=== PATIENT | female | born 1945 | race Two or more races ===

== ENCOUNTER 2023-06-05 12:04 | Outpatient (OUT) | payer MEDICARE, SELFPAY ==
[2023-06-05 12:41] LABS: Estimated Average Glucose 137 mg/dL; Glycohemoglobin A1C 6.4 % (4.5-6.2)
== END 2023-06-05 12:05 | disposition home or self-care (01) ==
LOC: LAB 12:08
PROVIDERS: PCP Family Medicine; Visit Provider Family Medicine
DX: E11.65 Type 2 diabetes mellitus with hyperglycemia (principal)
CPT/HCPCS: 36415; 83036

== ENCOUNTER 2023-11-26 11:45 | Outpatient (OUT) | payer MEDICARE, MEDICAID, SELFPAY ==
[2023-11-26 12:18] LABS: Microalbumin Urine Random <1.3 mg/dL (<=30.0)
[2023-11-26 12:42] LABS: Estimated Average Glucose 194 mg/dL; Glycohemoglobin A1C 8.4 % (4.5-6.2)
[2023-11-26 13:01] LABS: Basophils Absolute Auto 0.1 10^3/uL (0.0-0.1); Basophils Percent Auto 0.5 % (0.2-2.0); Eosinophils Percent Auto 0.3 % (0.9-7.0); Hematocrit 36.3 % (36.0-48.0); Hemoglobin 11.3 g/dL (12.0-16.0); Immature Granulocytes Abs Auto 0.05 10^3/uL (0.00-0.03); Immature Granulocytes Pct Auto 0.4 % (0.0-0.5); Lymphocytes Absolute Auto 2.9 10^3/uL (1.2-3.8); Lymphocytes Percent Auto 20.7 % (20.5-60.0); Mean Corpuscular HGB Conc 31.1 g/dL (29.9-35.2); Mean Corpuscular Hemoglobin 24.2 pg (26.7-34.0); Mean Corpuscular Volume 77.9 fL (81.0-99.0); Monocytes Absolute Auto 0.9 10^3/uL (0.3-0.8); Monocytes Percent Auto 6.3 % (1.7-12.0); Neutrophils Percent Auto 71.8 % (43.0-75.0); Platelet Count 435 10^3/uL (150-450); Red Blood Count 4.66 10^6/uL (4.20-5.40); Red Cell Distribution Width 19.4 % (11.0-15.0); White Blood Count 13.9 10^3/uL (4.0-11.0)
[2023-11-26 14:45] LABS: Alanine Aminotransferase 20 U/L (14-59); Albumin Globulin Ratio 0.9; Albumin Level 3.6 g/dL (3.4-5.0); Alkaline Phosphatase 93 U/L (46-116); Anion Gap 11.1; Aspartate Amino Transferase 12 U/L (15-37); BUN Creatinine Ratio 12.3; Bilirubin Direct 0.1 mg/dL (0.0-0.2); Bilirubin Total 0.3 mg/dL (0.2-1.0); Calcium 9.5 mg/dL (8.5-10.1); Carbon Dioxide 30.1 mmol/L (21.0-32.0); Chloride 101 mmol/L (98-107); Chol HDL Ratio 1.9; Cholesterol 133 mg/dL (<=200); Estimated GFR (African America >60 (>=60); Estimated GFR (Non-African Ame >60 (>=60); Glucose 93 mg/dL (74-106); HDL Cholesterol 69 mg/dL (40-60); Potassium 4.2 mmol/L (3.5-5.1); Sodium 138 mmol/L (136-145); Total Protein 7.6 g/dL (6.4-8.2); Triglycerides 68 mg/dL (<=150); VLDL CHOLESTEROL 13.6 mg/dL
== END 2023-11-26 11:46 | disposition home or self-care (01) ==
PROVIDERS: PCP Family Medicine; Visit Provider Family Medicine
DX: E11.65 Type 2 diabetes mellitus with hyperglycemia (principal); M85.851 Other specified disorders of bone density and structure, right thigh; M85.852 Other specified disorders of bone density and structure, left thigh; I10 Essential (primary) hypertension; Z79.899 Other long term (current) drug therapy; E78.5 Hyperlipidemia, unspecified
CPT/HCPCS: 36415; 80048; 80061; 80076; 82043; 82306; 83036; 85025

== ENCOUNTER 2024-05-26 14:04 | Outpatient (OUT) | payer MEDICARE, MEDICAID, SELFPAY ==
--- NOTE | 2024-05-26 14:37 | XR_ITS ---
The [address] [address] Patient Name: MAC DENIS MRN: [id number] date: 1945 Sex: F Assigned Patient Location: LAB Current Patient Location: Accession/Order Number: [id number] Exam Date: 05/26/2024 14:40 Report Date: 05/27/2024 06:06 At the request of: MARIELOS MANNING Procedure: XR chest 2V EXAMINATION: XR chest 2V HISTORY: Shortness Of Breath , cough COMPARISON: No relevant comparison available. FINDINGS: LUNGS: Mild haziness and stranding within right lung base. VASCULATURE: No increased pulmonary vasculature. PLEURA: No pneumothorax, effusion, or pleural thickening. CARDIAC: No cardiomegaly or cardiac silhouette abnormality. MEDIASTINUM: No visible mass or adenopathy. BONES: No fracture or visible bone lesion. OTHER: Rim calcified breast implants projecting over lung bases. XR/XR chest 2V IMPRESSION: 1. Mild right basilar infiltrates. Electronically authenticated by: SHIRAZ MENA Date: 05/27/2024 06:06
[2024-05-26 14:38] LABS: Basophils Absolute Auto 0.1 10^3/uL (0.0-0.1); Basophils Percent Auto 0.5 % (0.2-2.0); Eosinophils Percent Auto 0.3 % (0.9-7.0); Hematocrit 24.2 % (36.0-48.0); Immature Granulocytes Abs Auto 0.03 10^3/uL (0.00-0.03); Immature Granulocytes Pct Auto 0.3 % (0.0-0.5); Lymphocytes Absolute Auto 2.1 10^3/uL (1.2-3.8); Lymphocytes Percent Auto 18.6 % (20.5-60.0); Mean Corpuscular HGB Conc 26.9 g/dL (29.9-35.2); Mean Corpuscular Hemoglobin 17.3 pg (26.7-34.0); Mean Corpuscular Volume 64.4 fL (81.0-99.0); Mean Platelet Volume 9.2 fL (9.5-13.5); Monocytes Absolute Auto 0.9 10^3/uL (0.3-0.8); Monocytes Percent Auto 7.8 % (1.7-12.0); Neutrophils Percent Auto 72.5 % (43.0-75.0); Platelet Count 337 10^3/uL (150-450); Red Cell Distribution Width 21.4 % (11.0-15.0)
[2024-05-26 15:06] LABS: Estimated Average Glucose 163 mg/dL; Glycohemoglobin A1C 7.3 % (4.5-6.2); Hemoglobin 6.5 g/dL (12.0-16.0)
[2024-05-26 15:08] LABS: Red Blood Count 3.76 10^6/uL (4.20-5.40)
[2024-05-26 15:19] LABS: Alanine Aminotransferase 21 U/L (14-59); Albumin Globulin Ratio 0.9; Albumin Level 3.4 g/dL (3.4-5.0); Alkaline Phosphatase 94 U/L (46-116); Anion Gap 15.2; Aspartate Amino Transferase 18 U/L (15-37); BUN Creatinine Ratio 15.6; Bilirubin Direct 0.1 mg/dL (0.0-0.2); Bilirubin Total 0.4 mg/dL (0.2-1.0); Calcium 8.9 mg/dL (8.5-10.1); Carbon Dioxide 23.7 mmol/L (21.0-32.0); Chloride 106 mmol/L (98-107); Estimated GFR (African America >60 (>=60 mL/min/1.73m^2); Estimated GFR (Non-African Ame >60 (>=60 mL/min/1.73m^2); Globulin 3.9 g/dL; Glucose 69 mg/dL (74-106); Potassium 3.9 mmol/L (3.5-5.1); Sodium 141 mmol/L (136-145); TSH W/ REFLEX FT4 2.535 uIU/mL (0.358-3.740); Total Protein 7.3 g/dL (6.4-8.2)
== END 2024-05-26 14:05 | disposition home or self-care (01) ==
LOC: LAB 14:06
PROVIDERS: PCP Family Medicine; Visit Provider Family Medicine
DX: E11.65 Type 2 diabetes mellitus with hyperglycemia (principal); I10 Essential (primary) hypertension; Z79.899 Other long term (current) drug therapy; R53.83 Other fatigue; R06.02 Shortness of breath; R60.0 Localized edema
CPT/HCPCS: 36415; 71046; 80048; 80076; 83036; 84443; 85025

== ENCOUNTER 2024-05-26 16:40 | Observation (INO) | payer MEDICARE, MEDICAID, SELFPAY ==
[2024-05-26] VITALS (32 sets, daily range): BP systolic 121–155; BP diastolic 57–86; PULSE 82–100; TEMP 36.4–36.8; O2SAT 72–100; BMI 25.4; BMI 26.4
--- NOTE | 2024-05-26 16:57 | ECG_ITS ---
The [facility] Test Date: 2024-05-26 Pat Name: MAC DENIS Department: Room: - Gender: Female [employer]: : 1945 Requested By: MARIELOS MANNING Order Number: [id number] Reading MD: LYLA WOLFE Measurements Intervals [place] Rate: 92 P: 66 [place]: 140 QRS: 65 QRSD: 74 T: 33 QT: 346 QTc: 396 Interpretive Statements 1100 Sinus rhythm 9110 normal ECG Compared to ECG 03/03/2019 12:33:31 No significant changes Electronically Signed On 05-28-2024 8:50:45 EST by LYLA WOLFE
--- OUTSIDE RECORDS SUMMARY | 2024-05-26 17:04 | XMS_ITS | CCD ---
Author Organization [facility] Care Team Providers Care Life Trainer Name Role Phone SELF, REFERRED Referring Unavailable CLAYTON MANNING Primary Care Unavailable RENNO, ANAS Attending Unavailable RENNO, ANAS Admitting Unavailable [place] Procedure Practitioner Unavailab IVANIA Brennan Surgeon Unavailable MD Clayton Manning Primary Care Provider [phone] MARILYN Solomon Attending Provider Willie Herrera Unavailable Hetal Tomlinson Unavailable MD Clayton Manning Primary Care Provider [phone] MARILYN Solomon Attending Provider KERRI, DR CLAYTON Castle Attending Unavailable NADERER, DR CLAYTON Castle Admitting Unavailable NADERER, DR CLAYTON Castle Primary Care Unavailable NADERER, DR CLAYTON Castle Consulting Unavailable NADERER, DR CLAYTON Castle Consulting Unavailable NADEREMarc, DR CLAYTON Castle Attending Unavailable MINNAEREMarc, DR CLAYTON Castle Admitting Unavailable NADERER, DR CLAYTON Castle Primary Care Unavailable NADERER, DR CLAYOTN Castle Attending Unavailable NADERER, DR CLAYTON Castle Admitting Unavailable [place], DR BALTAZAR Gross Consulting Unavailable NADERER, DR CLAYTON Castle Primary Care Unavailable MINNAEREMarc, DR CLAYTON Castle Consulting Unavailable MD Clayton Manning Primary Care Provider MD Willie Herrera Attending Provider [phone] MD Clayton Manning Primary Care Provider MD Willie Herrera Attending Provider ALISA RUFFIN Attending Unavailable CLAYTON MANNING Attending Unavailable ALISA RUFFIN Attending Unavailable ALISA RUFFIN Attending Unavailable CLAYTON MANNING Attending Unavailable Clayton Manning MD Primary Care Provider Willie Herrera Attending Unavailable Clayton Manning Primary Care Unavailable Willie Herrera Admitting Unavailable Willie Herrera Attending Unavailable Clayton Manning Primary Care Unavailable Willie Herrera Admitting Unavailable Medications Current Medications Medication Drug Class(es) Dates Sig (Normalized) Sig (Original) ascorbic acid 1000 mg oral tablet (9 sources) Vitamin C Start: 03-22-2019 take 1 tablet by mouth once daily Ascorbic Acid (Vitamin C) (Vitamin C) 1,000 mg Tablet Active 1 TAB PO Daily March 22, 2019 12:00am aspirin 81 mg chewable tablet (18 sources) Platelet Aggregation Inhibitor, Nonsteroidal Anti-inflammatory Drug Start: 03-24-2017 take 1 tablet by mouth once daily Aspirin (Jannette Chewable Aspirin) 81 mg Tablet,Chewable Active 81 MG PO Daily March 24, 2017 12:00am take 1 tablet by mouth in the mo rning aspirin 81 MG EC tablet Take 81 mg by mouth in the morning. Active atorvastatin 40 mg oral tablet (11 sources) HMG-CoA Reductase Inhibitor Start: 03-26-2023 take 1 tablet by mouth once daily at bedtime atorvastatin (Lipitor) 40 MG tablet Indications: Dyslipidemia (CMS/HCC) TAKE 1 TABLET BY MOUTH EVERYDAY AT BEDTIME 90 tablet 3 03/02/2024 Active calcium carbonate 1500 mg oral tablet (12 sources) Start: 03-24-2017 take 1 tablet by mouth once daily Calcium Carbonate (Calcium 600) 600 mg calcium (1,500 mg) Tablet Active 1 TAB PO Daily March 24, 2017 12:00am clopidogrel 75 mg oral tablet (18 sources) P2Y12 Platelet Inhibitor Start: 12-12-2020 take 1 tablet by mouth once daily clopidogrel (Plavix) 75 MG tablet Indications: Peripheral vascular disease, unspecified (CMS/HCC) TAKE 1 TABLET BY MOUTH EVERY DAY 90 tablet 3 04/07/2024 Active Fish Oils (4 sources) take 1 capsule by mouth once daily Fish Oil 1000 MG 1 capsule Orally Once a day Active furosemide 40 mg oral tablet (3 sources) Loop Diuretic Start: 05-26-2024 take 1 tablet by mouth once daily furosemide (Lasix) 40 MG tablet Indications: Bilateral edema of lower extremity Take 1 tablet (40 mg) by mouth Daily 30 tablet 3 05/26/2024 Active Start: 05-26-2024 take 1 tablet by victor hugo th once daily furosemide (Lasix) 40 MG tablet Indications: Bilateral edema of lower extremity Take 1 tablet (40 mg) by mouth Daily 30 tablet 3 05/26/2024 Active insulin isophane, human 70 unt/ml / insulin, regular, human 30 unt/ml injectable suspension (20 sources) Insulin Start: 03-24-2017 inject 25 [IU] by subcutaneous injection once daily Insulin Nph And Regular Human Active 25 UNITS SUBCUT Daily before supper March 24, 2017 12:00am Start: 03-24-2017 End: 03-26-2023 inject 22 [IU] by subcutaneous injection once daily before breakfast Insulin Nph And Regular Human Discontinued 22 UNITS SUBCUT Daily before breakfast March 24, 2017 12:00am March 26, 2023 9:15am Start: 03-24-2017 inject 16 [IU] by galindo bcutaneous injection once daily Insulin Nph And Regular Human Active 16 UNITS SUBCUT Daily before supper March 24, 2017 12:00am NovoLIN 70/30 (7 0-30) 100 UNIT/ML Subcutaneous 22 units AM, 16 in evening Active 3 ml insulin lispro 25 unt/ml / insulin lispro protamine, human 75 unt/ml pen injector (6 sources) Insulin Analog Start: 03-02-2024 insulin lispro protamine-insulin lispro (HumaLOG MIX 75/25 KWIKPEN) (75-25) 100 UNIT/ML injection Indications: Type 2 diabetes mellitus with hyperglycemia, without long-term current use of insulin (CMS/HCC) Inject 30 Units under the skin in the morning and 30 Units in the evening. Inject with meals. 15 each 5 03/02/2024 Active losartan potassium 25 mg oral tablet (14 sources) Angiotensin 2 Receptor Juan Start: 10-20-2019 take 1 tablet by mouth once daily losartan (Cozaar) 25 MG tablet Indications: Type 2 diabetes mellitus with hyperglycemia (CMS/HCC) TAKE 1 TABLET BY MOUTH EVERY DAY 90 tablet 3 03/02/2024 Active penicillin v potassium 250 mg oral tablet (1 source) take 1 tablet by mouth every twelve hours Penicillin V Potassium 250 MG 1 tablet Orally Twice a day Active Red Yeast Rice Extract (3 sources) Red Yeast Rice E xtract Active Vit D3-Folic Zqpk-J3-A1-B12 (8 sources) Start: 03-24-2017 take 1 tablet by mouth once daily Vit D3-Folic Ogwi-B6-F5-B12 Active 1 TAB PO Daily March 24, 2017 12:13pm Start: 03-24-2017 take 1 tablet by victor hugo th once daily Vit D3-Folic Arap-J0-B5-B12 Active 1 TAB PO Daily March 24, 2017 12:00am Vitamin C 1000 MG (3 sources) take 1 tablet by victor hugo th once daily Vitamin C 1000 MG 1 tablet Orally Once a day Active Vitamin D 2000 UNIT (4 sources) take 1 tablet by victor hugo th once daily Vitamin D 2000 UNIT 1 tablet Orally Once a day Active Completed/Discontinued Medications Medication Drug Class(es) Dates Sig (Normalized) Sig (Original) lisinopril 5 mg oral tablet (12 sources) Angiotensin Converting Enzyme Inhibitor Start: 03-24-2017 End: 10-20-2019 take 1 tablet by mouth once daily Lisinopril Discontinued 1 TAB PO Daily March 24, 2017 12:00am October 20, 2019 9:14am [place] 9-Fbg-Rpo-Fish Oil (Fish Oil) 1,000 mg (120 mg-180 mg) Capsule (8 sources) Start: 03-24-2017 End: 03-22-2019 take 1 tablet by mouth once daily [place] 1-Cqr-Pyu-Fish Oil (Fish Oil) 1,000 mg (120 mg-180 mg) Capsule Discontinued 1 TAB PO Daily March 24, 2017 12:13pm March 22, 2019 12:09pm Start: 03-24-2017 End: 03-22-2019 take 1 tablet by mouth once daily [place] 1-Haz-Fmg-Fish Oil (Fish Oil) 1,000 mg (120 mg-180 mg) Capsule Discontinued 1 TAB PO Daily March 24, 2017 12:00am March 22, 2019 12:09pm simvastatin 20 mg oral tablet (12 sources) HMG-CoA Reductase Inhibitor Start: 03-24-2017 End: 03-22-2019 take 20 mg by mouth once daily Simvastatin Discontinued 20 MG PO Daily March 24, 2017 12:00am March 22, 2019 12:08pm traMADol hydrochloride 50 mg oral tablet (8 sources) Opioid Agonist Start: 04-13-2019 End: 10-20-2019 Tramadol Discontinued 50 MG PO every 6 to 8 hours 20 7 April 13, 2019 12:00am October 20, 2019 9:14am triamcinolone acetonide 40 mg/ml injectable suspension (1 source) Corticosteroid Start: 12-04-2022 Kenalog-40 15 Nov, 2022 40 mg Problems Active Problems Problem Classification Problem Date Documented Da te Episodic/Chronic Anxiety disorders (6 sources) Generalized anxiety disorder; Translations: [Generalized anxiety disorder] Onset: 06-05-2023 06-05-2023 Chronic Diabetes mellitus with complications (12 sources) Type 2 diabetes mellitus with hyperglycemia; Translations: [Hyperglycemia due to type 2 diabetes mellitus] Onset: 05-05-2022 Chronic Disorders of lipid metabolism (6 sources) Dyslipidemia; Translations: [Hyperlipidemia, unspecified] Onset: 06-05-2023 06-05-2023 Chronic Essential hypertension (8 sources) Benign essential hypertension; Translations: [Essential (primary) hypertension] Onset: 06-05-2023 06-05-2023 Chronic Malaise and fatigue (7 sources) Fatigue; Translations: [Other fatigue] Onset: 05-26-2024 05-26-2024 Episodic Occlusion or stenosis of precerebral arteries (20 sources) Carotid artery stenosis; Translations: [Occlusion and stenosis of unspecified carotid artery] Onset: 09-09-2021 Resolved: 09-09-2021 12-28-2020 Chronic Osteoarthritis (8 sources) Chronic osteoarthritis; Translations: [Unspecified osteoarthritis, unspecified site] Onset: 06-05-2023 06-05-2023 Chronic Other circulatory disease (4 sources) Arterial, arteriole and capillary disease; Translations: [Disorder of arteries and arterioles, unspecified] Chronic Other ear and sense organ disorders (8 sources) Sensorineural hearing loss, bilateral; Translations: [Sensorineural hearing loss, bilateral] Onset: 05-26-2023 03-30-2024 Chronic Other lower respiratory disease (7 sources) Dyspnea; Translations: [Shortness of breath] Onset: 05-26-2024 05-26-2024 Episodic Peripheral and visceral atherosclerosis (8 sources) Peripheral vascular disease; Translations: [Peripheral vascular disease, unspecified] Onset: 05-26-2023 05-26-2023 Chronic Residual codes; unclassified (2 sources) Other specified postprocedural states; Translations: [Other postprocedural status] 10-05-2023 Episodic Residual codes; unclassified (7 sources) Bilateral lower limb edema; Translations: [Localized edema] Onset: 05-26-2024 05-26-2024 Episodic Screening and history of mental health and substance abuse codes (4 sources) Ex-smoker; Translations: [Personal history of nicotine dependence] Episodic Past or Other Problems Problem Classification Problem Date Documented Da te Episodic/Chronic Diseases of mouth; excluding dental (1 source) Recurrent oral aphthae Onset: 12-03-2021 Resolved: 12-03-2021 Episodic Other aftercare (1 source) 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; 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] Onset: 05-08-2022 Episodic Other aftercare (8 sources) Long-term current use of drug therapy; Translations: [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] Onset: 11-26-2023 11-26-2023 Episodic Other bone disease and musculoskeletal deformities (6 sources) Osteopenia; Translations: [Other specified disorders of bone density and structure, right thigh] Onset: 06-05-2023 06-05-2023 Episodic Other screening for suspected conditions (not mental disorders or infectious disease) (4 sources) Encounter for screening mammogram for malignant neoplasm of breast; Translations: [ENC SCR MAMMO MALIG NEOPLASM BREAST] Onset: 11-11-2021 Episodic Residual codes; unclassified (1 source) Family history of malignant neoplasm of breast; Translations: [FAMILY HX MALIG NEOPLASM OF BREAST] Onset: 11-14-2021 Episodic Residual codes; unclassified (1 source) Family history of malignant neoplasm of digestive organs; Translations: [FAM HX MALIG NEOPLASM DIGESTIV ORGN] Onset: 11-14-2021 Episodic Results Test Name Value Interpretation Reference Range Facility ALL CBC WITH AUTO DIFFon BASOPHILS ABSOLUTE AUTO 0.1 [facility] Basophils/100 WBC (Bld) 0.5 % 0.2 - 2.0 % [facility] Eosinophils/100 WBC (Bld) 0.3 % Low 0.9 - 7.0 % [facility] Erythrocyte distribution width (RBC) [Ratio] 21.4 % High 11.0 - 15.0 % [facility] Hematocrit (Bld) [Volume fraction] 24.2 % Low 36.0 - 48.0 % [facility] Hemoglobin (Bld) [Mass/Vol] 6.5 g/dL Critically low 12.0 - 16.0 g/dL [facility] Comment on above: RESULTS CALLED TO DR Anushka MANNING AT 1450 IMMATURE GRANULOCYTES ABS AUTO 0.03 [facility] Immature granulocytes/100 WBC (Bld) 0.3 % 0.0 - 0.5 % [facility] Interpretation and review of laboratory results Abnormal [facility] LYMPHOCYTES ABSOLUTE AUTO 2.1 [facility] Lymphocytes/100 WBC (Bld) 18.6 % Low 20.5 - 60.0 % [facility] MCH (RBC) [Entitic mass] 17.3 pg Low 26.7 - 34.0 pg [facility] MCHC (RBC) [Mass/Vol] 26.9 g/dL Low 29.9 - 35.2 g/dL [facility] MCV (RBC) [Entitic vol] 64.4 fL Low 81.0 - 99.0 fL [facility] MONOCYTES ABSOLUTE AUTO 0.9 High [facility] Monocytes/100 WBC (Bld) 7.8 % 1.7 - 12.0 % [facility] NEUTROPHILS ABSOLUTE AUTO 8 High [facility] Neutrophils/100 WBC (Bld) 72.5 % 43.0 - 75.0 % [facility] Platelet mean volume (Bld) [Entitic vol] 9.2 fL Low 9.5 - 13.5 fL [facility] TBH EO # 0 [facility]H PLT 337 [facility] TB RBC 3.76 Low [facility] Comment on above: 2+ ANISOCYTOSIS 2+ HYPCHROMIA 2+ MICROCYTOSIS 1+ OVALOCYTES TBH WBC 11 [facility] US carotid doppler BIon 10-2 US carotid doppler BI [facility] [address] [place] [address] Ultrasound Report Signed Patient: Neha Ashotn MR#: [id number] : 1945 Acct:[id number] Age/Sex: 78 / F ADM Date: 04/18/24 Loc: [facility] Room: Type: [facility] Attending Dr: Willie Herrera MD Ordering Provider: Willie Herrera MD Date of Service: 04/18/24 US/US carotid doppler BI: I65.23 - Occlusion and stenosis of bilateral carotid triny... Copies to: Willie Herrera MD Carotid duplex examination Indication for study: Follow-up known carotid occlusive disease PROCEDURE: Color-flow duplex scanning is used to interrogate the extracranial carotid arterial system bilaterally. The right internal carotid artery has moderate to severe plaque formation with a highest peak systolic velocity of 21 and 22 and an end-diastolic velocity of 36 cm/s. Velocities of the right common carotid artery are normal. The right vertebral artery is patent with antegrade flow. The peak systolic velocity ratios 1.3. There is a significant stenosis in the left common carotid artery where the velocity reaches 565 cm/s. The internal carotid artery shows no hemodynamically significant stenosis with a highest peak systolic velocity of 84 and an end-diastolic velocity of 28 cm/s. There is a left carotid subclavian bypass graft which is patent. The left vertebral artery is patent with antegrade flow. US/US carotid doppler BI IMPRESSION: 50-69% stenosis of the right extracranial internal carotid artery. No hemodynamically significant stenosis of the left extracranial internal carotid artery. Severe stenosis in the left common carotid artery. Patent left carotid to subclavian bypass graft. Both vertebral arteries are patent with antegrade flow. Impression dictated by: Willie Herrera M.D.04/18/2024 11:57 AM Dictation Location: [place] [address] Tech: Kary Fajardo Transcribed By: LOLI 04/18/24 1157 Dictated By: Willie Herrera MD 04/18/241153 Signed By: 04/18/24 1157 Normal [facility] US carotid doppler BIon 04- US carotid doppler BI [facility] [address] [place] [address] Ultrasound Report Signed Patient: Neha Ashton MR#: [id number] : 1945 Acct:[id number] Age/Sex: 78 / F ADM Date: 10/05/23 Loc: [facility] Room: Type: [facility] Attending Dr: Willie Herrera MD Ordering Provider: Willie Herrera MD Date of Service: 10/05/23 US/US carotid doppler BI: I65.23 Copies to: Willie Herrera MD Carotid duplex examination Indication for study: Known carotid occlusive disease PROCEDURE: Color-flow duplex scanning is used to interrogate the extracranial carotid arterial system as well as both vertebral arteries. The right internal carotid artery there is mild plaque formation. The highest peak systolic velocity in the internal carotid artery is 167 with an end- diastolic velocity of 23 cm/s. Velocities of the right common carotid artery are 160 peak systolic and 18 cm/s end-diastolic. The peak systolic velocity ratios 1.0. The right vertebral is patent with antegrade flow. There is a complex anatomy of the left carotid system. There is a background carotid to subclavian bypass as well as stent placement in the left common carotid artery. The bypass graft is noted to be patent. There is no hemodynamically significant stenosis of the internal carotid artery. The highest peak systolic velocity recorded in the internal carotid artery 62 with an end-diastolic velocity of 29 cm/s. There is recurrent stenosis in the common carotid artery at the region of a prior stent and this is stable from the previous examination. Peak systolic velocity there is 605 with an end-diastolic velocity of 66 cm/s. The left vertebral artery is patent with antegrade flow. US/US carotid doppler BI IMPRESSION: 50-69% stenosis of the right internal carotid artery. No hemodynamically significant stenosis of the left internal carotid artery. Patent left subclavian bypass. There is recurrent stenosis in the stented segment of the left common carotid artery which is unchanged from prior exam. Impression dictated by: Willie Herrera M.D.10/05/2023 11:17 AM Dictation Location: [place] [address] Tech: Kary Fajardo Transcribed By: LOLI 10/05/23 111 Dictated By: Willie Herrera MD 10/05/231113 Signed By: 10/05/23 111 Normal [facility] Creatinine [Mass/volume] in Serum or PlasmaOrdered By: Willie Herrera on 03-26-2023 Creatinine [Mass/Vol] 0.76 mg/dL 0.60-1.20 [facility] No Panel InformationOrdered By: Willie Herrera on 03-26-2023 Estimated GFR (CKD-EPI) > 60.0 mL/Min [facility] Creatinine Clearance (Chem 46.62 [facility] Urea nitrogen [Mass/volume] in Serum or PlasmaOrdered By: Willie Herrera on 03-26-2023 Urea nitrogen [Mass/Vol] 18 mg/dL 01-13 [facility] CBC AUTO DIFFon 11-04-2022 BASO # 0.1 103/ul Normal 0.0-0.1 [facility] Comment on above: Performed By: #### C BC #### [facility] [address] [place] [address] [address] Anette Shah Basophils/100 WBC (Bld) 0.4 % Normal 0.2-2.0 [facility] Comment on above: Performed By: #### C BC #### [facility] [address] [place] [address] [address] Anette Shah EO # 0.0 103/ul Normal 0.0-0.7 [facility] Comment on above: Performed By: #### C BC #### [facility] [address] [address] [address] Anette Shah Eosinophils/100 WBC (Bld) 0.1 % Critically low 0.9-7.0 [facility] Comment on above: Performed By: #### C BC #### [facility] [address] [place] [address] Dr. Anette Shah Erythrocyte distribution width (RBC) [Ratio] 18.3 % Critically high 11.0-15.0 [facility] Comment on above: Performed By: #### C BC #### [facility] [address] [place] [address] Dr. Anette Shah Hematocrit (Bld) [Volume fraction] 32.4 % Critically low 36.0-48.0 [facility] Comment on above: Performed By: #### C BC #### [facility] [address] [place] [address] Dr. Anette Shah Hemoglobin (Bld) [Mass/Vol] 10.0 g/dL Critically low 12.0-16.0 [facility] Comment on above: Performed By: #### C BC #### [facility] [address] [place] [address] Dr. Anette Shah IG # 0.05 10e3/ul Critically high 0.00-0.03 [facility] Comment on above: Performed By: #### C BC #### [facility] [address] [place] [address] Dr. Anette Shah IG % 0.4 % Normal 0.0-0.5 [facility] Comment on above: Performed By: #### C BC #### [facility] [address] [place] [address] Dr. Anette Shah LYMPH # 1.8 103/ul Normal 1.2-3.8 [facility] Comment on above: Performed By: #### C BC #### [facility] [address] [place] [address] Dr. Anette Shah Lymphocytes/100 WBC (Bld) 13.1 % Critically low 20.5-60.0 [facility] Comment on above: Performed By: #### C BC #### [facility] [address] [place] [address] Dr. Anette Shah MANUAL DIFF REQ NO Normal [facility] Comment on above: Performed By: #### C BC #### [facility] [address] [place] [address] Dr. Anette Shah MCH (RBC) [Entitic mass] 22.3 pg Critically low 26.7-34.0 [facility] Comment on above: Performed By: #### C BC #### [facility] [address] [place] [address] Dr. Anette Shah MCHC (RBC) [Mass/Vol] 30.9 g/dL Normal 29.9-35.2 [facility] Comment on above: Performed By: #### C BC #### [facility] [address] [place] [address] Dr. Anette Shah MCV (RBC) [Entitic vol] 72.2 fL Critically low 81.0-99.0 [facility] Comment on above: Performed By: #### C BC #### [facility] [address] [place] [address] Dr. Anette Shah MONO # 0.6 103/ul Normal 0.3-0.8 [facility] Comment on above: Performed By: #### C BC #### [facility] [address] [place] [address] Dr. Anette Shah Monocytes/100 WBC (Bld) 4.3 % Normal 1.7-12.0 [facility] Comment on above: Performed By: #### C BC #### [facility] [address] [place] [address] Dr. Anette Shah NEUT # 11.5 103/ul Critically high 1.4-6.5 [facility] Comment on above: Performed By: #### C BC #### [facility] [address] [place] [address] Dr. Anette Shah Neutrophils/100 WBC (Bld) 81.7 % Critically high 43.0-75.0 [facility] Comment on above: Performed By: #### C BC #### [facility] [address] [place] [address] Dr. Anette Shah Platelet mean volume (Bld) [Entitic vol] 8.8 fL Critically low 9.5-13.5 [facility] Comment on above: Performed By: #### C BC #### [facility] [address] [place] [address] Dr. Anette Shah PLT 479 103/ul Critically high 150-450 [facility] Comment on above: Performed By: #### C BC #### [facility] [address] [place] [address] Dr. Anette Shah RBC 4.49 106/ul Normal 4.20-5.40 [facility] Comment on above: Performed By: #### C BC #### [facility] [address] [place] [address] Dr. Anette Shah WBC 14.1 103/ul Critically high 4.0-11.0 [facility] Comment on above: Performed By: #### C BC #### [facility] [address] [place] [address] Dr. Anette Shah GLYCOHEMOGLOBIN A1Con 2022 ADA RECOMMENDATION SEE BELOW Normal [facility] Comment on above: Result Comment: ADA RECOMMENDED LIMIT 4.0 - 6.0 ADA THERAPEUTIC TARGET < 7.0 ACTION SUGGESTED > 7.0 Performed By: #### A 1C #### [facility] [address] [address] [address] Anette Shah Glucose [Mass/Vol] 200 mg/dL Normal [facility] Comment on above: Performed By: #### A 1C #### [facility] [address] [address] [address] Anette Shah HbA1c (Bld) [Mass fraction] 8.6 % Critically high 4.5-6.2 [facility] Comment on above: Performed By: #### A 1C #### [facility] [address] [place] [address] Dr. Anette Shah LIPID PROFILEon 11-04-2022 CHOL-HDL RATIO NORM SEE BELOW Normal [facility] Comment on above: Result Comment: 3.3 - 4.4 LOW RISK 4.4 - 7.1 AVERAGE RISK 7.1 - 11.0 MODERATE RISK >11.0 HIGH RISK Performed By: #### L IPID, BMP, LIVER #### [facility] [address] [address] [address] Anette Shah Cholesterol [Mass/Vol] 123 mg/dL Normal <=200 Th [facility] Comment on above: Performed By: #### L IPID, BMP, LIVER #### [facility] [address] [address] [address] Anette Shah Cholesterol in HDL [Mass/Vol] 61 mg/dL Critically high 40-60 [facility] Comment on above: Performed By: #### L IPID, BMP, LIVER #### [facility] [address] [address] [address] Anette Shah Cholesterol in LDL [Mass/Vol] 35.0 mg/dL Normal [facility] Comment on above: Performed By: #### L IPID, BMP, LIVER #### [facility] [address] [address] [address] Anette Shah Cholesterol.total/Chol esterol in HDL [Mass ratio] 2.0 {ratio} Normal [facility] Comment on above: Performed By: #### L IPID, BMP, LIVER #### [facility] [address] [address] [address] Anette Shah HDL NORMAL > or = 60 mg/dl - LO W CARDIOVASCULAR RISK <40 mg/dl - HIGH CARDIOVASCULAR RISK Normal [facility] Comment on above: Performed By: #### L IPID, BMP, LIVER #### [facility] [address] [address] [address] Anette Shah LDL CALC NORMAL SEE BELOW Normal [facility] Comment on above: Result Comment: <100 mg/dl OPTIMAL 100 - 129 mg/dl NEAR OR ABOVE OPTIMAL 130 - 159 mg/dl BORDERLINE HIGH 160 - 189 mg/dl HIGH >190 mg/dl VERY HIGH Performed By: #### L IPID, BMP, LIVER #### [facility] [address] [address] [address] Anette Shah Triglyceride [Mass/Vol] 135 mg/dL Normal <=150 [facility] Comment on above: Performed By: #### L IPID, BMP, LIVER #### [facility] [address] [address] [address] Anette Shah VLDL CALC 27.0 mg/dL Normal [facility] Comment on above: Performed By: #### L IPID, BMP, LIVER #### [facility] [address] [address] [address] Anette Shah LIVER PROFILEon 11-04-2022 Albumin [Mass/Vol] 3.4 g/dL Normal 3.4-5.0 [facility] Comment on above: Performed By: #### L IPID, BMP, LIVER #### [facility] [address] [address] [address] Anette Shah Albumin/Globulin [Mass ratio] 0.9 {ratio} Normal [facility] Comment on above: Performed By: #### L IPID, BMP, LIVER #### [facility] [address] [address] [address] Anette Shah ALP [Catalytic activity/Vol] 99 U/L Normal 46-116 [facility] Comment on above: Performed By: #### L IPID, BMP, LIVER #### [facility] [address] [address] [address] Anette Shah ALT [Catalytic activity/Vol] 20 U/L Normal 14-59 [facility] Comment on above: Performed By: #### L IPID, BMP, LIVER #### [facility] [address] [address] [address] Anette Shah AST [Catalytic activity/Vol] 16 U/L Normal 15-37 [facility] Comment on above: Performed By: #### L IPID, BMP, LIVER #### [facility] [address] [place] [address] Dr. Anette Shah BILI, CONJUGATED 0.1 mg/dL Normal 0.0-0.2 [facility] Comment on above: Performed By: #### L IPID, BMP, LIVER #### [facility] [address] [place] [address] Dr. Anette Shah Bilirubin [Mass/Vol] 0.3 mg/dL Normal 0.2-1.0 [facility] Comment on above: Performed By: #### L IPID, BMP, LIVER #### [facility] [address] [place] [address] Dr. Anette Shah Globulin (S) [Mass/Vol] 4.0 g/dL Normal [facility] Comment on above: Performed By: #### L IPID, BMP, LIVER #### [facility] [address] [place] [address] Dr. Anette Shah Protein [Mass/Vol] 7.4 g/dL Normal 6.4-8.2 [facility] Comment on above: Performed By: #### L IPID, BMP, LIVER #### [facility] [address] [place] [address] Dr. Anette Shah MICROALBUMIN, RAND URon 05- mALB 1.4 mg/dL Normal <=30.0 [facility] Comment on above: Performed By: #### M ALBR #### [facility] [address] [place] [address] Dr. Anette Shah PROF CHEM 8 (BAS METB)on Anion gap [Moles/Vol] 14.9 mmol/L Normal [facility] Comment on above: Performed By: #### L IPID, BMP, LIVER #### [facility] [address] [address] [address] Anette Shah Calcium [Mass/Vol] 9.2 mg/dL Normal 8.5-10.1 [facility] Comment on above: Performed By: #### L IPID, BMP, LIVER #### [facility] [address] [address] [address] Anette Shah Chloride [Moles/Vol] 101 mmol/L Normal 98-107 [facility] Comment on above: Performed By: #### L IPID, BMP, LIVER #### [facility] [address] [place] [address] Dr. Anette Shah CO2 [Moles/Vol] 26.6 mmol/L Normal 21.0-32.0 [facility] Comment on above: Performed By: #### L IPID, BMP, LIVER #### [facility] [address] [address] [address] Anette Shah Creatinine [Mass/Vol] 0.99 mg/dL Normal 0.55-1.02 [facility] Comment on above: Performed By: #### L IPID, BMP, LIVER #### [facility] [address] [address] [address] Anette Shah EGFR-AF ANDORRAN >60 Normal >=60 [facility] Comment on above: Performed By: #### L IPID, BMP, LIVER #### [facility] [address] [address] [address] Anette Shah EGFR-NON AF ANDORRAN 54 mL/min/1.73m2 Critically low >=60 [facility] Comment on above: Performed By: #### L IPID, BMP, LIVER #### [facility] [address] [address] [address] Anette Shah Glucose [Mass/Vol] 215 mg/dL Critically high 74-106 [facility] Comment on above: Performed By: #### L IPID, BMP, LIVER #### [facility] [address] [address] [address] Anette Shah Potassium [Moles/Vol] 4.5 mmol/L Normal 3.5-5.1 [facility] Comment on above: Performed By: #### L IPID, BMP, LIVER #### [facility] [address] [address] [address] Anette Shah Sodium [Moles/Vol] 138 mmol/L Normal 136-145 [facility] Comment on above: Performed By: #### L IPID, BMP, LIVER #### [facility] [address] [address] [address] Anette Shah Urea nitrogen [Mass/Vol] 13.0 mg/dL Normal 7.0-18.0 [facility] Comment on above: Performed By: #### L IPID, BMP, LIVER #### [facility] [address] [address] [address] Anette Shah Urea nitrogen/Creatinine [Mass ratio] 13.1 mg/mg Normal [facility] Comment on above: Performed By: #### L IPID, BMP, LIVER #### [facility] [address] [address] [address] Anette Shah Creatinine (Bld) [Mass/Vol]O rdered By: Rashida Solomon on 09-08-2022 Creatinine [Mass/Vol] 0.7 mg/dL 0.6-1.3 [facility] Comment on above: ER/ESD physician is notified/shown all ISTAT results.Critical values may be confirmed by laboratory testing ifdeemed necessary by ER attending doctor. GLYCOHEMOGLOBIN A1Con 2021 ADA RECOMMENDATION SEE BELOW Normal [facility] Comment on above: Result Comment: ADA RECOMMENDED LIMIT 4.0 - 6.0 ADA THERAPEUTIC TARGET < 7.0 ACTION SUGGESTED > 7.0 Performed By: #### A 1C #### [facility] [address] [address] [address] Anette Shah Glucose [Mass/Vol] 186 mg/dL Normal [facility] Comment on above: Performed By: #### A 1C #### [facility] [address] [place], [place] [address] Dr. Anette Shah HbA1c (Bld) [Mass fraction] 8.1 % Critically high 4.5-6.2 [facility] Comment on above: Performed By: #### A 1C #### [facility] [address] [place], [place] [address] Dr. Anette Shah MG MAMM SCREEN 3D SMITH CADon 11-11-2021 MG MAMM SCREEN 3D SMITH CAD Patient: NEHA ASHTON Exam Date: 11/11/2021 : 1945 Gender:F Ordering : DR CLAYTON MANNING . Admission #: [id number] Family : Order #: [id number] CLICK HERE TO VIEW EXAM RADIOLOGY REPORT PROCEDURE: MAMMOGRAM SCREENING 3D BILATERAL CAD COMPARISON: MG MAMM SCREEN 3D SMITH CAD, 11/09/2020. MG MAMM SMITH SCRN W CAD DIG, 06/19/2016. INDICATIONS: Screening mammography Calculator Name NCI Breast Cancer Risk Assessment Tool 5 Year Breast Cancer Risk 3.10% Lifetime Breast Cancer Risk 5.50% Personal Breast Cancer No Personal Ovarian Cancer No Treatments None Family Cancers Mother with breast cancer at age 70; Brother with throat cancer at age 52. LOCATION: [facility] BREAST COMPOSITION: Scattered areas fibroglandular density. FINDINGS: DIAGNOSTIC CATEGORY 2--BENIGN FINDING. NO CHANGE FROM COMPARISON. Scattered benign-appearing nodules are present. Scattered benign-appearing calcifications are present. Scattered benign-appearing lymph nodes are present. Additional mammographic views were obtained for breast implant evaluation and show benign capsular calcifications, bilateral irregular implant contour, stable, consistent with intracapsular rupture. RIGHT BREAST: No significant suspicious finding. LEFT BREAST: No significant suspicious finding. RECOMMENDATIONS: ROUTINE MAMMOGRAM AND CLINICAL EVALUATION IN 12 MONTHS. PLEASE NOTE: A NORMAL MAMMOGRAM DOES NOT EXCLUDE THE POSSIBILITY OF BREAST CANCER. A CLINICALLY SUSPICIOUS PALPABLE LUMP SHOULD BE BIOPSIED. Dictated by: Baltazar Iglesias MD on 11/11/2021 at 09:58 Approved by: Baltazar Iglesias MD on 11/11/2021 at 10:00 Normal [facility] HIP RIGHT 1 OR 2 VWS WITH PE LVISon 10-20-2018 HIP RIGHT 1 OR 2 VWS WITH PELVIS [facility] Department of Radiology [address] [place] [address] Patient Name: NEHA ASHTON : 1945 Sex: F Age: Race: White Pt. Location: Patient Status: Ordered Date: 10/20/2018 10:35:00 AM Completed Date: 10/20/2018 10:39 AM Requesting Provider: CHARLY LINDSEY Attending Provider: Report Copy To: Signs & Symptoms: S72.041D Disp fx of base of nk of r femr, 7thD I10 History: [place] Comments: , Views (X-RAY, HIP): Radiologic Protocol , Weight Bearing?: N , Views (X-RAY, HIP): Radiologic Protocol , Weight Bearing?: N , , , Ordering Provider - CHARLY LINDSEY PA-C , Exam: HIP RIGHT 1 OR 2 VWS WITH PELVIS HIP RIGHT 1 OR 2 VWS WITH PELVIS 10/20/2018 10:39 AM EDT SIGNS AND SYMPTOMS: S72.041D Disp fx of base of nk of r femr, 7thD I10 TECHNOLOGIST COMMENTS: ortho follow up rt hip replacement 04/30/18 QUESTION FOR THE RADIOLOGIST: , Views (X-RAY, HIP): Radiologic Protocol , Weight Bearing?: N , Views (X-RAY, HIP): Radiologic Protocol , Weight Bearing?: N , , , Ordering Provider - CHARLY LINDSEY PA-C , PROTOCOL: AP(PA) and Lateral views were obtained. 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 Transcribed by: [email or web address], User Resident: Electronically Signed by: EARNEST GO @ 10/20/2018 11:37 AM Normal [facility] Comment on above: Order Comment: , Vie ws (X-RAY, HIP): Radiologic Protocol , Weight Bearing?: N , Views (X-RAY, HIP): Radiologic Protocol , Weight Bearing?: N , , , Ordering Provider - CHARLY LINDSEY PA-C , C REACTIVE PROTEINon 019 CRP [Mass/Vol] 4.3 mg/L Normal 0.0-7.0 [facility] Comment on above: Performed By: #### 8 [id number] #### [facility] [address] [place] [address], [facility] CBC W/DIFFon 09-28-2018 ABS BASOPHILS 0.1 10*3/uL Normal 0.0-0.2 [facility] Comment on above: Performed By: #### 6 2586 #### [facility] [address] [place] [address], [facility] ABS NEUTROPHILS 8.2 10*3/uL High 1.6-7.6 [facility] Comment on above: Performed By: #### 6 2586 #### [facility] [address] [facility] [place] [address], [facility] Basophils/100 WBC (Bld) 0.9 % Normal 0.0-1.0 [facility] Comment on above: Performed By: #### 6 2586 #### [facility] [address] [place] [address], [facility] Eosinophils (Bld) [#/Vol] 0.1 10*3/uL Normal 0.0-0.5 [facility] Comment on above: Performed By: #### 6 2586 #### [facility] [address] [place] [address], [facility] Eosinophils/100 WBC (Bld) 0.9 % Normal 0.0-6.0 [facility] Comment on above: Performed By: #### 6 2586 #### [facility] [address] [place] [address], [facility] Erythrocyte distribution width (RBC) [Ratio] 15.9 % High 11.5-15.0 [facility] Comment on above: Performed By: #### 6 2586 #### [facility] [address] [place] [address], [facility] GIANT PLATELETS Present Normal [facility] Comment on above: Performed By: #### 6 2586 #### [facility] [address] [place] [address], [facility] Hematocrit (Bld) [Volume fraction] 39.3 % Normal 36.0-45.0 [facility] Comment on above: Performed By: #### 6 2586 #### [facility] [address] [place] [address], [facility] Hemoglobin (Bld) [Mass/Vol] 13.3 g/dL Normal 12.0-15.0 [facility] Comment on above: Performed By: #### 6 2586 #### [facility] [address] [place] [address], [place] Lymphocytes (Bld) [#/Vol] 3.3 10*3/uL Normal 1.2-4.0 [facility] Comment on above: Performed By: #### 6 2586 #### [facility] [address] [place] [address], [facility] Lymphocytes/100 WBC (Bld) 27.5 % Normal 20.0-45.0 [facility] Comment on above: Performed By: #### 6 2586 #### [facility] [address] [place] [address], [facility] MCH (RBC) [Entitic mass] 28.4 pg Normal 27.0-33.0 [facility] Comment on above: Performed By: #### 6 2586 #### [facility] [address] [facility] [place] [address], [facility] MCHC (RBC) [Mass/Vol] 33.8 g/dL Normal 32.0-35.0 [facility] Comment on above: Performed By: #### 6 2586 #### [facility] [address] [place] [address], [facility] MCV (RBC) [Entitic vol] 84.0 fL Normal 82.0-98.0 [facility] Comment on above: Performed By: #### 6 2586 #### [facility] [address] [place] [address], [facility] Monocytes (Bld) [#/Vol] 0.3 10*3/uL Normal 0.1-1.0 [facility] Comment on above: Performed By: #### 6 2586 #### [facility] [address] [place] [address], [facility] MONOS 2.8 % Low 5.0-12.0 [facility] Comment on above: Performed By: #### 6 2586 #### [facility] [address] [place] [address], [facility] Neutrophils/100 WBC (Bld) 67.9 % Normal 40.0-72.0 [facility] Comment on above: Performed By: #### 6 2586 #### [facility] [address] [place] [address], [facility] Nucleated RBC/100 WBC (Bld) [Ratio] 0 % Normal 0-0 [facility] Comment on above: Performed By: #### 6 2586 #### [facility] [address] [facility] [place] [address], [facility] PLAT CNT 392 10*3/uL Normal 150-400 [facility] Comment on above: Performed By: #### 6 2586 #### [facility] [address] [facility] [address], [facility] RBC (Bld) [#/Vol] 4.68 10*6/uL Normal 3.80-5.00 [facility] Comment on above: Performed By: #### 6 2586 #### [facility] [address] [facility] [address], [facility] WBC (Bld) [#/Vol] 12.03 10*3/uL High 4.00-10.60 [facility] Comment on above: Performed By: #### 6 2586 #### [facility] [address] HIP RIGHT 1 OR 2 VWS WITH PE LVISon 09-28-2018 HIP RIGHT 1 OR 2 VWS WITH PELVIS [facility] Department of Radiology [address] [place] [id number] Patient Name: NEHA ASHTON : 1945 Sex: F Age: Race: White Pt. Location: 84 Patient Status: O Ordered Date: 09/28/2018 1:10:00 PM Completed Date: 09/28/2018 01:09 PM Requesting Provider: FRANCESCA BUSH Attending Provider: FRANCESCA BUSH Report Copy To: CLAYTON MANNING Signs & Symptoms: S72.041D Disp fx of base of nk of r femr, 7thD I10 History: [place] Comments: , , , Ordering Provider - FRANCESCA BUSH PA-C , Exam: HIP RIGHT 1 OR 2 VWS WITH PELVIS HIP RIGHT 1 OR 2 VWS WITH PELVIS 09/28/2018 1:09 PM EDT SIGNS AND SYMPTOMS: S72.041D Disp fx of base of nk of r femr, 7thD I10 TECHNOLOGIST COMMENTS: right hip f/u QUESTION FOR THE RADIOLOGIST: , , , Ordering Provider - FRANCESCA RACHELLE PA-C , PROTOCOL: AP(PA) and Lateral views were obtained. COMPARISON: June 30, 2018 FINDINGS: Soft tissues: Unchanged Bones: Unchanged Joints: Unchanged IMPRESSION: Right hemiarthroplasty in satisfactory alignment Electronically signed by:Earnest Go. Transcribed by: [email or web address], User Resident: Electronically Signed by: EARNEST GO @ 09/28/2018 03:23 PM Normal [facility] Comment on above: Order Comment: , , = ========= , Ordering Provider - FRANCESCA RACHELLE PA-C , SEDIMENTATION RATEon 019 SED RATE 18 mm/hr Normal 0-20 [facility] Comment on above: Performed By: #### [address] #### [place] [address], [facility] HIP RIGHT 1 OR 2 VWS WITH PE LVISon 06-30-2018 HIP RIGHT 1 OR 2 VWS WITH PELVIS [facility] Department of Radiology [address] [place] [id number] Patient Name: NEHA ASHTON : 1945 Sex: F Age: Race: White Pt. Location: Patient Status: O Ordered Date: 06/30/2018 12:50:00 PM Completed Date: 06/30/2018 12:59 PM Requesting Provider: FRANCESCA BUSH Attending Provider: FRANCESCA BUSH Report Copy To: CLAYTON MANNING Signs & Symptoms: S72.041D Disp fx of base of nk of r femr, 7thD I10 History: [place] Comments: , Views (X-RAY, HIP): Radiologic Protocol , Views (X-RAY, HIP): Radiologic Protocol , , , Ordering Provider - FRANCESCA BUSH PA-C , Exam: HIP RIGHT 1 OR 2 VWS WITH PELVIS HIP RIGHT 1 OR 2 VWS WITH PELVIS 06/30/2018 12:59 PM EST SIGNS AND SYMPTOMS: S7.D Disp fx of base of nk of r femr, D I10 TECHNOLOGIST COMMENTS: right hip pain check hardware injury and surgery 2 months ago QUESTION FOR THE RADIOLOGIST: , Views (X-RAY, HIP): Radiologic Protocol , Views (X-RAY, HIP): Radiologic Protocol , , , Ordering Provider - FRANCESCA BUSH PA-C , PROTOCOL: AP(PA) and Lateral views were obtained. COMPARISON: May 19, 2018 FINDINGS: Right hip hemiarthroplasty. No periprosthetic fracture or loosening. Alignment unchanged. Mild degenerative changes in the left hip joint space with joint space narrowing. Degenerative changes lower lumbar spine and SI joints. IMPRESSION: 1. Right hip hemiarthroplasty. No periprosthetic fracture or loosening. Alignment unchanged Electronically signed by:Houston Interiano. Transcribed by: [email or web address], User Resident: Electronically Signed by: HOUSTON INTERIANO @ 06/30/2018 02:43 PM Normal [facility] Comment on above: Order Comment: , Vie ws (X-RAY, HIP): Radiologic Protocol , Views (X-RAY, HIP): Radiologic Protocol , , , Ordering Provider - FRANCESCA BUSH PA-C , HIP RIGHT 1 OR 2 VWS WITH PE LVISon 05-19-2018 HIP RIGHT 1 OR 2 VWS WITH PELVIS [facility] Department of Radiology [address] [place] [id number] Patient Name: NEHA ASHTON : 1945 Sex: F Age: Race: White Pt. Location: Patient Status: Ordered Date: 05/19/2018 9:30:00 AM Completed Date: 05/19/2018 09:35 AM Requesting Provider: CHARLY LINDSEY Attending Provider: Report Copy To: Signs & Symptoms: S72.001D Fx unsp part of nk of r femr, subs for clos fx w routn heal I10 History: [place] Comments: , Views (X-RAY, HIP): Radiologic Protocol , Weight Bearing?: N , With or Without Brace/Cast/Collar: With , Views (X-RAY, HIP): Radiologic Protocol , Weight Bearing?: N , With or Without Brace/Cast/Collar: With , , , Ordering Provider - CHARLY LINDSEY PA-C , Exam: HIP RIGHT 1 OR 2 VWS WITH PELVIS HIP RIGHT 1 OR 2 VWS WITH PELVIS 05/19/2018 9:35 AM EST SIGNS AND SYMPTOMS: S72.001D Fx unsp part of nk of r femr, subs for clos fx w routn heal I10 TECHNOLOGIST COMMENTS: right hip replacement 04/30/2018 QUESTION FOR THE RADIOLOGIST: , Views (X-RAY, HIP): Radiologic Protocol , Weight Bearing?: N , With or Without Brace/Cast/Collar: With , Views (X-RAY, HIP): Radiologic Protocol , Weight Bearing?: N , With ...More In Sending System PROTOCOL: AP(PA) and Lateral views were obtained. COMPARISON: April 30, 2018 FINDINGS: Soft tissues: Healing with some residual swelling Bones: Moderate osteoporosis Joints: Right hemiarthroplasty in good alignment Minor arthritis elsewhere IMPRESSION: Healing right hemiarthroplasty Electronically signed by:Earnest Go. Transcribed by: [email or web address], User Resident: Electronically Signed by: EARNEST GO @ 05/19/2018 01:47 PM Normal [facility] Comment on above: Order Comment: , Andrey ws (X-RAY, HIP): Radiologic Protocol , Weight Bearing?: N , With or Without Brace/Cast/Collar: With , Views (X-RAY, HIP): Radiologic Protocol , Weight Bearing?: N , With or Without Brace/Cast/Collar: With , , , Ordering Provider - CHARLY LINDSEY PA-C , Operative Reporton 8 Operative Report MR#: [id number] I [facility] Pt. Name: Neha Ashton Room #: [id number] Discharge 05/04/2018 Date: Birthdate: 1945 OPERATIVE REPORT DATE OF SURGERY: 04/30/2018 SURGEON: Ivania Baltazar M.D. ASSISTANTS: 1. Bj Be M.D. 2. Celso Baum M.D. 3. Willy Burk M.D. PREOPERATIVE DIAGNOSIS: Right displaced femoral neck fracture. POSTOPERATIVE DIAGNOSIS: Right displaced femoral neck fracture. PROCEDURE PERFORMED: Right hip bipolar hemiarthroplasty. ANESTHESIA: General. FLUIDS: Per anesthesia protocol. BLOOD LOSS: 150 mL. COMPLICATIONS: None. SPECIMENS: None. IMPLANTS: Biomet bipolar hip hemiarthroplasty. OPERATIVE INDICATIONS: This is a 72-year-old female who presented to us 1 day prior with the aforementioned injury. We discussed all surgical options with the patient and the family and they are amenable to proceeding. All risks, benefits, and alternatives were discussed. Informed consent was obtained. OPERATION IN DETAIL: The patient was greeted in the preoperative holding area. Informed consent was confirmed. The right lower extremity was marked by the operating surgeon. The patient was brought to the OR where general anesthesia was smoothly induced. Right lower extremity was prepped and draped in the usual sterile fashion. Time-out procedure was performed. The patient was placed in the left lateral decubitus position with the right hip facing upwards. The incision was then carried out extending from the greater trochanter in a curvilinear fashion posterior across the buttock. A knife was used to incise the skin through the subcutaneous tissues. We then used Bovie down to the level of the fascia johan. This was then incised using Metzenbaum scissors and was taken down to the bursa, which was removed utilizing a periosteal elevator as well as from the short external rotators and hip and they were placed on stretch. Bovie was then used to remove the short external rotators from the greater trochanter, which revealed the joint capsule. The joint capsule was then clearly incised creating a C-shape incision. Fracture hematoma was noted upon entering the joint capsule as well as the subcapital hip fracture. Corkscrew was then used to remove the fractured femoral head, which was sized on the back table. All bony remnants were removed from the acetabulum and the surrounding soft tissue with a rongeur. The acetabulum was then inspected and found to be clear. Attention was then turned to the proximal femur where we used an oscillating saw to recut the femoral neck. A box osteotome was then used to remove the bone from the proximal femur. A starting awl was then used to open the femoral canal paying close attention to keep the awl in the lateral position. Next, attention was turned to broaching, initially size 4 was used and we broached up to a size 9 making efforts to lateralize the broach then the femoral canal. We found that 9 was the most satisfactory size. We then trialed the bipolar acetabulum component which we found 44 to be the most appropriate. We then removed the broach and placed our final implant size 9 with a 44 bipolar head. This was reduced into the joint and was stable through range of motion. We then copiously irrigated with normal sterile saline and Betadine solution followed by normal sterile saline. The capsule was then closed using #1 Ethibond [id number] fashion as well as the short external rotators. Next, the fascia johan was repaired using [id number] #1 Vicryl. Subcutaneous tissue was then closed with 0 Vicryl followed by 2-0 Vicryl interrupted fashion followed by 3-0 Novafil. Dry sterile dressing was then placed. The patient was placed in a hip abduction pillow and was awoken from anesthesia without complications. Returned to the PACU in good condition. Dr. Baltazar was present for all critical portions of the procedure. He made all critical decisions regarding this patient. Electronically Signed by: Ivania Baltazar M.D. 05/14/2018 12:14 P Ivania Baltazar M.D. I was present for the rao and critical portions and I was otherwise immediately available to assist. Date Dict: 05/05/2018/08:47 P/Bj Be M.D. Date Trans: 05/06/2018 04:41 Tin/leesa [id number] cc: Clayton Manning M.D. [address] [place] [address] Normal [facility] CBC W/DIFFon 05-04-2018 ABS BASOPHILS 0.0 10*3/uL Normal 0.0-0.2 [facility] Comment on above: Order Comment: No: D o not add to previous draw Performed By: #### 6 2586 #### [facility] [address] [facility] [place] [address], [facility] ABS IMM GRANS 0.1 10*3/uL Normal 0.0-0.2 [facility] Comment on above: Order Comment: No: D o not add to previous draw Performed By: #### 6 2586 #### [facility] [address] [place] [address], [facility] ABS NEUTROPHILS 7.9 10*3/uL High 1.6-7.6 [facility] Comment on above: Order Comment: No: D o not add to previous draw Performed By: #### 6 2586 #### [facility] [address] [facility] [place] [address], [facility] Basophils/100 WBC (Bld) 0.2 % Normal 0.0-1.0 [facility] Comment on above: Order Comment: No: D o not add to previous draw Performed By: #### 6 2586 #### [facility] [address] [place] [address], [facility] Eosinophils (Bld) [#/Vol] 0.1 10*3/uL Normal 0.0-0.5 [facility] Comment on above: Order Comment: No: D o not add to previous draw Performed By: #### 6 2586 #### [facility] [address] [place] [address], [facility] Eosinophils/100 WBC (Bld) 0.8 % Normal 0.0-6.0 [facility] Comment on above: Order Comment: No: D o not add to previous draw Performed By: #### 6 2586 #### [facility] [address] [place] [address], [facility] Erythrocyte distribution width (RBC) [Ratio] 13.4 % Normal 11.5-15.0 [facility] Comment on above: Order Comment: No: D o not add to previous draw Performed By: #### 6 2586 #### [facility] [address] [place] [address], [facility] Hematocrit (Bld) [Volume fraction] 24.1 % Low 36.0-45.0 [facility] Comment on above: Order Comment: No: D o not add to previous draw Performed By: #### 6 2586 #### [facility] [address] [place] [address], [facility] Hemoglobin (Bld) [Mass/Vol] 8.4 g/dL Low 12.0-15.0 [facility] Comment on above: Order Comment: No: D o not add to previous draw Performed By: #### 6 2586 #### [facility] [address] [facility] [place] [address], [facility] IMMATURE GRANS 0.5 % Normal 0.0-1.0 [facility] Comment on above: Order Comment: No: D o not add to previous draw Performed By: #### 6 2586 #### [facility] [address] [place] [address], [facility] Lymphocytes (Bld) [#/Vol] 1.7 10*3/uL Normal 1.2-4.0 [facility] Comment on above: Order Comment: No: D o not add to previous draw Performed By: #### 6 2586 #### [facility] [address] [place] [address], [facility] Lymphocytes/100 WBC (Bld) 16.2 % Low 20.0-45.0 [facility] Comment on above: Order Comment: No: D o not add to previous draw Performed By: #### 6 2586 #### [facility] [address] [place] [id number], [facility] MCH (RBC) [Entitic mass] 29.8 pg Normal 27.0-33.0 [facility] Comment on above: Order Comment: No: D o not add to previous draw Performed By: #### 6 2586 #### [facility] [address] [place] [address], [facility] MCHC (RBC) [Mass/Vol] 34.9 g/dL Normal 32.0-35.0 [facility] Comment on above: Order Comment: No: D o not add to previous draw Performed By: #### 6 2586 #### [facility] [address] [place] [address], [facility] MCV (RBC) [Entitic vol] 85.5 fL Normal 82.0-98.0 [facility] Comment on above: Order Comment: No: D o not add to previous draw Performed By: #### 6 2586 #### [facility] [address] [place] [address], [facility] Monocytes (Bld) [#/Vol] 0.7 10*3/uL Normal 0.1-1.0 [facility] Comment on above: Order Comment: No: D o not add to previous draw Performed By: #### 6 2586 #### [facility] [address] [place] [id number], [facility] MONOS 6.4 % Normal 5.0-12.0 [facility] Comment on above: Order Comment: No: D o not add to previous draw Performed By: #### 6 2586 #### [facility] [address] [place] [address], [facility] Neutrophils/100 WBC (Bld) 75.9 % High 40.0-72.0 [facility] Comment on above: Order Comment: No: D o not add to previous draw Performed By: #### 6 2586 #### [facility] [address] [place] [address], [facility] Nucleated RBC/100 WBC (Bld) [Ratio] 0 % Normal 0-0 [facility] Comment on above: Order Comment: No: D o not add to previous draw Performed By: #### 6 2586 #### [facility] [address] [place] [address], [facility] PLAT CNT 335 10*3/uL Normal 150-400 [facility] Comment on above: Order Comment: No: D o not add to previous draw Performed By: #### 6 2586 #### [facility] [address] [place] [id number], [facility] RBC (Bld) [#/Vol] 2.82 10*6/uL Low 3.80-5.00 [facility] Comment on above: Order Comment: No: D o not add to previous draw Performed By: #### 6 2586 #### [facility] [address] [place] [address], [facility] WBC (Bld) [#/Vol] 10.40 10*3/uL Normal 4.00-10.60 [facility] Comment on above: Order Comment: No: D o not add to previous draw Performed By: #### 6 2586 #### [facility] [address] POC GLUCOSE LABon 05-04-2018 Glucose [Mass/Vol] 196 mg/dL High 70-100 [facility] Comment on above: Performed By: #### 6 2586 #### [facility] [address] [place] [address], [facility] Glucose [Mass/Vol] 128 mg/dL High 70-100 [facility] Comment on above: Performed By: #### 6 2586 #### [facility] [address] [place] [address], [facility] BASIC METABOLIC PANELon 04-22 Calcium [Mass/Vol] 8.2 mg/dL Low 8.6-10.3 [facility] Comment on above: Order Comment: No: D o not add to previous draw Performed By: #### 0 0071, [id number] #### [facility] [address] [place] [id number], [facility] Chloride [Moles/Vol] 101 mmol/L Normal 98-107 [facility] Comment on above: Order Comment: No: D o not add to previous draw Performed By: #### 0 70, [id number] #### [facility] [address] [place] [address], [place] CO2 [Moles/Vol] 25 mmol/L Normal 21-31 [facility] Comment on above: Order Comment: No: D o not add to previous draw Performed By: #### 0 70, [id number] #### [facility] [address] [place] [address], [place] Creatinine [Mass/Vol] 0.49 mg/dL Low 0.60-1.20 [facility] Comment on above: Order Comment: No: D o not add to previous draw Performed By: #### 0 007, 43685 #### [facility] [address] [place] [address], [place] GFR/1.73 sq M predicted among blacks MDRD (S/P/Bld) [Vol rate/Area] mL/min/{1.73_m2} Normal >60 [facility] Comment on above: Order Comment: No: D o not add to previous draw Result Comment: Calc ulation may not be valid for patients over 70 years Performed By: #### 0 007, [id number] #### [facility] [address] [place] [address], [place] GFR/1.73 sq M predicted among non-blacks MDRD (S/P/Bld) [Vol rate/Area] mL/min/{1.73_m2} Normal >60 [facility] Comment on above: Order Comment: No: D o not add to previous draw Result Comment: Calc ulation may not be valid for patients over 70 years Performed By: #### 0 007, 95219 #### [facility] [address] [place] [address], [place] Glucose [Mass/Vol] 114 mg/dL High 70-100 [facility] Comment on above: Order Comment: No: D o not add to previous draw Performed By: #### 0 70, #### [facility] [address] [place] [address], [facility] Potassium [Moles/Vol] 3.8 mmol/L Normal 3.5-5.1 [facility] Comment on above: Order Comment: No: D o not add to previous draw Performed By: #### 0 70, #### [facility] [address] [place] [address], [facility] Sodium [Moles/Vol] 133 mmol/L Low 136-145 [facility] Comment on above: Order Comment: No: D o not add to previous draw Performed By: #### 0 70, #### [facility] [address] [place] [address], [facility] Urea nitrogen [Mass/Vol] 10 mg/dL Normal 7-25 [facility] Comment on above: Order Comment: No: D o not add to previous draw Performed By: #### 0 70, #### [facility] [address] [place] [address], [facility] CBC COMPLETE BLOOD COUNTon 07-03-2017 Erythrocyte distribution width (RBC) [Ratio] 13.6 % Normal 11.5-15.0 [facility] Comment on above: Order Comment: No: D o not add to previous draw Performed By: #### 0 70, #### [facility] [address] [place] [address], [place] Hematocrit (Bld) [Volume fraction] 25.0 % Low 36.0-45.0 [facility] Comment on above: Order Comment: No: D o not add to previous draw Performed By: #### 0 70, [id number] #### [facility] [address] [place] [address], [place] Hemoglobin (Bld) [Mass/Vol] 8.5 g/dL Low 12.0-15.0 [facility] Comment on above: Order Comment: No: D o not add to previous draw Performed By: #### 0 70, #### [facility] [address] [place] [address], [facility] MCH (RBC) [Entitic mass] 29.1 pg Normal 27.0-33.0 [facility] Comment on above: Order Comment: No: D o not add to previous draw Performed By: #### 0 70, #### [facility] [address] [place] [address], [facility] MCHC (RBC) [Mass/Vol] 34.0 g/dL Normal 32.0-35.0 [facility] Comment on above: Order Comment: No: D o not add to previous draw Performed By: #### 0 70, #### [facility] [address] [place] [address], [facility] MCV (RBC) [Entitic vol] 85.6 fL Normal 82.0-98.0 [facility] Comment on above: Order Comment: No: D o not add to previous draw Performed By: #### 0 70, #### [facility] [address] [facility]. [address] Nucleated RBC/100 WBC (Bld) [Ratio] 0 % Normal 0-0 [facility] Comment on above: Order Comment: No: D o not add to previous draw Performed By: #### 0 70, #### [facility] [address] [place] [address], [facility] PLAT CNT 323 10*3/uL Normal 150-400 [facility] Comment on above: Order Comment: No: D o not add to previous draw Performed By: #### 0 70, #### [facility] [address] [place] [address], [facility] RBC (Bld) [#/Vol] 2.92 10*6/uL Low 3.80-5.00 [facility] Comment on above: Order Comment: No: D o not add to previous draw Performed By: #### 0 70, [id number] #### [facility] [address] [facility] [place] [address], [facility] WBC (Bld) [#/Vol] 13.97 10*3/uL High 4.00-10.60 [facility] Comment on above: Order Comment: No: D o not add to previous draw Performed By: #### 0 70, [id number] #### [facility] [address] [facility] [place] [address], [facility] CBC W/DIFFon 05-03-2018 ABS BASOPHILS 0.0 10*3/uL Normal 0.0-0.2 [facility] Comment on above: Order Comment: No: D o not add to previous draw Performed By: #### 0 70, [id number] #### [facility] [address] [facility] [place] [address], [facility] ABS IMM GRANS 0.1 10*3/uL Normal 0.0-0.2 [facility] Comment on above: Order Comment: No: D o not add to previous draw Performed By: #### 0 70, 68700 #### [facility] [address] [facility] [place] [address], [facility] ABS NEUTROPHILS 8.4 10*3/uL High 1.6-7.6 [facility] Comment on above: Order Comment: No: D o not add to previous draw Performed By: #### 0 70, 20486 #### [facility] [address] [facility]. [place] [id number], [facility] Basophils/100 WBC (Bld) 0.3 % Normal 0.0-1.0 [facility] Comment on above: Order Comment: No: D o not add to previous draw Performed By: #### 0 70, 15223 #### [facility] [address] [place] [id number], [facility] Eosinophils (Bld) [#/Vol] 0.1 10*3/uL Normal 0.0-0.5 [facility] Comment on above: Order Comment: No: D o not add to previous draw Performed By: #### 0 70, #### [facility] [address] [place] [address], [facility] Eosinophils/100 WBC (Bld) 0.4 % Normal 0.0-6.0 [facility] Comment on above: Order Comment: No: D o not add to previous draw Performed By: #### 0 70, #### [facility] [address] Erythrocyte distribution width (RBC) [Ratio] 13.4 % Normal 11.5-15.0 [facility] Comment on above: Order Comment: No: D o not add to previous draw Performed By: #### 0 70, #### [facility] [address] Hematocrit (Bld) [Volume fraction] 24.5 % Low 36.0-45.0 [facility] Comment on above: Order Comment: No: D o not add to previous draw Performed By: #### 0 70, #### [facility] [address] Hemoglobin (Bld) [Mass/Vol] 8.4 g/dL Low 12.0-15.0 [facility] Comment on above: Order Comment: No: D o not add to previous draw Performed By: #### 0 70, #### [facility] [address] [place] [address], [facility] IMMATURE GRANS 0.4 % Normal 0.0-1.0 [facility] Comment on above: Order Comment: No: D o not add to previous draw Performed By: #### 0 70, #### [facility] [address] [place] [address], [facility] Lymphocytes (Bld) [#/Vol] 2.2 10*3/uL Normal 1.2-4.0 [facility] Comment on above: Order Comment: No: D o not add to previous draw Performed By: #### 0 70, #### [facility] [address] [place] [address], [facility] Lymphocytes/100 WBC (Bld) 18.6 % Low 20.0-45.0 [facility] Comment on above: Order Comment: No: D o not add to previous draw Performed By: #### 0 70, #### [facility] [address] [place] [address], [facility] MCH (RBC) [Entitic mass] 29.3 pg Normal 27.0-33.0 [facility] Comment on above: Order Comment: No: D o not add to previous draw Performed By: #### 0 70, #### [facility] [address] [facility] [place] [address], [facility] MCHC (RBC) [Mass/Vol] 34.3 g/dL Normal 32.0-35.0 [facility] Comment on above: Order Comment: No: D o not add to previous draw Performed By: #### 0 70, #### [facility] [address] [place] [address], [facility] MCV (RBC) [Entitic vol] 85.4 fL Normal 82.0-98.0 [facility] Comment on above: Order Comment: No: D o not add to previous draw Performed By: #### 0 70, #### [facility] [address] [facility] [place] [address], [facility] Monocytes (Bld) [#/Vol] 0.9 10*3/uL Normal 0.1-1.0 [facility] Comment on above: Order Comment: No: D o not add to previous draw Performed By: #### 0 70, #### [facility] [address] [place] [address], [place] MONOS 7.7 % Normal 5.0-12.0 [facility] Comment on above: Order Comment: No: D o not add to previous draw Performed By: #### 0 70, #### [facility] [address] [place] [address], [place] Neutrophils/100 WBC (Bld) 72.6 % High 40.0-72.0 [facility] Comment on above: Order Comment: No: D o not add to previous draw Performed By: #### 0 70, #### [facility] [address] [place] [address], [place] Nucleated RBC/100 WBC (Bld) [Ratio] 0 % Normal 0-0 [facility] Comment on above: Order Comment: No: D o not add to previous draw Performed By: #### 0 70, #### [facility] [address] [place] [address], [place] PLAT CNT 293 10*3/uL Normal 150-400 [facility] Comment on above: Order Comment: No: D o not add to previous draw Performed By: #### 0 70, #### [facility] [address] [place] [address], [place] RBC (Bld) [#/Vol] 2.87 10*6/uL Low 3.80-5.00 [facility] Comment on above: Order Comment: No: D o not add to previous draw Performed By: #### 0 70, #### [facility] [address] [place] [address], [place] WBC (Bld) [#/Vol] 11.62 10*3/uL High 4.00-10.60 [facility] Comment on above: Order Comment: No: D o not add to previous draw Performed By: #### 0 70, #### [facility] [address] [place] [address], [place] MAGNESIUM BLOODon 05-03-2018 Magnesium [Mass/Vol] 2.0 mg/dL Normal 1.9-2.7 [facility] Comment on above: Performed By: #### 0 70, #### [facility] [address] [place] [address], [place] POC GLUCOSE LABon 05-03-2018 Glucose [Mass/Vol] 179 mg/dL High 70-100 [facility] Comment on above: Performed By: #### 0 70, #### [facility] [address] [place] [address], [place] Glucose [Mass/Vol] 143 mg/dL High 70-100 [facility] Comment on above: Performed By: #### 0 70, #### [facility] [address] [place] [address], [place] Glucose [Mass/Vol] 284 mg/dL High 70-100 [facility] Comment on above: Performed By: #### 0 70, #### [facility] [address] [place] [address], [place] Glucose [Mass/Vol] 117 mg/dL High 70-100 [facility] Comment on above: Performed By: #### 0 70, #### [facility] [address] [place] [address], [place] BASIC METABOLIC PANELon 04-22 Calcium [Mass/Vol] 8.5 mg/dL Low 8.6-10.3 [facility] Comment on above: Order Comment: No: D o not add to previous draw Performed By: #### 0 70, [id number] #### [facility] [address] [place] [address], [place] Chloride [Moles/Vol] 102 mmol/L Normal 98-107 [facility] Comment on above: Order Comment: No: D o not add to previous draw Performed By: #### 0 70, 99075 #### [facility] [address] [place] [address], [place] CO2 [Moles/Vol] 23 mmol/L Normal 21-31 [facility] Comment on above: Order Comment: No: D o not add to previous draw Performed By: #### 0 70, 66439 #### [facility] [address] [place] [address], [place] Creatinine [Mass/Vol] 0.49 mg/dL Low 0.60-1.20 [facility] Comment on above: Order Comment: No: D o not add to previous draw Performed By: #### 0 70, [id number] #### [facility] [address] [place] [address], [place] GFR/1.73 sq M predicted among blacks MDRD (S/P/Bld) [Vol rate/Area] mL/min/{1.73_m2} Normal >60 [facility] Comment on above: Order Comment: No: D o not add to previous draw Result Comment: Calc ulation may not be valid for patients over 70 years Performed By: #### 0 70, 60385 #### [facility] [address] [place] [address], [place] GFR/1.73 sq M predicted among non-blacks MDRD (S/P/Bld) [Vol rate/Area] mL/min/{1.73_m2} Normal >60 [facility] Comment on above: Order Comment: No: D o not add to previous draw Result Comment: Calc ulation may not be valid for patients over 70 years Performed By: #### 0 70, [id number] #### [facility] [address] [place] [address], [place] Glucose [Mass/Vol] 172 mg/dL High 70-100 [facility] Comment on above: Order Comment: No: D o not add to previous draw Performed By: #### 0 70, 88628 #### [facility] [address] [place] [address], [facility] Potassium [Moles/Vol] 4.0 mmol/L Normal 3.5-5.1 [facility] Comment on above: Order Comment: No: D o not add to previous draw Performed By: #### 0 70, 18407 #### [facility] [address] [place] [address], [place] Sodium [Moles/Vol] 133 mmol/L Low 136-145 [facility] Comment on above: Order Comment: No: D o not add to previous draw Performed By: #### 0 70, 26855 #### [facility] [address] [place] [address], [facility] Urea nitrogen [Mass/Vol] 9 mg/dL Normal 7-25 [facility] Comment on above: Order Comment: No: D o not add to previous draw Performed By: #### 0 70, #### [facility] [address] [place] [address], [facility] CBC COMPLETE BLOOD COUNTon 07-02-2017 Erythrocyte distribution width (RBC) [Ratio] 13.4 % Normal 11.5-15.0 [facility] Comment on above: Order Comment: No: D o not add to previous draw Performed By: #### 0 70, [id number] #### [facility] [address] [place] [address], [facility] Hematocrit (Bld) [Volume fraction] 25.7 % Low 36.0-45.0 [facility] Comment on above: Order Comment: No: D o not add to previous draw Performed By: #### 0 70, [id number] #### [facility] [address] [place] [address], [facility] Hemoglobin (Bld) [Mass/Vol] 9.0 g/dL Low 12.0-15.0 [facility] Comment on above: Order Comment: No: D o not add to previous draw Performed By: #### 0 70, #### [facility] [address] [facility] [address] MCH (RBC) [Entitic mass] 29.8 pg Normal 27.0-33.0 [facility] Comment on above: Order Comment: No: D o not add to previous draw Performed By: #### 0 70, #### [facility] [address] [facility]. [address] MCHC (RBC) [Mass/Vol] 35.0 g/dL Normal 32.0-35.0 [facility] Comment on above: Order Comment: No: D o not add to previous draw Performed By: #### 0 70, #### [facility] [address] [facility]. [address] MCV (RBC) [Entitic vol] 85.1 fL Normal 82.0-98.0 [facility] Comment on above: Order Comment: No: D o not add to previous draw Performed By: #### 0 70, #### [facility] [address] [facility]. [address] Nucleated RBC/100 WBC (Bld) [Ratio] 0 % Normal 0-0 [facility] Comment on above: Order Comment: No: D o not add to previous draw Performed By: #### 0 70, #### [facility] [address] [facility] [place] [address], [facility] PLAT CNT 267 10*3/uL Normal 150-400 [facility] Comment on above: Order Comment: No: D o not add to previous draw Performed By: #### 0 70, #### [facility] [address] [facility] [place] [address], [facility] RBC (Bld) [#/Vol] 3.02 10*6/uL Low 3.80-5.00 [facility] Comment on above: Order Comment: No: D o not add to previous draw Performed By: #### 0 0071, [id number] #### [address] WBC (Bld) [#/Vol] 13.23 10*3/uL High 4.00-10.60 [facility] Comment on above: Order Comment: No: D o not add to previous draw Performed By: #### 0 0071, [id number] #### [address] CHEST AND LATERALon 05-02-20 18 CHEST AND LATERAL [facility] Department of Radiology [address] [place] [id number] Patient Name: NEHA ASHTON : 1945 Sex: F Age: Race: White Pt. Location: [id number] Patient Status: I Ordered Date: 05/02/2018 9:40:00 AM Completed Date: 05/02/2018 11:03 AM Requesting Provider: PATITO BROOKS Attending Provider: LILA NORRIS Report Copy To: Signs & Symptoms: Elevated WBC History: Patient history not available Comments: R/O Infiltrates Exam: CHEST AND LATERAL CHEST AND LATERAL 05/02/2018 11:03 AM EST SIGNS AND SYMPTOMS: Elevated WBC TECHNOLOGIST COMMENTS: order states elevated wbc pt is short of breath QUESTION FOR THE RADIOLOGIST: R/O Infiltrates PROTOCOL: AP(PA) and Lateral views were obtained. COMPARISON: Chest x-ray April 29, 2018 FINDINGS: Upright AP and lateral chest radiograph. The cardiomediastinal silhouette is normal in size. The trachea is midline. No focal pulmonary consolidation, pleural effusion, or pneumothorax. IMPRESSION: No acute cardiopulmonary abnormality. Approved by:Pam Morel on 05/02/2018 11:26 AM EST. I, Ricardo Parry, have reviewed the images and report and concur with these findings. Electronically signed by:Ricardo Parry. Transcribed by: [email or web address], User Resident: PAM MOREL Electronically Signed by: RICARDO PARRY @ 05/02/2018 03:04 PM I personally read this/these film(s) with this resident Normal [facility] Comment on above: Order Comment: R/O I nfiltrates MAGNESIUM BLOODon 05-02-2018 Magnesium [Mass/Vol] 1.7 mg/dL Low 1.9-2.7 [facility] Comment on above: Order Comment: No: D o not add to previous draw Performed By: #### 0 007, [id number] #### [facility] [address] [place] [address], [place] POC GLUCOSE LABon 05-02-2018 Glucose [Mass/Vol] 192 mg/dL High 70-100 [facility] Comment on above: Performed By: #### 0 007, 54789 #### [facility] [address] [place] [address], [place] Glucose [Mass/Vol] 94 mg/dL Normal 70-100 [facility] Comment on above: Performed By: #### 0 0071, 09129 #### [facility] [address] [place] [address], [place] Glucose [Mass/Vol] 176 mg/dL High 70-100 [facility] Comment on above: Performed By: #### 0 0071, 63397 #### [facility] [address] [place] [address], [place] Glucose [Mass/Vol] 163 mg/dL High 70-100 [facility] Comment on above: Performed By: #### 0 0071, 24093 #### [facility] [address] [place] [address], [facility] BASIC METABOLIC PANELon 11- Calcium [Mass/Vol] 7.9 mg/dL Low 8.6-10.3 [facility] Comment on above: Order Comment: No: D o not add to previous draw Performed By: #### 5 6101 #### [facility] [address] [place] [address], [place] Chloride [Moles/Vol] 102 mmol/L Normal 98-107 [facility] Comment on above: Order Comment: No: D o not add to previous draw Performed By: #### 5 6101 #### [facility] [address] [place] [address], [place] CO2 [Moles/Vol] 23 mmol/L Normal 21-31 [facility] Comment on above: Order Comment: No: D o not add to previous draw Performed By: #### 5 6101 #### [facility] [address] [place] [address], [place] Creatinine [Mass/Vol] 0.64 mg/dL Normal 0.60-1.20 [facility] Comment on above: Order Comment: No: D o not add to previous draw Performed By: #### 5 6101 #### [facility] [address] [place] [address], [place] GFR/1.73 sq M predicted among blacks MDRD (S/P/Bld) [Vol rate/Area] mL/min/{1.73_m2} Normal >60 [facility] Comment on above: Order Comment: No: D o not add to previous draw Result Comment: Calc ulation may not be valid for patients over 70 years Performed By: #### 5 6101 #### [facility] [address] [place] [address], [place] GFR/1.73 sq M predicted among non-blacks MDRD (S/P/Bld) [Vol rate/Area] mL/min/{1.73_m2} Normal >60 [facility] Comment on above: Order Comment: No: D o not add to previous draw Result Comment: Calc ulation may not be valid for patients over 70 years Performed By: #### 5 6101 #### [facility] [address] [place] [address], [place] Glucose [Mass/Vol] 202 mg/dL High 70-100 [facility] Comment on above: Order Comment: No: D o not add to previous draw Performed By: #### 5 6101 #### [facility] [address] [place] [address], [place] Potassium [Moles/Vol] 4.1 mmol/L Normal 3.5-5.1 [facility] Comment on above: Order Comment: No: D o not add to previous draw Performed By: #### 5 6101 #### [facility] [address] [place] [address], [place] Sodium [Moles/Vol] 130 mmol/L Low 136-145 [facility] Comment on above: Order Comment: No: D o not add to previous draw Performed By: #### 5 6101 #### [facility] [address] [place] [address], [place] Urea nitrogen [Mass/Vol] 12 mg/dL Normal 7-25 [facility] Comment on above: Order Comment: No: D o not add to previous draw Performed By: #### 5 6101 #### [facility] [address] [place] [address], [place] CBC COMPLETE BLOOD COUNTon 07-01-2017 Erythrocyte distribution width (RBC) [Ratio] 13.7 % Normal 11.5-15.0 [facility] Comment on above: Order Comment: No: D o not add to previous draw Performed By: #### 5 6101 #### [facility] [address] [place] [address], [facility] Hematocrit (Bld) [Volume fraction] 28.4 % Low 36.0-45.0 [facility] Comment on above: Order Comment: No: D o not add to previous draw Performed By: #### 5 6101 #### [facility] [address] [place] [address], [facility] Hemoglobin (Bld) [Mass/Vol] 9.7 g/dL Low 12.0-15.0 [facility] Comment on above: Order Comment: No: D o not add to previous draw Performed By: #### 5 6101 #### [facility] [address] [place] [id number], [facility] MCH (RBC) [Entitic mass] 29.4 pg Normal 27.0-33.0 [facility] Comment on above: Order Comment: No: D o not add to previous draw Performed By: #### 5 6101 #### [facility] [address] [place] [id number], [facility] MCHC (RBC) [Mass/Vol] 34.2 g/dL Normal 32.0-35.0 [facility] Comment on above: Order Comment: No: D o not add to previous draw Performed By: #### 5 6101 #### [facility] [address] [facility] [place] [address], [facility] MCV (RBC) [Entitic vol] 86.1 fL Normal 82.0-98.0 [facility] Comment on above: Order Comment: No: D o not add to previous draw Performed By: #### 5 6101 #### [facility] [address] [facility] [place] [id number], [facility] Nucleated RBC/100 WBC (Bld) [Ratio] 0 % Normal 0-0 [facility] Comment on above: Order Comment: No: D o not add to previous draw Performed By: #### 5 6101 #### [facility] [address] [place] [address], [place] PLAT CNT 304 10*3/uL Normal 150-400 [facility] Comment on above: Order Comment: No: D o not add to previous draw Performed By: #### 5 6101 #### [facility] [address] [place] [address], [place] RBC (Bld) [#/Vol] 3.30 10*6/uL Low 3.80-5.00 [facility] Comment on above: Order Comment: No: D o not add to previous draw Performed By: #### 5 6101 #### [facility] [address] [place] [address], [place] WBC (Bld) [#/Vol] 12.22 10*3/uL High 4.00-10.60 [facility] Comment on above: Order Comment: No: D o not add to previous draw Performed By: #### 5 1 #### [facility] [address] [place] [address], [place] POC GLUCOSE LABon 05-01-2018 Glucose [Mass/Vol] 216 mg/dL High 70-100 [facility] Comment on above: Performed By: #### 0 70, [id number] #### [facility] [address] [place] [address], [place] Glucose [Mass/Vol] 255 mg/dL High 70-100 [facility] Comment on above: Performed By: #### 0 70, 06534 #### [facility] [address] [place] [address], [place] Glucose [Mass/Vol] 270 mg/dL High 70-100 [facility] Comment on above: Performed By: #### 0 007, 69041 #### [facility] [address] [place] [address], [place] Glucose [Mass/Vol] 168 mg/dL High 70-100 [facility] Comment on above: Performed By: #### 5 6101 #### [facility] [address] [place] [address], [place] Glucose [Mass/Vol] 292 mg/dL High 70-100 [facility] Comment on above: Performed By: #### 5 6101 #### [facility] [address] [place] [address], [place] BASIC METABOLIC PANELon 11-0 Calcium [Mass/Vol] 9.1 mg/dL Normal 8.6-10.3 [facility] Comment on above: Order Comment: No: D o not add to previous draw Performed By: #### 5 6101 #### [facility] [address] [place] [address], [place] Chloride [Moles/Vol] 104 mmol/L Normal 98-107 [facility] Comment on above: Order Comment: No: D o not add to previous draw Performed By: #### 5 6101 #### [facility] [address] [place] [address], [place] CO2 [Moles/Vol] 22 mmol/L Normal 21-31 [facility] Comment on above: Order Comment: No: D o not add to previous draw Performed By: #### 5 6101 #### [facility] [address] [place] [address], [place] Creatinine [Mass/Vol] 0.59 mg/dL Low 0.60-1.20 [facility] Comment on above: Order Comment: No: D o not add to previous draw Performed By: #### 5 6101 #### [facility] [address] [place] [address], [place] GFR/1.73 sq M predicted among blacks MDRD (S/P/Bld) [Vol rate/Area] mL/min/{1.73_m2} Normal >60 [facility] Comment on above: Order Comment: No: D o not add to previous draw Result Comment: Calc ulation may not be valid for patients over 70 years Performed By: #### 5 6101 #### [facility] [address] [place] [address], [facility] GFR/1.73 sq M predicted among non-blacks MDRD (S/P/Bld) [Vol rate/Area] mL/min/{1.73_m2} Normal >60 [facility] Comment on above: Order Comment: No: D o not add to previous draw Result Comment: Calc ulation may not be valid for patients over 70 years Performed By: #### 5 6101 #### [facility] [address] [place] [address], [facility] Glucose [Mass/Vol] 112 mg/dL High 70-100 [facility] Comment on above: Order Comment: No: D o not add to previous draw Performed By: #### 5 6101 #### [facility] [address] [place] [address], [facility] Potassium [Moles/Vol] 4.3 mmol/L Normal 3.5-5.1 [facility] Comment on above: Order Comment: No: D o not add to previous draw Performed By: #### 5 6101 #### [facility] [address] [place] [address], [facility] Sodium [Moles/Vol] 137 mmol/L Normal 136-145 [facility] Comment on above: Order Comment: No: D o not add to previous draw Performed By: #### 5 6101 #### [facility] [address] [facility] [place] [id number], [facility] Urea nitrogen [Mass/Vol] 8 mg/dL Normal 7-25 [facility] Comment on above: Order Comment: No: D o not add to previous draw Performed By: #### 5 6101 #### [facility] [address] [place] [id number], [facility] CBC W/DIFFon 04-30-2018 ABS BASOPHILS 0.0 10*3/uL Normal 0.0-0.2 [facility] Comment on above: Order Comment: No: D o not add to previous draw Performed By: #### 5 0103 #### [facility] [address] [place] [address], [facility] ABS IMM GRANS 0.1 10*3/uL Normal 0.0-0.2 [facility] Comment on above: Order Comment: No: D o not add to previous draw Performed By: #### 5 0103 #### [facility] [address] [place] [address], [facility] ABS NEUTROPHILS 8.7 10*3/uL High 1.6-7.6 [facility] Comment on above: Order Comment: No: D o not add to previous draw Performed By: #### 5 0103 #### [facility] [address] [place] [address], [facility] Basophils/100 WBC (Bld) 0.2 % Normal 0.0-1.0 [facility] Comment on above: Order Comment: No: D o not add to previous draw Performed By: #### 5 0103 #### [facility] [address] [place] [address], [facility] Eosinophils (Bld) [#/Vol] 0.0 10*3/uL Normal 0.0-0.5 [facility] Comment on above: Order Comment: No: D o not add to previous draw Performed By: #### 5 0103 #### [facility] [address] [place] [address], [facility] Eosinophils/100 WBC (Bld) 0.2 % Normal 0.0-6.0 [facility] Comment on above: Order Comment: No: D o not add to previous draw Performed By: #### 5 0103 #### [facility] [address] [place] [address], [facility] Erythrocyte distribution width (RBC) [Ratio] 13.6 % Normal 11.5-15.0 [facility] Comment on above: Order Comment: No: D o not add to previous draw Performed By: #### 5 0103 #### [facility] [address] [place] [address], [facility] Hematocrit (Bld) [Volume fraction] 37.7 % Normal 36.0-45.0 [facility] Comment on above: Order Comment: No: D o not add to previous draw Performed By: #### 5 3 #### [facility] [address] [place] [address], [facility] Hemoglobin (Bld) [Mass/Vol] 13.0 g/dL Normal 12.0-15.0 [facility] Comment on above: Order Comment: No: D o not add to previous draw Performed By: #### 5 3 #### [facility] [address] [place] [address], [facility] IMMATURE GRANS 0.4 % Normal 0.0-1.0 [facility] Comment on above: Order Comment: No: D o not add to previous draw Performed By: #### 5 3 #### [facility] [address] [place] [address], [facility] Lymphocytes (Bld) [#/Vol] 2.4 10*3/uL Normal 1.2-4.0 [facility] Comment on above: Order Comment: No: D o not add to previous draw Performed By: #### 5 3 #### [facility] [address] [facility] [place] [address], [facility] Lymphocytes/100 WBC (Bld) 19.6 % Low 20.0-45.0 [facility] Comment on above: Order Comment: No: D o not add to previous draw Performed By: #### 5 3 #### [facility] [address] [place] [address], [facility] MCH (RBC) [Entitic mass] 29.5 pg Normal 27.0-33.0 [facility] Comment on above: Order Comment: No: D o not add to previous draw Performed By: #### 5 3 #### [facility] [address] [place] [address], [facility] MCHC (RBC) [Mass/Vol] 34.5 g/dL Normal 32.0-35.0 [facility] Comment on above: Order Comment: No: D o not add to previous draw Performed By: #### 5 0103 #### [facility] [address] [place] [id number], [facility] MCV (RBC) [Entitic vol] 85.5 fL Normal 82.0-98.0 [facility] Comment on above: Order Comment: No: D o not add to previous draw Performed By: #### 5 0103 #### [facility] [address] [place] [address], [facility] Monocytes (Bld) [#/Vol] 0.8 10*3/uL Normal 0.1-1.0 [facility] Comment on above: Order Comment: No: D o not add to previous draw Performed By: #### 5 0103 #### [facility] [address] [place] [id number], [facility] MONOS 6.9 % Normal 5.0-12.0 [facility] Comment on above: Order Comment: No: D o not add to previous draw Performed By: #### 5 3 #### [facility] [address] [place] [address], [facility] Neutrophils/100 WBC (Bld) 72.7 % High 40.0-72.0 [facility] Comment on above: Order Comment: No: D o not add to previous draw Performed By: #### 5 0103 #### [facility] [address] [place] [address], [facility] Nucleated RBC/100 WBC (Bld) [Ratio] 0 % Normal 0-0 [facility] Comment on above: Order Comment: No: D o not add to previous draw Performed By: #### 5 0103 #### [facility] [address] [facility]. [address] PLAT CNT 317 10*3/uL Normal 150-400 [facility] Comment on above: Order Comment: No: D o not add to previous draw Performed By: #### 5 0103 #### [facility] [address] [place] [address], [facility] RBC (Bld) [#/Vol] 4.41 10*6/uL Normal 3.80-5.00 [facility] Comment on above: Order Comment: No: D o not add to previous draw Performed By: #### 5 0103 #### [facility] [address] [facility] [place] [address], [facility] WBC (Bld) [#/Vol] 12.02 10*3/uL High 4.00-10.60 [facility] Comment on above: Order Comment: No: D o not add to previous draw Performed By: #### 5 0103 #### [facility] [address] [facility]. [address] History and Physicalon 04-30 History and Physical MR#: [id number] [facility] Pt. Name: Neha Ashton Admitted: 04/29/2018 Date of : 1945 Attending Physician: Zaire Bojorquez MD Room #: [id number] Discharge Date: HISTORY AND PHYSICAL CHIEF COMPLAINT: Right femur fracture. HISTORY OF PRESENT ILLNESS: This patient is a 72-year-old female with past medical history of diabetes and hypertension, who was brought to the emergency room due to right femur fracture. The patient stated that she fell while she was pushing a shopping cart; the wheels of the cart locked out and she fell down with the shopping cart; she landed on her right femur. After that, she developed severe pain, however, she decided to go back home. At home she tripped and fell one more time due pain and landed on her left femur. She called 911 and they took her to [facility]. At the [facility], femur x-ray showed acute subcapital right femur neck fracture with mild displacement. They decided to send her to our facility for surgical intervention. The patient denies any history of fracture or osteoporosis. The patient denied head trauma or loss of consciousness. The patient was evaluated by the Ortho in the emergency, and decided for surgical intervention tomorrow. Labs showed leukocytosis of 17.9. EKG was unremarkable. Chest x-ray was unremarkable. REVIEW OF SYSTEMS: Fourteen review of system was reviewed and negative except as mentioned in HPI. PAST MEDICAL HISTORY: Hypertension and insulin-dependent diabetes. PAST SURGICAL HISTORY: Right rotator cuff injury. SOCIAL HISTORY: Active smoker, she smokes half a pack for a day for past 20 to 25 years. Denies heavy alcohol use. Denies illicit drug use. FAMILY HISTORY: Negative for osteoporosis. ALLERGIES: NKDA. PHYSICAL EXAM: VITAL SIGNS: Temperature 98, heart rate 88, blood pressure 93/55, and saturation 100% on room air. GENERAL: Alert and oriented, not in acute distress. HEENT: Atraumatic and normocephalic. EOMI. PERRLA. NECK: Supple and nontender. CARDIOVASCULAR: Normal rate, regular rhythm. No murmur. RESPIRATORY: Lungs are clear to auscultation bilaterally. GI: Soft, nondistended, and nontender. EXTREMITIES: No pitting edema. Tenderness on the right femur. No open wound is seen. MUSCULOSKELETAL: Normal strength. SKIN: Warm to touch. No rashes. ASSESSMENT: 1. Acute subcapital right neck femur fracture with mild displacement. 2. Leukocytosis, likely reactive. 3. Insulin-dependent diabetes. 4. Hypertension. PLAN: The patient is going for surgery tomorrow. Keep the patient n.p.o. after midnight. We will control her pain with [place]. We will put the patient on insulin sliding scale. We will hold her lisinopril on surgery day and restart next day after surgery. We will check vitamin D level. We will put the patient on calcium and vitamin D maintenance therapy. The patient was told to have a DEXA scan as an outpatient for osteoporosis screening. DVT prophylaxis. PT/OT. We will encourage incentive spirometery. We will consult manager social work for rehab placement. The patient is low risk for orthopedic surgery. Electronically Signed by: Zaire Bojorquez MD 04/30/2018 11:12 P Zaire Bojorquez MD Date Dict: 04/29/2018/10:06 P/Zaire Bojorquez MD Date Trans: 04/29/2018 11:11 P/mmo [id number] Normal [facility] MAGNESIUM BLOODon 04-30-2018 Magnesium [Mass/Vol] 1.8 mg/dL Low 1.9-2.7 [facility] Comment on above: Order Comment: No: D o not add to previous draw Performed By: #### 5 6101 #### [facility] [address] [place] [address], [facility] POC GLUCOSE LABon 04-30-2018 Glucose [Mass/Vol] 137 mg/dL High 70-100 [facility] Comment on above: Performed By: #### 5 6101 #### [facility] [address] [facility] [place] [address], [facility] Glucose [Mass/Vol] 132 mg/dL High 70-100 [facility] Comment on above: Performed By: #### 5 6101 #### [facility] [address] [place] [address], [facility] Glucose [Mass/Vol] 108 mg/dL High 70-100 [facility] Comment on above: Performed By: #### 8 5499 #### [facility] [address] [facility] [place] [address], [facility] Glucose [Mass/Vol] 94 mg/dL Normal 70-100 [facility] Comment on above: Performed By: #### 8 5499 #### [facility] [address] [place] [address], [facility] PORTABLE HIP RIGHT 1 OR 2 VW S WITH PELVISon 04-30-2018 PORTABLE HIP RIGHT 1 OR 2 VWS WITH PELVIS [facility] Department of Radiology [address] [place] [address] Patient Name: NEHA ASHTON : 1945 Sex: F Age: Race: White Pt. Location: [id number] Patient Status: I Ordered Date: 04/30/2018 3:35:00 PM Completed Date: 04/30/2018 04:04 PM Requesting Provider: WILLY BURK Attending Provider: JEREMÍAS BARTHOLOMEW Report Copy To: Signs & Symptoms: Post OP History: Patient history not available Comments: Hardware Evaluation, currently in PACU Exam: PORTABLE HIP RIGHT 1 OR 2 VWS WITH PELVIS PORTABLE HIP RIGHT 1 OR 2 VWS WITH PELVIS 04/30/2018 4:04 PM EST SIGNS AND SYMPTOMS: Post OP TECHNOLOGIST COMMENTS: post op hardware evaluation, right hip. QUESTION FOR THE RADIOLOGIST: Hardware Evaluation, currently in PACU PROTOCOL: AP(PA) and Lateral views were obtained. COMPARISON: None FINDINGS: Soft tissues: Expected postoperative soft tissue swelling and emphysema about the right hip. Surgical drain is in place. Bones: Postoperative changes of right hip hemiarthroplasty. Joints: Right hip hemiarthroplasty in satisfactory alignment. Degenerative spurring also noted about the left hip. IMPRESSION: * Status post right hip hemiarthroplasty with expected postoperative soft tissue changes. Approved by:Omari Nath on 04/30/2018 4:11 PM EST. I, Ricardo Parry, have reviewed the images and report and concur with these findings. Electronically signed by:Ricardo Parry. Transcribed by: [email or web address], User Resident: LYLA NATH Electronically Signed by: RICARDO PARRY @ 05/01/2018 01:15 PM I personally read this/these film(s) with this resident Normal [facility] Comment on above: Order Comment: Hardw are Evaluation, currently in PACU BASIC METABOLIC PANELon 11-0 Calcium [Mass/Vol] 9.2 mg/dL Normal 8.6-10.3 [facility] Comment on above: Performed By: #### 0 0071, [id number] #### [facility] [address] [place] [address], [place] Chloride [Moles/Vol] 102 mmol/L Normal 98-107 [facility] Comment on above: Performed By: #### 0 0071, 92935 #### [facility] [address] [place] [address], [place] CO2 [Moles/Vol] 27 mmol/L Normal 21-31 [facility] Comment on above: Performed By: #### 0 0071, 10659 #### [facility] [address] [place] [address], [place] Creatinine [Mass/Vol] 0.64 mg/dL Normal 0.60-1.20 [facility] Comment on above: Performed By: #### 0 0071, [id number] #### [facility] [address] [place] [address], [place] GFR/1.73 sq M predicted among blacks MDRD (S/P/Bld) [Vol rate/Area] mL/min/{1.73_m2} Normal >60 [facility] Comment on above: Result Comment: Calc ulation may not be valid for patients over 70 years Performed By: #### 0 0071, 35931 #### [facility] [address] [place] [address], [place] GFR/1.73 sq M predicted among non-blacks MDRD (S/P/Bld) [Vol rate/Area] mL/min/{1.73_m2} Normal >60 [facility] Comment on above: Result Comment: Calc ulation may not be valid for patients over 70 years Performed By: #### 0 0071, 78536 #### [facility] [address] [place] [address], [facility] Glucose [Mass/Vol] 60 mg/dL Low 70-100 [facility] Comment on above: Performed By: #### 0 007, 85466 #### [facility] [address] [place] [address], [place] Potassium [Moles/Vol] 3.8 mmol/L Normal 3.5-5.1 [facility] Comment on above: Performed By: #### 0 007, 33650 #### [facility] [address] [place] [address], [facility] Sodium [Moles/Vol] 137 mmol/L Normal 136-145 [facility] Comment on above: Performed By: #### 0 007, 28335 #### [facility] [address] [place] [address], [facility] Urea nitrogen [Mass/Vol] 10 mg/dL Normal 7-25 [facility] Comment on above: Performed By: #### 0 007, [id number] #### [facility] [address] [place] [id number], [facility] CBC COMPLETE BLOOD COUNTon 1 06-29-2017 Erythrocyte distribution width (RBC) [Ratio] 13.6 % Normal 11.5-15.0 [facility] Comment on above: Performed By: #### 5 0608 #### [facility] [address] [place] [address], [facility] Hematocrit (Bld) [Volume fraction] 37.3 % Normal 36.0-45.0 [facility] Comment on above: Performed By: #### 5 0608 #### [facility] [address] [place] [address], [facility] Hemoglobin (Bld) [Mass/Vol] 12.7 g/dL Normal 12.0-15.0 [facility] Comment on above: Performed By: #### 5 0608 #### [facility] [address] [facility] [place] [address], [facility] MCH (RBC) [Entitic mass] 29.1 pg Normal 27.0-33.0 [facility] Comment on above: Performed By: #### 5 0608 #### [facility] [address] [facility]. [address] MCHC (RBC) [Mass/Vol] 34.0 g/dL Normal 32.0-35.0 [facility] Comment on above: Performed By: #### 5 0608 #### [facility] [address] [place] [address], [facility] MCV (RBC) [Entitic vol] 85.6 fL Normal 82.0-98.0 [facility] Comment on above: Performed By: #### 5 0608 #### [facility] [address] Nucleated RBC/100 WBC (Bld) [Ratio] 0 % Normal 0-0 [facility] Comment on above: Performed By: #### 5 0608 #### [facility] [address] [place] [address], [facility] PLAT CNT 346 10*3/uL Normal 150-400 [facility] Comment on above: Performed By: #### 5 0608 #### [facility] [address] [place] [address], [facility] RBC (Bld) [#/Vol] 4.36 10*6/uL Normal 3.80-5.00 [facility] Comment on above: Performed By: #### 5 0608 #### [facility] [address] [place] [address], [facility] WBC (Bld) [#/Vol] 17.89 10*3/uL High 4.00-10.60 [facility] Comment on above: Performed By: #### 5 0608 #### [address] [place] [address], [facility] FEMUR RIGHT 2 VWSon 04-29-20 FEMUR RIGHT 2 S [facility] Department of Radiology [address] [place] [id number] Patient Name: NEHA ASHTON : 1945 Sex: F Age: Race: White Pt. Location: [facility] Patient Status: I Ordered Date: 04/29/2018 6:00:00 PM Completed Date: 04/29/2018 06:22 PM Requesting Provider: CRISTAL THOMPSON Attending Provider: CRISTAL THOMPSON Report Copy To: Signs & Symptoms: Pain ( specify Location) History: Patient history not available Comments: R/O FX Exam: FEMUR RIGHT 2 S FEMUR RIGHT 2 S 04/29/2018 6:22 PM EST SIGNS AND SYMPTOMS: Pain ( specify Location) TECHNOLOGIST COMMENTS: Right hip pain s/p fall. QUESTION FOR THE RADIOLOGIST: R/O FX PROTOCOL: AP(PA) and Lateral views were obtained. COMPARISON: None FINDINGS: Soft tissues: Soft tissue swelling around the right hip. Bones: Subcapital right femoral neck fracture with varus impaction. Joints: Degenerative changes right hip joint. IMPRESSION: Acute subcapital right femoral neck fracture with varus impaction. Approved by:Pam Morel on 04/29/2018 6:42 PM EST. Ricardo Hutson, have reviewed the images and report and concur with these findings. Electronically signed by:Ricardo Parry. Transcribed by: [email or web address], User Resident: PAM MOREL Electronically Signed by: RICARDO PARRY @ 04/30/2018 03:51 PM I personally read this/these film(s) with this resident Normal [facility] Comment on above: Order Comment: R/O F X PORTABLE CHEST 1 VIEWon PORTABLE CHEST 1 VIEW [facility] Department of Radiology [address] [place] [id number] Patient Name: NEHA ASHTON : 1945 Sex: F Age: Race: White Pt. Location: [facility] Patient Status: I Ordered Date: 04/29/2018 8:55:00 PM Completed Date: 04/29/2018 09:11 PM Requesting Provider: CRISTAL THOMPSON Attending Provider: CRISTAL THOMPSON Report Copy To: Signs & Symptoms: Elevated WBC History: Patient history not available Comments: R/O Infiltrates Exam: PORTABLE CHEST 1 VIEW PORTABLE CHEST 1 VIEW 04/29/2018 9:11 PM EST SIGNS AND SYMPTOMS: Elevated WBC TECHNOLOGIST COMMENTS: Pre op chest x-ray No current chest symptoms QUESTION FOR THE RADIOLOGIST: R/O Infiltrates PROTOCOL: AP(PA) view was obtained. COMPARISON: None FINDINGS: Apical lordotic. The heart is not enlarged. Differential lung density could be due to overlying breast soft tissues on the left. Left lower lobe consolidation however cannot be excluded. Right lung is clear. Patient's had right rotator cuff repair. IMPRESSION: Cannot exclude early infiltrate development, left lower lobe. This could in part be due to overlying soft tissue. Progress study is therefore recommended. Electronically signed by:Cisco Oh. Transcribed by: [email or web address], User Resident: Electronically Signed by: CISCO [place] @ 04/30/2018 07:22 AM Normal [facility] Comment on above: Order Comment: R/O I nfiltrates PROTHROMBIN TIMEon 8 INR Coag (PPP) [Relative time] 1.05 {INR} Normal 0.91-1.16 [facility] Comment on above: Result Comment: ACCC P RECOMMENDED INR FOR WARFARIN THERAPY --------- ------- CONDITION INR PROPHYLAXIS OF VENOUS THROMBOSIS 2-3 (HIGH-RISK SURGERY) TREATMENT OF VENOUS THROMBOSIS 2-3 TREATMENT OF PULMONARY EMBOLISM 2-3 PREVENTION OF SYSTEMIC EMBOLISM: 2-3 ACUTE MYOCARDIAL INFARCTION TISSUE HEART VALVES VALVULAR HEART DISEASE ATRIAL FIBRILLATION RECURRENT SYSTEMIC EMBOLISM MECHANICAL HEART VALVE 2.5-3.5 FROM: ORAL ANTICOAGULANTS. MECHANISM OF ACTION, CLINICAL EFFECTIVENESS, AND OPTIMAL THERAPEUTIC RANGE. CHEST 1995;108:231S-246S. Performed By: #### 5 6101 #### [facility] [address] [place] [address], [facility] PT Coag (PPP) [Time] 13.7 s Normal 12.3-14.8 [facility] Comment on above: Result Comment: ALL RESULTS MUST BE INTERPRETED WITH RESPECT TO BLOOD DRAWING ARTIFACT OR DILUTION ERROR OF ANTICOAGULANT AT THE TIME OF SAMPLING. Performed By: #### 5 5191 #### [facility] [address] [place] [address], [place] RBC'S 2 UNITSon 04-29-2018 CROSSMATCH INTERP 1 COMP Normal [facility] Comment on above: Performed By: #### 8 6002 #### [facility] [address] [place] [address], [place] CROSSMATCH INTERP 2 COMP Normal [facility] Comment on above: Performed By: #### 8 6002 #### [facility] [address] [place] [address], [place] PRODUCT CODE 1 [id number] Normal [facility] Comment on above: Performed By: #### 8 6002 #### [facility] [address] [place] [address], [place] PRODUCT CODE 2 [id number] Normal [facility] Comment on above: Performed By: #### 8 6002 #### [facility] [address] [place] [address], [place] PRODUCT STATUS 1 RE Normal [facility] Comment on above: Result Comment: Resu lt changed by IF on 05/03/2018 07:08. The previous value was XM. Performed By: #### 8 6002 #### [facility] [address] [place] [address], [place] PRODUCT STATUS 2 RE Normal [facility] Comment on above: Result Comment: Resu lt changed by IF on 05/03/2018 07:08. The previous value was XM. Performed By: #### 8 6002 #### [facility] [address] [place] [address], [place] UNIT ABO 1 A Normal [facility] Comment on above: Performed By: #### 8 6002 #### [facility] [address] [place] [address], [place] UNIT ABO 2 A Normal [facility] Comment on above: Performed By: #### 8 6002 #### [facility] [address] [place], [place] [id number] [place] [address] UNIT ID 1 [id number] Normal [facility] Comment on above: Performed By: #### 8 6002 #### [facility] [address] [place], [place] [id number] [place] [address] UNIT ID 2 [id number] Normal [facility] Comment on above: Performed By: #### 8 6002 #### [facility] [address] [place] [address], [facility] UNIT RH 1 Positive Normal [facility] Comment on above: Performed By: #### 8 6002 #### [facility] [address] [facility] [place] [address], [facility] UNIT RH 2 Positive Normal [facility] Comment on above: Performed By: #### 8 6002 #### [facility] [address] [facility]. [address] TYPE AND SCREENon 04-29-2018 ABO INTERPRETATION A Normal [facility] Comment on above: Performed By: #### 6 2586 #### [facility] [address] [facility] [address], [facility] RH INTERPRETATION Positive Normal [facility] Comment on above: Performed By: #### 6 2586 #### [facility] [address] [facility]. [address] VITAMIN D 25-HYDROXYon 04-29 VITAMIN D 25-OH 37.2 ng/mL Normal 30.0-80.0 [facility] Comment on above: Result Comment: >80. 0 Toxicity possible Performed By: #### 0 0071, 09961 #### [facility] [address] Vital Signs Date Time Vital Sign Value Performing Clinician Facility 05-26-2024 13:15-0500 Body height 152.4 cm Clayton Manning MD Work Phone: [facility] 05-26-2024 13:15-0500 Body mass index (BMI) [Ratio] 27.54 kg/m2 Clayton Manning MD Work Phone: [facility] 05-26-2024 13:15-0500 Body temperature 97.11 [degF] Clayton Manning MD Work Phone: [facility] 05-26-2024 13:15-0500 Body weight 63.96 kg Clayton Manning MD Work Phone: [facility] 05-26-2024 13:15-0500 Diastolic blood pressure 58 mm[Hg] Clayton Manning MD Work Phone: [facility] 05-26-2024 13:15-0500 Heart rate 101 /min Clayton Manning MD Work Phone: [facility] 05-26-2024 13:15-0500 Respiratory rate 20 /min Clayton Manning MD Work Phone: [facility] 05-26-2024 13:15-0500 SaO2% (BldA) [Mass fraction] 99 % Clayton Manning MD Work Phone: [facility] 05-26-2024 13:15-0500 Systolic blood pressure 116 mm[Hg] Clayton Manning MD Work Phone: [facility] 04-18-2024 11:23-0400 Body height 152.4 cm [facility] 04-18-2024 11:23-0400 Body mass index (BMI) [Ratio] 27.3 kg/m2 [facility] 04-18-2024 11:23-0400 Body temperature 98.2 [degF] [facility] 04-18-2024 11:23-0400 Body weight 63.5 kg [facility] 04-18-2024 11:23-0400 Diastolic blood pressure 78 mm[Hg] [facility] 04-18-2024 11:23-0400 Heart rate 89 /min [facility] 04-18-2024 11:23-0400 Respiratory rate 16 /min [facility] 04-18-2024 11:23-0400 SaO2% (BldA) [Mass fraction] 98 % [facility] 04-18-2024 11:23-0400 Systolic blood pressure 122 mm[Hg] [facility] 10-05-2023 11:00-0400 Body height 152.4 cm MD Clayton Manning Work Phone: [facility] 10-05-2023 11:00-0400 Body mass index (BMI) [Ratio] 24.4 kg/m2 MD Clayton Manning Work Phone: [facility] 10-05-2023 11:00-0400 Body temperature 97.8 [degF] MD Clayton Manning Work Phone: [facility] 10-05-2023 11:00-0400 Body weight 56.69 kg MD Clayton Manning Work Phone: [facility] 10-05-2023 11:00-0400 Diastolic blood pressure 64 mm[Hg] MD Clayton Manning Work Phone: [facility] 10-05-2023 11:00-0400 Heart rate 80 /min MD Clayton Manning Work Phone: [facility] 10-05-2023 11:00-0400 Respiratory rate 16 /min MD Clayton Manning Work Phone: [facility] 10-05-2023 11:00-0400 SaO2% (BldA) [Mass fraction] 98 % MD Clayton Manning Work Phone: [facility] 10-05-2023 11:00-0400 Systolic blood pressure 112 mm[Hg] MD Clayton Manning Work Phone: [facility] 03-26-2023 13:35-0400 Diastolic blood pressure 68 mm[Hg] MD Clayton Manning Work Phone: [facility] 03-26-2023 13:35-0400 Heart rate 85 /min MD Clayton Manning Work Phone: [facility] 03-26-2023 13:35-0400 Respiratory rate 16 /min MD Clayton Manning Work Phone: [facility] 03-26-2023 13:35-0400 SaO2% (BldA) [Mass fraction] 98 % MD Clayton Manning Work Phone: [facility] 03-26-2023 13:35-0400 Systolic blood pressure 128 mm[Hg] MD Clayton Manning Work Phone: [facility] 03-26-2023 09:10-0400 Body height 151.13 cm MD Clayton Manning Work Phone: [facility] 03-26-2023 09:10-0400 Body weight 61.23 kg MD Clayton Manning Work Phone: [facility] 03-23-2023 10:30-0400 Body height 152.4 cm Willie Herrera Other [facility] Other 03-23-2023 10:30-0400 Body mass index (BMI) [Ratio] 26.36 kg/m2 Willie Herrera Other [facility] Other 03-23-2023 10:30-0400 Body temperature 97.3 [degF] Willie Herrera Other [facility] Other 03-23-2023 10:30-0400 Body weight 61.24 kg Willie Herrera Other [facility] Other 03-23-2023 10:30-0400 Diastolic blood pressure 62 mm[Hg] Willie Herrera Other [facility] Other 03-23-2023 10:30-0400 SaO2% (BldA) [Mass fraction] 99 % Willie Buehrer Other [facility] Other 03-23-2023 10:30-0400 Systolic blood pressure 110 mm[Hg] Willie Buehrer Other [facility] Other 09-15-2022 12:45-0400 Body height 152.4 cm Willie Buehrer Other [facility] Other 09-15-2022 12:45-0400 Body mass index (BMI) [Ratio] 25.39 kg/m2 Willie Buehrer Other [facility] Other 09-15-2022 12:45-0400 Body temperature 97.3 [degF] Willie Buehrer Other [facility] Other 09-15-2022 12:45-0400 Body weight 58.97 kg Willie Buehrer Other [facility] Other 09-15-2022 12:45-0400 Diastolic blood pressure 78 mm[Hg] Willie Buehrer Other [facility] Other 09-15-2022 12:45-0400 SaO2% (BldA) [Mass fraction] 96 % Willie Buehrer Other [facility] Other 09-15-2022 12:45-0400 Systolic blood pressure 138 mm[Hg] Willie Buehrer Other [facility] Other 12-03-2021 11:10-0400 Body height 152.4 cm Hetal Tomlinson Other [facility] Other 12-03-2021 11:10-0400 Body mass index (BMI) [Ratio] 25.39 kg/m2 Hetal Tomlinson Other [facility] Other 12-03-2021 11:10-0400 Body temperature 96.6 [degF] Hetal Tomlinson Other [facility] Other 12-03-2021 11:10-0400 Body weight 58.97 kg Hetal Tomlinson Other [facility] Other 12-03-2021 11:10-0400 Diastolic blood pressure 83 mm[Hg] Hetal Tomlinson Other [facility] Other 12-03-2021 11:10-0400 Respiratory rate 16 /min Hetal Tomlinson Other [facility] Other 12-03-2021 11:10-0400 SaO2% (BldA) [Mass fraction] 95 % Hetal Tomlinson Other [facility] Other 12-03-2021 11:10-0400 Systolic blood pressure 146 mm[Hg] Hetal Tomlinson Other [facility] Other 09-09-2021 11:30-0400 Body height 152.4 cm Willie Herrera Other [facility] Other 09-09-2021 11:30-0400 Body mass index (BMI) [Ratio] 25.39 kg/m2 Willie Herrera Other [facility] Other 09-09-2021 11:30-0400 Body temperature 97.2 [degF] Willie Herrera Other [facility] Other 09-09-2021 11:30-0400 Body weight 58.97 kg Willie Herrera Other [facility] Other 09-09-2021 11:30-0400 Diastolic blood pressure 64 mm[Hg] Willie Herrera Other [facility] Other 09-09-2021 11:30-0400 SaO2% (BldA) [Mass fraction] 96 % Willie Herrera Other [facility] Other 09-09-2021 11:30-0400 Systolic blood pressure 120 mm[Hg] Willie Herrera Other [facility] Other Encounters Encounter Date Encounter Type Care Provider Facility Start: 05-26-2024 End: 05-26-2024 Bamboo flowsheet Clayton Manning MD Work Phone: [facility] Start: 05-26-2024 End: 05-26-2024 Bamboo flowsheet Clayton Manning MD Work Phone: [facility] Start: 05-26-2024 End: 05-26-2024 Clinisync Result Encounter Clayton Manning MD Work Phone: [facility] Department Unsolicited Start: 05-26-2024 End: 05-26-2024 Office outpatient visit 25 minutes Clayton Manning MD Work Phone: [facility] Comment on above: Type 2 diabetes justyna itus with hyperglycemia, without long-term current use of insulin (CMS/HCC) (Primary Dx); Benign essential hypertension (CMS/HCC); Chronic osteoarthritis; Peripheral vascular disease, unspecified (CMS/HCC); Fatigue, unspecified type; SOB (shortness of breath); Bilateral edema of lower extremity; Encounter for long-term (current) use of medications Start: 04-18-2024 End: 04-18-2024 Patient encounter procedure [facility] Physician [facility] Work Phone: Start: 04-18-2024 End: 04-18-2024 ambulatory Willie Mauromarc [facility] Work Phone: Start: 03-30-2024 End: 03-30-2024 Patient encounter procedure [facility] Michelle Moore [facility] Comment on above: Sensorineural hearin g loss (SNHL) of both ears (Primary Dx) Start: 03-30-2024 End: 03-30-2024 ambulatory ALISA CINDY Not Available Start: 02-24-2024 End: 02-24-2024 ambulatory ALISA CINDY Not Available Start: 02-03-2024 End: 02-03-2024 ambulatory ALISA A CINDY Not Available Start: 12-16-2023 End: 12-16-2023 ambulatory ALISA A CINDY Not Available Start: 11-26-2023 End: 11-26-2023 ambulatory CLAYTON NADNOMI Not Available Start: 10-07-2023 End: 10-07-2023 ambulatory ALISA A CINDY Not Available Start: 10-05-2023 End: 10-05-2023 ambulatory MD Clayton Manning Work Phone: [facility] Work Phone: Start: 10-05-2023 End: 10-05-2023 Patient encounter procedure MD Clayton Manning Work Phone: [facility] Physician [facility] Work Phone: Start: 06-05-2023 End: 06-05-2023 ambulatory CLAYTON MANNING Not Available Start: 03-26-2023 End: 03-26-2023 Admission to same day surgery center MD Clayton Manning Work Phone: [facility]-Interventional Radiology Work Phone: Start: 03-26-2023 End: 03-26-2023 ambulatory MD Clayton Manning Work Phone: [facility] Work Phone: Start: 03-23-2023 Office outpatient vi sit 25 minutes Willie Herrera [facility] Vascular Surgery Start: 03-23-2023 End: 03-23-2023 ambulatory MD Clayton Manning Work Phone: [employer] Other Start: 03-23-2023 End: 03-23-2023 Patient encounter procedure MD Clayton Manning Work Phone: [facility]-Ultrasound [facility] Vascular Start: 11-04-2022 End: 11-05-[address] CLAYTON MANNING Facility:[facility]1 Start: 09-15-2022 End: 09-15-2022 ambulatory Willie Herrera Other [place] [employer] Other Start: 09-15-2022 Office outpatient vi sit 25 minutes Willie Herrera [facility] Vascular Surgery Start: 09-08-2022 End: 09-08-2022 ambulatory MD Clayton Manning Work Phone: [facility] Work Phone: Start: 09-08-2022 End: 09-08-2022 Patient encounter procedure MD Clayton Manning Work Phone: [facility]-CT Scan [facility] [place] Work Phone: Start: 05-05-2022 End: 05-06-[address] CLAYTON MANNING Facility:[facility] Start: 12-03-2021 End: 12-03-2021 ambulatory Hetal Tomlinson Other [employer] Other Start: 12-03-2021 Office outpatient vi sit 15 minutes Hetal Tomlinson [facility] [place] Start: 11-11-2021 End: 11-12-[address] CLAYTON MANNING Facility:[facility] Start: 09-09-2021 End: 09-09-2021 ambulatory Willie Herrera Other [facility] [employer] Other Start: 09-09-2021 Office outpatient vi sit 25 minutes Willie Herrera [facility] Vascular Surgery Start: 09-09-2021 End: 09-09-2021 Patient encounter procedure MD Clayton Manning Work Phone: [facility]-Ultrasound [facility] Vascular Start: 04-29-2018 End: 05-04-2018 Evaluation and management of inpatient REFERRED SELF Facility:[facility] Procedures Date Procedure Procedure Detail Performing Clinician Start: 05-26-2024 ALL CBC WITH AUTO DIFF Clayton Manning MD Work Phone: Start: 11-26-2023 History of carotid endarterectomy S/P carotid endarterectomy Linda Moore Start: 10-05-2023 Doppler ultrasonogra phy of bilateral carotid arteries MD Clayton Manning Work Phone: Start: 03-26-2023 Radiographic imaging procedure MD Clayton Manning Work Phone: Start: 03-23-2023 Doppler ultrasonogra phy of bilateral carotid arteries MD Clayton Manning Work Phone: Start: 09-08-2022 CT angiography of head MD Clayton Manning Work Phone: Start: 09-08-2022 CT angiography of ne ck vessels MD Clayton Manning Work Phone: Start: 09-09-2021 Doppler ultrasonogra phy of bilateral carotid arteries MD Clayton Manning Work Phone: Start: 04-30-2018 REPLACE OF R HIP JT, FEMORAL WITH SYNTH SUB, OPEN APPROACH IVANIA EBRAHEIM Start: 04-29-2018 Antibody screen REFERRE D SELF Comment on above: Performed By: #### [id number] #### [facility] [address] [place] [address], [facility] History of carotid endarterectomy S/P carotid endarterectomy MD Clayton Manning Work Phone: Plan of Treatment Date Care Activity Detail Author Start: 08-12-2025 Glaucoma screening Diabetes: R etinopathy Screening [facility] Start: 11-25-2024 Urine screening for protein Diabetes: Urine Protein Screening [facility] Start: 09-28-2024 End: 09-28-2024 Patient encounter procedure 09/28/2024 1:30 PM EDT Office Visit [facility] [address] [phone] [facility] Start: 07-28-2024 End: 07-28-2024 Patient encounter procedure 07/28/2024 1:15 PM EST Office Visit [facility] [address] [place] [phone] Clayton Manning MD [address] [place] [phone] [facility] Start: 05-27-2024 Hemoglobin A1c measurement Diabetes: Hemoglobin A1C [facility] Start: 05-26-2024 End: 05-26-2025 Basic metabolic 1998 panel - Serum or Plasma Basic metabolic panel Lab Routine Benign essential hypertension (CMS/HCC) Expected: 05/26/2024 (Approximate), Expires: 05/26/2025 [facility] Comment on above: Expected: 05/26/2024 (Approximate), Expires: 05/26/2025 Start: 05-26-2024 End: 05-26-2025 CBC W Auto Differential panel - Blood CBC and differential Lab Routine Encounter for long-term (current) use of medications Expected: 05/26/2024 (Approximate), Expires: 05/26/2025 [facility] Comment on above: Expected: 05/26/2024 (Approximate), Expires: 05/26/2025 Start: 05-26-2024 End: 05-26-2026 Echocardiogram 2D complete Echocardiogram 2D complete Echocardiography Routine Fatigue, unspecified type SOB (shortness of breath) Bilateral edema of lower extremity Expected: 05/26/2024 (Approximate), Expires: 05/26/2026 [facility] Comment on above: Expected: 05/26/2024 (Approximate), Expires: 05/26/2026 Start: 05-26-2024 End: 05-26-2025 Hemoglobin A1c/Hemoglobin.total in Blood Hemoglobin A1c Lab Routine Type 2 diabetes mellitus with hyperglycemia, without long-term current use of insulin ([facility]) Expected: 05/26/2024 (Approximate), Expires: 05/26/2025 [facility] Work Phone: Comment on above: Expected: 05/26/2024 (Approximate), Expires: 05/26/2025 Start: 05-26-2024 End: 05-26-2025 Hepatic function 2000 panel - Serum or Plasma Hepatic function panel Lab Routine Encounter for long-term (current) use of medications Expected: 05/26/2024 (Approximate), Expires: 05/26/2025 [facility] Comment on above: Expected: 05/26/2024 (Approximate), Expires: 05/26/2025 Start: 05-26-2024 End: 05-26-2025 TSH W/REFLEX TO FT4 TSH W/REFLEX TO FT4 Lab Routine Fatigue, unspecified type Expected: 05/26/2024 (Approximate), Expires: 05/26/2025 [facility] Comment on above: Expected: 05/26/2024 (Approximate), Expires: 05/26/2025 Start: 05-26-2024 End: 05-26-2025 XR Chest 2 Views XR chest 2 views Imaging Routine SOB (shortness of breath) Bilateral edema of lower extremity Expected: 05/26/2024, Expires: 05/26/2025 [facility] Comment on above: Expected: 05/26/2024 , Expires: 05/26/2025 Start: 05-26-2024 End: 05-26-2024 Patient encounter procedure 05/26/2024 1:00 PM EST Office Visit [facility] [address] [place] [phone] Clayton Manning MD [address] [place] [phone] [facility] Start: 02-21-2024 Influenza vaccination Influenza Vacc ine (#1) [facility] Start: 03-26-2023 [facility] Start: 06-22-2015 Pneumococcal Vaccine : 65+ Years (2 of 2 - PCV) Pneumococcal Vaccine: 65+ Years (2 of 2 - PCV) [facility] Start: 08-31-1962 Urine screening for protein Diabetes: Urine Protein Screening [facility] Start: 1945 Hemoglobin A1c measurement Diabetes: Hemoglobin A1C [facility] Start: 1945 Medicare Annual Well ness (AWV) Medicare Annual Wellness (AWV) [facility] Patient Education Arteriogram (DC) [facility] Work Phone: Patient referral [facility] Work Phone: US.doppler Carotid arteries - bilateral [facility] Payers Date Payer Category Payer Self-pay [id number] 2019 Medicare [id number] 2019 Medicare (Managed Care) [employer]B [employer] [id number] 2019 Medicaid [id number] 2019 Medicaid [id number] 1959 Medicaid [id number] 1959 Unknown [id number] 1945 Unknown [id number] [id number]. 647 1943 Unknown [id number] 2.16.840.1.749014.3.579.2. 593 1943 Unknown [id number] 2.16.840.1.712044.3.579.2. 593 1943 Unknown [id number] 2.16.840.1.699781.3.579.2. 593 1943 Unknown [id number] 2.16.840.1.352011.3.579.2. 1259 1943 Unknown [id number] 2.16.840.1.378920.3.579.2. 1259 1943 Unknown [id number] 2.16.840.1.660896.3.579.2. 1259 1943 Unknown [id number] 2.16.840.1.418918.3.579.2. 1259 1943 Unknown [id number] 2.16.840.1.738201.3.579.2. 1259 1943 Unknown [id number] 2.16.840.1.540489.3.579.2. 1259 1943 Unknown [id number] 2.16.840.1.941875.3.579.2. 1259 Medicare [id number] Medicare Medicare [id number] Private Health Insurance [facility] [id number] Unknown [id number] Unknown [id number] [id number]. 531 Unknown [id number] [id number]. 531 Social History Date Type Detail Facility Start: 12-12-2020 End: 06-05-2023 Tobacco smoking status VTIS Ex-smoker (finding) [facility] Start: 1945 Sex Assigned At Female F [facility] Start: 11-26-2023 End: 05-26-2024 Sex Assigned At [facility] [employer] Other Start: 06-22-1963 End: 06-22-2003 History of tobacco use Current smoker [facility] Start: 06-22-1965 End: 06-22-2003 History of tobacco use Cigarette Smoker [facility] Start: 06-05-2023 Tobacco use and exposure Smokeless tobacco non-user [facility] Start: 11-26-2023 End: 05-26-2024 Alcoholic beverage intake Lifetime non-drinker (finding) [facility] Start: 11-26-2023 End: 05-26-2024 History of Social function [facility] Start: 1945 Sex assigned at Not on file N [facility] Medical Equipment Procedure Code Equipment Code Equipment Origin al Text Equipment Identifier Dates Endarterectomy, carotid Synthetic vascular graft [id number] FDA Start: 04-11-2019 Digital subtraction angiography of carotid and cerebral arteries Bare-metal carotid artery stent [id number] FDA Start: 10-20-2019 Angioplasty of carotid artery with insertion of stent IR STENT PRECISE [id number] FDA Start: 03-24-2017 Angioplasty of carotid artery with insertion of stent Bare-metal carotid artery stent [id number] FDA Start: 12-12-2020 Angioplasty of carotid artery with insertion of stent IR STENT PRECISE [id number] FDA Start: 03-24-2017 Angioplasty of carotid artery with insertion of stent IR STENT PRECISE [id number] FDA Start: 03-24-2017 Angioplasty of carotid artery with insertion of stent IR STENT PRECISE [id number] FDA Start: 03-24-2017 Angioplasty of carotid artery with insertion of stent IR STENT PRECISE [id number] FDA Start: 03-24-2017 Angioplasty of carotid artery with insertion of stent IR STENT PRECISE [id number] FDA Start: 03-24-2017 Angioplasty of carotid artery with insertion of stent IR STENT PRECISE [id number] Start: 03-24-2017 Angioplasty of carotid artery with insertion of stent IR STENT PRECISE [id number] FDA Start: 03-24-2017 Use as instructe d twice a day [id number] Start: 06-05-2023 End: 06-04-2024 Clinical Notes 02-18-2010 to 05-26-2024 Clayton Manning MD - 05/26/2024 1:37 PM Lorena Manning MD - 05/26/2024 1:37 PM Lorena Manning MD - 05/26/2024 1:36 PM Lorena Manning MD - 05/26/2024 1:36 PM EST Note Date & Type Note Facility 05-26-2024 History of Presen t illness Narrative Associated Problem(s): Type 2 diabetes mellitus with hyperglycemia, without long-term current use of insulin ([facility]) Reports BS controlled and due for A1C. Stick to ADA diet and limit carbs. Associated Problem(s): SOB (shortness of breath) Check labs, CXR, and echo. Associated Problem(s): Peripheral vascular disease, unspecified ([facility]/HCC) No symptoms and follow with vascular. Resume lipitor at 40 mg daily. Associated Problem(s): Fatigue Check labs Associated Problem(s): Chronic osteoarthritis Pain stable and use OTC PRN. Increase activity and walk regularly. Associated Problem(s): Bilateral edema of lower extremity Developed edema of unclear etiology. Check labs, CXR, and echo. Start lasix. Elevated legs PRN. Associated Problem(s): Benign essential hypertension (CMS/HCC) BP controlled and monitor PRN. Images from the original note were not included. Subjective Patient ID: Neha Ashton is a 78 y.o. female who presents for Follow-up (6m/). Follow up DM, HTN, OA, and PVD. Patient not feeling well today. C/o severe fatigue and no energy. Developed SOB with exertion. Mild cough but no sputum. Increased swelling in both feet and legs. Edema worse as day progresses and improved with elevation and in am. BS stable and around 120. Tries to eat well and stick to ADA diet but reports occasional splurges. Denies signs of elevated BS such as polyuria, polyphagia or polydipsia. Checking BP PRN and typically controlled. BP normal today. Taking medication daily and tolerating without side effects. OA doing well. Mild pain and stiffness in hands, back, and knees. Stiff and sore in am but improved once up and moving. Using OTC PRN and helps when needed. Able to stay active and complete ADLs. PVD stable. Following with vascular surgery and stable. Not lightheaded or dizzy when up and moving. Review of Systems Respiratory: Negative for cough, shortness of breath and wheezing. Cardiovascular: Negative for chest pain and palpitations. Gastrointestinal: Negative for abdominal pain, diarrhea, nausea and vomiting. Genitourinary: Negative for dysuria. Objective Physical Exam Constitutional: General: She is not in acute distress. Appearance: Normal appearance. HENT: Head: Normocephalic. Right Ear: Tympanic membrane normal. Left Ear: Tympanic membrane normal. Eyes: Extraocular Movements: Extraocular movements intact. Pupils: Pupils are equal, round, and reactive to light. Cardiovascular: Rate and Rhythm: Normal rate and regular rhythm. Heart sounds: No murmur heard. No friction rub. No gallop. Pulmonary: Effort: Pulmonary effort is normal. Breath sounds: Normal breath sounds. No wheezing, rhonchi or rales. Abdominal: General: Bowel sounds are normal. There is no distension. Palpations: Abdomen is soft. Tenderness: There is no abdominal tenderness. There is no guarding or rebound. Musculoskeletal: Cervical back: Neck supple. Right lower leg: No edema. Left lower leg: No edema. Neurological: Mental Status: She is alert. Assessment/Plan Problem List Items Addressed This Visit Peripheral vascular disease, unspecified (CMS/HCC) No symptoms and follow with vascular. Resume lipitor at 40 mg daily. Chronic osteoarthritis Pain stable and use OTC PRN. Increase activity and walk regularly. Type 2 diabetes mellitus with hyperglycemia, without long-term current use of insulin (CMS/HCC) - Primary Reports BS controlled and due for A1C. Stick to ADA diet and limit carbs. Relevant Orders Hemoglobin A1c Benign essential hypertension (CMS/HCC) BP controlled and monitor PRN. Relevant Orders Basic metabolic panel Encounter for long-term (current) use of medications Relevant Orders CBC and differential Hepatic function panel Fatigue Check labs Relevant Orders TSH W/REFLEX TO FT4 Echocardiogram 2D complete SOB (shortness of breath) Check labs, CXR, and echo. Relevant Orders Echocardiogram 2D complete XR chest 2 views Bilateral edema of lower extremity Developed edema of unclear etiology. Check labs, CXR, and echo. Start lasix. Elevated legs PRN. Relevant Medications furosemide (Lasix) 40 MG tablet Other Relevant Orders Echocardiogram 2D complete XR chest 2 views documented in this encounter [facility] 03-30-2024 History of Presen t illness Narrative Patient was in today stating that things are better now that she is using the XS vented dome. Patient does state that she heard a pop in the right ear and now is not hearing as well. Otoscopic exam showed that there was a tulip dome in the ear canal. Ramona Ruffin took patient and she was able to remove the dome from patient's ear canal. This was done under direct otoscopy without incident. Patient indicated immediately that she could hear much better. Patient was scheduled for a follow up in six months documented in this encounter [facility] 03-23-2023 Evaluation note Encounter Date Diagnosis Assessment Notes Mar, Left carotid artery stenosis (ICD-10 - I65.22) Mar, Other Left carotid occlusive disease Given the continued increase in her velocities and the velocity now of over 600 cm/s with an end-diastolic velocity of 71 cm/s I believe she should undergo diagnostic arteriogram. This will allow us to clearly determine the severity of her stenosis and if necessary she may require repeat treatment. She understands and is agreement with that plan. She is asymptomatic and 77 years old and on good medical therapy. We could follow her without intervention but the progressive changes on serial studies is worrisome. [employer] Other 03-27-2023 Evaluation note* Encounter Date Diagnosis Assessment Notes Treatment Notes Treatment Clinical Notes Aug, Carotid stenosis, bilateral (ICD-10 - I65.23) Aug, Other Carotid occlusi ve disease This patient is 77 years old with at least moderate recurrence after complicated reconstruction of her left carotid system. For now she is on adequate medical therapy and is asymptomatic. Given all of the above considerations she will continue without intervention at this time. In 6 months we will repeat her duplex examination and should she continue to show worsening of her velocities she will undergo diagnostic arteriogram. If her carotid duplex remained stable we will continue to follow her without intervention. She came with her sister today and both of them are aware that should she develop any of the hemispheric symptoms which we discussed in detail that she should return sooner [employer] Other 06-14-2022 Evaluation note* Encounter Date Diagnosis Assessment Notes Treatment Notes Treatment Clinical Notes Nov, Candung sornatalio (ICD-10 - K12.0) Discussed diagnosis with patient. Rx of magic mouthwash called into [facility]. Advised to use as directed. May use salt water gargles in addition for symptom relief, Tylenol/Motrin as needed. Patient to follow up with PCP if symptoms do not improve. Immediate evaluation in ER for warning signs/symptoms as discussed. Patient verbalizes understanding and is agreeable with treatment plan [facility] Other 03-21-2022 Evaluation note* Encounter Date Diagnosis Assessment Notes Treatment Notes Treatment Clinical Notes Aug, Asymptomatic bilateral carotid artery stenosis (ICD-10 - I65.23) Aug, Other Carotid occlusive disease She has similar findings today from her study in February. She is on good medical therapy with no symptoms. We will continue to follow her for the moderately severe residual stenosis in the left common carotid artery. Given her velocity changes I will continue to see her every 6 months [employer] Other 08-30-2010 History general Narrative - Reported* Type Description Date Medical History Carotid stenosis Medical History HTN Medical History No blood pressures in the right arm Surgical History left shoulder Surgical History carpal tunnel left wrist Surgical History carotid stent 02/18/10 Surgical History Bilat Carotid DSA's 03/24/2017 Surgical History Rt Hip fx Surgical History Left carotid stent 2009 Surgical History Angio, Bilat carotid & subclavi an DSA's 03-22-2019 Surgical History Lt carotid and subclavian dacry on bypass grafts 04-11-2019 Surgical History Left carotid angiopl asty & stent; Bilat carotid DSA's 10-20-2019 Hospitalization History see above [employer] Other Evaluation noteNo assessment information available [facility] Work Phone: Evaluation note* Diagnosis Onset Date Resolution Status S/P carotid endarterectomy a cute [facility] Work Phone: Evaluation note* Diagnosis Sensorineural hearing loss (SNHL) of both ears- Primary [facility] Diagnosis Type 2 diabetes mellitus with hyperglycemia, without long-term current use of insulin ([facility])- Primary Benign essential hypertension ([facility]/HCC) Essential hypertension, benign Chronic osteoarthritis Osteoarthrosis, unspecified whether generalized or localized, unspecified site SUNITA (generalized anxiety disorder) ([facility]/HCC) Generalized anxiety disorder Type 2 diabetes mellitus with hyperglycemia, without long-term current use of insulin ([facility]/HCC)- Primary Benign essential hypertension ([facility]/HCC) Essential hypertension, benign Chronic osteoarthritis Osteoarthrosis, unspecified whether generalized or localized, unspecified site Peripheral vascular disease, unspecified ([facility]/HCC) Peripheral vascular disease, unspecified Dyslipidemia ([facility]) Other and unspecified hyperlipidemia Encounter for long-term (current) use of medications Encounter for long-term (current) use of other medications Osteopenia of both hips Type 2 diabetes mellitus with diabetic peripheral angiopathy without gangrene, with long-term current use of insulin ([facility]) Type 2 diabetes mellitus with hyperglycemia, without long-term current use of insulin ([facility])- Primary Benign essential hypertension ([facility]) Essential hypertension, benign Chronic osteoarthritis Osteoarthrosis, unspecified whether generalized or localized, unspecified site Peripheral vascular disease, unspecified ([facility]) Peripheral vascular disease, unspecified Fatigue, unspecified type SOB (shortness of breath) Shortness of breath Bilateral edema of lower extremity Encounter for long-term (current) use of medications Encounter for long-term (current) use of other medications [facility] - Reported* Type Description Date Medical History Carotid stenosis Medical History HTN Medical History No blood pressures in the right arm Medical History [ ] Surgical History left shoulder Surgical History carpal tunnel left wrist Surgical History carotid stent 02/18/10 Surgical History Bilat Carotid DSA's 03/24/2017 Surgical History Rt Hip fx Surgical History Left carotid stent 2009 Surgical History Angio, Bilat carotid & subclavi an DSA's 03-22-2019 Surgical History Lt carotid and subclavian dacry on bypass grafts 04-11-2019 Surgical History Left carotid angiopl asty & stent; Bilat carotid DSA's 10-20-2019 Surgical History [ ] Hospitalization History see above [employer] Other Hospital Discharge instructions Additional Instructions Remove dressing in 24 hours. No heavy lifting for 2 days.[facility] Work Phone: Summary Purpose Family History Relationship Condition Age at Onset Recorded Date/T aramndo Not Specified No pertinent family history Unknown Relationship Condition Age at Onset Recorded Date/T armando Not Specified No pertinent family history Unknown brother Unknown Malignant neoplasm Unknown father Unknown Not Specified Unknown natural son Diabetes mellitus Unknown Relationship Condition Age at Onset Recorded Date/T armando Not Specified No pertinent family history Unknown brother Unknown Malignant neoplasm Unknown father Unknown mother Unknown son Diabetes mellitus Unknown Advance Directives Advance Directive Response Recorded Date/ Time Advance Directives No February 1:09pm Hospital Course Note MR#: [id number] I [facility] Pt. Name: Neha Ashton Admitted: 04/29/2018 Discharged: 05/04/2018 Date of : 1945 Physician: Jeremías Bartholomew M.D. DISCHARGE SUMMARY DISCHARGING PHYSICIAN: Dr. Bartholomew. PRIMARY CARE PHYSICIAN: Dr. Clayton Manning. PRIMARY DIAGNOSES: 1. Right femoral fracture secondary to mechanical fall status post ORIF. 2. Postoperative anemia, stable. SECONDARY DIAGNOSES: 1. Insulin-dependent diabetes mellitus type 2, well controlled. 2. Hypertension, well controlled. CONSULTS: 1. Orthopedics. 2. MICU. PROCEDURES/IMAGING: Right femur fracture status post ORIF. HOSPITAL COURSE: This is a 72-year-old female with past medical history of diabetes and hypertension, presented to [facility] secondary to mechanical fall and subsequent right femur fracture. The patient was pushing a shopping cart. The wheel of the car locked out and she fell down with shopping cart. She landed on her right femur, after that she developed severe pain; however, she decided t (more content not included)... Chief Complaint and Reason for Visit Chief Complaint i65.23 Chief Complaint I65.23 Chief Complaint I65.23 Carotid Stenosis Chief Complaint 6 MONTH F/U CAROTID DUPLEX 10:30A i65.23 Chief Complaint 6 MONTH F/U CAROTID DUPLEX 10:30A i65.23 Reason for Visit S/P carotid endarter ectomy Chief Complaint 6 MO CAR U/S 11AM Chief Complaint 6 MO CAR U/S 11AM Reason for Visit S/P carotid endarter ectomy Additional Source Comments INFORMATION SOURCE (unrecogn ized section and content) DATE CREATED AUTHOR 01/28/2019 [facility] DATE CREATED AUTHOR AUTHOR'S ORGANIZ ATION 11/05/2022 [facility] DATE CREATED AUTHOR AUTHOR'S ORGANIZ ATION 04/01/2024 [facility] DATE CREATED AUTHOR AUTHOR'S ORGANIZ ATION 04/19/2024 [facility] Care Teams (unrecognized sec tion and content) Team Status: Active Member Role Status Dates Clayton Manning MD Primary Care Provider Active Team Status: Inactive Member Role Status Dates Clayton Manning MD Primary Care Provider Active Rashida Solomon NP-C Attending Provider Active Team Status: Inactive Member Role Status Dates Clayton Manning MD Primary Care Provider Active Willie Herrera MD Attending Provider Active Team Status: Inactive Member Role Status Dates Clayton Manning MD Primary Care Provider Active S tart: October 05, 2023 End: October 05, 2023 Willie Herrera MD Attending Provider Active S tart: October 05, 2023 End: October 05, 2023 Team Status: Active Member Role Status Dates Clayton Manning MD Primary Care Provider Active S tart: October 05, 2023 Willie Herrera MD Attending Provider Active S tart: October 05, 2023 Life Trainer Relationship Specialty Start Date End Date Clayton Manning MD [address] [place] [phone] PCP - General Family Medicine 11/26/23 Team Status: Inactive Member Role Status Dates Clayton Manning MD Primary Care Provider Active S tart: April 18, 2024 End: April 18, 2024 Willie Herrera MD Attending Provider Active S tart: April 18, 2024 End: April 18, 2024 Life Trainer Relationship Specialty Start Date End Date Clayton Manning MD [address] [place] [phone] PCP - General Family Medicine 11/26/23 Life Trainer Relationship Specialty Start Date End Date Clayton Manning MD [address] [place] [phone] PCP - General Family Medicine 11/26/23 Life Trainer Relationship Specialty Start Date End Date Clayton Manning MD [address] [place] [phone] PCP - General Family Medicine 11/26/23 Goals (unrecognized section and content) Goals may be documented in a n alternate sectionNo InformationNo InformationGoals may be documented in an alternate sectionNo InformationNo InformationGoals may be documented in an alternate sectionGoals may be documented in an alternate sectionGoals may be documented in an alternate sectionGoals may be documented in an alternate sectionGoals may be documented in an alternate sectionGoals may be documented in an alternate section REASON FOR VISIT (unrecogniz ed section and content) Reason Comments Follow-up 6m FOR RECORDS PERTAINING TO PATIENTS WHO ARE OR HAVE BEEN ENROLLED IN A CHEMICAL DEPENDENCY/SUBSTANCEABUSE PROGRAM, SOME INFORMATION MAY BE OMITTED. This clinical summary was aggregated from multiple sources. Caution should be exercised in using it in the provision of clinical care. This summary normalizes information from multiple sources, and as a consequence, information in this document may materially change the coding, format and clinical context of patient data. In addition, data may be omitted in some cases. CLINICAL DECISIONS SHOULD BE BASED ON THE PRIMARY CLINICAL RECORDS. [employer] provides no warranty or guarantee of the accuracy or completeness of information in this document.
[2024-05-26 17:13] LABS: Basophils Absolute Auto 0.1 10^3/uL (0.0-0.1); Basophils Percent Auto 0.5 % (0.2-2.0); Eosinophils Absolute Auto 0.1 10^3/uL (0.0-0.7); Eosinophils Percent Auto 0.7 % (0.9-7.0); Immature Granulocytes Abs Auto 0.04 10^3/uL (0.00-0.03); Immature Granulocytes Pct Auto 0.3 % (0.0-0.5); Lymphocytes Percent Auto 16.2 % (20.5-60.0); Mean Corpuscular Hemoglobin 17.1 pg (26.7-34.0); Mean Platelet Volume 9.2 fL (9.5-13.5); Monocytes Absolute Auto 0.9 10^3/uL (0.3-0.8); Monocytes Percent Auto 7.4 % (1.7-12.0); Neutrophils Absolute Auto 9.2 10^3/uL (1.4-6.5); Neutrophils Percent Auto 74.9 % (43.0-75.0); Platelet Count 344 10^3/uL (150-450); Red Blood Count 3.57 10^6/uL (4.20-5.40); Red Cell Distribution Width 21.2 % (11.0-15.0); White Blood Count 12.3 10^3/uL (4.0-11.0)
[2024-05-26 17:21] LABS: Mean Corpuscular HGB Conc 27.4 g/dL (29.9-35.2); Mean Corpuscular Volume 62.5 fL (81.0-99.0)
[2024-05-26 17:23] LABS: Hematocrit 22.3 % (36.0-48.0); Hemoglobin 6.1 g/dL (12.0-16.0)
[2024-05-26 17:24] LABS: Anion Gap 10.8; Calcium 8.8 mg/dL (8.5-10.1); Carbon Dioxide 27.2 mmol/L (21.0-32.0); Chloride 105 mmol/L (98-107); Estimated GFR (African America >60 (>=60 mL/min/1.73m^2); Estimated GFR (Non-African Ame >60 (>=60 mL/min/1.73m^2); Glucose 83 mg/dL (74-106); Sodium 139 mmol/L (136-145)
[2024-05-26 17:40] LABS: Internal Control Within Normal Limits; Occult Blood Negative
--- NOTE | 2024-05-26 17:46 | CT_ITS ---
[address] [address] Patient Name: MAC DENIS MRN: [id number] date: 1945 Sex: F Assigned Patient Location: ED.MAIN Current Patient Location: ED.MAIN Accession/Order Number: [id number] Exam Date: 05/26/2024 18:14 Report Date: 05/26/2024 19:39 At the request of: JASPER NICHOLS Procedure: CT abdomen pelvis w con Indication: Anemia Comparison: None Procedure: Axial images were made from the diaphragms through the symphysis pubis. No oral contrast was given prior to scanning. 100 mL Omnipaque 300 Intravenous contrast was given. Dose reduction techniques were achieved by using automated exposure control and/or adjustment of mA and/or kV according to patient size and/or use of iterative reconstruction technique. Findings: Liver/Biliary System: Mild diffuse fatty infiltration of the liver. No liver masses. No intra or extrahepatic biliary dilatation. Gallstones with no evidence of acute cholecystitis. Pancreas/Spleen: No pancreatic masses. No evidence of acute pancreatitis. Pancreatic duct is not dilated. No splenomegaly or splenic lesions. Kidneys/Adrenals: Normal symmetrical nephrograms. No renal masses. A 6 mm right renal simple cyst. No renal or ureteral stones are seen. No hydronephrosis or hydroureter bilaterally. A 1.7 cm left adrenal nodule of indeterminate etiology, although probably adenoma. No right adrenal nodules. Aorta/Vessels: Atherosclerotic disease of the aorta. No evidence of aortic aneurysm. Patent IVC, renal veins, hepatic veins and portal venous system. Bowel/Fluid/Nodes: No bowel dilatation or bowel wall thickening. No evidence of bowel obstruction. Colonic diverticulosis with no evidence of diverticulitis. Normal appendix. No ascites or fluid collections. No adenopathy. Lung bases: Partially visualized Ill-defined nodules/nodular densities in right lower lobe of the lung, probably inflammatory or infectious. Please correlate clinically. Mild atelectasis at left lung base. A dedicated CT of the chest may be recommended for further assessment, if clinically warranted. 3 month follow-up is recommended to confirm resolution of findings in the chest. Other findings: No aggressive osseous lesions are seen. Pelvis: No pelvic masses or adenopathy. No free fluid seen in the pelvis. Bladder, uterus and adnexa are unremarkable. Other Findings: No aggressive osseous lesions are seen. Degenerative disc disease at L5-S1 level. CT/CT abdomen pelvis w con Impression: 1. No evidence of acute abdominal or pelvic process. 2. Partially visualized Ill-defined nodules/nodular densities in right lower lobe of the lung, probably inflammatory or infectious. Please correlate clinically. Mild atelectasis at left lung base. A dedicated CT of the chest may be recommended for further assessment, if clinically warranted. 3 month follow-up is recommended to confirm resolution of findings in the chest. 3. Mild diffuse fatty infiltration of the liver. Gallstones. A 6 mm right renal simple cyst. 4. A 1.7 cm left adrenal nodule of indeterminate etiology, although probably adenoma. This nodule may be followed up on the subsequent surveillance exam. 5. Degenerative disc disease at L5-S1 level. Electronically authenticated by: CUATE DALE Date: 05/26/2024 19:39
--- NOTE | 2024-05-26 17:49 | ED_ITS ---
HPI HPI - General Adult General Chief complaint: Recheck/Abnormal Lab/Rx Stated complaint: abnormal labs Time Seen by Provider: 05/26/24 16:42 Source: patient and family Mode of arrival: walk-in Limitations: no limitations History of Present Illness HPI narrative: 78-year-old female presented for anemia. She had outpatient blood work done and that hemoglobin came back 6.5 and she was sent here. She has been fatigued for the last week or so and sometimes she feels like her legs are going to give out. No black stools or blood in her stools. No fever or complaints of abdominal pain or syncope. She has never had GI bleed or anemia and had a colonoscopy about 7 or 8 years ago. Related Data Home Medications ?Medication ?Instructions ?Recorded ?Confirmed aspirin 81 mg capsule 81 mg PO DAILY 05/26/24 05/26/24 atorvastatin 40 mg tablet 40 mg PO .nightly 05/26/24 05/26/24 calcium phosphate,dibasic 77 1 tab PO DAILY 05/26/24 05/26/24 mg-vitamin D3 400 unit tablet clopidogrel 75 mg tablet 75 mg PO DAILY 05/26/24 05/26/24 insulin lispro protamine-lispro 30 unit subcut BID 05/26/24 05/26/24 100 unit/mL (75-25) subcutaneous pen losartan 25 mg tablet 25 mg PO DAILY 05/26/24 05/26/24 Allergies Allergy/AdvReac Type Severity Reaction Status Date / Time No Known Drug Allergies Allergy Verified 05/26/24 16:50 Opioid HPI Opioid Management Most Recent Opioid Data: No Data to Display Review of Systems ROS Narrative A ten point review of systems is negative except as noted above. PFSH PFSH Social History Little interest or pleasure in doing things: not at all Feeling down, depressed, or hopeless: not at all Exam Narrative Exam Narrative: Nurses note and vital signs reviewed and patient is not hypoxic. General: The patient appears well and in no apparent distress. Patient is resting comfortably on cart. Skin: Warm, dry, no pallor noted. There is no rash noted. Head: Normocephalic, atraumatic Eye: Normal conjunctiva, no drainage Ears, Nose, Mouth, and Throat: oral mucosa is moist. Nares patent. Cardiovascular: Regular Rate and Rhythm Respiratory: Patient is in no distress, no accessory muscle use, lungs are clear to auscultation, no wheezing, rales or rhonchi Back: non-tender GI: Soft and nontender. No masses. Rectal exam showed no masses Musculoskeletal: The patient has no evidence of calf tenderness, no pitting edema, symmetrical pulses noted bilaterally Neurological: A&O, normal speech Psychiatric: Cooperative Constitutional Vital Signs, click to edit/add: Last Vital Signs Temp 97.9 F 05/26/24 18:24 Pulse 94 H 05/26/24 18:24 Resp 18 05/26/24 18:24 BP 134/66 05/26/24 18:24 Pulse Ox 98 05/26/24 16:46 O2 Del Method Room Air 05/26/24 16:46 Course Vital Signs Vital signs: Vital Signs Temperature 97.5 F L 05/26/24 16:46 Pulse Rate 100 H 05/26/24 16:46 Respiratory Rate 20 05/26/24 16:46 Blood Pressure 134/57 05/26/24 16:46 Pulse Oximetry 98 05/26/24 16:46 Oxygen Delivery Method Room Air 05/26/24 16:46 Temperature 97.9 F 05/26/24 18:24 Pulse Rate 94 H 05/26/24 18:24 Respiratory Rate 18 05/26/24 18:24 Blood Pressure 134/66 05/26/24 18:24 Pulse Oximetry 98 05/26/24 16:46 Oxygen Delivery Method Room Air 05/26/24 16:46 Medical Decision Making MDM Narrative Medical decision making narrative: The patient is found to be anemic with a hemoglobin of 6.1 and heme-negative stool. CT scan of the abdomen is pending. She is not hypotensive or tachycardic. Blood transfusion is ordered and the patient will be admitted. Findings are discussed with the patient Differential Diagnosis Differential Diagnosis: Anemia, GI bleed Lab Data Lab results reviewed: Yes I reviewed the patient's lab results Labs: Lab Results 05/26/24 Range/Units 17:00 WBC 12.3 H (4.0-11.0) 10^3/uL RBC 3.57 L (4.20-5.40) 10^6/uL Hgb 6.1 L* (12.0-16.0) g/dL Hct 22.3 L* (36.0-48.0) % MCV 62.5 L (81.0-99.0) fL MCH 17.1 L (26.7-34.0) pg MCHC 27.4 L (29.9-35.2) g/dL RDW 21.2 H (11.0-15.0) % Plt Count 344 (150-450) 10^3/uL MPV 9.2 L (9.5-13.5) fL Neut % (Auto) 74.9 (43.0-75.0) % Lymph % (Auto) 16.2 L (20.5-60.0) % [place] % (Auto) 7.4 (1.7-12.0) % Eos % (Auto) 0.7 L (0.9-7.0) % Baso % (Auto) 0.5 (0.2-2.0) % Neut # (Auto) 9.2 H (1.4-6.5) 10^3/uL Lymph # (Auto) 2.0 (1.2-3.8) 10^3/uL [place] # (Auto) 0.9 H (0.3-0.8) 10^3/uL Eos # (Auto) 0.1 (0.0-0.7) 10^3/uL Baso # (Auto) 0.1 (0.0-0.1) 10^3/uL Abs Immat Gran (auto) 0.04 H (0.00-0.03) 10^3/uL Imm/Tot Granulo (auto) 0.3 (0.0-0.5) % Sodium 139 (136-145) mmol/L Potassium 4.0 (3.5-5.1) mmol/L Chloride 105 (98-107) mmol/L Carbon Dioxide 27.2 (21.0-32.0) mmol/L Anion Gap 10.8 BUN 12.0 (7.0-18.0) mg/dL Creatinine 0.75 (0.55-1.02) mg/dL Est GFR ( Amer) >60 (>=60 mL/min/1.73m^2) Est GFR (Non-Af Amer) >60 (>=60 mL/min/1.73m^2) BUN/Creatinine Ratio 16.0 Glucose 83 (74-106) mg/dL Calcium 8.8 (8.5-10.1) mg/dL Stool Occult Blood Negative Blood Type A Positive Antibody Screen Negative Crossmatch See Detail ECG Data Attestation: I personally reviewed and interpreted this ECG as follows: (EKG on my interpretation shows sinus rhythm with a rate of 92 and no acute change) Discharge Plan Discharge Chief Complaint: Recheck/Abnormal Lab/Rx Clinical Impression: Anemia Patient Disposition: Admitted As Inpatient Time of Disposition Decision: 18:27 Condition: Good
[2024-05-26] MEDS: 0.9 % SODIUM CHLORIDE 250 ML 10 ML IV (18:40)
--- OUTSIDE RECORDS SUMMARY | 2024-05-26 20:22 | XMS_ITS | CCD ---
Author Organization [facility] Care Team Providers Care Load Manager Name Role Phone SELF, REFERRED Referring Unavailable CLAYTON MANNING Primary Care Unavailable RENNO, ANAS Attending Unavailable RENNO, ANAS Admitting Unavailable NC Procedure Practitioner Unavailab IVANIA Brennan Surgeon Unavailable MD Clayton Manning Primary Care Provider [phone] MARILYN Solomon Attending Provider Willie Herrera Unavailable Hetal Tomlinson Unavailable MD Clayton Manning Primary Care Provider MARILYN Solomon Attending Provider KERRI, DR CLAYTON Castle Attending Unavailable NADERER, DR CLAYTON Castle Admitting Unavailable NADERER, DR CLAYTON Castle Primary Care Unavailable NADERER, DR CLAYTON Castle Consulting Unavailable NADERER, DR CLAYTON Castle Consulting Unavailable NADEREMarc, DR CLAYTON Castle Attending Unavailable MINNAEREMarc, DR CLAYTON Castle Admitting Unavailable NADERER, DR CLAYTON Castle Primary Care Unavailable NADERER, DR CLAYTON Castle Attending Unavailable NADERER, DR CLAYTON Castle Admitting Unavailable SOPCHOPPY, DR BALTAZAR Gross Consulting Unavailable NADERER, DR CLAYTON Castle Primary Care Unavailable MINNAEREMarc, DR CLAYTON Castle Consulting Unavailable MD Clayton Manning Primary Care Provider MD Willie Herrera Attending Provider MD Clayton Manning Primary Care Provider MD Willie Herrera Attending Provider [phone] ALISA RUFFIN Attending Unavailable CLAYTON MANNING Attending Unavailable ALISA RUFFIN Attending Unavailable ALISA RUFFIN Attending Unavailable CLAYTON MANNING Attending Unavailable Clayton Manning MD Primary Care Provider [phone] Willie Herrera Attending Unavailable Clayton Manning Primary [...] Yeast Rice E xtract Active Vit D3-Folic Xssz-J5-C5-B12 (8 sources) Start: 03-24-2017 take 1 tablet by mouth once daily Vit D3-Folic Hnmq-J8-M3-B12 Active 1 TAB PO Daily March 24, 2017 12:13pm Start: 03-24-2017 take 1 tablet by victor hugo th once daily Vit D3-Folic Nukx-P6-F2-B12 Active 1 TAB PO Daily March 24, [...] 24, 2017 12:00am October 20, 2019 9:14am [place] 5-Shr-Qzv-Fish Oil (Fish Oil) 1,000 mg (120 mg-180 mg) Capsule (8 sources) Start: 03-24-2017 End: 03-22-2019 take 1 tablet by mouth once daily [facility] 2-Ayv-Wue-Fish Oil (Fish Oil) 1,000 mg (120 mg-180 mg) Capsule Discontinued 1 TAB PO Daily March 24, 2017 12:13pm March 22, 2019 12:09pm Start: 03-24-2017 End: 03-22-2019 take 1 tablet by mouth once daily [facility] 3-Cfo-Nex-Fish Oil (Fish Oil) 1,000 mg (120 mg-180 [...] Resolved: 12-03-2021 Episodic Other aftercare (1 source) 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; 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] Onset: 05-08-2022 Episodic Other aftercare (8 sources) Long-term current use of drug therapy; Translations: [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] Onset: 11-26-2023 11-26-2023 Episodic [...] WITH AUTO DIFFon BASOPHILS ABSOLUTE AUTO 0.1 [facility] Basophils/100 WBC (Bld) 0.5 % 0.2 - 2.0 % [facility] Eosinophils/100 WBC (Bld) 0.3 % Low 0.9 - 7.0 % [facility] Erythrocyte distribution width (RBC) [Ratio] 21.4 % High 11.0 - 15.0 % [facility] Hematocrit (Bld) [Volume fraction] 24.2 % Low 36.0 - 48.0 % [facility] Hemoglobin (Bld) [Mass/Vol] 6.5 g/dL Critically low 12.0 - 16.0 g/dL [facility] Comment on above: RESULTS CALLED TO DR Anushka MANNING AT 1450 IMMATURE GRANULOCYTES ABS AUTO 0.03 [facility] Immature granulocytes/100 WBC (Bld) 0.3 % 0.0 - 0.5 % [facility] Interpretation and review of laboratory results Abnormal [facility] LYMPHOCYTES ABSOLUTE AUTO 2.1 [facility] Lymphocytes/100 WBC (Bld) 18.6 % Low 20.5 - 60.0 % [facility] MCH (RBC) [Entitic mass] 17.3 pg Low 26.7 - 34.0 pg [facility] MCHC (RBC) [Mass/Vol] 26.9 g/dL Low 29.9 - 35.2 g/dL [facility] MCV (RBC) [Entitic vol] 64.4 fL Low 81.0 - 99.0 fL [facility] MONOCYTES ABSOLUTE AUTO 0.9 High [facility] Monocytes/100 WBC (Bld) 7.8 % 1.7 - 12.0 % [facility] NEUTROPHILS ABSOLUTE AUTO 8 High [facility] Neutrophils/100 WBC (Bld) 72.5 % 43.0 - 75.0 % [facility] Platelet mean volume (Bld) [Entitic vol] 9.2 fL Low 9.5 - 13.5 fL [facility] TBH EO # 0 [facility] PLT 337 [facility] TB RBC 3.76 Low [facility] Comment on above: 2+ ANISOCYTOSIS 2+ HYPCHROMIA 2+ MICROCYTOSIS 1+ OVALOCYTES TBH WBC 11 [facility] US carotid doppler BIon 10-2 US carotid doppler BI [facility] [address] [place] [address] Ultrasound Report Signed Patient: Neha Ashton MR#: [id number] : 1945 Acct:[id number] Age/Sex: 78 / F ADM Date: 04/18/24 Loc: [facility] Room: Type: [facility] Attending Dr: Willie Herrera MD Ordering [...] Willie Herrera M.D.04/18/2024 11:57 AM Dictation Location: [place] [address] Tech: Kary Fajardo Transcribed By: LOLI 04/18/24 1157 Dictated By: Willie Herrera MD 04/18/241153 Signed By: 04/18/24 1157 Normal [facility] US carotid doppler BIon 04- US carotid doppler BI [facility] [address] [place] [address] Ultrasound Report Signed Patient: Neha Ashton MR#: [id number] : 1945 Acct:[id number] Age/Sex: 78 / F ADM Date: 10/05/23 Loc: [facility] Room: Type: [facility] Attending Dr: Willie Herrera MD Ordering [...] Willie Herrera M.D.10/05/2023 11:17 AM Dictation Location: [place] [address] Tech: Kary Fajardo Transcribed By: LOLI 10/05/23 111 Dictated By: Willie Herrera MD 10/05/231113 Signed By: 10/05/23 111 Normal [facility] Creatinine [Mass/volume] in Serum or PlasmaOrdered By: Willie Herrera on 03-26-2023 Creatinine [Mass/Vol] 0.76 mg/dL 0.60-1.20 [facility] No Panel InformationOrdered By: Willie Herrera on 03-26-2023 Estimated GFR (CKD-EPI) > 60.0 mL/Min [facility] Creatinine Clearance (Chem 46.62 [place] Urea nitrogen [Mass/volume] in Serum or PlasmaOrdered By: Willie Herrera on 03-26-2023 Urea nitrogen [Mass/Vol] 18 mg/dL 01-13 [place] CBC AUTO DIFFon 11-04-2022 BASO # 0.1 103/ul Normal 0.0-0.1 [facility] Comment on above: Performed By: #### C BC #### [facility] [address] [place] [address] [address] Anette Shah Basophils/100 WBC (Bld) 0.4 % Normal 0.2-2.0 [facility] Comment on above: Performed By: #### C BC #### [facility] [address] [place] [address] [address] Anette Shah EO # 0.0 103/ul Normal 0.0-0.7 [facility] Comment on above: Performed By: #### C BC #### [facility] [address] [place] [address] [address] Anette Shah Eosinophils/100 WBC (Bld) 0.1 % Critically low 0.9-7.0 [facility] Comment on above: Performed By: #### C BC #### [facility] [address] [place] [address] Dr. Anette Shah Erythrocyte distribution width (RBC) [Ratio] 18.3 % Critically high 11.0-15.0 [facility] Comment on above: Performed By: #### C BC #### [facility] [address] [place] [address] Dr. Anette Shah Hematocrit (Bld) [Volume fraction] 32.4 % Critically low 36.0-48.0 [facility] Comment on above: Performed By: #### C BC #### [facility] [address] [place] [address] Dr. Anette Shah Hemoglobin (Bld) [Mass/Vol] 10.0 g/dL Critically low 12.0-16.0 [facility] Comment on above: Performed By: #### C BC #### [facility] [address] [place] [address] Dr. Anette Shah IG # 0.05 10e3/ul Critically high 0.00-0.03 [facility] Comment on above: Performed By: #### C BC #### [facility] [address] [place] [address] Dr. Anette Shah IG % 0.4 % Normal 0.0-0.5 [facility] Comment on above: Performed By: #### C BC #### [facility] [address] [place] [address] Dr. Anette Shah LYMPH # 1.8 103/ul Normal 1.2-3.8 [facility] Comment on above: Performed By: #### C BC #### [facility] [address] [place] [address] Dr. Anette Shah Lymphocytes/100 WBC (Bld) 13.1 % Critically low 20.5-60.0 [facility] Comment on above: Performed By: #### C BC #### [facility] [address] [place] [address] Dr. Anette Shah MANUAL DIFF REQ NO Normal [facility] Comment on above: Performed By: #### C BC #### [facility] [address] [place] [address] Dr. Anette Shah MCH (RBC) [Entitic mass] 22.3 pg Critically low 26.7-34.0 [facility] Comment on above: Performed By: #### C BC #### [facility] [address] [place] [address] Dr. Anette Shah MCHC (RBC) [Mass/Vol] 30.9 g/dL Normal 29.9-35.2 [facility] Comment on above: Performed By: #### C BC #### [facility] [address] [place] [address] Dr. Anette Shah MCV (RBC) [Entitic vol] 72.2 fL Critically low 81.0-99.0 [facility] Comment on above: Performed By: #### C BC #### [facility] [address] [place] [address] Dr. Anette Shah MONO # 0.6 103/ul Normal 0.3-0.8 [facility] Comment on above: Performed By: #### C BC #### [facility] [address] [place] [address] Dr. Anette Shah Monocytes/100 WBC (Bld) 4.3 % Normal 1.7-12.0 [facility] Comment on above: Performed By: #### C BC #### [facility] [address] [place] [address] Dr. Anette Shah NEUT # 11.5 103/ul Critically high 1.4-6.5 [facility] Comment on above: Performed By: #### C BC #### [facility] [address] [place] [address] Dr. Anette Shah Neutrophils/100 WBC (Bld) 81.7 % Critically high 43.0-75.0 [facility] Comment on above: Performed By: #### C BC #### [facility] [address] [place] [address] Dr. Anette Shah Platelet mean volume (Bld) [Entitic vol] 8.8 fL Critically low 9.5-13.5 [facility] Comment on above: Performed By: #### C BC #### [facility] [address] [place] [address] Dr. Anette Shah PLT 479 103/ul Critically high 150-450 [facility] Comment on above: Performed By: #### C BC #### [facility] [address] [place] [address] Dr. Anette Shah RBC 4.49 106/ul Normal 4.20-5.40 [facility] Comment on above: Performed By: #### C BC #### [facility] [address] [place] [address] Dr. Anette Shah WBC 14.1 103/ul Critically high 4.0-11.0 [facility] Comment on above: Performed By: #### C BC #### [facility] [address] [place] [address] Dr. Anette Shah GLYCOHEMOGLOBIN A1Con 2022 ADA RECOMMENDATION SEE BELOW Normal [facility] Comment on above: Result Comment: ADA RECOMMENDED LIMIT 4.0 - 6.0 ADA THERAPEUTIC TARGET < 7.0 ACTION SUGGESTED > 7.0 Performed By: #### A 1C #### [facility] [address] [place] [address] [address] Anette Shah Glucose [Mass/Vol] 200 mg/dL Normal [facility] Comment on above: Performed By: #### A 1C #### [facility] [address] [place] [address] [address] Anetet Shah HbA1c (Bld) [Mass fraction] 8.6 % Critically high 4.5-6.2 [facility] Comment on above: Performed By: #### A 1C #### [facility] [address] [place] [address] Dr. Anette Shah LIPID PROFILEon 11-04-2022 CHOL-HDL RATIO NORM SEE BELOW Normal [facility] Comment on above: Result Comment: 3.3 - 4.4 LOW RISK 4.4 - 7.1 AVERAGE RISK 7.1 - 11.0 MODERATE RISK >11.0 HIGH RISK Performed By: #### L IPID, BMP, LIVER #### [facility] [address] [place] [address] [address] Anette Shah Cholesterol [Mass/Vol] 123 mg/dL Normal <=200 [facility] Comment on above: Performed By: #### L IPID, BMP, LIVER #### [facility] [address] [place] [address] [address] Anette Shah Cholesterol in HDL [Mass/Vol] 61 mg/dL Critically high 40-60 [facility] Comment on above: Performed By: #### L IPID, BMP, LIVER #### [facility] [address] [place] [address] [address] Anette Shah Cholesterol in LDL [Mass/Vol] 35.0 mg/dL Normal [facility] Comment on above: Performed By: #### L IPID, BMP, LIVER #### [facility] [address] [place] [address] [address] Anette Shah Cholesterol.total/Chol esterol in HDL [Mass ratio] 2.0 {ratio} Normal [facility] Comment on above: Performed By: #### L IPID, BMP, LIVER #### [facility] [address] [place] [address] [address] Anette Shah HDL NORMAL > or = 60 mg/dl - LO W CARDIOVASCULAR RISK <40 mg/dl - HIGH CARDIOVASCULAR RISK Normal [facility] Comment on above: Performed By: #### L IPID, BMP, LIVER #### [facility] [address] [place] [address] [address] Anette Shah LDL CALC NORMAL SEE BELOW Normal [facility] Comment on above: Result Comment: <100 mg/dl OPTIMAL 100 - 129 mg/dl NEAR OR ABOVE OPTIMAL 130 - 159 mg/dl BORDERLINE HIGH 160 - 189 mg/dl HIGH >190 mg/dl VERY HIGH Performed By: #### L IPID, BMP, LIVER #### [facility] [address] [place] [address] [address] Anette Shah Triglyceride [Mass/Vol] 135 mg/dL Normal <=150 [facility] Comment on above: Performed By: #### L IPID, BMP, LIVER #### [facility] [address] [place] [address] [address] Anette Shah VLDL CALC 27.0 mg/dL Normal [facility] Comment on above: Performed By: #### L IPID, BMP, LIVER #### [facility] [address] [place] [address] [address] Anette Shah LIVER PROFILEon 11-04-2022 Albumin [Mass/Vol] 3.4 g/dL Normal 3.4-5.0 [facility] Comment on above: Performed By: #### L IPID, BMP, LIVER #### [facility] [address] [place] [address] [address] Anette Shah Albumin/Globulin [Mass ratio] 0.9 {ratio} Normal [facility] Comment on above: Performed By: #### L IPID, BMP, LIVER #### [facility] [address] [place] [address] [address] Anette Shah ALP [Catalytic activity/Vol] 99 U/L Normal 46-116 [facility] Comment on above: Performed By: #### L IPID, BMP, LIVER #### [facility] [address] [place] [address] [address] Anette Shah ALT [Catalytic activity/Vol] 20 U/L Normal 14-59 [facility] Comment on above: Performed By: #### L IPID, BMP, LIVER #### [facility] [address] [place] [address] [address] Anette Shah AST [Catalytic activity/Vol] 16 U/L Normal 15-37 [facility] Comment on above: Performed By: #### L IPID, BMP, LIVER #### [facility] [address] [place] [address] Dr. Anette Shah BILI, CONJUGATED 0.1 mg/dL Normal 0.0-0.2 [facility] Comment on above: Performed By: #### L IPID, BMP, LIVER #### [facility] [address] [place] [address] Dr. Anette Shah Bilirubin [Mass/Vol] 0.3 mg/dL Normal 0.2-1.0 [facility] Comment on above: Performed By: #### L IPID, BMP, LIVER #### [facility] [address] [place] [address] Dr. Anette Shah Globulin (S) [Mass/Vol] 4.0 g/dL Normal [facility] Comment on above: Performed By: #### L IPID, BMP, LIVER #### [facility] [address] [place] [address] Dr. Anette Shah Protein [Mass/Vol] 7.4 g/dL Normal 6.4-8.2 [facility] Comment on above: Performed By: #### L IPID, BMP, LIVER #### [facility] [address] [place] [address] Dr. Anette Shah MICROALBUMIN, RAND URon 05- mALB 1.4 mg/dL Normal <=30.0 [facility] Comment on above: Performed By: #### M ALBR #### [facility] [address] [place] [address] Dr. Anette Shah PROF CHEM 8 (BAS METB)on Anion gap [Moles/Vol] 14.9 mmol/L Normal [facility] Comment on above: Performed By: #### L IPID, BMP, LIVER #### [facility] [address] [place] [address] [address] Anette Shah Calcium [Mass/Vol] 9.2 mg/dL Normal 8.5-10.1 [facility] Comment on above: Performed By: #### L IPID, BMP, LIVER #### [facility] [address] [place] [address] [address] Anette Shah Chloride [Moles/Vol] 101 mmol/L Normal 98-107 [facility] Comment on above: Performed By: #### L IPID, BMP, LIVER #### [facility] [address] [place] [address] Dr. Anette Shah CO2 [Moles/Vol] 26.6 mmol/L Normal 21.0-32.0 [facility] Comment on above: Performed By: #### L IPID, BMP, LIVER #### [facility] [address] [place] [address] [address] Anette Shah Creatinine [Mass/Vol] 0.99 mg/dL Normal 0.55-1.02 [facility] Comment on above: Performed By: #### L IPID, BMP, LIVER #### [facility] [address] [place] [address] [address] Anette Shah EGFR-AF SERBIAN >60 Normal >=60 [facility] Comment on above: Performed By: #### L IPID, BMP, LIVER #### [facility] [address] [place] [address] [address] Anette Shah EGFR-NON AF SERBIAN 54 mL/min/1.73m2 Critically low >=60 [facility] Comment on above: Performed By: #### L IPID, BMP, LIVER #### [facility] [address] [place] [address] [address] Anette Shah Glucose [Mass/Vol] 215 mg/dL Critically high 74-106 [facility] Comment on above: Performed By: #### L IPID, BMP, LIVER #### [facility] [address] [place] [address] [address] Anette Shah Potassium [Moles/Vol] 4.5 mmol/L Normal 3.5-5.1 [facility] Comment on above: Performed By: #### L IPID, BMP, LIVER #### [facility] [address] [address] [address] Anette Shah Sodium [Moles/Vol] 138 mmol/L Normal 136-145 [facility] Comment on above: Performed By: #### L IPID, BMP, LIVER #### [facility] [address] [place] [address] [address] Anette Shah Urea nitrogen [Mass/Vol] 13.0 mg/dL Normal 7.0-18.0 [facility] Comment on above: Performed By: #### L IPID, BMP, LIVER #### [facility] [address] [place] [address] [address] Anette Shah Urea nitrogen/Creatinine [Mass ratio] 13.1 mg/mg Normal [facility] Comment on above: Performed By: #### L IPID, BMP, LIVER #### [facility] [address] [place] [address] [address] Anette Shah Creatinine (Bld) [Mass/Vol]O rdered By: Rashida Solomon on 09-08-2022 Creatinine [Mass/Vol] 0.7 mg/dL 0.6-1.3 [facility] Comment on above: ER/ESD physician is notified/shown all ISTAT results.Critical values may be confirmed by laboratory testing ifdeemed necessary by ER attending doctor. GLYCOHEMOGLOBIN A1Con 2021 ADA RECOMMENDATION SEE BELOW Normal [facility] Comment on above: Result Comment: ADA RECOMMENDED LIMIT 4.0 - 6.0 ADA THERAPEUTIC TARGET < 7.0 ACTION SUGGESTED > 7.0 Performed By: #### A 1C #### [facility] [address] [place] [address] [address] Anette Shah Glucose [Mass/Vol] 186 mg/dL Normal [facility] Comment on above: Performed By: #### A 1C #### [facility] [address] [place], [place] [address] Dr. Anette Shah HbA1c (Bld) [Mass fraction] 8.1 % Critically high 4.5-6.2 [facility] Comment on above: Performed By: #### A 1C #### [facility] [address] [place], [place] [address] Dr. Anette Shah MG MAMM SCREEN 3D SMITH CADon 11-11-2021 MG MAMM SCREEN 3D SMITH CAD Patient: NEHA ASHTON Exam Date: 11/11/2021 : 1945 Gender:F Ordering : DR CLAYTON MANNING . Admission #: [id number] Family : Order #: [id number] CLICK HERE TO VIEW EXAM RADIOLOGY REPORT [...] throat cancer at age 50. LOCATION: [facility] BREAST COMPOSITION: Scattered areas fibroglandular density. FINDINGS: [...] MD on 11/11/2021 at 10:00 Normal [facility] HIP RIGHT 1 OR 2 VWS WITH PE LVISon 10-20-2018 HIP RIGHT 1 OR 2 VWS WITH PELVIS [facility] Department of Radiology [address] [place] [address] Patient Name: NEHA ASHTON : 1945 Sex: F Age: Race: White Pt. 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 Transcribed by: [email or web address], User Resident: Electronically Signed by: EARNEST GO @ 10/20/2018 11:37 AM Normal [facility] Comment on above: Order Comment: , Vie ws (X-RAY, HIP): Radiologic Protocol , Weight Bearing?: N , Views (X-RAY, HIP): Radiologic Protocol , Weight Bearing?: N , , , Ordering Provider - CHARLY LINDSEY PA-C , C REACTIVE PROTEINon 019 CRP [Mass/Vol] 4.3 mg/L Normal 0.0-7.0 [facility] Comment on above: Performed By: #### 8 [id number] #### [facility] [address] [place] [address], [facility] CBC W/DIFFon 09-28-2018 ABS BASOPHILS 0.1 10*3/uL Normal 0.0-0.2 [facility] Comment on above: Performed By: #### 6 2586 #### [facility] [address] [place] [address], [facility] ABS NEUTROPHILS 8.2 10*3/uL High 1.6-7.6 [facility] Comment on above: Performed By: #### 6 2586 #### [facility] [address] [facility] [place] [address], [facility] Basophils/100 WBC (Bld) 0.9 % Normal 0.0-1.0 [facility] Comment on above: Performed By: #### 6 2586 #### [facility] [address] [place] [address], [facility] Eosinophils (Bld) [#/Vol] 0.1 10*3/uL Normal 0.0-0.5 [facility] Comment on above: Performed By: #### 6 2586 #### [facility] [address] [place] [address], [facility] Eosinophils/100 WBC (Bld) 0.9 % Normal 0.0-6.0 [facility] Comment on above: Performed By: #### 6 2586 #### [facility] [address] [place] [address], [facility] Erythrocyte distribution width (RBC) [Ratio] 15.9 % High 11.5-15.0 [facility] Comment on above: Performed By: #### 6 2586 #### [facility] [address] [place] [address], [facility] GIANT PLATELETS Present Normal [facility] Comment on above: Performed By: #### 6 2586 #### [facility] [address] [place] [address], [facility] Hematocrit (Bld) [Volume fraction] 39.3 % Normal 36.0-45.0 [facility] Comment on above: Performed By: #### 6 2586 #### [facility] [address] [place] [address], [facility] Hemoglobin (Bld) [Mass/Vol] 13.3 g/dL Normal 12.0-15.0 [facility] Comment on above: Performed By: #### 6 2586 #### [facility] [address] [place] [address], [place] Lymphocytes (Bld) [#/Vol] 3.3 10*3/uL Normal 1.2-4.0 [facility] Comment on above: Performed By: #### 6 2586 #### [facility] [address] [place] [address], [facility] Lymphocytes/100 WBC (Bld) 27.5 % Normal 20.0-45.0 [facility] Comment on above: Performed By: #### 6 2586 #### [facility] [address] [place] [address], [facility] MCH (RBC) [Entitic mass] 28.4 pg Normal 27.0-33.0 [facility] Comment on above: Performed By: #### 6 2586 #### [facility] [address] [place] [address], [facility] MCHC (RBC) [Mass/Vol] 33.8 g/dL Normal 32.0-35.0 [facility] Comment on above: Performed By: #### 6 2586 #### [facility] [address] [facility] [place] [address], [facility] MCV (RBC) [Entitic vol] 84.0 fL Normal 82.0-98.0 [facility] Comment on above: Performed By: #### 6 2586 #### [facility] [address] [facility] [place] [address], [facility] Monocytes (Bld) [#/Vol] 0.3 10*3/uL Normal 0.1-1.0 [facility] Comment on above: Performed By: #### 6 2586 #### [facility] [address] [facility] [place] [address], [facility] MONOS 2.8 % Low 5.0-12.0 [facility] Comment on above: Performed By: #### 6 2586 #### [facility] [address] [facility] [place] [address], [facility] Neutrophils/100 WBC (Bld) 67.9 % Normal 40.0-72.0 [facility] Comment on above: Performed By: #### 6 2586 #### [facility] [address] [place] [address], [facility] Nucleated RBC/100 WBC (Bld) [Ratio] 0 % Normal 0-0 [facility] Comment on above: Performed By: #### 6 2586 #### [facility] [address] [facility] [address], [facility] PLAT CNT 392 10*3/uL Normal 150-400 [facility] Comment on above: Performed By: #### 6 2586 #### [facility] [address] [facility] [place] [address], [facility] RBC (Bld) [#/Vol] 4.68 10*6/uL Normal 3.80-5.00 [facility] Comment on above: Performed By: #### 6 2586 #### [facility] [address] [facility] [place] [place] [address], [facility] WBC (Bld) [#/Vol] 12.03 10*3/uL High 4.00-10.60 [facility] Comment on above: Performed By: #### 6 2586 #### [facility] [address] HIP RIGHT 1 OR 2 VWS WITH PE LVISon 09-28-2018 HIP RIGHT 1 OR 2 VWS WITH PELVIS [facility] Department of Radiology [address] [place] [id number] Patient Name: NEHA ASHTON : 1945 Sex: F Age: Race: White Pt. Location: 84 Patient Status: O Ordered Date: 09/28/2018 1:10:00 PM Completed Date: 09/28/2018 01:09 PM Requesting Provider: FRANCESCA BUSH Attending Provider: FRANCESCA BUSH Report Copy To: CLAYTON MANNING Signs & Symptoms: S72.041D Disp fx of base of nk of r femr, 7thD I10 History: [place] Comments: , , , Ordering Provider - [...] alignment Electronically signed by:Earnest Go. Transcribed by: [email or web address], User Resident: Electronically Signed by: EARNEST GO @ 09/28/2018 03:23 PM Normal [facility] Comment on above: Order Comment: , , = ========= , Ordering Provider - FRANCESCA RACHELLE PA-C , SEDIMENTATION RATEon 019 SED RATE 18 mm/hr Normal 0-20 [facility] Comment on above: Performed By: #### 6 2586 #### [place] [address], [facility] HIP RIGHT 1 OR 2 VWS WITH PE LVISon 06-30-2018 HIP RIGHT 1 OR 2 VWS WITH PELVIS [facility] Department of Radiology [address] [place] [id number] Patient Name: NEHA ASHTON : 1945 [...] unchanged Electronically signed by:Houston Interiano. Transcribed by: [email or web address], User Resident: Electronically Signed by: HOUSTON INTERIANO @ 06/30/2018 02:43 PM Normal [facility] Comment on above: Order Comment: , Vie ws (X-RAY, HIP): Radiologic Protocol , Views (X-RAY, HIP): Radiologic Protocol , , , Ordering Provider - FRANCESCA BUSH PA-C , HIP RIGHT 1 OR 2 VWS WITH PE LVISon 05-19-2018 HIP RIGHT 1 OR 2 VWS WITH PELVIS [facility] Department of Radiology [address] [place] [id number] Patient Name: NEHA ASHTON : 1945 Sex: F Age: Race: White Pt. Location: Patient Status: Ordered Date: 05/19/2018 9:30:00 AM Completed Date: 05/19/2018 09:35 AM Requesting Provider: CHARLY LINDSEY Attending Provider: Report Copy To: Signs & Symptoms: S72.001D Fx unsp part of nk of r femr, subs for clos fx w routn heal I10 History: [place] Comments: , Views (X-RAY, HIP): Radiologic Protocol [...] hemiarthroplasty Electronically signed by:Earnest Go. Transcribed by: [email or web address], User Resident: Electronically Signed by: EARNEST GO @ 05/19/2018 01:47 PM Normal [facility] Comment on above: Order Comment: , Andrey ws (X-RAY, HIP): Radiologic Protocol , Weight Bearing?: N , With or Without Brace/Cast/Collar: With , Views (X-RAY, HIP): Radiologic Protocol , Weight Bearing?: N , With or Without Brace/Cast/Collar: With , , , Ordering Provider - CHARLY LINDSEY PA-C , Operative Reporton 8 Operative Report MR#: [id number] I [facility] Pt. Name: Neha Ashton Room #: [id number] Discharge 05/04/2018 Date: Birthdate: 1945 OPERATIVE REPORT DATE OF SURGERY: 04/30/2018 SURGEON: Ivania Batlazar M.D. ASSISTANTS: 1. Bj Be M.D. 2. [...] capsule was then closed using #1 Ethibond uksgsi-yr-huzqs fashion as well as the short external rotators. Next, the fascia johan was repaired using abtmdu-yg-lhsqt #1 Vicryl. Subcutaneous tissue was then closed [...] Be M.D. Date Trans: 05/06/2018 04:41 Tin/leesa [id number] cc: Clayton Manning M.D. [address] [place] [address] Normal [facility] CBC W/DIFFon 05-04-2018 ABS BASOPHILS 0.0 10*3/uL Normal 0.0-0.2 [facility] Comment on above: Order Comment: No: D o not add to previous draw Performed By: #### 6 2586 #### [facility] [address] [facility] [place] [address], [facility] ABS IMM GRANS 0.1 10*3/uL Normal 0.0-0.2 [facility] Comment on above: Order Comment: No: D o not add to previous draw Performed By: #### 6 2586 #### [facility] [address] [facility] [place] [address], [facility] ABS NEUTROPHILS 7.9 10*3/uL High 1.6-7.6 [facility] Comment on above: Order Comment: No: D o not add to previous draw Performed By: #### 6 2586 #### [facility] [address] [facility] [address], [facility] Basophils/100 WBC (Bld) 0.2 % Normal 0.0-1.0 [facility] Comment on above: Order Comment: No: D o not add to previous draw Performed By: #### 6 2586 #### [facility] [address] [place] [address], [facility] Eosinophils (Bld) [#/Vol] 0.1 10*3/uL Normal 0.0-0.5 [facility] Comment on above: Order Comment: No: D o not add to previous draw Performed By: #### 6 2586 #### [facility] [address] [place] [address], [facility] Eosinophils/100 WBC (Bld) 0.8 % Normal 0.0-6.0 [facility] Comment on above: Order Comment: No: D o not add to previous draw Performed By: #### 6 2586 #### [facility] [address] [place] [address], [facility] Erythrocyte distribution width (RBC) [Ratio] 13.4 % Normal 11.5-15.0 [facility] Comment on above: Order Comment: No: D o not add to previous draw Performed By: #### 6 2586 #### [facility] [address] [place] [address], [facility] Hematocrit (Bld) [Volume fraction] 24.1 % Low 36.0-45.0 [facility] Comment on above: Order Comment: No: D o not add to previous draw Performed By: #### 6 2586 #### [facility] [address] [place] [address], [facility] Hemoglobin (Bld) [Mass/Vol] 8.4 g/dL Low 12.0-15.0 [facility] Comment on above: Order Comment: No: D o not add to previous draw Performed By: #### 6 2586 #### [facility] [address] [place] [address], [facility] IMMATURE GRANS 0.5 % Normal 0.0-1.0 [facility] Comment on above: Order Comment: No: D o not add to previous draw Performed By: #### 6 2586 #### [facility] [address] [facility] [place] [address], [facility] Lymphocytes (Bld) [#/Vol] 1.7 10*3/uL Normal 1.2-4.0 [facility] Comment on above: Order Comment: No: D o not add to previous draw Performed By: #### 6 2586 #### [facility] [address] [facility] [place] [address], [facility] Lymphocytes/100 WBC (Bld) 16.2 % Low 20.0-45.0 [facility] Comment on above: Order Comment: No: D o not add to previous draw Performed By: #### 6 2586 #### [facility] [address] [place] [id number], [facility] MCH (RBC) [Entitic mass] 29.8 pg Normal 27.0-33.0 [facility] Comment on above: Order Comment: No: D o not add to previous draw Performed By: #### 6 2586 #### [facility] [address] [place] [address], [facility] MCHC (RBC) [Mass/Vol] 34.9 g/dL Normal 32.0-35.0 [facility] Comment on above: Order Comment: No: D o not add to previous draw Performed By: #### 6 2586 #### [facility] [address] [place] [address], [facility] MCV (RBC) [Entitic vol] 85.5 fL Normal 82.0-98.0 [facility] Comment on above: Order Comment: No: D o not add to previous draw Performed By: #### 6 2586 #### [facility] [address] [place] [address], [facility] Monocytes (Bld) [#/Vol] 0.7 10*3/uL Normal 0.1-1.0 [facility] Comment on above: Order Comment: No: D o not add to previous draw Performed By: #### 6 2586 #### [facility] [address] [place] [id number], [facility] MONOS 6.4 % Normal 5.0-12.0 [facility] Comment on above: Order Comment: No: D o not add to previous draw Performed By: #### 6 2586 #### [facility] [address] [place] [address], [facility] Neutrophils/100 WBC (Bld) 75.9 % High 40.0-72.0 [facility] Comment on above: Order Comment: No: D o not add to previous draw Performed By: #### 6 2586 #### [facility] [address] [place] [address], [facility] Nucleated RBC/100 WBC (Bld) [Ratio] 0 % Normal 0-0 [facility] Comment on above: Order Comment: No: D o not add to previous draw Performed By: #### 6 2586 #### [facility] [address] [place] [address], [facility] PLAT CNT 335 10*3/uL Normal 150-400 [facility] Comment on above: Order Comment: No: D o not add to previous draw Performed By: #### 6 2586 #### [facility] [address] [place] [id number], [facility] RBC (Bld) [#/Vol] 2.82 10*6/uL Low 3.80-5.00 [facility] Comment on above: Order Comment: No: D o not add to previous draw Performed By: #### 6 2586 #### [facility] [address] [place] [address], [facility] WBC (Bld) [#/Vol] 10.40 10*3/uL Normal 4.00-10.60 [facility] Comment on above: Order Comment: No: D o not add to previous draw Performed By: #### 6 2586 #### [facility] [address] POC GLUCOSE LABon 05-04-2018 Glucose [Mass/Vol] 196 mg/dL High 70-100 [facility] Comment on above: Performed By: #### 6 2586 #### [facility] [address] [place] [address], [facility] Glucose [Mass/Vol] 128 mg/dL High 70-100 [facility] Comment on above: Performed By: #### 6 2586 #### [facility] [address] [place] [address], [facility] BASIC METABOLIC PANELon 04-22 Calcium [Mass/Vol] 8.2 mg/dL Low 8.6-10.3 [facility] Comment on above: Order Comment: No: D o not add to previous draw Performed By: #### 0 0071, [id number] #### [facility] [address] [place] [id number], [facility] Chloride [Moles/Vol] 101 mmol/L Normal 98-107 [facility] Comment on above: Order Comment: No: D o not add to previous draw Performed By: #### 0 70, [id number] #### [facility] [address] [place] [address], [place] CO2 [Moles/Vol] 25 mmol/L Normal 21-31 [facility] Comment on above: Order Comment: No: D o not add to previous draw Performed By: #### 0 70, [id number] #### [facility] [address] [place] [address], [place] Creatinine [Mass/Vol] 0.49 mg/dL Low 0.60-1.20 [facility] Comment on above: Order Comment: No: D o not add to previous draw Performed By: #### 0 007, [id number] #### [facility] [address] [place] [address], [place] GFR/1.73 sq M predicted among blacks MDRD (S/P/Bld) [Vol rate/Area] mL/min/{1.73_m2} Normal >60 [facility] Comment on above: Order Comment: No: D o not add to previous draw Result Comment: Calc ulation may not be valid for patients over 70 years Performed By: #### 0 007, [id number] #### [facility] [address] [place] [address], [place] GFR/1.73 sq M predicted among non-blacks MDRD (S/P/Bld) [Vol rate/Area] mL/min/{1.73_m2} Normal >60 [facility] Comment on above: Order Comment: No: D o not add to previous draw Result Comment: Calc ulation may not be valid for patients over 70 years Performed By: #### 0 007, 99784 #### [facility] [address] [place] [address], [place] Glucose [Mass/Vol] 114 mg/dL High 70-100 [facility] Comment on above: Order Comment: No: D o not add to previous draw Performed By: #### 0 70, #### [facility] [address] [place] [address], [facility] Potassium [Moles/Vol] 3.8 mmol/L Normal 3.5-5.1 [facility] Comment on above: Order Comment: No: D o not add to previous draw Performed By: #### 0 70, #### [facility] [address] [place] [address], [facility] Sodium [Moles/Vol] 133 mmol/L Low 136-145 [facility] Comment on above: Order Comment: No: D o not add to previous draw Performed By: #### 0 70, #### [facility] [address] [place] [address], [facility] Urea nitrogen [Mass/Vol] 10 mg/dL Normal 7-25 [facility] Comment on above: Order Comment: No: D o not add to previous draw Performed By: #### 0 70, #### [facility] [address] [place] [address], [facility] CBC COMPLETE BLOOD COUNTon 07-03-2017 Erythrocyte distribution width (RBC) [Ratio] 13.6 % Normal 11.5-15.0 [facility] Comment on above: Order Comment: No: D o not add to previous draw Performed By: #### 0 70, #### [facility] [address] [place] [address], [place] Hematocrit (Bld) [Volume fraction] 25.0 % Low 36.0-45.0 [facility] Comment on above: Order Comment: No: D o not add to previous draw Performed By: #### 0 70, 76029 #### [facility] [address] [place] [address], [place] Hemoglobin (Bld) [Mass/Vol] 8.5 g/dL Low 12.0-15.0 [facility] Comment on above: Order Comment: No: D o not add to previous draw Performed By: #### 0 70, #### [facility] [address] [place] [address], [facility] MCH (RBC) [Entitic mass] 29.1 pg Normal 27.0-33.0 [facility] Comment on above: Order Comment: No: D o not add to previous draw Performed By: #### 0 70, #### [facility] [address] [place] [address], [facility] MCHC (RBC) [Mass/Vol] 34.0 g/dL Normal 32.0-35.0 [facility] Comment on above: Order Comment: No: D o not add to previous draw Performed By: #### 0 70, #### [facility] [address] [facility] [place] [address], [facility] MCV (RBC) [Entitic vol] 85.6 fL Normal 82.0-98.0 [facility] Comment on above: Order Comment: No: D o not add to previous draw Performed By: #### 0 70, #### [facility] [address] [facility]. [address] Nucleated RBC/100 WBC (Bld) [Ratio] 0 % Normal 0-0 [facility] Comment on above: Order Comment: No: D o not add to previous draw Performed By: #### 0 70, #### [facility] [address] [facility] [place] [address], [facility] PLAT CNT 323 10*3/uL Normal 150-400 [facility] Comment on above: Order Comment: No: D o not add to previous draw Performed By: #### 0 70, #### [facility] [address] [place] [address], [facility] RBC (Bld) [#/Vol] 2.92 10*6/uL Low 3.80-5.00 [facility] Comment on above: Order Comment: No: D o not add to previous draw Performed By: #### 0 70, [id number] #### [facility] [address] [place] [address], [facility] WBC (Bld) [#/Vol] 13.97 10*3/uL High 4.00-10.60 [facility] Comment on above: Order Comment: No: D o not add to previous draw Performed By: #### 0 70, 56719 #### [facility] [address] [facility] [place] [address], [facility] CBC W/DIFFon 05-03-2018 ABS BASOPHILS 0.0 10*3/uL Normal 0.0-0.2 [facility] Comment on above: Order Comment: No: D o not add to previous draw Performed By: #### 0 70, 44157 #### [facility] [address] [facility] [place] [address], [facility] ABS IMM GRANS 0.1 10*3/uL Normal 0.0-0.2 [facility] Comment on above: Order Comment: No: D o not add to previous draw Performed By: #### 0 70, 75012 #### [facility] [address] [facility] [place] [place] [address], [facility] ABS NEUTROPHILS 8.4 10*3/uL High 1.6-7.6 [facility] Comment on above: Order Comment: No: D o not add to previous draw Performed By: #### 0 70, 11102 #### [facility] [address] [facility]. [place] [id number], [facility] Basophils/100 WBC (Bld) 0.3 % Normal 0.0-1.0 [facility] Comment on above: Order Comment: No: D o not add to previous draw Performed By: #### 0 70, 65703 #### [facility] [address] [place] [id number], [facility] Eosinophils (Bld) [#/Vol] 0.1 10*3/uL Normal 0.0-0.5 [facility] Comment on above: Order Comment: No: D o not add to previous draw Performed By: #### 0 70, #### [facility] [address] [place] [address], [facility] Eosinophils/100 WBC (Bld) 0.4 % Normal 0.0-6.0 [facility] Comment on above: Order Comment: No: D o not add to previous draw Performed By: #### 0 70, #### [facility] [address] Erythrocyte distribution width (RBC) [Ratio] 13.4 % Normal 11.5-15.0 [facility] Comment on above: Order Comment: No: D o not add to previous draw Performed By: #### 0 70, #### [facility] [address] Hematocrit (Bld) [Volume fraction] 24.5 % Low 36.0-45.0 [facility] Comment on above: Order Comment: No: D o not add to previous draw Performed By: #### 0 70, #### [facility] [address] Hemoglobin (Bld) [Mass/Vol] 8.4 g/dL Low 12.0-15.0 [facility] Comment on above: Order Comment: No: D o not add to previous draw Performed By: #### 0 70, #### [facility] [address] [place] [address], [facility] IMMATURE GRANS 0.4 % Normal 0.0-1.0 [facility] Comment on above: Order Comment: No: D o not add to previous draw Performed By: #### 0 70, #### [facility] [address] [place] [address], [facility] Lymphocytes (Bld) [#/Vol] 2.2 10*3/uL Normal 1.2-4.0 [facility] Comment on above: Order Comment: No: D o not add to previous draw Performed By: #### 0 70, #### [facility] [address] [place] [address], [facility] Lymphocytes/100 WBC (Bld) 18.6 % Low 20.0-45.0 [facility] Comment on above: Order Comment: No: D o not add to previous draw Performed By: #### 0 70, #### [facility] [address] [place] [address], [facility] MCH (RBC) [Entitic mass] 29.3 pg Normal 27.0-33.0 [facility] Comment on above: Order Comment: No: D o not add to previous draw Performed By: #### 0 70, #### [facility] [address] [place] [address], [facility] MCHC (RBC) [Mass/Vol] 34.3 g/dL Normal 32.0-35.0 [facility] Comment on above: Order Comment: No: D o not add to previous draw Performed By: #### 0 70, #### [facility] [address] [facility] [place] [address], [facility] MCV (RBC) [Entitic vol] 85.4 fL Normal 82.0-98.0 [facility] Comment on above: Order Comment: No: D o not add to previous draw Performed By: #### 0 70, #### [facility] [address] [place] [address], [facility] Monocytes (Bld) [#/Vol] 0.9 10*3/uL Normal 0.1-1.0 [facility] Comment on above: Order Comment: No: D o not add to previous draw Performed By: #### 0 70, #### [facility] [address] [place] [address], [place] MONOS 7.7 % Normal 5.0-12.0 [facility] Comment on above: Order Comment: No: D o not add to previous draw Performed By: #### 0 70, #### [facility] [address] [place] [address], [place] Neutrophils/100 WBC (Bld) 72.6 % High 40.0-72.0 [facility] Comment on above: Order Comment: No: D o not add to previous draw Performed By: #### 0 70, #### [facility] [address] [place] [address], [place] Nucleated RBC/100 WBC (Bld) [Ratio] 0 % Normal 0-0 [facility] Comment on above: Order Comment: No: D o not add to previous draw Performed By: #### 0 70, #### [facility] [address] [place] [address], [place] PLAT CNT 293 10*3/uL Normal 150-400 [facility] Comment on above: Order Comment: No: D o not add to previous draw Performed By: #### 0 70, #### [facility] [address] [place] [address], [place] RBC (Bld) [#/Vol] 2.87 10*6/uL Low 3.80-5.00 [facility] Comment on above: Order Comment: No: D o not add to previous draw Performed By: #### 0 70, #### [facility] [address] [place] [address], [place] WBC (Bld) [#/Vol] 11.62 10*3/uL High 4.00-10.60 [facility] Comment on above: Order Comment: No: D o not add to previous draw Performed By: #### 0 70, #### [facility] [address] [place] [address], [place] MAGNESIUM BLOODon 05-03-2018 Magnesium [Mass/Vol] 2.0 mg/dL Normal 1.9-2.7 [facility] Comment on above: Performed By: #### 0 70, #### [facility] [address] [place] [address], [place] POC GLUCOSE LABon 05-03-2018 Glucose [Mass/Vol] 179 mg/dL High 70-100 [facility] Comment on above: Performed By: #### 0 70, #### [facility] [address] [place] [address], [place] Glucose [Mass/Vol] 143 mg/dL High 70-100 [facility] Comment on above: Performed By: #### 0 70, #### [facility] [address] [place] [address], [place] Glucose [Mass/Vol] 284 mg/dL High 70-100 [facility] Comment on above: Performed By: #### 0 70, #### [facility] [address] [place] [address], [place] Glucose [Mass/Vol] 117 mg/dL High 70-100 [facility] Comment on above: Performed By: #### 0 70, #### [facility] [address] [place] [address], [place] BASIC METABOLIC PANELon 04-22 Calcium [Mass/Vol] 8.5 mg/dL Low 8.6-10.3 [facility] Comment on above: Order Comment: No: D o not add to previous draw Performed By: #### 0 70, 84625 #### [facility] [address] [place] [address], [place] Chloride [Moles/Vol] 102 mmol/L Normal 98-107 [facility] Comment on above: Order Comment: No: D o not add to previous draw Performed By: #### 0 70, [id number] #### [facility] [address] [place] [address], [place] CO2 [Moles/Vol] 23 mmol/L Normal 21-31 [facility] Comment on above: Order Comment: No: D o not add to previous draw Performed By: #### 0 70, 72011 #### [facility] [address] [place] [address], [place] Creatinine [Mass/Vol] 0.49 mg/dL Low 0.60-1.20 [facility] Comment on above: Order Comment: No: D o not add to previous draw Performed By: #### 0 70, 06246 #### [facility] [address] [place] [address], [place] GFR/1.73 sq M predicted among blacks MDRD (S/P/Bld) [Vol rate/Area] mL/min/{1.73_m2} Normal >60 [facility] Comment on above: Order Comment: No: D o not add to previous draw Result Comment: Calc ulation may not be valid for patients over 70 years Performed By: #### 0 70, 79504 #### [facility] [address] [place] [address], [place] GFR/1.73 sq M predicted among non-blacks MDRD (S/P/Bld) [Vol rate/Area] mL/min/{1.73_m2} Normal >60 [facility] Comment on above: Order Comment: No: D o not add to previous draw Result Comment: Calc ulation may not be valid for patients over 70 years Performed By: #### 0 70, 96755 #### [facility] [address] [place] [address], [place] Glucose [Mass/Vol] 172 mg/dL High 70-100 [facility] Comment on above: Order Comment: No: D o not add to previous draw Performed By: #### 0 70, 79749 #### [facility] [address] [place] [address], [facility] Potassium [Moles/Vol] 4.0 mmol/L Normal 3.5-5.1 [facility] Comment on above: Order Comment: No: D o not add to previous draw Performed By: #### 0 70, 65156 #### [facility] [address] [place] [address], [place] Sodium [Moles/Vol] 133 mmol/L Low 136-145 [facility] Comment on above: Order Comment: No: D o not add to previous draw Performed By: #### 0 70, 53031 #### [facility] [address] [place] [address], [facility] Urea nitrogen [Mass/Vol] 9 mg/dL Normal 7-25 [facility] Comment on above: Order Comment: No: D o not add to previous draw Performed By: #### 0 70, #### [facility] [address] [place] [address], [facility] CBC COMPLETE BLOOD COUNTon 07-02-2017 Erythrocyte distribution width (RBC) [Ratio] 13.4 % Normal 11.5-15.0 [facility] Comment on above: Order Comment: No: D o not add to previous draw Performed By: #### 0 70, 66166 #### [facility] [address] [place] [address], [facility] Hematocrit (Bld) [Volume fraction] 25.7 % Low 36.0-45.0 [facility] Comment on above: Order Comment: No: D o not add to previous draw Performed By: #### 0 70, 97904 #### [facility] [address] [place] [address], [facility] Hemoglobin (Bld) [Mass/Vol] 9.0 g/dL Low 12.0-15.0 [facility] Comment on above: Order Comment: No: D o not add to previous draw Performed By: #### 0 70, #### [facility] [address] MCH (RBC) [Entitic mass] 29.8 pg Normal 27.0-33.0 [facility] Comment on above: Order Comment: No: D o not add to previous draw Performed By: #### 0 70, #### [facility] [address] [facility]. [address] MCHC (RBC) [Mass/Vol] 35.0 g/dL Normal 32.0-35.0 [facility] Comment on above: Order Comment: No: D o not add to previous draw Performed By: #### 0 70, #### [facility] [address] [facility]. [address] MCV (RBC) [Entitic vol] 85.1 fL Normal 82.0-98.0 [facility] Comment on above: Order Comment: No: D o not add to previous draw Performed By: #### 0 70, #### [facility] [address] [facility]. [address] Nucleated RBC/100 WBC (Bld) [Ratio] 0 % Normal 0-0 [facility] Comment on above: Order Comment: No: D o not add to previous draw Performed By: #### 0 70, #### [facility] [address] [facility] [place] [place] [address], [facility] PLAT CNT 267 10*3/uL Normal 150-400 [facility] Comment on above: Order Comment: No: D o not add to previous draw Performed By: #### 0 70, #### [facility] [address] [facility] [place] [place] [address], [facility] RBC (Bld) [#/Vol] 3.02 10*6/uL Low 3.80-5.00 [facility] Comment on above: Order Comment: No: D o not add to previous draw Performed By: #### 0 0071, 46562 #### [address] WBC (Bld) [#/Vol] 13.23 10*3/uL High 4.00-10.60 [facility] Comment on above: Order Comment: No: D o not add to previous draw Performed By: #### 0 0071, 17353 #### [address] CHEST AND LATERALon 05-02-20 18 CHEST AND LATERAL [facility] Department of Radiology [address] [place] [id number] Patient Name: NEHA ASHTON : 1945 Sex: F Age: Race: White Pt. Location: [id number] Patient Status: I Ordered Date: 05/02/2018 9:40:00 [...] findings. Electronically signed by:Ricardo Parry. Transcribed by: [email or web address], User Resident: PAM MOREL Electronically Signed by: RICARDO PARRY @ 05/02/2018 03:04 PM I personally read this/these film(s) with this resident Normal [facility] Comment on above: Order Comment: R/O I nfiltrates MAGNESIUM BLOODon 05-02-2018 Magnesium [Mass/Vol] 1.7 mg/dL Low 1.9-2.7 [facility] Comment on above: Order Comment: No: D o not add to previous draw Performed By: #### 0 007, 59791 #### [facility] [address] [place] [address], [place] POC GLUCOSE LABon 05-02-2018 Glucose [Mass/Vol] 192 mg/dL High 70-100 [facility] Comment on above: Performed By: #### 0 007, 71152 #### [facility] [address] [place] [address], [place] Glucose [Mass/Vol] 94 mg/dL Normal 70-100 [facility] Comment on above: Performed By: #### 0 0071, 76198 #### [facility] [address] [place] [address], [place] Glucose [Mass/Vol] 176 mg/dL High 70-100 [facility] Comment on above: Performed By: #### 0 0071, 32426 #### [facility] [address] [place] [address], [place] Glucose [Mass/Vol] 163 mg/dL High 70-100 [facility] Comment on above: Performed By: #### 0 0071, 64539 #### [facility] [address] [place] [address], [facility] BASIC METABOLIC PANELon 11- Calcium [Mass/Vol] 7.9 mg/dL Low 8.6-10.3 [facility] Comment on above: Order Comment: No: D o not add to previous draw Performed By: #### 5 6101 #### [facility] [address] [place] [address], [place] Chloride [Moles/Vol] 102 mmol/L Normal 98-107 [facility] Comment on above: Order Comment: No: D o not add to previous draw Performed By: #### 5 6101 #### [facility] [address] [place] [address], [place] CO2 [Moles/Vol] 23 mmol/L Normal 21-31 [facility] Comment on above: Order Comment: No: D o not add to previous draw Performed By: #### 5 6101 #### [facility] [address] [place] [address], [place] Creatinine [Mass/Vol] 0.64 mg/dL Normal 0.60-1.20 [facility] Comment on above: Order Comment: No: D o not add to previous draw Performed By: #### 5 6101 #### [facility] [address] [place] [address], [place] GFR/1.73 sq M predicted among blacks MDRD (S/P/Bld) [Vol rate/Area] mL/min/{1.73_m2} Normal >60 [facility] Comment on above: Order Comment: No: D o not add to previous draw Result Comment: Calc ulation may not be valid for patients over 70 years Performed By: #### 5 6101 #### [facility] [address] [place] [address], [place] GFR/1.73 sq M predicted among non-blacks MDRD (S/P/Bld) [Vol rate/Area] mL/min/{1.73_m2} Normal >60 [facility] Comment on above: Order Comment: No: D o not add to previous draw Result Comment: Calc ulation may not be valid for patients over 70 years Performed By: #### 5 6101 #### [facility] [address] [place] [address], [place] Glucose [Mass/Vol] 202 mg/dL High 70-100 [facility] Comment on above: Order Comment: No: D o not add to previous draw Performed By: #### 5 6101 #### [facility] [address] [place] [address], [place] Potassium [Moles/Vol] 4.1 mmol/L Normal 3.5-5.1 [facility] Comment on above: Order Comment: No: D o not add to previous draw Performed By: #### 5 6101 #### [facility] [address] [place] [address], [place] Sodium [Moles/Vol] 130 mmol/L Low 136-145 [facility] Comment on above: Order Comment: No: D o not add to previous draw Performed By: #### 5 6101 #### [facility] [address] [place] [address], [place] Urea nitrogen [Mass/Vol] 12 mg/dL Normal 7-25 [facility] Comment on above: Order Comment: No: D o not add to previous draw Performed By: #### 5 6101 #### [facility] [address] [place] [address], [place] CBC COMPLETE BLOOD COUNTon 07-01-2017 Erythrocyte distribution width (RBC) [Ratio] 13.7 % Normal 11.5-15.0 [facility] Comment on above: Order Comment: No: D o not add to previous draw Performed By: #### 5 6101 #### [facility] [address] [place] [address], [facility] Hematocrit (Bld) [Volume fraction] 28.4 % Low 36.0-45.0 [facility] Comment on above: Order Comment: No: D o not add to previous draw Performed By: #### 5 6101 #### [facility] [address] [place] [address], [facility] Hemoglobin (Bld) [Mass/Vol] 9.7 g/dL Low 12.0-15.0 [facility] Comment on above: Order Comment: No: D o not add to previous draw Performed By: #### 5 6101 #### [facility] [address] [place] [id number], [facility] MCH (RBC) [Entitic mass] 29.4 pg Normal 27.0-33.0 [facility] Comment on above: Order Comment: No: D o not add to previous draw Performed By: #### 5 6101 #### [facility] [address] [place] [id number], [facility] MCHC (RBC) [Mass/Vol] 34.2 g/dL Normal 32.0-35.0 [facility] Comment on above: Order Comment: No: D o not add to previous draw Performed By: #### 5 6101 #### [facility] [address] [place] [address], [facility] MCV (RBC) [Entitic vol] 86.1 fL Normal 82.0-98.0 [facility] Comment on above: Order Comment: No: D o not add to previous draw Performed By: #### 5 6101 #### [facility] [address] [place] [id number], [facility] Nucleated RBC/100 WBC (Bld) [Ratio] 0 % Normal 0-0 [facility] Comment on above: Order Comment: No: D o not add to previous draw Performed By: #### 5 6101 #### [facility] [address] [place] [address], [place] PLAT CNT 304 10*3/uL Normal 150-400 [facility] Comment on above: Order Comment: No: D o not add to previous draw Performed By: #### 5 6101 #### [facility] [address] [place] [address], [place] RBC (Bld) [#/Vol] 3.30 10*6/uL Low 3.80-5.00 [facility] Comment on above: Order Comment: No: D o not add to previous draw Performed By: #### 5 6101 #### [facility] [address] [place] [address], [place] WBC (Bld) [#/Vol] 12.22 10*3/uL High 4.00-10.60 [facility] Comment on above: Order Comment: No: D o not add to previous draw Performed By: #### 5 1 #### [facility] [address] [place] [address], [place] POC GLUCOSE LABon 05-01-2018 Glucose [Mass/Vol] 216 mg/dL High 70-100 [facility] Comment on above: Performed By: #### 0 70, 24502 #### [facility] [address] [place] [address], [place] Glucose [Mass/Vol] 255 mg/dL High 70-100 [facility] Comment on above: Performed By: #### 0 70, 67177 #### [facility] [address] [place] [address], [place] Glucose [Mass/Vol] 270 mg/dL High 70-100 [facility] Comment on above: Performed By: #### 0 007, 38471 #### [facility] [address] [place] [address], [place] Glucose [Mass/Vol] 168 mg/dL High 70-100 [facility] Comment on above: Performed By: #### 5 6101 #### [facility] [address] [place] [address], [place] Glucose [Mass/Vol] 292 mg/dL High 70-100 [facility] Comment on above: Performed By: #### 5 6101 #### [facility] [address] [place] [address], [place] BASIC METABOLIC PANELon 11-0 Calcium [Mass/Vol] 9.1 mg/dL Normal 8.6-10.3 [facility] Comment on above: Order Comment: No: D o not add to previous draw Performed By: #### 5 6101 #### [facility] [address] [place] [address], [place] Chloride [Moles/Vol] 104 mmol/L Normal 98-107 [facility] Comment on above: Order Comment: No: D o not add to previous draw Performed By: #### 5 6101 #### [facility] [address] [place] [address], [place] CO2 [Moles/Vol] 22 mmol/L Normal 21-31 [facility] Comment on above: Order Comment: No: D o not add to previous draw Performed By: #### 5 6101 #### [facility] [address] [place] [address], [place] Creatinine [Mass/Vol] 0.59 mg/dL Low 0.60-1.20 [facility] Comment on above: Order Comment: No: D o not add to previous draw Performed By: #### 5 6101 #### [facility] [address] [place] [address], [place] GFR/1.73 sq M predicted among blacks MDRD (S/P/Bld) [Vol rate/Area] mL/min/{1.73_m2} Normal >60 [facility] Comment on above: Order Comment: No: D o not add to previous draw Result Comment: Calc ulation may not be valid for patients over 70 years Performed By: #### 5 6101 #### [facility] [address] [place] [address], [facility] GFR/1.73 sq M predicted among non-blacks MDRD (S/P/Bld) [Vol rate/Area] mL/min/{1.73_m2} Normal >60 [facility] Comment on above: Order Comment: No: D o not add to previous draw Result Comment: Calc ulation may not be valid for patients over 70 years Performed By: #### 5 6101 #### [facility] [address] [place] [address], [facility] Glucose [Mass/Vol] 112 mg/dL High 70-100 [facility] Comment on above: Order Comment: No: D o not add to previous draw Performed By: #### 5 6101 #### [facility] [address] [place] [address], [facility] Potassium [Moles/Vol] 4.3 mmol/L Normal 3.5-5.1 [facility] Comment on above: Order Comment: No: D o not add to previous draw Performed By: #### 5 6101 #### [facility] [address] [place] [address], [facility] Sodium [Moles/Vol] 137 mmol/L Normal 136-145 [facility] Comment on above: Order Comment: No: D o not add to previous draw Performed By: #### 5 6101 #### [facility] [address] [place] [id number], [facility] Urea nitrogen [Mass/Vol] 8 mg/dL Normal 7-25 [facility] Comment on above: Order Comment: No: D o not add to previous draw Performed By: #### 5 6101 #### [facility] [address] [place] [id number], [facility] CBC W/DIFFon 04-30-2018 ABS BASOPHILS 0.0 10*3/uL Normal 0.0-0.2 [facility] Comment on above: Order Comment: No: D o not add to previous draw Performed By: #### 5 0103 #### [facility] [address] [place] [address], [facility] ABS IMM GRANS 0.1 10*3/uL Normal 0.0-0.2 [facility] Comment on above: Order Comment: No: D o not add to previous draw Performed By: #### 5 0103 #### [facility] [address] [place] [address], [facility] ABS NEUTROPHILS 8.7 10*3/uL High 1.6-7.6 [facility] Comment on above: Order Comment: No: D o not add to previous draw Performed By: #### 5 0103 #### [facility] [address] [place] [address], [facility] Basophils/100 WBC (Bld) 0.2 % Normal 0.0-1.0 [facility] Comment on above: Order Comment: No: D o not add to previous draw Performed By: #### 5 0103 #### [facility] [address] [facility] [place] [address], [facility] Eosinophils (Bld) [#/Vol] 0.0 10*3/uL Normal 0.0-0.5 [facility] Comment on above: Order Comment: No: D o not add to previous draw Performed By: #### 5 0103 #### [facility] [address] [facility] [place] [address], [facility] Eosinophils/100 WBC (Bld) 0.2 % Normal 0.0-6.0 [facility] Comment on above: Order Comment: No: D o not add to previous draw Performed By: #### 5 0103 #### [facility] [address] [facility] [place] [address], [facility] Erythrocyte distribution width (RBC) [Ratio] 13.6 % Normal 11.5-15.0 [facility] Comment on above: Order Comment: No: D o not add to previous draw Performed By: #### 5 0103 #### [facility] [address] [place] [address], [facility] Hematocrit (Bld) [Volume fraction] 37.7 % Normal 36.0-45.0 [facility] Comment on above: Order Comment: No: D o not add to previous draw Performed By: #### 5 3 #### [facility] [address] [place] [address], [facility] Hemoglobin (Bld) [Mass/Vol] 13.0 g/dL Normal 12.0-15.0 [facility] Comment on above: Order Comment: No: D o not add to previous draw Performed By: #### 5 3 #### [facility] [address] [place] [address], [facility] IMMATURE GRANS 0.4 % Normal 0.0-1.0 [facility] Comment on above: Order Comment: No: D o not add to previous draw Performed By: #### 5 3 #### [facility] [address] [facility] [place] [address], [facility] Lymphocytes (Bld) [#/Vol] 2.4 10*3/uL Normal 1.2-4.0 [facility] Comment on above: Order Comment: No: D o not add to previous draw Performed By: #### 5 3 #### [facility] [address] [place] [address], [facility] Lymphocytes/100 WBC (Bld) 19.6 % Low 20.0-45.0 [facility] Comment on above: Order Comment: No: D o not add to previous draw Performed By: #### 5 3 #### [facility] [address] [facility] [place] [address], [facility] MCH (RBC) [Entitic mass] 29.5 pg Normal 27.0-33.0 [facility] Comment on above: Order Comment: No: D o not add to previous draw Performed By: #### 5 3 #### [facility] [address] [place] [address], [facility] MCHC (RBC) [Mass/Vol] 34.5 g/dL Normal 32.0-35.0 [facility] Comment on above: Order Comment: No: D o not add to previous draw Performed By: #### 5 0103 #### [facility] [address] [place] [id number], [facility] MCV (RBC) [Entitic vol] 85.5 fL Normal 82.0-98.0 [facility] Comment on above: Order Comment: No: D o not add to previous draw Performed By: #### 5 0103 #### [facility] [address] [place] [address], [facility] Monocytes (Bld) [#/Vol] 0.8 10*3/uL Normal 0.1-1.0 [facility] Comment on above: Order Comment: No: D o not add to previous draw Performed By: #### 5 0103 #### [facility] [address] [place] [id number], [facility] MONOS 6.9 % Normal 5.0-12.0 [facility] Comment on above: Order Comment: No: D o not add to previous draw Performed By: #### 5 3 #### [facility] [address] [facility] [place] [address], [facility] Neutrophils/100 WBC (Bld) 72.7 % High 40.0-72.0 [facility] Comment on above: Order Comment: No: D o not add to previous draw Performed By: #### 5 0103 #### [facility] [address] [place] [address], [facility] Nucleated RBC/100 WBC (Bld) [Ratio] 0 % Normal 0-0 [facility] Comment on above: Order Comment: No: D o not add to previous draw Performed By: #### 5 0103 #### [facility] [address] [facility]. [address] PLAT CNT 317 10*3/uL Normal 150-400 [facility] Comment on above: Order Comment: No: D o not add to previous draw Performed By: #### 5 0103 #### [facility] [address] [place] [address], [facility] RBC (Bld) [#/Vol] 4.41 10*6/uL Normal 3.80-5.00 [facility] Comment on above: Order Comment: No: D o not add to previous draw Performed By: #### 5 0103 #### [facility] [address] [facility] [place] [place] [address], [facility] WBC (Bld) [#/Vol] 12.02 10*3/uL High 4.00-10.60 [facility] Comment on above: Order Comment: No: D o not add to previous draw Performed By: #### 5 0103 #### [facility] [address] [facility]. [address] History and Physicalon 04-30 History and Physical MR#: [id number] [facility] Pt. Name: Neha Ashton Admitted: 04/29/2018 Date of : 1945 Attending Physician: Zaire Bojorquez MD Room #: [id number] Discharge Date: HISTORY AND PHYSICAL CHIEF COMPLAINT: [...] called 911 and they took her to [facility]. At the [facility], femur x-ray showed acute subcapital right femur [...] midnight. We will control her pain with [place]. We will put the patient on insulin [...] will encourage incentive spirometery. We will consult social media community manager for rehab placement. The patient is low risk for orthopedic surgery. Electronically Signed by: Zaire Bojorquez MD 04/30/2018 11:12 P Zaire Bojorquez MD Date Dict: 04/29/2018/10:06 P/Zaire Bojorquez MD Date Trans: 04/29/2018 11:11 P/mmo [id number] Normal [facility] MAGNESIUM BLOODon 04-30-2018 Magnesium [Mass/Vol] 1.8 mg/dL Low 1.9-2.7 [facility] Comment on above: Order Comment: No: D o not add to previous draw Performed By: #### 5 6101 #### [facility] [address] [place] [address], [facility] POC GLUCOSE LABon 04-30-2018 Glucose [Mass/Vol] 137 mg/dL High 70-100 [facility] Comment on above: Performed By: #### 5 6101 #### [facility] [address] [facility] [place] [address], [facility] Glucose [Mass/Vol] 132 mg/dL High 70-100 [facility] Comment on above: Performed By: #### 5 6101 #### [facility] [address] [place] [address], [facility] Glucose [Mass/Vol] 108 mg/dL High 70-100 [facility] Comment on above: Performed By: #### 8 5499 #### [facility] [address] [facility] [place] [address], [facility] Glucose [Mass/Vol] 94 mg/dL Normal 70-100 [facility] Comment on above: Performed By: #### 8 5499 #### [facility] [address] [place] [address], [facility] PORTABLE HIP RIGHT 1 OR 2 VW S WITH PELVISon 04-30-2018 PORTABLE HIP RIGHT 1 OR 2 VWS WITH PELVIS [facility] Department of Radiology [address] [place] [address] Patient Name: NEHA ASHTON : 1945 Sex: F Age: Race: White Pt. Location: [id number] Patient Status: I Ordered Date: 04/30/2018 3:35:00 [...] findings. Electronically signed by:Ricardo Parry. Transcribed by: [email or web address], User Resident: LYLA NATH Electronically Signed by: RICARDO PARRY @ 05/01/2018 01:15 PM I personally read this/these film(s) with this resident Normal [facility] Comment on above: Order Comment: Hardw are Evaluation, currently in PACU BASIC METABOLIC PANELon 11-0 Calcium [Mass/Vol] 9.2 mg/dL Normal 8.6-10.3 [facility] Comment on above: Performed By: #### 0 0071, [id number] #### [facility] [address] [place] [address], [place] Chloride [Moles/Vol] 102 mmol/L Normal 98-107 [facility] Comment on above: Performed By: #### 0 0071, [id number] #### [facility] [address] [place] [address], [place] CO2 [Moles/Vol] 27 mmol/L Normal 21-31 [facility] Comment on above: Performed By: #### 0 0071, 73552 #### [facility] [address] [place] [address], [place] Creatinine [Mass/Vol] 0.64 mg/dL Normal 0.60-1.20 [facility] Comment on above: Performed By: #### 0 0071, 20518 #### [facility] [address] [place] [address], [place] GFR/1.73 sq M predicted among blacks MDRD (S/P/Bld) [Vol rate/Area] mL/min/{1.73_m2} Normal >60 [facility] Comment on above: Result Comment: Calc ulation may not be valid for patients over 70 years Performed By: #### 0 0071, 53546 #### [facility] [address] [place] [address], [place] GFR/1.73 sq M predicted among non-blacks MDRD (S/P/Bld) [Vol rate/Area] mL/min/{1.73_m2} Normal >60 [facility] Comment on above: Result Comment: Calc ulation may not be valid for patients over 70 years Performed By: #### 0 0071, 04628 #### [facility] [address] [place] [address], [facility] Glucose [Mass/Vol] 60 mg/dL Low 70-100 [facility] Comment on above: Performed By: #### 0 007, 85797 #### [facility] [address] [place] [address], [place] Potassium [Moles/Vol] 3.8 mmol/L Normal 3.5-5.1 [facility] Comment on above: Performed By: #### 0 007, 71258 #### [facility] [address] [place] [address], [facility] Sodium [Moles/Vol] 137 mmol/L Normal 136-145 [facility] Comment on above: Performed By: #### 0 007, 29763 #### [facility] [address] [place] [address], [facility] Urea nitrogen [Mass/Vol] 10 mg/dL Normal 7-25 [facility] Comment on above: Performed By: #### 0 007, 96454 #### [facility] [address] [place] [id number], [facility] CBC COMPLETE BLOOD COUNTon 1 06-29-2017 Erythrocyte distribution width (RBC) [Ratio] 13.6 % Normal 11.5-15.0 [facility] Comment on above: Performed By: #### 5 0608 #### [facility] [address] [place] [address], [facility] Hematocrit (Bld) [Volume fraction] 37.3 % Normal 36.0-45.0 [facility] Comment on above: Performed By: #### 5 0608 #### [facility] [address] [place] [address], [facility] Hemoglobin (Bld) [Mass/Vol] 12.7 g/dL Normal 12.0-15.0 [facility] Comment on above: Performed By: #### 5 0608 #### [facility] [address] [facility] [place] [address], [facility] MCH (RBC) [Entitic mass] 29.1 pg Normal 27.0-33.0 [facility] Comment on above: Performed By: #### 5 0608 #### [facility] [address] [facility]. [address] MCHC (RBC) [Mass/Vol] 34.0 g/dL Normal 32.0-35.0 [facility] Comment on above: Performed By: #### 5 0608 #### [facility] [address] [place] [address], [facility] MCV (RBC) [Entitic vol] 85.6 fL Normal 82.0-98.0 [facility] Comment on above: Performed By: #### 5 0608 #### [facility] [address] Nucleated RBC/100 WBC (Bld) [Ratio] 0 % Normal 0-0 [facility] Comment on above: Performed By: #### 5 0608 #### [facility] [address] [place] [address], [facility] PLAT CNT 346 10*3/uL Normal 150-400 [facility] Comment on above: Performed By: #### 5 0608 #### [facility] [address] [place] [address], [facility] RBC (Bld) [#/Vol] 4.36 10*6/uL Normal 3.80-5.00 [facility] Comment on above: Performed By: #### 5 0608 #### [facility] [address] [place] [address], [facility] WBC (Bld) [#/Vol] 17.89 10*3/uL High 4.00-10.60 [facility] Comment on above: Performed By: #### 5 0608 #### [address] [place] [address], [facility] FEMUR RIGHT 2 VWSon 04-29-20 FEMUR RIGHT 2 S [facility] Department of Radiology [address] [place] [phone] Patient Name: NEHA ASHTON : 1945 Sex: F Age: Race: White Pt. Location: [facility] Patient Status: I Ordered Date: 04/29/2018 [...] findings. Electronically signed by:Ricardo Parry. Transcribed by: [email or web address], User Resident: PAM MOREL Electronically Signed by: RICARDO PARRY @ 04/30/2018 03:51 PM I personally read this/these film(s) with this resident Normal [facility] Comment on above: Order Comment: R/O F X PORTABLE CHEST 1 VIEWon PORTABLE CHEST 1 VIEW [facility] Department of Radiology [address] [place] [id number] Patient Name: NEHA ASHTON : 1945 Sex: F Age: Race: White Pt. Location: [facility] Patient Status: I Ordered Date: 04/29/2018 [...] recommended. Electronically signed by:Cisco Oh. Transcribed by: [email or web address], User Resident: Electronically Signed by: CISCO [place] @ 04/30/2018 07:22 AM Normal [facility] Comment on above: Order Comment: R/O I nfiltrates PROTHROMBIN TIMEon 8 INR Coag (PPP) [Relative time] 1.05 {INR} Normal 0.91-1.16 [facility] Comment on above: Result Comment: ACCC P [...] 1995;108:[id number]-246S. Performed By: #### 5 6101 #### [facility] [address] [place] [address], [facility] PT Coag (PPP) [Time] 13.7 s Normal 12.3-14.8 [facility] Comment on above: Result Comment: ALL RESULTS MUST BE INTERPRETED WITH RESPECT TO BLOOD DRAWING ARTIFACT OR DILUTION ERROR OF ANTICOAGULANT AT THE TIME OF SAMPLING. Performed By: #### 5 1961 #### [facility] [address] [place] [address], [place] RBC'S 2 UNITSon 04-29-2018 CROSSMATCH INTERP 1 COMP Normal [facility] Comment on above: Performed By: #### 8 6002 #### [facility] [address] [place] [address], [place] CROSSMATCH INTERP 2 COMP Normal [facility] Comment on above: Performed By: #### 8 6002 #### [facility] [address] [place] [address], [place] PRODUCT CODE 1 E0336 Normal [facility] Comment on above: Performed By: #### 8 6002 #### [facility] [address] [place] [address], [place] PRODUCT CODE 2 E0336 Normal [facility] Comment on above: Performed By: #### 8 6002 #### [facility] [address] [place] [address], [place] PRODUCT STATUS 1 RE Normal [facility] Comment on above: Result Comment: Resu lt changed by IF on 05/03/2018 07:08. The previous value was XM. Performed By: #### 8 6002 #### [facility] [address] [place] [address], [place] PRODUCT STATUS 2 RE Normal [facility] Comment on above: Result Comment: Resu lt changed by IF on 05/03/2018 07:08. The previous value was XM. Performed By: #### 8 6002 #### [facility] [address] [place] [address], [place] UNIT ABO 1 A Normal [facility] Comment on above: Performed By: #### 8 6002 #### [facility] [address] [place] [address], [place] UNIT ABO 2 A Normal [facility] Comment on above: Performed By: #### 8 6002 #### [facility] [address] [place], [place] [address] [place] [address] UNIT ID 1 [id number] Normal [facility] Comment on above: Performed By: #### 8 6002 #### [facility] [address] [place], [place] [id number] [place] [address] UNIT ID 2 [id number] Normal [facility] Comment on above: Performed By: #### 8 6002 #### [facility] [address] [place] [address], [facility] UNIT RH 1 Positive Normal [facility] Comment on above: Performed By: #### 8 6002 #### [facility] [address] [facility] [place] [address], [facility] UNIT RH 2 Positive Normal [facility] Comment on above: Performed By: #### 8 6002 #### [facility] [address] [facility]. [address] TYPE AND SCREENon 04-29-2018 ABO INTERPRETATION A Normal [facility] Comment on above: Performed By: #### 6 2586 #### [facility] [address] [facility] [place] [address], [facility] RH INTERPRETATION Positive Normal [facility] Comment on above: Performed By: #### 6 2586 #### [facility] [address] [facility]. [address] VITAMIN D 25-HYDROXYon 04-29 VITAMIN D 25-OH 37.2 ng/mL Normal 30.0-80.0 [facility] Comment on above: Result Comment: >80. 0 Toxicity possible Performed By: #### 0 0071, 13869 #### [facility] [address] Vital Signs Date Time Vital Sign Value Performing Clinician Facility 05-26-2024 13:15-0500 Body height 152.4 cm Clayton Manning MD Work Phone: [facility] 05-26-2024 13:15-0500 Body mass index (BMI) [Ratio] 27.54 kg/m2 Clayton Manning MD Work Phone: [facility] 05-26-2024 13:15-0500 Body temperature 97.11 [degF] Clayton Manning MD Work Phone: [facility] 05-26-2024 13:15-0500 Body weight 63.96 kg Clayton Manning MD Work Phone: [facility] 05-26-2024 13:15-0500 Diastolic blood pressure 58 mm[Hg] Clayton Manning MD Work Phone: [facility] 05-26-2024 13:15-0500 Heart rate 101 /min Clayton Manning MD Work Phone: [facility] 05-26-2024 13:15-0500 Respiratory rate 20 /min Clayton Manning MD Work Phone: [facility] 05-26-2024 13:15-0500 SaO2% (BldA) [Mass fraction] 99 % Clayton Manning MD Work Phone: [facility] 05-26-2024 13:15-0500 Systolic blood pressure 116 mm[Hg] Clayton Manning MD Work Phone: [facility] 04-18-2024 11:23-0400 Body height 152.4 cm [facility] 04-18-2024 11:23-0400 Body mass index (BMI) [Ratio] 27.3 kg/m2 [place] 04-18-2024 11:23-0400 Body temperature 98.2 [degF] [facility] 04-18-2024 11:23-0400 Body weight 63.5 kg [facility] 04-18-2024 11:23-0400 Diastolic blood pressure 78 mm[Hg] [facility] 04-18-2024 11:23-0400 Heart rate 89 /min [facility] 04-18-2024 11:23-0400 Respiratory rate 16 /min [facility] 04-18-2024 11:23-0400 SaO2% (BldA) [Mass fraction] 98 % [facility] 04-18-2024 11:23-0400 Systolic blood pressure 122 mm[Hg] [facility] 10-05-2023 11:00-0400 Body height 152.4 cm MD Clayton Manning Work Phone: [facility] 10-05-2023 11:00-0400 Body mass index (BMI) [Ratio] 24.4 kg/m2 MD Clayton Manning Work Phone: [facility] 10-05-2023 11:00-0400 Body temperature 97.8 [degF] MD Clayton Manning Work Phone: [facility] 10-05-2023 11:00-0400 Body weight 56.69 kg MD Clayton Manning Work Phone: [facility] 10-05-2023 11:00-0400 Diastolic blood pressure 64 mm[Hg] MD Clayton Manning Work Phone: [facility] 10-05-2023 11:00-0400 Heart rate 80 /min MD Clayton Manning Work Phone: [facility] 10-05-2023 11:00-0400 Respiratory rate 16 /min MD Clayton Manning Work Phone: [facility] 10-05-2023 11:00-0400 SaO2% (BldA) [Mass fraction] 98 % MD Clayton Manning Work Phone: [facility] 10-05-2023 11:00-0400 Systolic blood pressure 112 mm[Hg] MD Clayton Manning Work Phone: [facility] 03-26-2023 13:35-0400 Diastolic blood pressure 68 mm[Hg] MD Clayton Manning Work Phone: [facility] 03-26-2023 13:35-0400 Heart rate 85 /min MD Clayton Manning Work Phone: [facility] 03-26-2023 13:35-0400 Respiratory rate 16 /min MD Clayton Manning Work Phone: [facility] 03-26-2023 13:35-0400 SaO2% (BldA) [Mass fraction] 98 % MD Clayton Manning Work Phone: [facility] 03-26-2023 13:35-0400 Systolic blood pressure 128 mm[Hg] MD Clayton Manning Work Phone: [facility] 03-26-2023 09:10-0400 Body height 151.13 cm MD Clayton Manning Work Phone: [facility] 03-26-2023 09:10-0400 Body weight 61.23 kg MD Clayton Manning Work Phone: [facility] 03-23-2023 10:30-0400 Body height 152.4 cm Willie Herrera Other [facility] Other 03-23-2023 10:30-0400 Body mass index (BMI) [Ratio] 26.36 kg/m2 Willie Herrera Other [facility] Other 03-23-2023 10:30-0400 Body temperature 97.3 [degF] Willie Herrera Other [facility] Other 03-23-2023 10:30-0400 Body weight 61.24 kg Willie Herrera Other [facility] Other 03-23-2023 10:30-0400 Diastolic blood pressure 62 mm[Hg] Willie Herrera Other [facility] Other 03-23-2023 10:30-0400 SaO2% (BldA) [Mass fraction] 99 % Willie Buehrer Other [facility] Other 03-23-2023 10:30-0400 Systolic blood pressure 110 mm[Hg] Willie Buehrer Other [facility] Other 09-15-2022 12:45-0400 Body height 152.4 cm Willie Buehrer Other [facility] Other 09-15-2022 12:45-0400 Body mass index (BMI) [Ratio] 25.39 kg/m2 Willie Buehrer Other [facility] Other 09-15-2022 12:45-0400 Body temperature 97.3 [degF] Willie Buehrer Other [facility] Other 09-15-2022 12:45-0400 Body weight 58.97 kg Willie Buehrer Other [facility] Other 09-15-2022 12:45-0400 Diastolic blood pressure 78 mm[Hg] Willie Buehrer Other [facility] Other 09-15-2022 12:45-0400 SaO2% (BldA) [Mass fraction] 96 % Willie Buehrer Other [facility] Other 09-15-2022 12:45-0400 Systolic blood pressure 138 mm[Hg] Willie Buehrer Other [facility] Other 12-03-2021 11:10-0400 Body height 152.4 cm eHtal Tomlinson Other [facility] Other 12-03-2021 11:10-0400 Body mass index (BMI) [Ratio] 25.39 kg/m2 Hetal Tomlinson Other [facility] Other 12-03-2021 11:10-0400 Body temperature 96.6 [degF] Hetal Tomlinson Other [facility] Other 12-03-2021 11:10-0400 Body weight 58.97 kg Hetal Tomlinson Other [facility] Other 12-03-2021 11:10-0400 Diastolic blood pressure 83 mm[Hg] Hetal Tomlinson Other [facility] Other 12-03-2021 11:10-0400 Respiratory rate 16 /min Hetal Tomlinson Other [facility] Other 12-03-2021 11:10-0400 SaO2% (BldA) [Mass fraction] 95 % Hetal Tomlinson Other [facility] Other 12-03-2021 11:10-0400 Systolic blood pressure 146 mm[Hg] Hetal Tomlinson Other [facility] Other 09-09-2021 11:30-0400 Body height 152.4 cm Willie Herrera Other [facility] Other 09-09-2021 11:30-0400 Body mass index (BMI) [Ratio] 25.39 kg/m2 Willie Herrera Other [facility] Other 09-09-2021 11:30-0400 Body temperature 97.2 [degF] Willie Herrera Other [facility] Other 09-09-2021 11:30-0400 Body weight 58.97 kg Willie Herrera Other [facility] Other 09-09-2021 11:30-0400 Diastolic blood pressure 64 mm[Hg] Willie Herrera Other [facility] Other 09-09-2021 11:30-0400 SaO2% (BldA) [Mass fraction] 96 % Willie Herrera Other [facility] Other 09-09-2021 11:30-0400 Systolic blood pressure 120 mm[Hg] Willie Herrera Other [facility] Other Encounters Encounter Date Encounter Type Care [...] Start: 04-18-2024 End: 04-18-2024 Patient encounter procedure [facility] Work Phone: Start: 04-18-2024 End: 04-18-2024 ambulatory Willie Mauromarc [facility] Work Phone: Start: 03-30-2024 End: 03-30-2024 [...] 10-05-2023 ambulatory MD Clayton Manning Work Phone: [facility] Work Phone: Start: 10-05-2023 End: 10-05-2023 Patient encounter procedure MD Clayton Manning Work Phone: [facility] Work Phone: Start: 06-05-2023 End: 06-05-2023 ambulatory CLAYTON MANNING Not Available Start: 03-26-2023 End: 03-26-2023 Admission to same day surgery center MD Clayton Manning Work Phone: [facility]-Interventional Radiology Work Phone: Start: 03-26-2023 End: 03-26-2023 ambulatory MD Clayton Manning Work Phone: [facility] Work Phone: Start: 03-23-2023 Office outpatient vi sit 25 minutes Willie Herrera [facility] Start: 03-23-2023 End: 03-23-2023 ambulatory MD Clayton Manning Work Phone: [facility] Other Start: 03-23-2023 End: 03-23-2023 Patient encounter procedure MD Clayton Manning Work Phone: [facility]-Ultrasound [facility] Start: 11-04-2022 End: 11-05-[address] CLAYTON MANNING Facility:[facility] Start: 09-15-2022 End: 09-15-2022 ambulatory Willie Herrera Other [employer] Other Start: 09-15-2022 Office outpatient vi sit 25 minutes Willie Herrera [facility] V[facility] Surgery Start: 09-08-2022 End: 09-08-2022 ambulatory MD Clayton Manning Work Phone: [facility] Work Phone: Start: 09-08-2022 End: 09-08-2022 Patient encounter procedure MD Clayton Manning Work Phone: [facility]-CT [facility] Work Phone: Start: 05-05-2022 End: 05-06-[address] CLAYTON MANNING Facility:[facility] Start: 12-03-2021 End: 12-03-2021 ambulatory Hetal Tomlinson Other [facility] Other Start: 12-03-2021 Office outpatient vi sit 15 minutes Hetal Tomlinson [facility] Start: 11-11-2021 End: 11-12-[address] CLAYTON MANNING Facility:[facility] Start: 09-09-2021 End: 09-09-2021 ambulatory Willie Herrera Other [facility] [employer] Other Start: 09-09-2021 Office outpatient vi sit 25 minutes Willie Herrera [facility] V[facility] Surgery Start: 09-09-2021 End: 09-09-2021 Patient encounter procedure MD Clayton Manning Work Phone: [facility] Start: 04-29-2018 End: 05-04-2018 Evaluation and management of inpatient REFERRED SELF Facility:[facility] Procedures Date Procedure Procedure Detail Performing Clinician [...] above: Performed By: #### 6 [id number] #### [facility] [address] [place] [address], [facility] History of carotid endarterectomy S/P carotid endarterectomy MD Clayton Manning Work Phone: Plan of Treatment Date Care Activity Detail Author Start: 08-12-2025 Glaucoma screening Diabetes: R etinopathy Screening [facility] Start: 11-25-2024 Urine screening for protein Diabetes: Urine Protein Screening [facility] Start: 09-28-2024 End: 09-28-2024 Patient encounter procedure 09/28/2024 1:30 PM EDT Office Visit [facility] [address] [id number] [facility] Start: 07-28-2024 End: 07-28-2024 Patient encounter procedure 07/28/2024 1:15 PM EST Office Visit [facility] [address] [place] [phone] Clayton Manning MD [address] [place] [phone] [facility] Start: 05-27-2024 Hemoglobin A1c measurement Diabetes: Hemoglobin A1C [facility] Start: 05-26-2024 End: 05-26-2025 Basic metabolic 1998 panel - Serum or Plasma Basic metabolic panel Lab Routine Benign essential hypertension (CMS/HCC) Expected: 05/26/2024 (Approximate), Expires: 05/26/2025 [facility] Comment on above: Expected: 05/26/2024 (Approximate), Expires: 05/26/2025 Start: 05-26-2024 End: 05-26-2025 CBC W Auto Differential panel - Blood CBC and differential Lab Routine Encounter for long-term (current) use of medications Expected: 05/26/2024 (Approximate), Expires: 05/26/2025 [facility] Comment on above: Expected: 05/26/2024 (Approximate), Expires: 05/26/2025 Start: 05-26-2024 End: 05-26-2026 Echocardiogram 2D complete Echocardiogram 2D complete Echocardiography Routine Fatigue, unspecified type SOB (shortness of breath) Bilateral edema of lower extremity Expected: 05/26/2024 (Approximate), Expires: 05/26/2026 [facility] Comment on above: Expected: 05/26/2024 (Approximate), Expires: 05/26/2026 Start: 05-26-2024 End: 05-26-2025 Hemoglobin A1c/Hemoglobin.total in Blood Hemoglobin A1c Lab Routine Type 2 diabetes mellitus with hyperglycemia, without long-term current use of insulin ([facility]) Expected: 05/26/2024 (Approximate), Expires: 05/26/2025 [facility] Work Phone: Comment on above: Expected: 05/26/2024 (Approximate), Expires: 05/26/2025 Start: 05-26-2024 End: 05-26-2025 Hepatic function 2000 panel - Serum or Plasma Hepatic function panel Lab Routine Encounter for long-term (current) use of medications Expected: 05/26/2024 (Approximate), Expires: 05/26/2025 [facility] Comment on above: Expected: 05/26/2024 (Approximate), Expires: 05/26/2025 Start: 05-26-2024 End: 05-26-2025 TSH W/REFLEX TO FT4 TSH W/REFLEX TO FT4 Lab Routine Fatigue, unspecified type Expected: 05/26/2024 (Approximate), Expires: 05/26/2025 [facility] Comment on above: Expected: 05/26/2024 (Approximate), Expires: 05/26/2025 Start: 05-26-2024 End: 05-26-2025 XR Chest 2 Views XR chest 2 views Imaging Routine SOB (shortness of breath) Bilateral edema of lower extremity Expected: 05/26/2024, Expires: 05/26/2025 [facility] Comment on above: Expected: 05/26/2024 , Expires: 05/26/2025 Start: 05-26-2024 End: 05-26-2024 Patient encounter procedure 05/26/2024 1:00 PM EST Office Visit [facility] [address] [place] [phone] Clayton Manning MD [address] [place] [phone] [facility] Start: 02-21-2024 Influenza vaccination Influenza Vacc ine (#1) [facility] Start: 03-26-2023 [place] Start: 06-22-2015 Pneumococcal Vaccine : 65+ Years (2 of 2 - PCV) Pneumococcal Vaccine: 65+ Years (2 of 2 - PCV) [facility] Start: 08-31-1962 Urine screening for protein Diabetes: Urine Protein Screening [facility] Start: 1945 Hemoglobin A1c measurement Diabetes: Hemoglobin A1C [facility] Start: 1945 Medicare Annual Well ness (AWV) Medicare Annual Wellness (AWV) [facility] Patient Education Arteriogram (DC) [facility] Work Phone: Patient referral [facility] Work Phone: [email or web address] Carotid arteries - bilateral [facility] Payers Date Payer Category Payer Self-pay [id number] 2019 Medicare [id number] 2019 Medicare (Managed Care) [facility] [id number] 01-20-2019 Medicaid [id number]. [id number] 01-20-2019 Medicaid [id number] 06-22-1961 Medicaid [id number] 06-22-1961 Unknown [id number] 1945 Unknown [id number] 2.16.840.1.395755.3.579.2. 647 1943 Unknown [id number] 2.16.840.1.343338.3.579.2. 593 1943 Unknown [id number] 2.16.840.1.954036.3.579.2. 593 1943 Unknown [id number] 2.16.840.1.778665.3.579.2. 593 1943 Unknown [id number] 2.16.840.1.048743.3.579.2. 1259 1943 Unknown [id number] 2.16.840.1.322086.3.579.2. 1259 1943 Unknown [id number] 2.16.840.1.290671.3.579.2. 1259 1943 Unknown [id number] 2.16.840.1.122951.3.579.2. 1259 1943 Unknown [id number] 2.16.840.1.696413.3.579.2. 1259 1943 Unknown [id number] 2.16.840.1.368480.3.579.2. 1259 1943 Unknown [id number] 2.16.840.1.305880.3.579.2. 1259 Medicare [id number] Medicare Medicare [id number] Private Health Insurance [facility] [id number] Unknown [id number] Unknown [id number] 2.16.840.1.324935.3.579.2. 531 Unknown [id number] 2.16.840.1.568376.3.579.2. 531 Social History Date Type Detail Facility Start: 12-12-2020 End: 06-05-2023 Tobacco smoking status ARIS Ex-smoker (finding) [place] Start: 1945 Sex Assigned At Female F [facility] Start: 11-26-2023 End: 05-26-2024 Sex Assigned At [facility] Start: 06-22-1963 End: 06-22-2003 History of tobacco use Current smoker [facility] Start: 06-22-1963 End: 06-22-2003 History of tobacco use Cigarette Smoker [facility] Start: 06-05-2023 Tobacco use and exposure Smokeless tobacco non-user [facility] Start: 11-26-2023 End: 05-26-2024 Alcoholic beverage intake Lifetime non-drinker (finding) [facility] Start: 11-26-2023 End: 05-26-2024 History of Social function [facility] Start: 1945 Sex assigned at Not on file N [facility] Medical Equipment Procedure Code Equipment Code Equipment Origin al Text Equipment Identifier Dates Endarterectomy, carotid Synthetic vascular graft [id number] FDA Start: 04-11-2019 Digital subtraction angiography of carotid and cerebral arteries Bare-metal carotid artery stent ()[id number] FDA Start: 10-20-2019 Angioplasty of carotid artery with insertion of stent IR STENT PRECISE [id number] FDA Start: 03-24-2017 Angioplasty of carotid artery with insertion of stent Bare-metal carotid artery stent ()[id number] FDA Start: 12-12-2020 Angioplasty of carotid artery [...] insertion of stent IR STENT PRECISE [id number] [facility] Start: 03-24-2017 Angioplasty of carotid artery with insertion of stent IR STENT PRECISE [id number] FDA Start: 03-24-2017 Use as instructe d twice a day [id number] Start: 06-05-2023 End: 06-04-2024 Clinical Notes 02-18-2010 [...] hyperglycemia, without long-term current use of insulin ([facility]) Reports BS controlled and due for A1C. Stick to ADA diet and limit carbs. Associated Problem(s): SOB (shortness of breath) Check labs, CXR, and echo. Associated Problem(s): Peripheral vascular disease, unspecified ([facility]/HCC) No symptoms and follow with vascular. [...] chest 2 views documented in this encounter [facility] 03-30-2024 History of Presen t illness Narrative [...] in six months documented in this encounter [facility] 03-23-2023 Evaluation note Encounter Date Diagnosis Assessment [...] progressive changes on serial studies is worrisome. [facility] 03-27-2023 Evaluation note* Encounter Date Diagnosis [...] in detail that she should return sooner [facility] 06-14-2022 Evaluation note* Encounter Date Diagnosis Assessment Notes Treatment Notes Treatment Clinical Notes Nov, Candung sornatalio (ICD-10 - K12.0) Discussed diagnosis with patient. Rx of magic mouthwash called into [facility]. Advised to use as directed. May use salt water gargles in addition for symptom relief, Tylenol/Motrin as needed. Patient to follow up with PCP if symptoms do not improve. Immediate evaluation in ER for warning signs/symptoms as discussed. Patient verbalizes understanding and is agreeable with treatment plan [facility] 03-21-2022 Evaluation note* Encounter Date Diagnosis [...] continue to see her every 6 months [facility] 08-30-2010 History general Narrative - Reported* [...] carotid DSA's 10-20-2019 Hospitalization History see above [facility] Other Evaluation noteNo assessment information available [facility] Work Phone: Evaluation note* Diagnosis Onset Date Resolution Status S/P carotid endarterectomy a cute [facility] Work Phone: Evaluation note* Diagnosis Sensorineural hearing loss (SNHL) of both ears- Primary [facility] Diagnosis Type 2 diabetes mellitus with hyperglycemia, without long-term current use of insulin ([facility])- Primary Benign essential hypertension ([facility]/HCC) Essential hypertension, benign Chronic osteoarthritis Osteoarthrosis, unspecified whether generalized or localized, unspecified site SUNITA (generalized anxiety disorder) ([facility]) Generalized anxiety disorder Type 2 diabetes mellitus with hyperglycemia, without long-term current use of insulin ([facility])- Primary Benign essential hypertension ([facility]) Essential hypertension, benign Chronic osteoarthritis Osteoarthrosis, unspecified whether generalized or localized, unspecified site Peripheral vascular disease, unspecified ([facility]) Peripheral vascular disease, unspecified Dyslipidemia ([facility]) Other and unspecified hyperlipidemia Encounter for long-term (current) use of medications Encounter for long-term (current) use of other medications Osteopenia of both hips Type 2 diabetes mellitus with diabetic peripheral angiopathy without gangrene, with long-term current use of insulin ([facility]) Type 2 diabetes mellitus with hyperglycemia, without long-term current use of insulin ([facility])- Primary Benign essential hypertension ([facility]) Essential hypertension, benign Chronic osteoarthritis Osteoarthrosis, unspecified whether generalized or localized, unspecified site Peripheral vascular disease, unspecified ([facility]) Peripheral vascular disease, unspecified Fatigue, unspecified [...] History [ ] Hospitalization History see above [facility] Other Hospital Discharge instructions Additional Instructions Remove dressing in 24 hours. No heavy lifting for 2 days.[facility] Work Phone: Summary Purpose Family History Relationship [...] 1:09pm Hospital Course Note MR#: [id number] I [facility] Pt. Name: Neha Ashton Admitted: [...] history of diabetes and hypertension, presented to [facility] secondary to mechanical fall and subsequent right [...] and content) DATE CREATED AUTHOR 01/28/2019 [facility] DATE CREATED AUTHOR AUTHOR'S ORGANIZ ATION 11/05/2022 [facility] DATE CREATED AUTHOR AUTHOR'S ORGANIZ ATION 04/01/2024 [facility] DATE CREATED AUTHOR AUTHOR'S ORGANIZ ATION 04/19/2024 [facility] Care Teams (unrecognized sec tion [...] Provider Active S tart: October 05, 2023 Load Manager Relationship Specialty Start Date End Date Clayton Manning MD [address] [place] [phone] PCP - General Family Medicine 11/26/23 Team Status: Inactive Member Role Status Dates Clayton Manning MD Primary Care Provider Active S tart: April 18, 2024 End: April 18, 2024 Willie Herrera MD Attending Provider Active S tart: April 18, 2024 End: April 18, 2024 Load Manager Relationship Specialty Start Date End Date Clayton Manning MD [address] [place] [phone] PCP - General Family Medicine 11/26/23 Load Manager Relationship Specialty Start Date End Date Clayton Manning MD [address] [place] [phone] PCP - General Family Medicine 11/26/23 Load Manager Relationship Specialty Start Date End Date Clayton Manning MD [address] [place] [phone] PCP - General Family Medicine 11/26/23 Goals [...] BE BASED ON THE PRIMARY CLINICAL RECORDS. [employer] provides no warranty or guarantee of the accuracy or completeness of information in this document.
[2024-05-26 20:35] LABS: Glucometer 82 mg/dL (74-106)
[2024-05-26] MEDS: PANTOPRAZOLE SODIUM 40 MG VIAL IV (21:25)
--- NOTE | 2024-05-26 22:00 | PC.NURSE ---
Pt up to the bathroom and has stool mixed with urine in specimen collection hat. color is dark green black in color.
[2024-05-26] MEDS: ATORVASTATIN CALCIUM 40 MG TABLET PO (22:07)
[2024-05-26 22:23] LABS: Bilirubin Urine NEGATIVE (NEGATIVE); Blood Urine NEGATIVE (NEGATIVE); Clarity Urine CLEAR (CLEAR); Color Urine LT. YELLOW (YELLOW); Glucose Urine UA NEGATIVE (NEGATIVE); Ketones Urine NEGATIVE (NEGATIVE); Leukocyte Esterase Urine NEGATIVE (NEGATIVE); Nitrite Urine NEGATIVE (NEGATIVE); Protein Urine NEGATIVE (NEG/TRACE); Specific Gravity Urine <=1.005 (1.005-1.025); Urobilinogen Urine 0.2 EU/dL (0.2-1.0); pH Urine 5.5 (5.0-9.0)
[2024-05-26 22:35] LABS: Bacteria Urine NONE SEEN #/HPF (NONE SEEN); Mucus Urine NONE SEEN (NONE SEEN); RBC Urine 0-2 #/HPF (0-2); WBC Urine NONE SEEN #/HPF (NONE SEEN)
[2024-05-26 22:36] LABS: Cast Seen? NONE SEEN #/LPF (NONE SEEN); Crystals Seen? None Seen #/HPF (None Seen); Squamous Epithelial Cell Urine NONE SEEN #/LPF (NONE/RARE)
[2024-05-27] VITALS (20 sets, daily range): BP systolic 106–144; BP diastolic 66–76; PULSE 79–98; TEMP 37–37.4; O2SAT 89–96; BMI 26.4
[2024-05-27 01:42] LABS: Hematocrit 29.3 % (36.0-48.0); Hemoglobin 9.1 g/dL (12.0-16.0)
[2024-05-27 05:22] LABS: Basophils Absolute Auto 0.1 10^3/uL (0.0-0.1); Basophils Percent Auto 0.5 % (0.2-2.0); Eosinophils Absolute Auto 0.1 10^3/uL (0.0-0.7); Eosinophils Percent Auto 1.1 % (0.9-7.0); Hematocrit 29.7 % (36.0-48.0); Hemoglobin 9.2 g/dL (12.0-16.0); Immature Granulocytes Abs Auto 0.04 10^3/uL (0.00-0.03); Immature Granulocytes Pct Auto 0.4 % (0.0-0.5); Lymphocytes Absolute Auto 1.8 10^3/uL (1.2-3.8); Lymphocytes Percent Auto 17.5 % (20.5-60.0); Mean Corpuscular Hemoglobin 21.2 pg (26.7-34.0); Mean Corpuscular Volume 68.6 fL (81.0-99.0); Mean Platelet Volume 9.3 fL (9.5-13.5); Monocytes Absolute Auto 0.9 10^3/uL (0.3-0.8); Monocytes Percent Auto 9.2 % (1.7-12.0); Neutrophils Absolute Auto 7.2 10^3/uL (1.4-6.5); Neutrophils Percent Auto 71.3 % (43.0-75.0); Platelet Count 265 10^3/uL (150-450); Red Cell Distribution Width 25.4 % (11.0-15.0); White Blood Count 10.1 10^3/uL (4.0-11.0)
[2024-05-27 05:46] LABS: Alanine Aminotransferase 21 U/L (14-59); Albumin Globulin Ratio 0.9; Alkaline Phosphatase 90 U/L (46-116); Anion Gap 12.4; Aspartate Amino Transferase 18 U/L (15-37); BUN Creatinine Ratio 12.7; Bilirubin Total 2.8 mg/dL (0.2-1.0); Calcium 8.5 mg/dL (8.5-10.1); Carbon Dioxide 26.9 mmol/L (21.0-32.0); Chloride 103 mmol/L (98-107); Estimated GFR (African America >60 (>=60 mL/min/1.73m^2); Estimated GFR (Non-African Ame >60 (>=60 mL/min/1.73m^2); Globulin 3.5 g/dL; Glucose 127 mg/dL (74-106); Magnesium 1.9 mg/dL (1.8-2.4); Potassium 4.3 mmol/L (3.5-5.1); Sodium 138 mmol/L (136-145); Total Protein 6.5 g/dL (6.4-8.2)
[2024-05-27 05:50] LABS: Red Blood Count 4.33 10^6/uL (4.20-5.40)
[2024-05-27 08:09] LABS: Glucometer 179 mg/dL (74-106)
[2024-05-27] MEDS: PANTOPRAZOLE SODIUM 40 MG VIAL IV ×2 (09:06→21:30)
[2024-05-27] MEDS: LOSARTAN POTASSIUM 25 MG TABLET PO (09:06)
--- NOTE | 2024-05-27 10:26 | PM.HP ---
HPI H&P: HPI History of Present Illness Chief complaint: abnormal labs, anemia Narrative: 78-year-old female was sent by her PCP for abnormal labs to ER last evening. Patient reports that for past 1 month or so, she has been feeling weak, short of breath and lightheaded. She went to see her primary care physician who ordered routine labs for her. She was called by her PCPs office to come to ER because of low hemoglobin. She was found to have hemoglobin of 6.1 on arrival. She denied chest pain, shortness of breath at rest but reports shortness of breath on exertion and feeling tired and weak overall. She denies melanotic stools, bright red blood per rectum. She denies nausea, vomiting or abdominal pain. She has no prior history of GI bleed or receiving blood transfusion. She had a colonoscopy about 4 to 5 years ago that according to her did not reveal anything significant. She did not have upper GI endoscopy in the past. She is on aspirin and Plavix for carotid artery disease that required stenting and has been using both aspirin and Plavix for a few years now. She received 2 units of packed red blood cells overnight and was started on IV Protonix 40 twice daily. Her hemoglobin keegan appropriately after transfusion and was 9.1 this morning. Her aspirin and Plavix were withheld. General surgery consulted who recommended monitoring her hemoglobin and outpatient GI workup as long as her hemoglobin remains stable. Opioid HPI Opioid Management Most Recent Pain and Opioid Data: Last Pain Assessment 05/27/24 10:35 Last ORT Total Score 0 05/26/24 20:31 05/26/24 Last ORT Risk Category Low Risk 05/26/24 20:31 05/26/24 Review of Systems ROS Status of ROS 10 or more systems reviewed and unremarkable except as noted in history and below [facility] Medical History (Updated 05/27/24 @ 10:39 by Shaikh Andrew MD) HLD (hyperlipidemia) ?E78.5 - Hyperlipidemia, unspecified (ICD-10) HTN (hypertension) ?I10 - Essential (primary) hypertension (ICD-10) Carotid artery disease ?I77.9 - Disorder of arteries and arterioles, unspecified (ICD-10) History of left common carotid artery stent placement ?Z98.890 - Other specified postprocedural states (ICD-10) ?Z95.828 - Presence of other vascular implants and grafts (ICD-10) Diabetes ?E11.9 - Type 2 diabetes mellitus without complications (ICD-10) Surgical History (Updated 05/26/24 @ 21:05 by Suzie Shore RN) Status post double vessel coronary artery bypass ?Z95.1 - Presence of aortocoronary bypass graft (ICD-10) H/O shoulder surgery ?Z98.890 - Other specified postprocedural states (ICD-10) Family History (Updated 05/26/24 @ 21:02 by Suzie Shore RN) Brother Family history of cancer Father Family history of diabetes mellitus Family history of myocardial infarction Social History (Updated 05/27/24 @ 10:36 by Shaikh Andrew MD) Within the past year, how often did you have a drink containing alcohol: never Score interpretation: A score less than 3 is consistent with normal alcohol consumption. Smoking status: Never smoker Non-prescribed substance use: denies use Highest level of school completed/degree received: high school graduate Little interest or pleasure in doing things: not at all Feeling down, depressed, or hopeless: not at all Meds Home Medications and Allergies Home Medications ?Medication ?Instructions ?Recorded ?Confirmed ?Type aspirin 81 mg capsule 81 mg PO DAILY 05/26/24 05/26/24 History atorvastatin 40 mg tablet 40 mg PO .nightly 05/26/24 05/26/24 History calcium phosphate,dibasic 77 1 tab PO DAILY 05/26/24 05/26/24 History mg-vitamin D3 400 unit tablet clopidogrel 75 mg tablet 75 mg PO DAILY 05/26/24 05/26/24 History insulin lispro protamine-lispro 30 unit subcut BID 05/26/24 05/26/24 History 100 unit/mL (75-25) subcutaneous pen losartan 25 mg tablet 25 mg PO DAILY 05/26/24 05/26/24 History Allergies Allergy/AdvReac Type Severity Reaction Status Date / Time No Known Drug Allergies Allergy Verified 05/26/24 16:50 Exam Constitutional Vital Signs, click to edit/add: Last Vital Signs Temp 98.9 F 05/27/24 09:12 Pulse 94 H 05/27/24 09:54 Resp 18 05/27/24 09:12 BP 122/76 05/27/24 09:12 Pulse Ox 90 L 05/27/24 09:36 O2 Del Method Room Air 05/27/24 09:36 Documenting provider has reviewed patient's vital signs: yes Common normals: no apparent distress and oriented x3 General appearance: cooperative HENMT Common normals: normocephalic and head/scalp atraumatic Head and scalp: normocephalic and atraumatic Eye Common normals: conjunctivae normal and no scleral icterus Conjunctiva: conjunctiva(e) normal Respiratory Common normals: normal respiratory effort and clear to auscultation bilaterally Effort & inspection: able to speak in complete sentences Auscultation: clear to auscultation bilaterally Cardio Common normals: regular rate, S1 normal heart sound and S2 normal heart sound Rate: regular rate Heart sounds: S1 normal and S2 normal GI Common normals: Normal to inspection, nondistended, normoactive bowel sounds present, soft to palpation, non-tender and no hepatosplenomegaly Palpation: soft and no hepatosplenomegaly Extremity Common normals: no clubbing, cyanosis or edema Neuro Common normals: oriented x3, moves all extremities and no focal motor deficits Psych Common normals: mental status grossly normal, denies hallucinations, denies homicidal ideation and denies suicidal ideation Results Labs Labs: Short CBC 05/26/24 05/27/24 05/27/24 Range/Units 17:00 01:30 04:40 WBC 12.3 H 10.1 (4.0-11.0) 10^3/uL Hgb 6.1 L* 9.1 L 9.2 L (12.0-16.0) g/dL Hct 22.3 L* 29.3 L 29.7 L (36.0-48.0) % Plt Count 344 265 (150-450) 10^3/uL BMP 05/26/24 05/27/24 17:00 04:40 Sodium 139 138 Potassium 4.0 4.3 Chloride 105 103 Carbon Dioxide 27.2 26.9 BUN 12.0 9.0 Creatinine 0.75 0.71 Glucose 83 127 H Calcium 8.8 8.5 Liver Function 05/27/24 Range/Units 04:40 Total Bilirubin 2.8 H (0.2-1.0) mg/dL AST 18 (15-37) U/L ALT 21 (14-59) U/L Alkaline Phosphatase 90 (46-116) U/L Albumin 3.0 L (3.4-5.0) g/dL Urine 05/26/24 Range/Units 22:00 Urine Color Lt. yellow (YELLOW) Urine Clarity Clear (CLEAR) Urine pH 5.5 (5.0-9.0) Ur Specific [place] <=1.005 A (1.005-1.025) Urine Protein Negative (NEG/TRACE) mg/dL Urine Glucose (UA) Negative (NEGATIVE) mg/dL Assessment and Plan Assessment and Plan (1) Symptomatic anemia: (2) Anemia due to chronic blood loss: (3) GIB (gastrointestinal bleeding): Qualifiers: GI bleed type/associated pathology: unspecified gastrointestinal hemorrhage type Qualified Code(s): K92.2 - Gastrointestinal hemorrhage, unspecified (4) Diabetes: Qualifiers: Diabetes mellitus type: type 2 Diabetes mellitus group home insulin use: with group home use Diabetes mellitus complication status: without complication Qualified Code(s): E11.9 - Type 2 diabetes mellitus without complications; Z79.4 - emt intermediate (current) use of insulin (5) Carotid artery disease: Qualifiers: Carotid artery disease type: unspecified Laterality: left Qualified Code(s): I77.9 - Disorder of arteries and arterioles, unspecified (6) HTN (hypertension): Qualifiers: Hypertension type: primary hypertension Qualified Code(s): I10 - Essential (primary) hypertension (7) HLD (hyperlipidemia): Qualifiers: Hyperlipidemia type: unspecified Qualified Code(s): E78.5 - Hyperlipidemia, unspecified Plan Patient presented with symptomatic anemia likely secondary to chronic GI blood loss. She received 2 units of blood. Started on IV Protonix 40 twice daily. Monitor H&H every 8 hours. General surgery consulted who advised her diet and recommended outpatient GI workup if her hemoglobin remains stable. No evidence of overt or active GI bleed. Hold aspirin and Plavix. She is hemodynamically stable. Continue with losartan and Lipitor. Monitor overnight to ensure her hemoglobin remains stable. Anticipate discharging tomorrow as long as hemodynamically stable/no overt or active GI bleed and her hemoglobin remains stable
--- NOTE | 2024-05-27 10:31 | CM.NOTE ---
Rounds made with Dr. Morales, discussed with pt reason for admission and current labs. Dr. Morales will speak with Dr. Encarnacion to develop plan of care.
--- NOTE | 2024-05-27 11:17 | CM.NOTE ---
Medicare Outpatient Observation Notice discussed with pt, pt verbalizes understanding and signs paper. Original given to pt and copy placed on pt's chart.
[2024-05-27 11:37] LABS: Glucometer 298 mg/dL (74-106)
[2024-05-27] MEDS: INSULIN ASPART 300 UNIT/3 ML PEN SUBQ (11:43)
--- NOTE | 2024-05-27 12:07 | PM.GSCN ---
History of Present Illness Consult details Consult date: 05/27/24 Narrative: 78 yo F presented to ER after having out pt labs drawn and found to have significant anemia. Pt discusses with nursing and records reviewed. She has been having increased fatigue and weakness over the past month. She denies any changes in her bowel habits. Denies any blood per rectum. Denies any emesis, abdominal pain or other GI complaints. Denies any recent f/c. Denies history of GERD or reflux. She has been getting more tired with exertion. Last colonoscopy was around 5 years ago and no abnormalities per her knowledge. No prior abdominal surgeries. No current acute complaints at this time. On plavix and ASA for previous stenting. Those medications have been held [facility] Medical History (Updated 05/27/24 @ 10:39 by Shaikh Andrew MD) HLD (hyperlipidemia) ?E78.5 - Hyperlipidemia, unspecified (ICD-10) HTN (hypertension) ?I10 - Essential (primary) hypertension (ICD-10) Carotid artery disease ?I77.9 - Disorder of arteries and arterioles, unspecified (ICD-10) History of left common carotid artery stent placement ?Z98.890 - Other specified postprocedural states (ICD-10) ?Z95.828 - Presence of other vascular implants and grafts (ICD-10) Diabetes ?E11.9 - Type 2 diabetes mellitus without complications (ICD-10) Surgical History (Updated 05/26/24 @ 21:05 by Suzie Shore RN) Status post double vessel coronary artery bypass ?Z95.1 - Presence of aortocoronary bypass graft (ICD-10) H/O shoulder surgery ?Z98.890 - Other specified postprocedural states (ICD-10) Family History (Updated 05/26/24 @ 21:02 by Suzie Shore RN) Brother Family history of cancer Father Family history of diabetes mellitus Family history of myocardial infarction Social History (Updated 05/27/24 @ 10:36 by Shaikh Andrew MD) Within the past year, how often did you have a drink containing alcohol: never Score interpretation: A score less than 3 is consistent with normal alcohol consumption. Smoking status: Never smoker Non-prescribed substance use: denies use Highest level of school completed/degree received: high school graduate Little interest or pleasure in doing things: not at all Feeling down, depressed, or hopeless: not at all Meds Home Medications and Allergies Home Medications ?Medication ?Instructions ?Recorded ?Confirmed ?Type aspirin 81 mg capsule 81 mg PO DAILY 05/26/24 05/26/24 History atorvastatin 40 mg tablet 40 mg PO .nightly 05/26/24 05/26/24 History calcium phosphate,dibasic 77 1 tab PO DAILY 05/26/24 05/26/24 History mg-vitamin D3 400 unit tablet clopidogrel 75 mg tablet 75 mg PO DAILY 05/26/24 05/26/24 History insulin lispro protamine-lispro 30 unit subcut BID 05/26/24 05/26/24 History 100 unit/mL (75-25) subcutaneous pen losartan 25 mg tablet 25 mg PO DAILY 05/26/24 05/26/24 History Allergies Allergy/AdvReac Type Severity Reaction Status Date / Time No Known Drug Allergies Allergy Verified 05/26/24 16:50 Exam Constitutional Vital Signs, click to edit/add: Last Vital Signs Temp 98.9 F 05/27/24 09:12 Pulse 96 H 05/27/24 11:56 Resp 18 05/27/24 09:12 BP 122/76 05/27/24 09:12 Pulse Ox 90 L 05/27/24 09:36 O2 Del Method Room Air 05/27/24 09:36 Results Labs Labs: Abnormal lab results 05/26/24 05/26/24 05/27/24 Range/Units 17:00 22:00 01:30 WBC 12.3 H (4.0-11.0) 10^3/uL RBC 3.57 L (4.20-5.40) 10^6/uL Hgb 6.1 L* 9.1 L (12.0-16.0) g/dL Hct 22.3 L* 29.3 L (36.0-48.0) % MCV 62.5 L (81.0-99.0) fL MCH 17.1 L (26.7-34.0) pg MCHC 27.4 L (29.9-35.2) g/dL RDW 21.2 H (11.0-15.0) % MPV 9.2 L (9.5-13.5) fL Lymph % (Auto) 16.2 L (20.5-60.0) % Eos % (Auto) 0.7 L (0.9-7.0) % Neut # (Auto) 9.2 H (1.4-6.5) 10^3/uL [place] # (Auto) 0.9 H (0.3-0.8) 10^3/uL Abs Immat Gran (auto) 0.04 H (0.00-0.03) 10^3/uL Glucose (74-106) mg/dL Total Bilirubin (0.2-1.0) mg/dL Albumin (3.4-5.0) g/dL Ur Specific [place] <=1.005 A (1.005-1.025) POC Glucose (74-106) mg/dL Crossmatch See Detail 05/27/24 05/27/24 05/27/24 Range/Units 04:40 08:06 11:34 WBC (4.0-11.0) 10^3/uL RBC (4.20-5.40) 10^6/uL Hgb 9.2 L (12.0-16.0) g/dL Hct 29.7 L (36.0-48.0) % MCV 68.6 L (81.0-99.0) fL MCH 21.2 L (26.7-34.0) pg MCHC (29.9-35.2) g/dL RDW 25.4 H (11.0-15.0) % MPV 9.3 L (9.5-13.5) fL Lymph % (Auto) 17.5 L (20.5-60.0) % Eos % (Auto) (0.9-7.0) % Neut # (Auto) 7.2 H (1.4-6.5) 10^3/uL [place] # (Auto) 0.9 H (0.3-0.8) 10^3/uL Abs Immat Gran (auto) 0.04 H (0.00-0.03) 10^3/uL Glucose 127 H (74-106) mg/dL Total Bilirubin 2.8 H (0.2-1.0) mg/dL Albumin 3.0 L (3.4-5.0) g/dL Ur Specific [place] (1.005-1.025) POC Glucose 179 H 298 H (74-106) mg/dL Crossmatch Diabetes panel 05/26/24 05/27/24 Range/Units 17:00 04:40 Sodium 139 138 (136-145) mmol/L Potassium 4.0 4.3 (3.5-5.1) mmol/L Chloride 105 103 (98-107) mmol/L Carbon Dioxide 27.2 26.9 (21.0-32.0) mmol/L BUN 12.0 9.0 (7.0-18.0) mg/dL Creatinine 0.75 0.71 (0.55-1.02) mg/dL Glucose 83 127 H (74-106) mg/dL Calcium 8.8 8.5 (8.5-10.1) mg/dL AST 18 (15-37) U/L ALT 21 (14-59) U/L Alkaline Phosphatase 90 (46-116) U/L Total Protein 6.5 (6.4-8.2) g/dL Albumin 3.0 L (3.4-5.0) g/dL Calcium panel 05/26/24 05/27/24 Range/Units 17:00 04:40 Calcium 8.8 8.5 (8.5-10.1) mg/dL Albumin 3.0 L (3.4-5.0) g/dL Pituitary panel 05/26/24 05/27/24 Range/Units 17:00 04:40 Sodium 139 138 (136-145) mmol/L Potassium 4.0 4.3 (3.5-5.1) mmol/L Chloride 105 103 (98-107) mmol/L Carbon Dioxide 27.2 26.9 (21.0-32.0) mmol/L BUN 12.0 9.0 (7.0-18.0) mg/dL Creatinine 0.75 0.71 (0.55-1.02) mg/dL Glucose 83 127 H (74-106) mg/dL Calcium 8.8 8.5 (8.5-10.1) mg/dL Adrenal panel 05/26/24 05/27/24 Range/Units 17:00 04:40 Sodium 139 138 (136-145) mmol/L Potassium 4.0 4.3 (3.5-5.1) mmol/L Chloride 105 103 (98-107) mmol/L Carbon Dioxide 27.2 26.9 (21.0-32.0) mmol/L BUN 12.0 9.0 (7.0-18.0) mg/dL Creatinine 0.75 0.71 (0.55-1.02) mg/dL Glucose 83 127 H (74-106) mg/dL Calcium 8.8 8.5 (8.5-10.1) mg/dL Total Bilirubin 2.8 H (0.2-1.0) mg/dL AST 18 (15-37) U/L ALT 21 (14-59) U/L Alkaline Phosphatase 90 (46-116) U/L Total Protein 6.5 (6.4-8.2) g/dL Albumin 3.0 L (3.4-5.0) g/dL All other labs normal. Imaging Abdomen CT scan report/results: report reviewed Assessment and Plan Assessment and Plan (1) Symptomatic anemia: Assessment and Plan: 1. Ok for CLD and adv as tolerated if pt remains HD stable and no signs of overt GI bleeding 2. F/u am HGB, if stable and no signs of overt GI bleeding ok to f/u as out pt 3. Cont PPI on discharge, agree with holding asa and plavix for next couple of days if ok per her vascular team to avoid any recurrent events (2) Anemia due to chronic blood loss: (3) GIB (gastrointestinal bleeding): Qualifiers: GI bleed type/associated pathology: unspecified gastrointestinal hemorrhage type Qualified Code(s): K92.2 - Gastrointestinal hemorrhage, unspecified
[2024-05-27 12:56] LABS: Hematocrit 30.5 % (36.0-48.0); Hemoglobin 9.4 g/dL (12.0-16.0)
[2024-05-27 16:46] LABS: Glucometer 108 mg/dL (74-106)
[2024-05-27] MEDS: ATORVASTATIN CALCIUM 40 MG TABLET PO (21:50)
[2024-05-27 21:51] LABS: Glucometer 171 mg/dL (74-106)
[2024-05-28] VITALS (10 sets, daily range): BP systolic 93–119; BP diastolic 58–60; PULSE 77–98; TEMP 36.7–36.8; O2SAT 91–95
[2024-05-28 06:39] LABS: Basophils Absolute Auto 0.1 10^3/uL (0.0-0.1); Basophils Percent Auto 0.7 % (0.2-2.0); Eosinophils Absolute Auto 0.2 10^3/uL (0.0-0.7); Eosinophils Percent Auto 1.8 % (0.9-7.0); Hematocrit 33.3 % (36.0-48.0); Immature Granulocytes Abs Auto 0.03 10^3/uL (0.00-0.03); Immature Granulocytes Pct Auto 0.3 % (0.0-0.5); Lymphocytes Absolute Auto 1.6 10^3/uL (1.2-3.8); Lymphocytes Percent Auto 18.2 % (20.5-60.0); Mean Corpuscular Hemoglobin 20.9 pg (26.7-34.0); Mean Corpuscular Volume 69.5 fL (81.0-99.0); Monocytes Absolute Auto 0.8 10^3/uL (0.3-0.8); Neutrophils Absolute Auto 6.2 10^3/uL (1.4-6.5); Platelet Count 263 10^3/uL (150-450); Red Blood Count 4.79 10^6/uL (4.20-5.40); Red Cell Distribution Width 26.9 % (11.0-15.0); White Blood Count 8.8 10^3/uL (4.0-11.0)
[2024-05-28 07:03] LABS: Alanine Aminotransferase 17 U/L (14-59); Albumin Globulin Ratio 0.9; Alkaline Phosphatase 100 U/L (46-116); Anion Gap 12.1; Aspartate Amino Transferase 12 U/L (15-37); BUN Creatinine Ratio 11.8; Bilirubin Total 1.3 mg/dL (0.2-1.0); Calcium 8.7 mg/dL (8.5-10.1); Carbon Dioxide 27.2 mmol/L (21.0-32.0); Chloride 103 mmol/L (98-107); Estimated GFR (African America >60 (>=60 mL/min/1.73m^2); Estimated GFR (Non-African Ame >60 (>=60 mL/min/1.73m^2); Globulin 3.5 g/dL; Glucose 178 mg/dL (74-106); Potassium 4.3 mmol/L (3.5-5.1); Sodium 138 mmol/L (136-145); Total Protein 6.5 g/dL (6.4-8.2)
[2024-05-28 07:56] LABS: Glucometer 200 mg/dL (74-106)
[2024-05-28] MEDS: PANTOPRAZOLE SODIUM 40 MG VIAL IV (09:22)
--- NOTE | 2024-05-28 10:27 | P.DS_ITS ---
DS: Providers Provider Date of admission: 05/26/24 20:14 Primary care physician: Clayton Díaz MD Consults: 05/27/24 06:40 Consult to General Surgeon Routine Consulting Provider: Frank Encarnacion Reason for consultation: Suspected GIB DS: Diagnosis Discharge Diagnosis (1) Symptomatic anemia: (2) Anemia due to chronic blood loss: (3) GIB (gastrointestinal bleeding): Qualifiers: GI bleed type/associated pathology: unspecified gastrointestinal hemorrhage type Qualified Code(s): K92.2 - Gastrointestinal hemorrhage, unspecified Plan (1) Symptomatic anemia: (2) Anemia due to chronic blood loss: (3) GIB (gastrointestinal bleeding): Qualifiers: GI bleed type/associated pathology: unspecified gastrointestinal he morrhage type Qualified Code(s): K92.2 - Gastrointestinal hemorrhage, unspecified (4) Diabetes: Qualifiers: Diabetes mellitus type: type 2 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 Diabetes mellitus complication status: without complication Qualified Code(s): E11.9 - Type 2 diabetes mellitus without complications; Z79.4 - halfway (current) use of insulin (5) Carotid artery disease: Qualifiers: Carotid artery disease type: unspecified Laterality: left Qualified Code(s): I77.9 - Disorder of arteries and arterioles, unspecified (6) HTN (hypertension): Qualifiers: Hypertension type: primary hypertension Qualified Code(s): I10 - Essential (primary) hypertension (7) HLD (hyperlipidemia): Qualifiers: Hyperlipidemia type: unspecified Qualified Code(s): E78.5 - Hyperlipidemia, unspecified DS: Summary Hospital Course Hospital Course: Patient admitted with acute upper gastrointestinal blood loss anemia secondary to acute upper gastrointestinal bleeding. Hemoglobin low enough that she required 2 units of PRBCs. She tolerated the transfusion well. No further signs of bleeding. Her hemoglobin is improving. At this point she is medically stable for discharge to home, restart her Plavix and aspirin, see your PCP within the next week. Started Protonix. Medications see this. Status at Discharge Overall status at discharge: patient is not back to baseline Time Spent with Patient Time attestation: Total time spent providing and/or coordinating discharge services: Time spent: greater than 30 minutes Exam Constitutional Vital Signs, click to edit/add: Last Vital Signs Temp 98.2 F 05/28/24 09:05 Pulse 90 05/28/24 09:59 Resp 16 05/28/24 09:05 BP 93/58 05/28/24 09:05 Pulse Ox 93 L 05/28/24 09:05 O2 Del Method Room Air 05/28/24 09:05 Documenting provider has reviewed patient's vital signs: yes Common normals: no apparent distress and oriented x3 General appearance: cooperative HENMT Common normals: normocephalic and head/scalp atraumatic Head and scalp: normocephalic and atraumatic Eye Common normals: conjunctivae normal and no scleral icterus Conjunctiva: conjunctiva(e) normal Respiratory Common normals: normal respiratory effort and clear to auscultation bilaterally Effort & inspection: able to speak in complete sentences Auscultation: clear to auscultation bilaterally Cardio Common normals: regular rate, S1 normal heart sound and S2 normal heart sound Rate: regular rate Heart sounds: S1 normal and S2 normal GI Common normals: Normal to inspection, nondistended, normoactive bowel sounds present, soft to palpation, non-tender and no hepatosplenomegaly Palpation: soft and no hepatosplenomegaly Extremity Common normals: no clubbing, cyanosis or edema Neuro Common normals: oriented x3, moves all extremities and no focal motor deficits Psych Common normals: mental status grossly normal, denies hallucinations, denies homicidal ideation and denies suicidal ideation DS: Data Data Completed and Pending Labs on day of discharge: Labs from last 24 hours 05/28/24 05/28/24 05/27/24 07:55 05:59 21:50 WBC 8.8 RBC 4.79 Hgb 10.0 L Hct 33.3 L MCV 69.5 L MCH 20.9 L MCHC 30.0 RDW 26.9 H Plt Count 263 MPV 9.0 L Neut % (Auto) 70.0 Lymph % (Auto) 18.2 L [place] % (Auto) 9.0 Eos % (Auto) 1.8 Baso % (Auto) 0.7 Neut # (Auto) 6.2 Lymph # (Auto) 1.6 [place] # (Auto) 0.8 Eos # (Auto) 0.2 Baso # (Auto) 0.1 Abs Immat Gran (auto) 0.03 Imm/Tot Granulo (auto) 0.3 Sodium 138 Potassium 4.3 Chloride 103 Carbon Dioxide 27.2 Anion Gap 12.1 BUN 9.0 Creatinine 0.76 Est GFR ( Amer) >60 Est GFR (Non-Af Amer) >60 BUN/Creatinine Ratio 11.8 Glucose 178 H Calcium 8.7 Total Bilirubin 1.3 H AST 12 L ALT 17 Alkaline Phosphatase 100 Total Protein 6.5 Albumin 3.0 L Globulin 3.5 Albumin/Globulin Ratio 0.9 POC Glucose 200 H 171 H 05/27/24 05/27/24 05/27/24 16:43 12:51 11:34 WBC RBC Hgb 9.4 L Hct 30.5 L MCV MCH MCHC RDW Plt Count MPV Neut % (Auto) Lymph % (Auto) [place] % (Auto) Eos % (Auto) Baso % (Auto) Neut # (Auto) Lymph # (Auto) [place] # (Auto) Eos # (Auto) Baso # (Auto) Abs Immat Gran (auto) Imm/Tot Granulo (auto) Sodium Potassium Chloride Carbon Dioxide Anion Gap BUN Creatinine Est GFR ( Amer) Est GFR (Non-Af Amer) BUN/Creatinine Ratio Glucose Calcium Total Bilirubin AST ALT Alkaline Phosphatase Total Protein Albumin Globulin Albumin/Globulin Ratio POC Glucose 108 H 298 H Discharge Plan Discharge Disposition: Home, Self-Care Condition: Good Discharge Medications: New pantoprazole [Protonix] 40 mg tablet,delayed release (DR/EC) 40 mg PO DAILY Qty: 30 11RF Continued atorvastatin 40 mg tablet 40 mg PO .nightly aspirin 81 mg capsule 81 mg PO DAILY clopidogrel 75 mg tablet 75 mg PO DAILY insulin lispro protamin-lispro 100 unit/mL (75-25) insulin pen 30 unit SUBCUT BID losartan 25 mg tablet 25 mg PO DAILY calcium phos,dibas-vitamin D3 77-400 mg-unit tablet 1 tab PO DAILY Activity: resume usual activities as tolerated Diet: advance to your usual diet Print Language: Romanian Patient Instructions: Anemia (DC) Application Specialist/Consumer Marketing Manager Instructions: Discuss blood pressure medications at follow up due to low blood pressure readings during hospital stay Forms: Portal Instructions Follow Up Appointments: Call Dr. Díaz office and make a follow up for 7-10 days. [phone] @ 10am with Dr. Encarnacion [address] [place] [address], [facility] [phone] Discharge Date/Time: 05/28/24 11:03
--- NOTE | 2024-05-31 14:36 | CM.DCFOLLOWU ---
Person spoke with:patient How are you feeling?well How is your pain?none, feels great Did you understand your discharge instructions?yes Do you have any questions about your discharge instructions?no Were you given any prescriptions at discharge?yes Were you able to get your prescriptions filled?yes Do you understand how to take your medications as ordered?yes Do you have any questions about your follow up appointment and do you plan to keep your follow up appointment? no questions, follow ups reviewed Is there anything else that you would like to discuss?no Questions/Comments/Concerns/Other:none
== END 2024-05-28 11:03 | disposition home or self-care (01) ==
LOC: ER 19:08 → MS 05-27 07:38
PROVIDERS: Registered Nurse; Admitting Provider Family Medicine; Emergency Provider Emergency Medicine; PCP Family Medicine; Visit Provider Internal Medicine
DX: D50.0 Iron deficiency anemia secondary to blood loss (chronic) (principal); E11.65 Type 2 diabetes mellitus with hyperglycemia; I10 Essential (primary) hypertension; Z79.899 Other long term (current) drug therapy; R53.83 Other fatigue; R06.02 Shortness of breath; R60.0 Localized edema; K92.2 Gastrointestinal hemorrhage, unspecified; Z79.4 Long term (current) use of insulin; I77.9 Disorder of arteries and arterioles, unspecified; E78.5 Hyperlipidemia, unspecified; Z79.02 Long term (current) use of antithrombotics/antiplatelets; Z79.82 Long term (current) use of aspirin; Z95.828 Presence of other vascular implants and grafts; F17.210 Nicotine dependence, cigarettes, uncomplicated
CPT/HCPCS: 36415; 36430; 71046; 74177; 80048; 80053; 80076; 81001; 82948; 83036; 83735; 84443; 85014; 85018; 85025; 86850; 86900; 86901; 93005; 94761; 96374; 96376; 99285; 99406; G0328; G0378; P9016; Q9967

== ENCOUNTER 2024-06-16 13:35 | Outpatient (OUT) | payer MEDICARE, MEDICAID, SELFPAY ==
--- NOTE | 2024-06-16 14:00 | CA_ITS ---
Patient Name: MAC DENIS MR#: [id number] : 1945 Exam Date: 06/16/2024 Ordering Doctor: DR Clayton Díaz . ECHOCARDIOGRAM REPORT PROCEDURE: CA ECHO DOPPLER COMPLETE INDICATIONS: Edema, shortness of breath, fatigue, hypertension, diabetes COMPARISON: None. DESCRIPTION: COMPLETE ECHOCARDIOGRAM Real-time transthoracic echocardiography with 2D, M-mode, spectral and color flow Doppler performed. QUALITY: Technical quality was good. LEFT VENTRICLE: Normal chamber size. Normal left ventricular wall thickness. Normal systolic function. LV EF: Normal left ventricular ejection fraction, (>55%). DIASTOLIC: Normal diastolic function. ATRIAL SEPTUM: Visually appears intact. LEFT ATRIUM: Normal chamber size. RIGHT ATRIUM: Normal chamber size. RIGHT VENTRICLE: Normal chamber size. Normal right ventricular systolic function. TRICUSPID VALVE: Normal mobility and thickness. No stenosis with trivial regurgitation. No evidence of pulmonary hypertension. RVSP 31 mmHg MITRAL VALVE: Normal mobility and thickness. No evidence of mitral valve stenosis. Mild mitral annular calcification. No mitral regurgitation. AORTIC VALVE: Normal trileaflet appearance. Mildly calcified aortic valve. Normal leaflet mobility. No evidence of aortic valve stenosis. No aortic regurgitation. AORTIC ROOT: Normal diameter and appearance. Ascending aorta is normal in size. PULMONIC VALVE: Normal thickness and mobility. No stenosis. Trivial regurgitation. PERICARDIUM: No evidence of pericardial effusion. IVC: Collapses with inspirations. PLEURA: CONCLUSION: 1. Normal left ventricular size and systolic function. LVEF is estimated at 55 to 60%. 2. Normal right ventricular size and systolic function. 3. Normal diastolic function. 4. No significant valvular dysfunction. 5. Normal right-sided pressures. Adult Echocardiography Procedure Report Left Ventricle LVEDD (3.7 - 5.6 cm): 4.46 cm LVESD (2.2 - 4.0 cm): 3.16 cm LVIVS thickness (0.6 - 1.2 cm): 1.02 cm LVPW thickness (0.5 - 1.0 cm): 0.94 cm e': 0.09 m/s E - e': 6.09 LVOT Max Gradient: 2.04 mm[Hg] LVOT Area (cm2): 0.71 m/s Peak Velocity (LVOT): 0.71 m/s Mean Velocity (LVOT): 0.47 m/s LVOT Diameter 1.93 cm Left Atrium LA Volume Index (2D A2C): 27.29 ml/m2 Left Atrium Systolic Dimension: 2.84 cm Mitral Valve MV E to A Ratio: 0.64 Mitral Valve A-Wave Peak Velocity: 0.90 m/s Mitral Valve E-Wave Peak Velocity: 0.57 m/s Right Ventricle Aorta AO Root Diam: 2.78 cm Ascending Ao Diam: 2.14 cm Aortic Valve AoV Area (Peak Ibrahima): 1.71 cm2, 1.71 cm2 AoV Area (VTI): 1.72 cm2, 1.72 cm2 Peak Velocity(Antegrade Flow): 1.23 m/s Peak Gradient(Antegrade Flow): 6.02 mm[Hg] Mean Velocity(Antegrade Flow): 0.89 m/s Mean Gradient(Antegrade Flow): 3.55 mm[Hg] Velocity Time Integral: 28.39 cm Tricuspid Valve Peak Velocity (Regurgitant Flow): 2.67 m/s Pulmonic Valve Mean Gradient: 1.62 mm[Hg] Mean Velocity: 0.58 m/s Peak Velocity: 0.98 m/s, 0.91 m/s Peak Gradient: 3.32 mm[Hg], 3.81 mm[Hg] Right Atrium Right Atrium Systolic Pressure: 43.58 ml, 43.58 ml Dictated by: John Fraser M.D. on 06/17/2024 at 09:37 Approved by: John Fraser M.D. on 06/17/2024 at 09:40
== END 2024-06-16 13:36 | disposition home or self-care (01) ==
LOC: CARD 13:36
PROVIDERS: PCP Family Medicine; Visit Provider Family Medicine
DX: R53.83 Other fatigue (principal); R06.02 Shortness of breath; R60.0 Localized edema
CPT/HCPCS: 93306

== ENCOUNTER 2024-07-28 14:22 | Outpatient (OUT) | payer MEDICARE, MEDICAID, SELFPAY ==
[2024-07-28 14:36] LABS: Basophils Absolute Auto 0.1 10^3/uL (0.0-0.1); Basophils Percent Auto 0.6 % (0.2-2.0); Eosinophils Percent Auto 0.4 % (0.9-7.0); Hemoglobin 9.2 g/dL (12.0-16.0); Immature Granulocytes Abs Auto 0.03 10^3/uL (0.00-0.03); Immature Granulocytes Pct Auto 0.3 % (0.0-0.5); Lymphocytes Absolute Auto 2.3 10^3/uL (1.2-3.8); Lymphocytes Percent Auto 22.2 % (20.5-60.0); Mean Corpuscular HGB Conc 28.8 g/dL (29.9-35.2); Mean Corpuscular Hemoglobin 22.2 pg (26.7-34.0); Mean Corpuscular Volume 77.3 fL (81.0-99.0); Monocytes Absolute Auto 0.7 10^3/uL (0.3-0.8); Neutrophils Percent Auto 69.5 % (43.0-75.0); Platelet Count 422 10^3/uL (150-450); Red Blood Count 4.14 10^6/uL (4.20-5.40); Red Cell Distribution Width 21.1 % (11.0-15.0); White Blood Count 10.1 10^3/uL (4.0-11.0)
--- OUTSIDE RECORDS SUMMARY | 2024-07-28 14:45 | XMS_ITS | CCD ---
Author Organization [facility] Care Team Providers Care Director Telemetry Name Role Phone SELF, REFERRED Referring Unavailable CLAYTON MANNING Primary Care Unavailable RENNO, ANAS Attending Unavailable PUMA ANAS Admitting Unavailable IA Procedure Practitioner Unavailab IVANIA Brennan Surgeon Unavailable MD Clayton Manning Primary Care Provider MARILYN Solomon Attending Provider Willie Herrera Unavailable Hetal Tomlinson Unavailable MD Clayton Manning Primary Care Provider [phone] MARILYN Solomon Attending Provider KERRI, DR CLAYTON Castle Attending Unavailable NADERER, DR CLAYTON Castle Admitting Unavailable NADERER, DR CLAYTON Castle Primary Care Unavailable NADERER, DR CLAYTON Castle Consulting Unavailable NADERER, DR CLAYTON Castle Consulting Unavailable NADERER, DR CLAYTON Castle Attending Unavailable NADERER, DR CLAYTON Castle Admitting Unavailable MINNAEREMarc, DR CLAYTON Castle Primary Care Unavailable MINNAERER, DR CLAYTON Castle Attending Unavailable NADERER, DR CLAYTON Castle Admitting Unavailable STEWARD, DR BALTAZAR Gross Consulting Unavailable NADERER, DR CLAYTON Castle Primary Care Unavailable MINNAEREMarc, DR CLAYTON Castle Consulting Unavailable MD Clayton Manning Primary Care Provider [phone] MD Willie Herrera Attending Provider [phone] MD Clayton Manning Primary Care Provider [phone] MD Willie Herrera Attending Provider Clayton Manning MD Primary Care Provider [phone] Willie Herrera Attending Unavailable Kerri, Clayton Primary Care Unavailable Willie Herrera Admitting Unavailable Willie Herrera Attending Unavailable Clayton Manning Primary Care Unavailable Willie Herrera Admitting Unavailable CLAYTON MANNING Attending Unavailable CLAYTON MANNING Attending Unavailable LAMBERT ENCARNACION Attending Unavailable ALISA RUFFIN Attending Unavailable CLAYTON MANNING Attending Unavailable ALISA RUFFIN Attending Unavailable ALISA RUFFIN Attending Unavailable Medications Current Medications Medication Drug Class(es) Dates Sig (Normalized) Sig (Original) ascorbic acid 1000 mg oral tablet (10 sources) Vitamin C Start: 03-22-2019 take 1 tablet by mouth once daily Ascorbic Acid (Vitamin C) (Vitamin C) 1,000 mg Tablet Active 1 TAB PO Daily March 21, 2019 11:00pm atorvastatin 80 mg oral tablet (20 sources) HMG-CoA Reductase Inhibitor Start: 07-18-2024 Atorvastatin 80 mg tablet Active MG PO July 18, 2024 12:00am Start: 03-26-2023 take 1 tablet by victor hugo once daily Atorvastatin 40 mg tablet Active 40 MG PO Daily March 25, 2023 11:00pm bisacodyl 5 mg delayed release oral tablet (2 sources) Stimulant Laxative Start: 06-01-2024 End: 06-01-2024 take 1 tablet by mouth once bisacodyl (Dulcolax) 5 MG EC tablet Indications: Gastrointestinal hemorrhage, unspecified gastrointestinal hemorrhage type Take 1 tablet (5 mg) by mouth 1 time for 1 dose Do not crush, chew, or split. Take as detailed on clinic hand out for colonoscopy prep 4 tablet 06/01/2024 06/01/2024 Active calcium carbonate 1500 mg oral tablet (13 sources) Start: 03-24-2017 take 1 tablet by mouth once daily Calcium Carbonate (Calcium 600) 600 mg calcium (1,500 mg) Tablet Active 1 TAB PO Daily March 23, 2017 11:00pm clopidogrel 75 mg oral tablet (20 sources) P2Y12 Platelet Inhibitor Start: 12-12-2020 take 1 tablet by mouth once daily Clopidogrel 75 mg tablet Active 75 MG PO Daily December 11, 2020 11:00pm ferrous sulfate 325 mg delayed release oral tablet (3 sources) Start: 07-18-2024 Ferrous Sulfat e 325 mg (65 mg iron) tablet,delayed release (DR/EC) Active MG PO July 18, 2024 12:00am Start: 06-07-2024 take 1 tablet by victor hugo th at mealtime ferrous sulfate (Fe Tabs) 325 (65 Fe) MG EC tablet Indications: Anemia due to chronic blood loss Take 1 tablet (325 mg) by mouth in the morning. Take with meals. Do not crush, chew, or split.. 30 tablet 5 06/07/2024 Active Fish Oils (4 sources) take 1 capsule by mouth once daily Fish Oil 1000 MG 1 capsule Orally Once a day Active furosemide 40 mg oral tablet (9 sources) Loop Diuretic Start: 05-26-2024 take 1 tablet by mouth once daily furosemide (Lasix) 40 MG tablet Indications: Bilateral edema of lower extremity Take 1 tablet (40 mg) by mouth Daily 30 tablet 3 05/26/2024 Active insulin isophane, human 70 unt/ml / insulin, regular, human 30 unt/ml injectable suspension (20 sources) Insulin Start: 03-24-2017 Insulin Nph And Regular Human 100 unit/mL (70-30) suspension Active 25 UNITS SUBCUT Daily before supper March 23, 2017 11:00pm Start: 03-24-2017 End: 03-26-2023 Insulin Nph And Regular Iveth n 100 unit/mL (70-30) suspension Discontinued 22 UNITS SUBCUT Daily before breakfast March 23, 2017 11:00pm March 26, 2023 8:15am Start: 03-24-2017 inject 16 [IU] by galindo bcutaneous injection once daily Insulin Nph And Regular Human Active 16 UNITS SUBCUT Daily before supper March 24, 2017 12:00am NovoLIN 70/30 (7 0-30) 100 UNIT/ML Subcutaneous 22 units AM, 16 in evening Active 3 ml insulin lispro 25 unt/ml / insulin lispro protamine, human 75 unt/ml pen injector (12 sources) Insulin Analog Start: 03-02-2024 insulin lispro protamine-insulin lispro (HumaLOG MIX 75/25 KWIKPEN) (75-25) 100 UNIT/ML injection Indications: Type 2 diabetes mellitus with hyperglycemia, without long-term current use of insulin ([facility]) Inject 30 Units under the skin in the morning and 30 Units in the evening. Inject with meals. 15 each 5 03/02/2024 Active pantoprazole 40 mg delayed release oral tablet (8 sources) Proton Pump Inhibitor Start: 07-18-2024 Pantoprazole 40 mg tablet,delayed release (DR/EC) Active MG PO July 18, 2024 12:00am Start: 05-28-2024 End: 06-07-2024 take 1 tablet by mouth once daily pantoprazole (ProtoNix) 40 MG EC tablet Indications: Acute GI bleeding Take 1 tablet (40 mg) by mouth Daily 30 tablet 5 06/07/2024 Active penicillin v potassium 250 mg oral tablet (1 source) take 1 tablet by mouth every twelve hours Penicillin V Potassium 250 MG 1 tablet Orally Twice a day Active polyethylene glycol 3350 51372 mg powder for oral solution (2 sources) Osmotic Laxative Start: 06-01-2024 End: 06-01-2024 take 17 g by mouth once polyethylene glycol, PEG, 3350 (Glycolax) 17 GM/SCOOP powder Indications: Colonoscopy Take 238 g by mouth 1 (one) time for 1 dose Take as detailed from clinic hand out for colonoscopy prep 238 g 06/01/2024 06/01/2024 Active Red Yeast Rice Extract (3 sources) Red Yeast Rice Extract Active Vit D3-Folic Becm-D4-V4-B12 (8 sources) Start: 03-24-2017 take 1 tablet by mouth once daily Vit D3-Folic Aeel-K8-K3-B12 Active 1 TAB PO Daily March 24, 2017 12:13pm Start: 03-24-2017 take 1 tablet by victor hugo th once daily Vit D3-Folic Mrge-W6-P9-B12 Active 1 TAB PO Daily March 24, 2017 12:00am Vit D3-Folic Clbo-Y3-I8-B12 2,000-800-0.32 unit-mcg-mg Tablet (1 source) Start: 03-24-2017 take 1 tablet by mouth once daily Vit D3-Folic Pwhe-V7-A3-B12 2,000-800-0.32 unit-mcg-mg Tablet Active 1 TAB PO Daily March 23, 2017 11:00pm Vitamin C 1000 MG (3 sources) take 1 tablet by mouth once daily Vitamin C 1000 MG 1 tablet Orally Once a day Active Vitamin D 2000 UNIT (4 sources) take 1 tablet by mouth once daily Vitamin D 2000 UNIT 1 tablet Orally Once a day Active Completed/Discontinued Medications Medication Drug Class(es) Dates Sig (Normalized) Sig (Original) aspirin 81 mg chewable tablet (20 sources) Platelet Aggregation Inhibitor, Nonsteroidal Anti-inflammatory Drug Start: 03-24-2017 End: 07-18-2024 take 1 tablet by mouth once daily Aspirin (Jannette Chewable Aspirin) 81 mg Tablet,Chewable Discontinued 81 MG PO Daily March 23, 2017 11:00pm July 18, 2024 11:39am End: 06-07-2024 take 1 tablet by mouth in the morning aspirin 81 MG EC tablet Take 81 mg by mouth in the morning. 06/07/2024 Discontinued lisinopril 5 mg oral tablet (13 sources) Angiotensin Converting Enzyme Inhibitor Start: 03-24-2017 End: 10-20-2019 take 1 tablet by mouth once daily Lisinopril 5 mg Tablet Discontinued 1 TAB PO Daily March 23, 2017 11:00pm October 20, 2019 8:14am losartan potassium 25 mg oral tablet (20 sources) Angiotensin 2 Receptor Juan Start: 10-20-2019 End: 07-18-2024 take 1 tablet by mouth once daily Losartan 25 mg tablet Discontinued 25 MG PO Daily October 19, 2019 11:00pm July 18, 2024 11:45am [place] 7-Wbx-Voh-Fish Oil (Fish Oil) 1,000 mg (120 mg-180 mg) Capsule (9 sources) Start: 03-24-2017 End: 03-22-2019 take 1 tablet by mouth once daily [place] 9-Qjg-Hyb-Fish Oil (Fish Oil) 1,000 mg (120 mg-180 mg) Capsule Discontinued 1 TAB PO Daily March 24, 2017 12:13pm March 22, 2019 12:09pm Start: 03-24-2017 End: 03-22-2019 take 1 tablet by mouth once daily [place] 3-Pno-Vqt-Fish Oil (Fish Oil) 1,000 mg (120 mg-180 mg) Capsule Discontinued 1 TAB PO Daily March 23, 2017 11:00pm March 22, 2019 11:09am Start: 03-24-2017 End: 03-22-2019 take 1 tablet by mouth once daily [place] 6-Ajr-Ejy-Fish Oil (Fish Oil) 1,000 mg (120 mg-180 mg) Capsule Discontinued 1 TAB PO Daily March 24, 2017 12:00am March 22, 2019 12:09pm simvastatin 20 mg oral tablet (13 sources) HMG-CoA Reductase Inhibitor Start: 03-24-2017 End: 03-22-2019 take 1 tablet by mouth once daily Simvastatin 20 mg Tablet Discontinued 20 MG PO Daily March 23, 2017 11:00pm March 22, 2019 11:08am traMADol hydrochloride 50 mg oral tablet (9 sources) Opioid Agonist Start: 04-13-2019 End: 10-20-2019 Tramadol 50 mg tablet Discontinued 50 MG PO every 6 to 8 hours as needed for pain 08 01April 12, 2019 11:00pm October 20, 2019 8:14am triamcinolone acetonide 40 mg/ml injectable suspension (1 source) Corticosteroid Start: 12-04-2022 Kenalog-40 15 Nov, 2022 40 mg Problems Active Problems Problem Classification Problem Date Documented Da te Episodic/Chronic Anxiety disorders (14 sources) Generalized anxiety disorder; Translations: [Generalized anxiety disorder] Onset: 3 06-05-2023 Chronic Deficiency and other anemia (4 sources) Anemia due to chronic blood loss; Translations: [Iron deficiency anemia secondary to blood loss (chronic)] Onset: 4 06-07-2024 Chronic Deficiency and other anemia (2 sources) Anemia; Translations: [Anemia, unspecified] 06-01-2024 Episodic Diabetes mellitus with complications (20 sources) Type 2 diabetes mellitus with hyperglycemia; Translations: [Hyperglycemia due to type 2 diabetes mellitus] Onset: 2 Chronic Disorders of lipid metabolism (14 sources) Dyslipidemia; Translations: [Hyperlipidemia, unspecified] Onset: 3 06-05-2023 Chronic Essential hypertension (18 sources) Benign essential hypertension; Translations: [Essential (primary) hypertension] Onset: 3 06-05-2023 Chronic Gastrointestinal hemorrhage (6 sources) Gastrointestinal hemorrhage; Translations: [Gastrointestinal hemorrhage, unspecified] Onset: 4 06-01-2024 Episodic Malaise and fatigue (13 sources) Fatigue; Translations: [Other fatigue] Onset: 4 05-26-2024 Episodic Occlusion or stenosis of precerebral arteries (20 sources) Carotid artery stenosis; Translations: [Occlusion and stenosis of unspecified carotid artery] Onset: 2 Resolved: 2 12-28-2020 Chronic Comment on above: Problem List clean-u p per request of Phys. EHR Cmte Osteoarthritis (16 sources) Chronic osteoarthritis; Translations: [Unspecified osteoarthritis, unspecified site] Onset: 3 12-15-2023 Chronic Other circulatory disease (4 sources) Arterial, arteriole and capillary disease; Translations: [Disorder of arteries and arterioles, unspecified] Chronic Other ear and sense organ disorders (18 sources) Sensorineural hearing loss, bilateral; Translations: [Sensorineural hearing loss, bilateral] Onset: 3 03-30-2024 Chronic Other lower respiratory disease (13 sources) Dyspnea; Translations: [Shortness of breath] Onset: 4 05-26-2024 Episodic Peripheral and visceral atherosclerosis (18 sources) Peripheral vascular disease; Translations: [Peripheral vascular disease, unspecified] Onset: 3 05-26-2023 Chronic Residual codes; unclassified (2 sources) Other specified postprocedural states; Translations: [Other postprocedural status] 10-05-2023 Episodic Residual codes; unclassified (13 sources) Bilateral lower limb edema; Translations: [Localized edema] Onset: 4 05-26-2024 Episodic Screening and history of mental health and substance abuse codes (4 sources) Ex-smoker; Translations: [Personal history of nicotine dependence] Episodic Past or Other Problems Problem Classification Problem Date Documented Da te Episodic/Chronic Diseases of mouth; excluding dental (1 source) Recurrent oral aphthae Onset: 12-03-2021 Resolved: 12-03-2021 Episodic Other aftercare (1 source) [facility] (current) use of insulin; Translations: [HALF-WAY CURRENT USE OF INSULIN] Onset: 05-08-2022 Episodic Other aftercare (14 sources) Long-term current use of drug therapy; Translations: [Other skilled nursing (current) drug therapy] Onset: 11-26-2023 11-26-2023 Episodic Other aftercare (2 sources) Patient encounter status; Translations: [Other skilled nursing (current) drug therapy] Onset: 11-26-2023 11-26-2023 Episodic Other bone disease and musculoskeletal deformities (14 sources) Osteopenia; Translations: [Other specified disorders of [...] WITH AUTO DIFFon BASOPHILS ABSOLUTE AUTO 0.1 [facility] Basophils/100 WBC (Bld) 0.5 % 0.2 - 2.0 % [facility] Eosinophils/100 WBC (Bld) 0.3 % Low 0.9 - 7.0 % [facility] Erythrocyte distribution width (RBC) [Ratio] 21.4 % High 11.0 - 15.0 % [facility] Hematocrit (Bld) [Volume fraction] 24.2 % Low 36.0 - 48.0 % [facility] Hemoglobin (Bld) [Mass/Vol] 6.5 g/dL Critically low 12.0 - 16.0 g/dL [facility] Comment on above: RESULTS CALLED TO DR Anushka MANNING AT 1450 IMMATURE GRANULOCYTES ABS AUTO 0.03 [facility] Immature granulocytes/100 WBC (Bld) 0.3 % 0.0 - 0.5 % [facility] Interpretation and review of laboratory results Abnormal [facility] LYMPHOCYTES ABSOLUTE AUTO 2.1 [facility] Lymphocytes/100 WBC (Bld) 18.6 % Low 20.5 - 60.0 % [facility] MCH (RBC) [Entitic mass] 17.3 pg Low 26.7 - 34.0 pg [facility] MCHC (RBC) [Mass/Vol] 26.9 g/dL Low 29.9 - 35.2 g/dL [facility] MCV (RBC) [Entitic vol] 64.4 fL Low 81.0 - 99.0 fL [facility] MONOCYTES ABSOLUTE AUTO 0.9 High [facility] Monocytes/100 WBC (Bld) 7.8 % 1.7 - 12.0 % [facility] NEUTROPHILS ABSOLUTE AUTO 8 High [facility] Neutrophils/100 WBC (Bld) 72.5 % 43.0 - 75.0 % [facility] Platelet mean volume (Bld) [Entitic vol] 9.2 fL Low 9.5 - 13.5 fL [facility] TBH EO # 0 [facility] PLT 337 [facility] RBC 3.76 Low [facility] Comment on above: 2+ ANISOCYTOSIS 2+ HYPCHROMIA 2+ MICROCYTOSIS 1+ OVALOCYTES TB WBC 11 [facility] US carotid doppler BIon 10- [place] [address] Ultrasound Report Signed Patient: Neha Ashton MR#: [id number] : 1945 Acct:[id number] Age/Sex: 78 / F ADM Date: 04/18/24 Loc: [facility] Room: Type: [facility] Attending Dr: Willie Herrera MD Ordering Provider: [...] Willie Herrera M.D.04/18/2024 11:57 AM Dictation Location: [place] [address] Tech: Kary Fajardo Transcribed By: LOLI 04/18/24 115 Dictated By: Willie Herrera MD 04/18/241153 Signed By: 04/18/24 115 Kelly [facility] US carotid doppler BIon 04- US carotid doppler BI [facility] [address] [place] [address] Ultrasound Report Signed Patient: Neha Ashton MR#: [id number] : 1945 Acct:[id number] Age/Sex: 78 / F ADM Date: 10/05/23 Loc: [facility] Room: Type: [facility] Attending Dr: Willie Herrera MD Ordering Provider: [...] Willie Herrera M.D.10/05/2023 11:17 AM Dictation Location: [place] [address] Tech: Kary Fajardo Transcribed By: LOLI 10/05/231116 Dictated By: Willie Herrera MD 10/05/231113 Signed By: 10/05/23 111 Normal [facility] Creatinine [Mass/volume] in Serum or PlasmaOrdered By: Willie Herrera on 03-26-2023 Creatinine [Mass/Vol] 0.76 mg/dL 0.60-1.20 [facility] No Panel InformationOrdered By: Willie Herrera on 03-26-2023 Estimated GFR (CKD-EPI) > 60.0 mL/Min [facility] Creatinine Clearance (Chem 46.62 [facility] Urea nitrogen [Mass/volume] in Serum or PlasmaOrdered By: Willie Herrera on 03-26-2023 Urea nitrogen [Mass/Vol] 18 mg/dL 7-25 [facility] CBC AUTO DIFFon 11-04-2022 BASO # 0.1 103/ul Normal 0.0-0.1 [facility] Comment on above: Performed By: #### C BC #### [facility] [address] [place] [address] [address] Anette Shah Basophils/100 WBC (Bld) 0.4 % Normal 0.2-2.0 [facility] Comment on above: Performed By: #### C BC #### [facility] [address] [address] [address] Anette Shah EO # 0.0 103/ul Normal 0.0-0.7 [facility] Comment on above: Performed By: #### C BC #### [facility] [address] [address] [address] Anette Shah Eosinophils/100 WBC (Bld) 0.1 % Critically low 0.9-7.0 [facility] Comment on above: Performed By: #### C BC #### [facility] [address] [place] [address] Dr. Anette Shah Erythrocyte distribution width (RBC) [Ratio] 18.3 % Critically high 11.0-15.0 [facility] Comment on above: Performed By: #### C BC #### [facility] [address] [place] [address] Dr. Anette Shah Hematocrit (Bld) [Volume fraction] 32.4 % Critically low 36.0-48.0 [facility] Comment on above: Performed By: #### C BC #### [facility] [address] [place] [address] Dr. Anette Shah Hemoglobin (Bld) [Mass/Vol] 10.0 g/dL Critically low 12.0-16.0 [facility] Comment on above: Performed By: #### C BC #### [facility] [address] [place] [address] Dr. Anette Shah IG # 0.05 10e3/ul Critically high 0.00-0.03 [facility] Comment on above: Performed By: #### C BC #### [facility] [address] [place] [address] Dr. Anette Shah IG % 0.4 % Normal 0.0-0.5 [facility] Comment on above: Performed By: #### C BC #### [facility] [address] [place] [address] Dr. Anette Shah LYMPH # 1.8 103/ul Normal 1.2-3.8 [facility] Comment on above: Performed By: #### C BC #### [facility] [address] [place] [address] Dr. Anette Shah Lymphocytes/100 WBC (Bld) 13.1 % Critically low 20.5-60.0 [facility] Comment on above: Performed By: #### C BC #### [facility] [address] [place] [address] Dr. Anette Shah MANUAL DIFF REQ NO Normal [facility] Comment on above: Performed By: #### C BC #### [facility] [address] [address] [address] Anette Shah MCH (RBC) [Entitic mass] 22.3 pg Critically low 26.7-34.0 [facility] Comment on above: Performed By: #### C BC #### [facility] [address] [address] [address] Anette Shah MCHC (RBC) [Mass/Vol] 30.9 g/dL Normal 29.9-35.2 [facility] Comment on above: Performed By: #### C BC #### [facility] [address] [address] [address] Anette Shah MCV (RBC) [Entitic vol] 72.2 fL Critically low 81.0-99.0 [facility] Comment on above: Performed By: #### C BC #### [facility] [address] [place] [address] Dr. Anette Shah MONO # 0.6 103/ul Normal 0.3-0.8 [facility] Comment on above: Performed By: #### C BC #### [facility] [address] [place] [address] Dr. Anette Shah Monocytes/100 WBC (Bld) 4.3 % Normal 1.7-12.0 [facility] Comment on above: Performed By: #### C BC #### [facility] [address] [place] [address] Dr. Anette Shah NEUT # 11.5 103/ul Critically high 1.4-6.5 [facility] Comment on above: Performed By: #### C BC #### [facility] [address] [place] [address] Dr. Anette Shah Neutrophils/100 WBC (Bld) 81.7 % Critically high 43.0-75.0 [facility] Comment on above: Performed By: #### C BC #### [facility] [address] [place] [address] Dr. Anette Shah Platelet mean volume (Bld) [Entitic vol] 8.8 fL Critically low 9.5-13.5 [facility] Comment on above: Performed By: #### C BC #### [facility] [address] [address] [address] Anette Shah PLT 479 103/ul Critically high 150-450 [facility] Comment on above: Performed By: #### C BC #### [facility] [address] [address] [address] Anette Shah RBC 4.49 106/ul Normal 4.20-5.40 [facility] Comment on above: Performed By: #### C BC #### [facility] [address] [place] [address] Dr. Anette Shah WBC 14.1 103/ul Critically high 4.0-11.0 [facility] Comment on above: Performed By: #### C BC #### [facility] [address] [place] [address] Dr. Anette Shah GLYCOHEMOGLOBIN A1Con 2022 ADA RECOMMENDATION SEE BELOW Normal [facility] Comment on above: Result Comment: ADA RECOMMENDED LIMIT 4.0 - 6.0 ADA THERAPEUTIC TARGET < 7.0 ACTION SUGGESTED > 7.0 Performed By: #### A 1C #### [facility] [address] [place] [address] Dr. Anette Shah Glucose [Mass/Vol] 200 mg/dL Normal [facility] Comment on above: Performed By: #### A 1C #### [facility] [address] [place] [address] Dr. Anette Shah HbA1c (Bld) [Mass fraction] 8.6 % Critically high 4.5-6.2 [facility] Comment on above: Performed By: #### A 1C #### [facility] [address] [place] [address] Dr. Anette Shha LIPID PROFILEon 11-04-2022 CHOL-HDL RATIO NORM SEE BELOW Normal [facility] Comment on above: Result Comment: 3.3 - 4.4 LOW RISK 4.4 - 7.1 AVERAGE RISK 7.1 - 11.0 MODERATE RISK >11.0 HIGH RISK Performed By: #### L IPID, BMP, LIVER #### [facility] [address] [address] [address] Anette Shah Cholesterol [Mass/Vol] 123 mg/dL Normal <=200 Th [facility] Comment on above: Performed By: #### L IPID, BMP, LIVER #### [facility] [address] [address] [address] Anette Shah Cholesterol in HDL [Mass/Vol] 61 mg/dL Critically high 40-60 [facility] Comment on above: Performed By: #### L IPID, BMP, LIVER #### [facility] [address] [address] [address] Anette Shah Cholesterol in LDL [Mass/Vol] 35.0 mg/dL Normal [facility] Comment on above: Performed By: #### L IPID, BMP, LIVER #### [facility] [address] [address] [address] Anette Shah Cholesterol.total/Chol esterol in HDL [Mass ratio] 2.0 {ratio} Normal [facility] Comment on above: Performed By: #### L IPID, BMP, LIVER #### [facility] [address] [address] [address] Anette Shah HDL NORMAL > or = 60 mg/dl - LO W CARDIOVASCULAR RISK <40 mg/dl - HIGH CARDIOVASCULAR RISK Normal [facility] Comment on above: Performed By: #### L IPID, BMP, LIVER #### [facility] [address] [address] [address] Anette Shah LDL CALC NORMAL SEE BELOW Normal [facility] Comment on above: Result Comment: <100 mg/dl OPTIMAL 100 - 129 mg/dl NEAR OR ABOVE OPTIMAL 130 - 159 mg/dl BORDERLINE HIGH 160 - 189 mg/dl HIGH >190 mg/dl VERY HIGH Performed By: #### L IPID, BMP, LIVER #### [facility] [address] [address] [address] Anette Shah Triglyceride [Mass/Vol] 135 mg/dL Normal <=150 [facility] Comment on above: Performed By: #### L IPID, BMP, LIVER #### [facility] [address] [address] [address] Anette Shah VLDL CALC 27.0 mg/dL Normal [facility] Comment on above: Performed By: #### L IPID, BMP, LIVER #### [facility] [address] [address] [address] Anette Shah LIVER PROFILEon 11-04-2022 Albumin [Mass/Vol] 3.4 g/dL Normal 3.4-5.0 [facility] Comment on above: Performed By: #### L IPID, BMP, LIVER #### [facility] [address] [place] [address] Dr. Anette Shah Albumin/Globulin [Mass ratio] 0.9 {ratio} Normal [facility] Comment on above: Performed By: #### L IPID, BMP, LIVER #### [facility] [address] [place] [address] Dr. Anette Shah ALP [Catalytic activity/Vol] 99 U/L Normal 46-116 [facility] Comment on above: Performed By: #### L IPID, BMP, LIVER #### [facility] [address] [place] [address] Dr. Anette Shah ALT [Catalytic activity/Vol] 20 U/L Normal 14-59 [facility] Comment on above: Performed By: #### L IPID, BMP, LIVER #### [facility] [address] [place] [address] Dr. Anette Shah AST [Catalytic activity/Vol] 16 U/L Normal 15-37 [facility] Comment on above: Performed By: #### L IPID, BMP, LIVER #### [facility] [address] [place] [address] Dr. Anette Shah BILI, CONJUGATED 0.1 mg/dL Normal 0.0-0.2 [facility] Comment on above: Performed By: #### L IPID, BMP, LIVER #### [facility] [address] [place] [address] Dr. Anette Shah Bilirubin [Mass/Vol] 0.3 mg/dL Normal 0.2-1.0 [facility] Comment on above: Performed By: #### L IPID, BMP, LIVER #### [facility] [address] [address] [address] Anette Shah Globulin (S) [Mass/Vol] 4.0 g/dL Normal [facility] Comment on above: Performed By: #### L IPID, BMP, LIVER #### [facility] [address] [address] [address] Anette Shah Protein [Mass/Vol] 7.4 g/dL Normal 6.4-8.2 [facility] Comment on above: Performed By: #### L IPID, BMP, LIVER #### [facility] [address] [place] [address] Dr. Anette Shah MICROALBUMIN, RAND URon 10-20 mALB 1.4 mg/dL Normal <=30.0 [facility] Comment on above: Performed By: #### M ALBR #### [facility] [address] [place] [address] Dr. Anette Shah PROF CHEM 8 (BAS METB)on Anion gap [Moles/Vol] 14.9 mmol/L Normal [facility] Comment on above: Performed By: #### L IPID, BMP, LIVER #### [facility] [address] [place] [address] Dr. Anette Shah Calcium [Mass/Vol] 9.2 mg/dL Normal 8.5-10.1 [facility] Comment on above: Performed By: #### L IPID, BMP, LIVER #### [facility] [address] [place] [address] Dr. Anette Shah Chloride [Moles/Vol] 101 mmol/L Normal 98-107 [facility] Comment on above: Performed By: #### L IPID, BMP, LIVER #### [facility] [address] [place] [address] Dr. Anette Shah CO2 [Moles/Vol] 26.6 mmol/L Normal 21.0-32.0 [facility] Comment on above: Performed By: #### L IPID, BMP, LIVER #### [facility] [address] [address] [address] Anette Shah Creatinine [Mass/Vol] 0.99 mg/dL Normal 0.55-1.02 [facility] Comment on above: Performed By: #### L IPID, BMP, LIVER #### [facility] [address] [address] [address] Anette Shah EGFR-AF BELGIAN >60 Normal >=60 [facility] Comment on above: Performed By: #### L IPID, BMP, LIVER #### [facility] [address] [address] [address] Anette Shah EGFR-NON AF BELGIAN 54 mL/min/1.73m2 Critically low >=60 [facility] Comment on above: Performed By: #### L IPID, BMP, LIVER #### [facility] [address] [address] [address] Anette Shah Glucose [Mass/Vol] 215 mg/dL Critically high 74-106 [facility] Comment on above: Performed By: #### L IPID, BMP, LIVER #### [facility] [address] [address] [address] Anette Shah Potassium [Moles/Vol] 4.5 mmol/L Normal 3.5-5.1 [facility] Comment on above: Performed By: #### L IPID, BMP, LIVER #### [facility] [address] [address] [address] Anette Shah Sodium [Moles/Vol] 138 mmol/L Normal 136-145 [facility] Comment on above: Performed By: #### L IPID, BMP, LIVER #### [facility] [address] [address] [address] Anette Shah Urea nitrogen [Mass/Vol] 13.0 mg/dL Normal 7.0-18.0 [facility] Comment on above: Performed By: #### L IPID, BMP, LIVER #### [facility] [address] [address] [address] Anette Shah Urea nitrogen/Creatinine [Mass ratio] 13.1 mg/mg Normal [facility] Comment on above: Performed By: #### L IPID, BMP, LIVER #### [facility] [address] [address] [address] Anette Shah Creatinine (Bld) [Mass/Vol]O rdered By: Rashida Solomon on 09-08-2022 Creatinine [Mass/Vol] 0.7 mg/dL 0.6-1.3 [facility] Comment on above: ER/ESD physician is notified/shown all ISTAT results.Critical values may be confirmed by laboratory testing ifdeemed necessary by ER attending doctor. GLYCOHEMOGLOBIN A1Con 2021 ADA RECOMMENDATION SEE BELOW Normal [facility] Comment on above: Result Comment: ADA RECOMMENDED LIMIT 4.0 - 6.0 ADA THERAPEUTIC TARGET < 7.0 ACTION SUGGESTED > 7.0 Performed By: #### A 1C #### [facility] [address] [address] [address] Anette Shah Glucose [Mass/Vol] 186 mg/dL Normal [facility] Comment on above: Performed By: #### A 1C #### [facility] [address] [address] [address] Anette Shah HbA1c (Bld) [Mass fraction] 8.1 % Critically high 4.5-6.2 [facility] Comment on above: Performed By: #### A 1C #### [facility] [address] [address] [address] Anette Shah MG MAMM SCREEN 3D SMITH CADon 11-11-2021 MG MAMM SCREEN 3D SMITH CAD Patient: NEHA ASHTON Exam Date: 11/11/2021 : 1945 Gender:F Ordering : DR CLAYTON MANNING . Admission #: [id number] Family : Order #: [id number] CLICK HERE TO VIEW EXAM RADIOLOGY REPORT [...] throat cancer at age 50. LOCATION: [facility] BREAST COMPOSITION: Scattered areas fibroglandular density. [...] MD on 11/11/2021 at 10:00 Normal [facility] HIP RIGHT 1 OR 2 VWS WITH PE LVISon 10-20-2018 HIP RIGHT 1 OR 2 VWS WITH PELVIS [facility] Department of Radiology [address] [place] [id number] Patient Name: NEHA ASHTON : 1945 Sex: F Age: Race: White Pt. 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 Transcribed by: [email or web address], User Resident: Electronically Signed by: EARNEST GO @ 10/20/2018 11:37 AM Normal [facility] Comment on above: Order Comment: , Andrey ws (X-RAY, HIP): Radiologic Protocol , Weight Bearing?: N , Views (X-RAY, HIP): Radiologic Protocol , Weight Bearing?: N , , , Ordering Provider - CHARLY LINDSEY PA-C , C REACTIVE PROTEINon 019 CRP [Mass/Vol] 4.3 mg/L Normal 0.0-7.0 [facility] Comment on above: Performed By: #### 8 [id number] #### [facility] [address] [facility]. [address] CBC W/DIFFon 09-28-2018 ABS BASOPHILS 0.1 10*3/uL Normal 0.0-0.2 [facility] Comment on above: Performed By: #### 6 2586 #### [facility] [address] ABS NEUTROPHILS 8.2 10*3/uL High 1.6-7.6 [facility] Comment on above: Performed By: #### 6 2586 #### [facility] [address] Basophils/100 WBC (Bld) 0.9 % Normal 0.0-1.0 [facility] Comment on above: Performed By: #### 6 2586 #### [facility] [address] Eosinophils (Bld) [#/Vol] 0.1 10*3/uL Normal 0.0-0.5 [facility] Comment on above: Performed By: #### 6 2586 #### [facility] [address] Eosinophils/100 WBC (Bld) 0.9 % Normal 0.0-6.0 [facility] Comment on above: Performed By: #### 6 2586 #### [facility] [address] Erythrocyte distribution width (RBC) [Ratio] 15.9 % High 11.5-15.0 [facility] Comment on above: Performed By: #### 6 2586 #### [facility] [address] GIANT PLATELETS Present Normal [facility] Comment on above: Performed By: #### 6 2586 #### [facility] [address] [facility]. [address] Hematocrit (Bld) [Volume fraction] 39.3 % Normal 36.0-45.0 [facility] Comment on above: Performed By: #### 6 2586 #### [facility] [address] [place] [address], [facility] Hemoglobin (Bld) [Mass/Vol] 13.3 g/dL Normal 12.0-15.0 [facility] Comment on above: Performed By: #### 6 2586 #### [facility] [address] [place] [place] [address], [facility] Lymphocytes (Bld) [#/Vol] 3.3 10*3/uL Normal 1.2-4.0 [facility] Comment on above: Performed By: #### 6 2586 #### [facility] [address] [place] [place] [address], [facility] Lymphocytes/100 WBC (Bld) 27.5 % Normal 20.0-45.0 [facility] Comment on above: Performed By: #### 6 2586 #### [facility] [address] [place] [place] [address], [facility] MCH (RBC) [Entitic mass] 28.4 pg Normal 27.0-33.0 [facility] Comment on above: Performed By: #### 6 2586 #### [facility] [address] [place] [address], [facility] MCHC (RBC) [Mass/Vol] 33.8 g/dL Normal 32.0-35.0 [facility] Comment on above: Performed By: #### 6 2586 #### [facility] [address] [place] [place] [address], [facility] MCV (RBC) [Entitic vol] 84.0 fL Normal 82.0-98.0 [facility] Comment on above: Performed By: #### 6 2586 #### [facility] [address] [place] [address], [facility] Monocytes (Bld) [#/Vol] 0.3 10*3/uL Normal 0.1-1.0 [facility] Comment on above: Performed By: #### 6 2586 #### [facility] [address] [place] [id number], [facility] MONOS 2.8 % Low 5.0-12.0 [facility] Comment on above: Performed By: #### 6 2586 #### [facility] [address] [place] [address], [facility] Neutrophils/100 WBC (Bld) 67.9 % Normal 40.0-72.0 [facility] Comment on above: Performed By: #### 6 2586 #### [facility] [address] [place] [id number], [facility] Nucleated RBC/100 WBC (Bld) [Ratio] 0 % Normal 0-0 [facility] Comment on above: Performed By: #### 6 2586 #### [facility] [address] [place] [address], [facility] PLAT CNT 392 10*3/uL Normal 150-400 [facility] Comment on above: Performed By: #### 6 2586 #### [facility] [address] [place] [address], [facility] RBC (Bld) [#/Vol] 4.68 10*6/uL Normal 3.80-5.00 [facility] Comment on above: Performed By: #### 6 2586 #### [facility] [address] [facility] [place] [address], [place] WBC (Bld) [#/Vol] 12.03 10*3/uL High 4.00-10.60 [facility] Comment on above: Performed By: #### 6 2586 #### [facility] [address] [place] [address], [facility] HIP RIGHT 1 OR 2 VWS WITH PE LVISon 09-28-2018 HIP RIGHT 1 OR 2 VWS WITH PELVIS [facility] Department of Radiology [address] [place] [address] Patient Name: NEHA ASHTON : 1945 Sex: F Age: Race: White Pt. Location: 84 Patient Status: O Ordered Date: 09/28/2018 1:10:00 PM Completed Date: 09/28/2018 01:09 PM Requesting Provider: FRANCESCA BUSH Attending Provider: FRANCESCA BUSH Report Copy To: CLAYTON MANNING Signs & Symptoms: S72.041D Disp fx of base of nk of r femr, 7thD I10 History: Boyd Comments: , , , Ordering Provider - [...] alignment Electronically signed by:Earnest Go. Transcribed by: [email or web address], User Resident: Electronically Signed by: EARNEST GO @ 09/28/2018 03:23 PM Normal [facility] Comment on above: Order Comment: , , = ========= , Ordering Provider - FRANCESCA BUSH PA-C , SEDIMENTATION RATEon 019 SED RATE 18 mm/hr Normal 0-20 [facility] Comment on above: Performed By: #### 6 2586 #### [address] HIP RIGHT 1 OR 2 VWS WITH PE LVISon 06-30-2018 HIP RIGHT 1 OR 2 VWS WITH PELVIS [facility] Department of Radiology [address] [place] [id number] Patient Name: NEHA ASHTON : 1945 Sex: F Age: Race: White Pt. Location: Patient Status: O Ordered Date: 06/30/2018 12:50:00 PM Completed Date: 06/30/2018 12:59 PM Requesting Provider: FRANCESCA BUSH Attending Provider: FRANCESCA BUSH Report Copy To: CLAYTON MANNING Signs & Symptoms: S72.041D Disp fx of base of nk of r femr, 7thD I10 History: Boyd Comments: , Views (X-RAY, HIP): Radiologic Protocol , Views (X-RAY, HIP): Radiologic Protocol , , , Ordering Provider - FRANCESCA BUSH PA-C , Exam: HIP RIGHT 1 OR 2 VWS WITH PELVIS HIP RIGHT 1 OR 2 VWS WITH PELVIS 06/30/2018 12:59 PM EST SIGNS AND SYMPTOMS: S72.041D Disp fx of base of nk of r femr, 7thD I10 TECHNOLOGIST 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 Transcribed by: [email or web address], User Resident: Electronically Signed by: HOUSTON INTERIANO @ 06/30/2018 02:43 PM Normal [facility] Comment on above: Order Comment: , Andrey ws (X-RAY, HIP): Radiologic Protocol , Views (X-RAY, HIP): Radiologic Protocol , , , Ordering Provider Elizabeth BUSH PA-C , HIP RIGHT 1 OR 2 VWS WITH PE LVISon 05-19-2018 HIP RIGHT 1 OR 2 VWS WITH PELVIS [facility] Department of Radiology [address] [place] [id number] Patient Name: NEHA ASHTON : 1945 Sex: F Age: Race: White Pt. Location: 84 Patient Status: Ordered Date: 05/19/2018 9:30:00 AM Completed Date: 05/19/2018 09:35 AM Requesting Provider: CHARLY LINDSEY Attending Provider: Report Copy To: Signs & Symptoms: S72.001D Fx unsp part of nk of r femr, subs for clos fx w linda fisher I10 History: Rosario Comments: , Views (X-RAY, [...] hemiarthroplasty Electronically signed by:Earnest Go. Transcribed by: [email or web address], User Resident: Electronically Signed by: EARNEST GO @ 05/19/2018 01:47 PM Normal [facility] Comment on above: Order Comment: , Andrey ws (X-RAY, HIP): Radiologic Protocol , Weight Bearing?: N , With or Without Brace/Cast/Collar: With , Views (X-RAY, HIP): Radiologic Protocol , Weight Bearing?: N , With or Without Brace/Cast/Collar: With , , , Ordering Provider - CHARLY LINDSEY PA-C , Operative Reporton 8 Operative Report MR#: [id number] I [facility] Pt. Name: Neha Ashton Room #: [id number] Discharge 05/04/2018 Date: Birthdate: 1945 OPERATIVE REPORT [...] capsule was then closed using #1 Ethibond [id number]-iv-[id number] fashion as well as the short external rotators. Next, the fascia johan was repaired using lmflpj-md-hetyy #1 Vicryl. Subcutaneous tissue was then closed [...] P/Bj Be M.D. Date Trans: 05/06/2018 04:41 A/leesa [id number] cc: Clayton Manning M.D. [address] [facility] [id number] Normal [facility] CBC W/DIFFon 05-04-2018 ABS BASOPHILS 0.0 10*3/uL Normal 0.0-0.2 [facility] Comment on above: Order Comment: No: D o not add to previous draw Performed By: #### 6 2586 #### [facility] [address] ABS IMM GRANS 0.1 10*3/uL Normal 0.0-0.2 [facility] Comment on above: Order Comment: No: D o not add to previous draw Performed By: #### 6 2586 #### [facility] [address] ABS NEUTROPHILS 7.9 10*3/uL High 1.6-7.6 [facility] Comment on above: Order Comment: No: D o not add to previous draw Performed By: #### 6 2586 #### [facility] [address] [place] [address], [facility] Basophils/100 WBC (Bld) 0.2 % Normal 0.0-1.0 [facility] Comment on above: Order Comment: No: D o not add to previous draw Performed By: #### 6 2586 #### [facility] [address] [facility] [place] [address], [place] Eosinophils (Bld) [#/Vol] 0.1 10*3/uL Normal 0.0-0.5 [facility] Comment on above: Order Comment: No: D o not add to previous draw Performed By: #### 6 2586 #### [facility] [address] [place] [address], [facility] Eosinophils/100 WBC (Bld) 0.8 % Normal 0.0-6.0 [facility] Comment on above: Order Comment: No: D o not add to previous draw Performed By: #### 6 2586 #### [facility] [address] [facility] [address] Erythrocyte distribution width (RBC) [Ratio] 13.4 % Normal 11.5-15.0 [facility] Comment on above: Order Comment: No: D o not add to previous draw Performed By: #### 6 2586 #### [facility] [address] [facility] Hematocrit (Bld) [Volume fraction] 24.1 % Low 36.0-45.0 [facility] Comment on above: Order Comment: No: D o not add to previous draw Performed By: #### 6 2586 #### [facility] [address] [facility] [place] [address], [facility] Hemoglobin (Bld) [Mass/Vol] 8.4 g/dL Low 12.0-15.0 [facility] Comment on above: Order Comment: No: D o not add to previous draw Performed By: #### 6 2586 #### [facility] [address] [place] [place] [address], [facility] IMMATURE GRANS 0.5 % Normal 0.0-1.0 [facility] Comment on above: Order Comment: No: D o not add to previous draw Performed By: #### 6 2586 #### [facility] [address] Lymphocytes (Bld) [#/Vol] 1.7 10*3/uL Normal 1.2-4.0 [facility] Comment on above: Order Comment: No: D o not add to previous draw Performed By: #### 6 2586 #### [facility] [address] [place] [address], [facility] Lymphocytes/100 WBC (Bld) 16.2 % Low 20.0-45.0 [facility] Comment on above: Order Comment: No: D o not add to previous draw Performed By: #### 6 2586 #### [facility] [address] [place] [address], [facility] MCH (RBC) [Entitic mass] 29.8 pg Normal 27.0-33.0 [facility] Comment on above: Order Comment: No: D o not add to previous draw Performed By: #### 6 2586 #### [facility] [address] [facility] [place] [address], [facility] MCHC (RBC) [Mass/Vol] 34.9 g/dL Normal 32.0-35.0 [facility] Comment on above: Order Comment: No: D o not add to previous draw Performed By: #### 6 2586 #### [facility] [address] [facility] [place] [address], [facility] MCV (RBC) [Entitic vol] 85.5 fL Normal 82.0-98.0 [facility] Comment on above: Order Comment: No: D o not add to previous draw Performed By: #### 6 2586 #### [facility] [address] [facility] [place] [address], [facility] Monocytes (Bld) [#/Vol] 0.7 10*3/uL Normal 0.1-1.0 [facility] Comment on above: Order Comment: No: D o not add to previous draw Performed By: #### 6 2586 #### [facility] [address] [place] [id number], [facility] MONOS 6.4 % Normal 5.0-12.0 [facility] Comment on above: Order Comment: No: D o not add to previous draw Performed By: #### 6 2586 #### [facility] [address] [place] [address], [place] Neutrophils/100 WBC (Bld) 75.9 % High 40.0-72.0 [facility] Comment on above: Order Comment: No: D o not add to previous draw Performed By: #### 6 2586 #### [facility] [address] [place] [address], [facility] Nucleated RBC/100 WBC (Bld) [Ratio] 0 % Normal 0-0 [facility] Comment on above: Order Comment: No: D o not add to previous draw Performed By: #### 6 2586 #### [facility] [address] [place] [address], [place] PLAT CNT 335 10*3/uL Normal 150-400 [facility] Comment on above: Order Comment: No: D o not add to previous draw Performed By: #### 6 2586 #### [facility] [address] [place] [id number], [facility] RBC (Bld) [#/Vol] 2.82 10*6/uL Low 3.80-5.00 [facility] Comment on above: Order Comment: No: D o not add to previous draw Performed By: #### 6 2586 #### [facility] [address] [place] [address], [place] WBC (Bld) [#/Vol] 10.40 10*3/uL Normal 4.00-10.60 [facility] Comment on above: Order Comment: No: D o not add to previous draw Performed By: #### 6 2586 #### [facility] [address] [place] [address], [facility] POC GLUCOSE LABon 05-04-2018 Glucose [Mass/Vol] 196 mg/dL High 70-100 [facility] Comment on above: Performed By: #### 6 2586 #### [facility] [address] [place] [address], [facility] Glucose [Mass/Vol] 128 mg/dL High 70-100 [facility] Comment on above: Performed By: #### 6 2586 #### [facility] [address] [place] [address], [facility] BASIC METABOLIC PANELon 04-22 Calcium [Mass/Vol] 8.2 mg/dL Low 8.6-10.3 [facility] Comment on above: Order Comment: No: D o not add to previous draw Performed By: #### 0 007, [id number] #### [facility] [address] [place] [address], [facility] Chloride [Moles/Vol] 101 mmol/L Normal 98-107 [facility] Comment on above: Order Comment: No: D o not add to previous draw Performed By: #### 0 70, 40177 #### [facility] [address] [place] [address], [facility] CO2 [Moles/Vol] 25 mmol/L Normal 21-31 [facility] Comment on above: Order Comment: No: D o not add to previous draw Performed By: #### 0 0071, [id number] #### [facility] [address] [place] [address], [facility] Creatinine [Mass/Vol] 0.49 mg/dL Low 0.60-1.20 [facility] Comment on above: Order Comment: No: D o not add to previous draw Performed By: #### 0 0071, 98680 #### [facility] [address] [place] [id number], [facility] GFR/1.73 sq M predicted among blacks MDRD (S/P/Bld) [Vol rate/Area] mL/min/{1.73_m2} Normal >60 [facility] Comment on above: Order Comment: No: D o not add to previous draw Result Comment: Calc ulation may not be valid for patients over 70 years Performed By: #### 0 0071, 88143 #### [facility] [address] [place] [address], [place] GFR/1.73 sq M predicted among non-blacks MDRD (S/P/Bld) [Vol rate/Area] mL/min/{1.73_m2} Normal >60 [facility] Comment on above: Order Comment: No: D o not add to previous draw Result Comment: Calc ulation may not be valid for patients over 70 years Performed By: #### 0 007, 44250 #### [facility] [address] [place] [address], [place] Glucose [Mass/Vol] 114 mg/dL High 70-100 [facility] Comment on above: Order Comment: No: D o not add to previous draw Performed By: #### 0 70, 41443 #### [facility] [address] [place] [address], [place] Potassium [Moles/Vol] 3.8 mmol/L Normal 3.5-5.1 [facility] Comment on above: Order Comment: No: D o not add to previous draw Performed By: #### 0 70, 43324 #### [facility] [address] [place] [address], [place] Sodium [Moles/Vol] 133 mmol/L Low 136-145 [facility] Comment on above: Order Comment: No: D o not add to previous draw Performed By: #### 0 70, 50507 #### [facility] [address] [place] [address], [place] Urea nitrogen [Mass/Vol] 10 mg/dL Normal 7-25 [facility] Comment on above: Order Comment: No: D o not add to previous draw Performed By: #### 0 70, 61840 #### [facility] [address] CBC COMPLETE BLOOD COUNTon 07-03-2017 Erythrocyte distribution width (RBC) [Ratio] 13.6 % Normal 11.5-15.0 [facility] Comment on above: Order Comment: No: D o not add to previous draw Performed By: #### 0 70, 69244 #### [facility] [address] [place] [address], [facility] Hematocrit (Bld) [Volume fraction] 25.0 % Low 36.0-45.0 [facility] Comment on above: Order Comment: No: D o not add to previous draw Performed By: #### 0 70, #### [facility] [address] [place] [id number], [facility] Hemoglobin (Bld) [Mass/Vol] 8.5 g/dL Low 12.0-15.0 [facility] Comment on above: Order Comment: No: D o not add to previous draw Performed By: #### 0 70, #### [facility] [address] [place] [id number], [facility] MCH (RBC) [Entitic mass] 29.1 pg Normal 27.0-33.0 [facility] Comment on above: Order Comment: No: D o not add to previous draw Performed By: #### 0 70, 27799 #### [facility] [address] [place] [address], [facility] MCHC (RBC) [Mass/Vol] 34.0 g/dL Normal 32.0-35.0 [facility] Comment on above: Order Comment: No: D o not add to previous draw Performed By: #### 0 70, 21204 #### [facility] [address] [place] [address], [facility] MCV (RBC) [Entitic vol] 85.6 fL Normal 82.0-98.0 [facility] Comment on above: Order Comment: No: D o not add to previous draw Performed By: #### 0 70, 15264 #### [facility] [address] Nucleated RBC/100 WBC (Bld) [Ratio] 0 % Normal 0-0 [facility] Comment on above: Order Comment: No: D o not add to previous draw Performed By: #### 0 70, 95436 #### [facility] [address] [place] [address], [facility] PLAT CNT 323 10*3/uL Normal 150-400 [facility] Comment on above: Order Comment: No: D o not add to previous draw Performed By: #### 0 70, 52259 #### [facility] [address] RBC (Bld) [#/Vol] 2.92 10*6/uL Low 3.80-5.00 [facility] Comment on above: Order Comment: No: D o not add to previous draw Performed By: #### 0 70, #### [facility] [address] WBC (Bld) [#/Vol] 13.97 10*3/uL High 4.00-10.60 [facility] Comment on above: Order Comment: No: D o not add to previous draw Performed By: #### 0 70, 53510 #### [facility] [address] [place] [address], [facility] CBC W/DIFFon 05-03-2018 ABS BASOPHILS 0.0 10*3/uL Normal 0.0-0.2 [facility] Comment on above: Order Comment: No: D o not add to previous draw Performed By: #### 0 70, 71429 #### [facility] [address] [place] [address], [facility] ABS IMM GRANS 0.1 10*3/uL Normal 0.0-0.2 [facility] Comment on above: Order Comment: No: D o not add to previous draw Performed By: #### 0 70, #### [facility] [address] [place] [address], [facility] ABS NEUTROPHILS 8.4 10*3/uL High 1.6-7.6 [facility] Comment on above: Order Comment: No: D o not add to previous draw Performed By: #### 0 70, #### [facility] [address] [place] [address], [facility] Basophils/100 WBC (Bld) 0.3 % Normal 0.0-1.0 [facility] Comment on above: Order Comment: No: D o not add to previous draw Performed By: #### 0 70, #### [facility] [address] [place] [address], [facility] Eosinophils (Bld) [#/Vol] 0.1 10*3/uL Normal 0.0-0.5 [facility] Comment on above: Order Comment: No: D o not add to previous draw Performed By: #### 0 70, #### [facility] [address] [place] [address], [place] Eosinophils/100 WBC (Bld) 0.4 % Normal 0.0-6.0 [facility] Comment on above: Order Comment: No: D o not add to previous draw Performed By: #### 0 70, #### [facility] [address] [place] [address], [place] Erythrocyte distribution width (RBC) [Ratio] 13.4 % Normal 11.5-15.0 [facility] Comment on above: Order Comment: No: D o not add to previous draw Performed By: #### 0 70, #### [facility] [address] [place] [address], [place] Hematocrit (Bld) [Volume fraction] 24.5 % Low 36.0-45.0 [facility] Comment on above: Order Comment: No: D o not add to previous draw Performed By: #### 0 70, #### [facility] [address] [facility] [place] [address], [facility] Hemoglobin (Bld) [Mass/Vol] 8.4 g/dL Low 12.0-15.0 [facility] Comment on above: Order Comment: No: D o not add to previous draw Performed By: #### 0 70, #### [facility] [address] [facility] [place] [address], [facility] IMMATURE GRANS 0.4 % Normal 0.0-1.0 [facility] Comment on above: Order Comment: No: D o not add to previous draw Performed By: #### 0 70, #### [facility] [address] [facility] [place] [address], [facility] Lymphocytes (Bld) [#/Vol] 2.2 10*3/uL Normal 1.2-4.0 [facility] Comment on above: Order Comment: No: D o not add to previous draw Performed By: #### 0 70, #### [facility] [address] [facility] [place] [address], [facility] Lymphocytes/100 WBC (Bld) 18.6 % Low 20.0-45.0 [facility] Comment on above: Order Comment: No: D o not add to previous draw Performed By: #### 0 70, #### [facility] [address] [facility]. [place] [id number], [facility] MCH (RBC) [Entitic mass] 29.3 pg Normal 27.0-33.0 [facility] Comment on above: Order Comment: No: D o not add to previous draw Performed By: #### 0 70, #### [facility] [address] [facility] [place] [address], [facility] MCHC (RBC) [Mass/Vol] 34.3 g/dL Normal 32.0-35.0 [facility] Comment on above: Order Comment: No: D o not add to previous draw Performed By: #### 0 70, #### [facility] [address] [place] [address], [facility] MCV (RBC) [Entitic vol] 85.4 fL Normal 82.0-98.0 [facility] Comment on above: Order Comment: No: D o not add to previous draw Performed By: #### 0 70, #### [facility] [address] [place] [address], [facility] Monocytes (Bld) [#/Vol] 0.9 10*3/uL Normal 0.1-1.0 [facility] Comment on above: Order Comment: No: D o not add to previous draw Performed By: #### 0 70, #### [facility] [address] [place] [address], [facility] MONOS 7.7 % Normal 5.0-12.0 [facility] Comment on above: Order Comment: No: D o not add to previous draw Performed By: #### 0 70, #### [facility] [address] [place] [address], [facility] Neutrophils/100 WBC (Bld) 72.6 % High 40.0-72.0 [facility] Comment on above: Order Comment: No: D o not add to previous draw Performed By: #### 0 70, #### [facility] [address] [place] [id number], [facility] Nucleated RBC/100 WBC (Bld) [Ratio] 0 % Normal 0-0 [facility] Comment on above: Order Comment: No: D o not add to previous draw Performed By: #### 0 70, #### [facility] [address] [place] [place] [address], [place] PLAT CNT 293 10*3/uL Normal 150-400 [facility] Comment on above: Order Comment: No: D o not add to previous draw Performed By: #### 0 70, 18775 #### [facility] [address] [place] [address], [place] RBC (Bld) [#/Vol] 2.87 10*6/uL Low 3.80-5.00 [facility] Comment on above: Order Comment: No: D o not add to previous draw Performed By: #### 0 70, 27455 #### [facility] [address] [place] [address], [place] WBC (Bld) [#/Vol] 11.62 10*3/uL High 4.00-10.60 [facility] Comment on above: Order Comment: No: D o not add to previous draw Performed By: #### 0 70, #### [facility] [address] [place] [address], [place] MAGNESIUM BLOODon 05-03-2018 Magnesium [Mass/Vol] 2.0 mg/dL Normal 1.9-2.7 [facility] Comment on above: Performed By: #### 0 70, 50693 #### [facility] [address] [place] [address], [place] POC GLUCOSE LABon 05-03-2018 Glucose [Mass/Vol] 179 mg/dL High 70-100 [facility] Comment on above: Performed By: #### 0 70, 66925 #### [facility] [address] [place] [address], [place] Glucose [Mass/Vol] 143 mg/dL High 70-100 [facility] Comment on above: Performed By: #### 0 70, 96835 #### [facility] [address] [place] [address], [place] Glucose [Mass/Vol] 284 mg/dL High 70-100 [facility] Comment on above: Performed By: #### 0 70, 58497 #### [facility] [address] [place] [address], [place] Glucose [Mass/Vol] 117 mg/dL High 70-100 [facility] Comment on above: Performed By: #### 0 70, 45412 #### [facility] [address] [place] [address], [place] BASIC METABOLIC PANELon 11- Calcium [Mass/Vol] 8.5 mg/dL Low 8.6-10.3 [facility] Comment on above: Order Comment: No: D o not add to previous draw Performed By: #### 0 007, 58270 #### [facility] [address] [place] [address], [place] Chloride [Moles/Vol] 102 mmol/L Normal 98-107 [facility] Comment on above: Order Comment: No: D o not add to previous draw Performed By: #### 0 70, 50289 #### [facility] [address] [place] [address], [place] CO2 [Moles/Vol] 23 mmol/L Normal 21-31 [facility] Comment on above: Order Comment: No: D o not add to previous draw Performed By: #### 0 70, 01615 #### [facility] [address] [place] [address], [place] Creatinine [Mass/Vol] 0.49 mg/dL Low 0.60-1.20 [facility] Comment on above: Order Comment: No: D o not add to previous draw Performed By: #### 0 70, 89406 #### [facility] [address] [place] [address], [place] GFR/1.73 sq M predicted among blacks MDRD (S/P/Bld) [Vol rate/Area] mL/min/{1.73_m2} Normal >60 [facility] Comment on above: Order Comment: No: D o not add to previous draw Result Comment: Calc ulation may not be valid for patients over 70 years Performed By: #### 0 70, 66735 #### [facility] [address] [place] [address], [place] GFR/1.73 sq M predicted among non-blacks MDRD (S/P/Bld) [Vol rate/Area] mL/min/{1.73_m2} Normal >60 [facility] Comment on above: Order Comment: No: D o not add to previous draw Result Comment: Calc ulation may not be valid for patients over 70 years Performed By: #### 0 70, 48172 #### [facility] [address] [place] [address], [place] Glucose [Mass/Vol] 172 mg/dL High 70-100 [facility] Comment on above: Order Comment: No: D o not add to previous draw Performed By: #### 0 70, 98737 #### [facility] [address] [place] [address], [place] Potassium [Moles/Vol] 4.0 mmol/L Normal 3.5-5.1 [facility] Comment on above: Order Comment: No: D o not add to previous draw Performed By: #### 0 70, 02390 #### [facility] [address] [place] [address], [place] Sodium [Moles/Vol] 133 mmol/L Low 136-145 [facility] Comment on above: Order Comment: No: D o not add to previous draw Performed By: #### 0 70, 06022 #### [facility] [address] [place] [address], [place] Urea nitrogen [Mass/Vol] 9 mg/dL Normal 7-25 [facility] Comment on above: Order Comment: No: D o not add to previous draw Performed By: #### 0 70, 26225 #### [facility] [address] CBC COMPLETE BLOOD COUNTon 07-02-2017 Erythrocyte distribution width (RBC) [Ratio] 13.4 % Normal 11.5-15.0 [facility] Comment on above: Order Comment: No: D o not add to previous draw Performed By: #### 0 70, #### [facility] [address] [place] [place] [address], [facility] Hematocrit (Bld) [Volume fraction] 25.7 % Low 36.0-45.0 [facility] Comment on above: Order Comment: No: D o not add to previous draw Performed By: #### 0 70, #### [facility] [address] Hemoglobin (Bld) [Mass/Vol] 9.0 g/dL Low 12.0-15.0 [facility] Comment on above: Order Comment: No: D o not add to previous draw Performed By: #### 0 70, #### [facility] [address] [place] [address], [facility] MCH (RBC) [Entitic mass] 29.8 pg Normal 27.0-33.0 [facility] Comment on above: Order Comment: No: D o not add to previous draw Performed By: #### 0 70, #### [facility] [address] [facility] [place] [address], [facility] MCHC (RBC) [Mass/Vol] 35.0 g/dL Normal 32.0-35.0 [facility] Comment on above: Order Comment: No: D o not add to previous draw Performed By: #### 0 70, 37149 #### [facility] [address] [place] [id number], [facility] MCV (RBC) [Entitic vol] 85.1 fL Normal 82.0-98.0 [facility] Comment on above: Order Comment: No: D o not add to previous draw Performed By: #### 0 70, 04819 #### [facility] [address] [facility] [place] [address], [facility] Nucleated RBC/100 WBC (Bld) [Ratio] 0 % Normal 0-0 [facility] Comment on above: Order Comment: No: D o not add to previous draw Performed By: #### 0 70, 93855 #### [facility] [address] [facility] [place] [address], [facility] PLAT CNT 267 10*3/uL Normal 150-400 [facility] Comment on above: Order Comment: No: D o not add to previous draw Performed By: #### 0 70, 41039 #### [facility] [address] [facility] [place] [address], [facility] RBC (Bld) [#/Vol] 3.02 10*6/uL Low 3.80-5.00 [facility] Comment on above: Order Comment: No: D o not add to previous draw Performed By: #### 0 70, 25457 #### [facility] [address] [facility] [place] [address], [facility] WBC (Bld) [#/Vol] 13.23 10*3/uL High 4.00-10.60 [facility] Comment on above: Order Comment: No: D o not add to previous draw Performed By: #### 0 70, 56665 #### [address] CHEST AND LATERALon 05-02-20 18 CHEST AND LATERAL [facility] Department of Radiology [address] [place] [address] [phone] Patient Name: NEHA ASHTON: 1945 Sex: F Age: Race: White Pt. Location: [id number] Patient Status: I Ordered Date: 05/02/2018 9:40:00 [...] findings. Electronically signed by:Ricardo Parry. Transcribed by: [email or web address], User Resident: PAM MOREL Electronically Signed by: RICARDO PARRY @ 05/02/2018 03:04 PM I personally read this/these film(s) with this resident Normal [facility] Comment on above: Order Comment: R/O I nfiltrates MAGNESIUM BLOODon 05-02-2018 Magnesium [Mass/Vol] 1.7 mg/dL Low 1.9-2.7 [facility] Comment on above: Order Comment: No: D o not add to previous draw Performed By: #### 0 0071, 70361 #### [facility] [address] [place] [address], [place] POC GLUCOSE LABon 05-02-2018 Glucose [Mass/Vol] 192 mg/dL High 70-100 [facility] Comment on above: Performed By: #### 0 007, 81668 #### [facility] [address] [place] [address] [place] [address], [place] Glucose [Mass/Vol] 94 mg/dL Normal 70-100 [facility] Comment on above: Performed By: #### 0 70, 02671 #### [facility] [address] [place] [address] [place] [address], [place] Glucose [Mass/Vol] 176 mg/dL High 70-100 [facility] Comment on above: Performed By: #### 0 70, 66644 #### [facility] [address] [place] [address], [place] Glucose [Mass/Vol] 163 mg/dL High 70-100 [facility] Comment on above: Performed By: #### 0 70, 24108 #### [facility] [address] [place] [address], [place] BASIC METABOLIC PANELon 04-22 Calcium [Mass/Vol] 7.9 mg/dL Low 8.6-10.3 [facility] Comment on above: Order Comment: No: D o not add to previous draw Performed By: #### 5 6101 #### [facility] [address] [place] [address], [place] Chloride [Moles/Vol] 102 mmol/L Normal 98-107 [facility] Comment on above: Order Comment: No: D o not add to previous draw Performed By: #### 5 6101 #### [facility] [address] [place] [address], [place] CO2 [Moles/Vol] 23 mmol/L Normal 21-31 [facility] Comment on above: Order Comment: No: D o not add to previous draw Performed By: #### 5 6101 #### [facility] [address] [place] [address], [place] Creatinine [Mass/Vol] 0.64 mg/dL Normal 0.60-1.20 [facility] Comment on above: Order Comment: No: D o not add to previous draw Performed By: #### 5 6101 #### [facility] [address] [place] [address], [place] GFR/1.73 sq M predicted among blacks MDRD (S/P/Bld) [Vol rate/Area] mL/min/{1.73_m2} Normal >60 [facility] Comment on above: Order Comment: No: D o not add to previous draw Result Comment: Calc ulation may not be valid for patients over 70 years Performed By: #### 5 6101 #### [facility] [address] [place] [address], [place] GFR/1.73 sq M predicted among non-blacks MDRD (S/P/Bld) [Vol rate/Area] mL/min/{1.73_m2} Normal >60 [facility] Comment on above: Order Comment: No: D o not add to previous draw Result Comment: Calc ulation may not be valid for patients over 70 years Performed By: #### 5 6101 #### [facility] [address] [place] [address], [place] Glucose [Mass/Vol] 202 mg/dL High 70-100 [facility] Comment on above: Order Comment: No: D o not add to previous draw Performed By: #### 5 6101 #### [facility] [address] [place] [address], [place] Potassium [Moles/Vol] 4.1 mmol/L Normal 3.5-5.1 [facility] Comment on above: Order Comment: No: D o not add to previous draw Performed By: #### 5 6101 #### [facility] [address] [place] [address], [place] Sodium [Moles/Vol] 130 mmol/L Low 136-145 [facility] Comment on above: Order Comment: No: D o not add to previous draw Performed By: #### 5 6101 #### [facility] [address] [place] [address], [place] Urea nitrogen [Mass/Vol] 12 mg/dL Normal 7-25 [facility] Comment on above: Order Comment: No: D o not add to previous draw Performed By: #### 5 6101 #### [facility] [address] [place] [address], [facility] CBC COMPLETE BLOOD COUNTon 07-01-2017 Erythrocyte distribution width (RBC) [Ratio] 13.7 % Normal 11.5-15.0 [facility] Comment on above: Order Comment: No: D o not add to previous draw Performed By: #### 5 6101 #### [facility] [address] [place] [address], [facility] Hematocrit (Bld) [Volume fraction] 28.4 % Low 36.0-45.0 [facility] Comment on above: Order Comment: No: D o not add to previous draw Performed By: #### 5 6101 #### [facility] [address] [place] [address], [place] Hemoglobin (Bld) [Mass/Vol] 9.7 g/dL Low 12.0-15.0 [facility] Comment on above: Order Comment: No: D o not add to previous draw Performed By: #### 5 6101 #### [facility] [address] [place] [address], [place] MCH (RBC) [Entitic mass] 29.4 pg Normal 27.0-33.0 [facility] Comment on above: Order Comment: No: D o not add to previous draw Performed By: #### 5 6101 #### [facility] [address] [place] [address], [place] MCHC (RBC) [Mass/Vol] 34.2 g/dL Normal 32.0-35.0 [facility] Comment on above: Order Comment: No: D o not add to previous draw Performed By: #### 5 6101 #### [facility] [address] [place] [address], [facility] MCV (RBC) [Entitic vol] 86.1 fL Normal 82.0-98.0 [facility] Comment on above: Order Comment: No: D o not add to previous draw Performed By: #### 5 6101 #### [facility] [address] [place] [address], [facility] Nucleated RBC/100 WBC (Bld) [Ratio] 0 % Normal 0-0 [facility] Comment on above: Order Comment: No: D o not add to previous draw Performed By: #### 5 6101 #### [facility] [address] [place] [address], [facility] PLAT CNT 304 10*3/uL Normal 150-400 [facility] Comment on above: Order Comment: No: D o not add to previous draw Performed By: #### 5 6101 #### [facility] [address] [place] [place] [address], [facility] RBC (Bld) [#/Vol] 3.30 10*6/uL Low 3.80-5.00 [facility] Comment on above: Order Comment: No: D o not add to previous draw Performed By: #### 5 6101 #### [facility] [address] [place] [id number], [facility] WBC (Bld) [#/Vol] 12.22 10*3/uL High 4.00-10.60 [facility] Comment on above: Order Comment: No: D o not add to previous draw Performed By: #### 5 6101 #### [facility] [address] [place] [address], [facility] POC GLUCOSE LABon 05-01-2018 Glucose [Mass/Vol] 216 mg/dL High 70-100 [facility] Comment on above: Performed By: #### 0 0071, [id number] #### [facility] [address] [place] [address] [place] [address], [place] Glucose [Mass/Vol] 255 mg/dL High 70-100 [facility] Comment on above: Performed By: #### 0 007, [id number] #### [facility] [address] [place] [address] [place] [address], [place] Glucose [Mass/Vol] 270 mg/dL High 70-100 [facility] Comment on above: Performed By: #### 0 70, 48192 #### [facility] [address] [place] [address], [place] Glucose [Mass/Vol] 168 mg/dL High 70-100 [facility] Comment on above: Performed By: #### 5 1 #### [facility] [address] [place] [address], [place] Glucose [Mass/Vol] 292 mg/dL High 70-100 [facility] Comment on above: Performed By: #### 5 6101 #### [facility] [address] [place] [address], [place] BASIC METABOLIC PANELon 11-0 Calcium [Mass/Vol] 9.1 mg/dL Normal 8.6-10.3 [facility] Comment on above: Order Comment: No: D o not add to previous draw Performed By: #### 5 6101 #### [facility] [address] [place] [address], [place] Chloride [Moles/Vol] 104 mmol/L Normal 98-107 [facility] Comment on above: Order Comment: No: D o not add to previous draw Performed By: #### 5 6101 #### [facility] [address] [place] [address], [place] CO2 [Moles/Vol] 22 mmol/L Normal 21-31 [facility] Comment on above: Order Comment: No: D o not add to previous draw Performed By: #### 5 6101 #### [facility] [address] [place] [address], [facility] Creatinine [Mass/Vol] 0.59 mg/dL Low 0.60-1.20 [facility] Comment on above: Order Comment: No: D o not add to previous draw Performed By: #### 5 6101 #### [facility] [address] [place] [address], [facility] GFR/1.73 sq M predicted among blacks MDRD (S/P/Bld) [Vol rate/Area] mL/min/{1.73_m2} Normal >60 [facility] Comment on above: Order Comment: No: D o not add to previous draw Result Comment: Calc ulation may not be valid for patients over 70 years Performed By: #### 5 6101 #### [facility] [address] [place] [address], [facility] GFR/1.73 sq M predicted among non-blacks MDRD (S/P/Bld) [Vol rate/Area] mL/min/{1.73_m2} Normal >60 [facility] Comment on above: Order Comment: No: D o not add to previous draw Result Comment: Calc ulation may not be valid for patients over 70 years Performed By: #### 5 6101 #### [facility] [address] [place] [address], [place] Glucose [Mass/Vol] 112 mg/dL High 70-100 [facility] Comment on above: Order Comment: No: D o not add to previous draw Performed By: #### 5 6101 #### [facility] [address] [place] [address], [place] Potassium [Moles/Vol] 4.3 mmol/L Normal 3.5-5.1 [facility] Comment on above: Order Comment: No: D o not add to previous draw Performed By: #### 5 6101 #### [facility] [address] Sodium [Moles/Vol] 137 mmol/L Normal 136-145 [facility] Comment on above: Order Comment: No: D o not add to previous draw Performed By: #### 5 6101 #### [facility] [address] Urea nitrogen [Mass/Vol] 8 mg/dL Normal 7-25 [facility] Comment on above: Order Comment: No: D o not add to previous draw Performed By: #### 5 6101 #### [facility] [address] CBC W/DIFFon 04-30-2018 ABS BASOPHILS 0.0 10*3/uL Normal 0.0-0.2 [facility] Comment on above: Order Comment: No: D o not add to previous draw Performed By: #### 5 0103 #### [facility] [address] ABS IMM GRANS 0.1 10*3/uL Normal 0.0-0.2 [facility] Comment on above: Order Comment: No: D o not add to previous draw Performed By: #### 5 0103 #### [facility] [address] ABS NEUTROPHILS 8.7 10*3/uL High 1.6-7.6 [facility] Comment on above: Order Comment: No: D o not add to previous draw Performed By: #### 5 0103 #### [facility] [address] Basophils/100 WBC (Bld) 0.2 % Normal 0.0-1.0 [facility] Comment on above: Order Comment: No: D o not add to previous draw Performed By: #### 5 0103 #### [facility] [address] [place] [address], [facility] Eosinophils (Bld) [#/Vol] 0.0 10*3/uL Normal 0.0-0.5 [facility] Comment on above: Order Comment: No: D o not add to previous draw Performed By: #### 5 0103 #### [facility] [address] [place] [address], [facility] Eosinophils/100 WBC (Bld) 0.2 % Normal 0.0-6.0 [facility] Comment on above: Order Comment: No: D o not add to previous draw Performed By: #### 5 0103 #### [facility] [address] [facility] [address] Erythrocyte distribution width (RBC) [Ratio] 13.6 % Normal 11.5-15.0 [facility] Comment on above: Order Comment: No: D o not add to previous draw Performed By: #### 5 0103 #### [facility] [address] Hematocrit (Bld) [Volume fraction] 37.7 % Normal 36.0-45.0 [facility] Comment on above: Order Comment: No: D o not add to previous draw Performed By: #### 5 0103 #### [facility] [address] [facility] Hemoglobin (Bld) [Mass/Vol] 13.0 g/dL Normal 12.0-15.0 [facility] Comment on above: Order Comment: No: D o not add to previous draw Performed By: #### 5 0103 #### [facility] [address] [place] [address], [facility] IMMATURE GRANS 0.4 % Normal 0.0-1.0 [facility] Comment on above: Order Comment: No: D o not add to previous draw Performed By: #### 5 0103 #### [facility] [address] [place] [place] [address], [facility] Lymphocytes (Bld) [#/Vol] 2.4 10*3/uL Normal 1.2-4.0 [facility] Comment on above: Order Comment: No: D o not add to previous draw Performed By: #### 5 0103 #### [facility] [address] [place] [address], [facility] Lymphocytes/100 WBC (Bld) 19.6 % Low 20.0-45.0 [facility] Comment on above: Order Comment: No: D o not add to previous draw Performed By: #### 5 0103 #### [facility] [address] [facility] [place] [address], [facility] MCH (RBC) [Entitic mass] 29.5 pg Normal 27.0-33.0 [facility] Comment on above: Order Comment: No: D o not add to previous draw Performed By: #### 5 0103 #### [facility] [address] [facility] [place] [address], [facility] MCHC (RBC) [Mass/Vol] 34.5 g/dL Normal 32.0-35.0 [facility] Comment on above: Order Comment: No: D o not add to previous draw Performed By: #### 5 0103 #### [facility] [address] [facility] [place] [address], [facility] MCV (RBC) [Entitic vol] 85.5 fL Normal 82.0-98.0 [facility] Comment on above: Order Comment: No: D o not add to previous draw Performed By: #### 5 0103 #### [facility] [address] [facility] [place] [address], [facility] Monocytes (Bld) [#/Vol] 0.8 10*3/uL Normal 0.1-1.0 [facility] Comment on above: Order Comment: No: D o not add to previous draw Performed By: #### 5 0103 #### [facility] [address] [place] [address], [facility] MONOS 6.9 % Normal 5.0-12.0 [facility] Comment on above: Order Comment: No: D o not add to previous draw Performed By: #### 5 0103 #### [facility] [address] [place] [address], [facility] Neutrophils/100 WBC (Bld) 72.7 % High 40.0-72.0 [facility] Comment on above: Order Comment: No: D o not add to previous draw Performed By: #### 5 0103 #### [facility] [address] [place] [address], [facility] Nucleated RBC/100 WBC (Bld) [Ratio] 0 % Normal 0-0 [facility] Comment on above: Order Comment: No: D o not add to previous draw Performed By: #### 5 0103 #### [facility] [address] [place] [address], [place] PLAT CNT 317 10*3/uL Normal 150-400 [facility] Comment on above: Order Comment: No: D o not add to previous draw Performed By: #### 5 0103 #### [facility] [address] [place] [address], [facility] RBC (Bld) [#/Vol] 4.41 10*6/uL Normal 3.80-5.00 [facility] Comment on above: Order Comment: No: D o not add to previous draw Performed By: #### 5 0103 #### [facility] [address] [place] [address], [place] WBC (Bld) [#/Vol] 12.02 10*3/uL High 4.00-10.60 [facility] Comment on above: Order Comment: No: D o not add to previous draw Performed By: #### 5 0103 #### [facility] [address] [place] [address], [facility] History and Physicalon 11-09 -2018 History and Physical MR#: [id number] [facility] Pt. Name: Neha Ashton Admitted: 04/29/2018 Date of : 1945 Attending Physician: Zaire Bojorquez MD Room #: [id number] Discharge Date: HISTORY AND PHYSICAL CHIEF COMPLAINT: [...] called 911 and they took her to [facility]. At the [facility], femur x-ray showed acute subcapital right [...] midnight. We will control her pain with [place]. We will put the patient on insulin [...] will encourage incentive spirometery. We will consult director of social work for rehab placement. The patient is low risk for orthopedic surgery. Electronically Signed by: Zaire Bojorquez MD 04/30/2018 11:12 P Zaire Bojorquez MD Date Dict: 04/29/2018/10:06 P/Zaire Bojorquez MD Date Trans: 04/29/2018 11:11 P/leesa [id number] Normal [facility] MAGNESIUM BLOODon 04-30-2018 Magnesium [Mass/Vol] 1.8 mg/dL Low 1.9-2.7 [facility] Comment on above: Order Comment: No: D o not add to previous draw Performed By: #### 5 6101 #### [facility] [address] [place] [address], [facility] POC GLUCOSE LABon 04-30-2018 Glucose [Mass/Vol] 137 mg/dL High 70-100 [facility] Comment on above: Performed By: #### 5 6101 #### [facility] [address] [place] [address], [place] Glucose [Mass/Vol] 132 mg/dL High 70-100 [facility] Comment on above: Performed By: #### 5 6101 #### [facility] [address] [facility] [place] [address], [facility] Glucose [Mass/Vol] 108 mg/dL High 70-100 [facility] Comment on above: Performed By: #### 8 5499 #### [facility] [address] [facility] [place] [address], [facility] Glucose [Mass/Vol] 94 mg/dL Normal 70-100 [facility] Comment on above: Performed By: #### 8 5499 #### [facility] [address] [facility] [place] [address], [facility] PORTABLE HIP RIGHT 1 OR 2 VW S WITH PELVISon 04-30-2018 PORTABLE HIP RIGHT 1 OR 2 VWS WITH PELVIS [facility] Department of Radiology [address] [place] [id number] Patient Name: NEHA ASHTON : 1945 Sex: F Age: Race: White Pt. Location: [id number] Patient Status: I Ordered Date: 04/30/2018 3:35:00 [...] findings. Electronically signed by:Ricardo Parry. Transcribed by: [email or web address], User Resident: ARTEMIO NATH Electronically Signed by: RICARDO PARRY @ 05/01/2018 01:15 PM I personally read this/these film(s) with this resident Normal [facility] Comment on above: Order Comment: Hardw are Evaluation, currently in PACU BASIC METABOLIC PANELon 11-0 Calcium [Mass/Vol] 9.2 mg/dL Normal 8.6-10.3 [facility] Comment on above: Performed By: #### 0 0071, [id number] #### [facility] [address] [place] [address], [place] Chloride [Moles/Vol] 102 mmol/L Normal 98-107 [facility] Comment on above: Performed By: #### 0 0071, 78147 #### [facility] [address] [place] [address], [place] CO2 [Moles/Vol] 27 mmol/L Normal 21-31 [facility] Comment on above: Performed By: #### 0 0071, 75556 #### [facility] [address] [place] [address], [place] Creatinine [Mass/Vol] 0.64 mg/dL Normal 0.60-1.20 [facility] Comment on above: Performed By: #### 0 70, 39500 #### [facility] [address] [place] [address], [place] GFR/1.73 sq M predicted among blacks MDRD (S/P/Bld) [Vol rate/Area] mL/min/{1.73_m2} Normal >60 [facility] Comment on above: Result Comment: Calc ulation may not be valid for patients over 70 years Performed By: #### 0 007, #### [facility] [address] [place] [address], [place] GFR/1.73 sq M predicted among non-blacks MDRD (S/P/Bld) [Vol rate/Area] mL/min/{1.73_m2} Normal >60 [facility] Comment on above: Result Comment: Calc ulation may not be valid for patients over 70 years Performed By: #### 0 007, #### [facility] [address] [place] [address], [place] Glucose [Mass/Vol] 60 mg/dL Low 70-100 [facility] Comment on above: Performed By: #### 0 007, 60336 #### [facility] [address] [place] [address], [place] Potassium [Moles/Vol] 3.8 mmol/L Normal 3.5-5.1 [facility] Comment on above: Performed By: #### 0 007, 42019 #### [facility] [address] [place] [address], [place] Sodium [Moles/Vol] 137 mmol/L Normal 136-145 [facility] Comment on above: Performed By: #### 0 70, 94884 #### [facility] [address] [place] [address], [place] Urea nitrogen [Mass/Vol] 10 mg/dL Normal 7-25 [facility] Comment on above: Performed By: #### 0 0071, 34859 #### [facility] [address] [place] [address], [facility] CBC COMPLETE BLOOD COUNTon 06-29-2017 Erythrocyte distribution width (RBC) [Ratio] 13.6 % Normal 11.5-15.0 [facility] Comment on above: Performed By: #### 5 0608 #### [facility] [address] [place] [address], [facility] Hematocrit (Bld) [Volume fraction] 37.3 % Normal 36.0-45.0 [facility] Comment on above: Performed By: #### 5 0608 #### [facility] [address] [place] [address], [facility] Hemoglobin (Bld) [Mass/Vol] 12.7 g/dL Normal 12.0-15.0 [facility] Comment on above: Performed By: #### 5 0608 #### [facility] [address] [place] [address], [facility] MCH (RBC) [Entitic mass] 29.1 pg Normal 27.0-33.0 [facility] Comment on above: Performed By: #### 5 0608 #### [facility] [address] [place] [address], [facility] MCHC (RBC) [Mass/Vol] 34.0 g/dL Normal 32.0-35.0 [facility] Comment on above: Performed By: #### 5 0608 #### [facility] [address] [place] [address], [facility] MCV (RBC) [Entitic vol] 85.6 fL Normal 82.0-98.0 [facility] Comment on above: Performed By: #### 5 0608 #### [facility] [address] [place] [address], [facility] Nucleated RBC/100 WBC (Bld) [Ratio] 0 % Normal 0-0 [facility] Comment on above: Performed By: #### 5 0608 #### [place] [address], [facility] PLAT CNT 346 10*3/uL Normal 150-400 [facility] Comment on above: Performed By: #### 5 0608 #### [place] [address], [facility] RBC (Bld) [#/Vol] 4.36 10*6/uL Normal 3.80-5.00 [facility] Comment on above: Performed By: #### 5 0608 #### [address] WBC (Bld) [#/Vol] 17.89 10*3/uL High 4.00-10.60 [facility] Comment on above: Performed By: #### 5 0608 #### [address] FEMUR RIGHT 2 VWSon 04-29-20 18 FEMUR RIGHT 2 VWS [facility] Department of Radiology [address] [place], [place] [id number] Patient Name: NEHA ASHTON : 1945 Sex: F Age: Race: White Pt. Location: [facility] Patient Status: I Ordered Date: 04/29/2018 6:00:00 PM Completed Date: 04/29/2018 06:22 PM Requesting Provider: CRISTAL THOMPSON Attending Provider: CRISTAL THOMPSON Report Copy To: Signs & Symptoms: Pain ( specify Location) History: Patient history not available Comments: R/O FX Exam: FEMUR RIGHT 2 VWS FEMUR RIGHT 2 VWS 04/29/2018 6:22 PM EST SIGNS AND SYMPTOMS: [...] by:Pam Morel on 04/29/2018 6:42 PM EST. I, Ricardo Paryr, have reviewed the images and report and concur with these findings. Electronically signed by:Ricardo Parry. Transcribed by: [email or web address], User Resident: PAM MOREL Electronically Signed by: RICARDO PARRY @ 04/30/2018 03:51 PM I personally read this/these film(s) with this resident Normal [facility] Comment on above: Order Comment: R/O F X PORTABLE CHEST 1 VIEWon PORTABLE CHEST 1 VIEW [facility] Department of Radiology [address] [place] [id number] Patient Name: NEHA ASHTON : 1945 Sex: F Age: Race: White Pt. Location: [facility] Patient Status: I Ordered Date: 04/29/2018 8:55:00 [...] recommended. Electronically signed by:Cisco Oh. Transcribed by: [email or web address], User Resident: Electronically Signed by: CISCO [place] @ 04/30/2018 07:22 AM Normal [facility] Comment on above: Order Comment: R/O I nfiltrates PROTHROMBIN TIMEon 8 INR Coag (PPP) [Relative time] 1.05 {INR} Normal 0.91-1.16 [facility] Comment on above: Result Comment: ACCC P [...] 1995;[id number]. Performed By: #### 5 6101 #### [facility] [address] PT Coag (PPP) [Time] 13.7 s Normal 12.3-14.8 [facility] Comment on above: Result Comment: ALL RESULTS MUST BE INTERPRETED WITH RESPECT TO BLOOD DRAWING ARTIFACT OR DILUTION ERROR OF ANTICOAGULANT AT THE TIME OF SAMPLING. Performed By: #### 5 6101 #### [facility] [facility]. [address] RBC'S 2 UNITSon 04-29-2018 CROSSMATCH INTERP 1 COMP Normal [facility] Comment on above: Performed By: #### [id number] #### [facility] Offerti [address] CROSSMATCH INTERP 2 COMP Normal [facility] Comment on above: Performed By: #### [id number] #### [facility]. [address] PRODUCT CODE 1 E0336 Normal [facility] Comment on above: Performed By: #### [id number] #### [facility] [address] [place] [address], [facility] PRODUCT CODE 2 E0336 Normal [facility] Comment on above: Performed By: #### [id number] #### [facility]i [address] PRODUCT STATUS 1 RE Normal [facility] Comment on above: Result Comment: Resu lt changed by IF on 05/03/2018 07:08. The previous value was XM. Performed By: #### [id number] #### [facility] [address] [place] [address], [facility] PRODUCT STATUS 2 RE Normal [facility] Comment on above: Result Comment: Resu lt changed by IF on 05/03/2018 07:08. The previous value was XM. Performed By: #### [id number] #### [facility] [address] [place] [address], [facility] UNIT ABO 1 A Normal [facility] Comment on above: Performed By: #### 8 [id number] #### [facility] [address] [place] [address], [facility] UNIT ABO 2 A Normal [facility] Comment on above: Performed By: #### 8 [id number] #### [facility] [address] [place] [address], [facility] UNIT ID 1 [id number] Normal [facility] Comment on above: Performed By: #### 8 [id number] #### [facility] [address] [place] [address], [facility] UNIT ID 2 [id number] Normal [facility] Comment on above: Performed By: #### 8 [id number] #### [facility] [address] [place] [address], [facility] UNIT RH 1 Positive Normal [facility] Comment on above: Performed By: #### 8 [id number] #### [facility] [address] [place] [address], [place] UNIT RH 2 Positive Normal [facility] Comment on above: Performed By: #### [id number] #### [facility] [address] [place] [address], [place] TYPE AND SCREENon 04-29-2018 ABO INTERPRETATION A Normal [facility] Comment on above: Performed By: #### 6 [id number] #### [facility] [address] [place] [address], [facility] RH INTERPRETATION Positive Normal [facility] Comment on above: Performed By: #### 6 [id number] #### [facility] [address] [place] [address], [facility] VITAMIN D 25-HYDROXYon 04-29 VITAMIN D 25-OH 37.2 ng/mL Normal 30.0-80.0 [facility] Comment on above: Result Comment: >80. 0 Toxicity possible Performed By: #### 0 [id number], [id number] #### [facility] [address] [place] [address], [facility] Vital Signs Date Time Vital Sign Value Performing Clinician Facility 07-18-2024 11:44-0500 Diastolic blood pressure 80 mm[Hg] [facility] 07-18-2024 11:44-0500 Systolic blood pressure 170 mm[Hg] [facility] 07-18-2024 11:44-0500 Body height 152.4 cm [facility] 07-18-2024 11:44-0500 Body mass index (BMI) [Ratio] 25.4 kg/m2 [facility] 07-18-2024 11:44-0500 Body temperature 97.3 [degF] [facility] 07-18-2024 11:44-0500 Body weight 58.96 kg [facility] 07-18-2024 11:44-0500 Heart rate 100 /min [facility] 07-18-2024 11:44-0500 SaO2% (BldA) [Mass fraction] 98 % [facility] 06-07-2024 13:53-0500 Body height 152.4 cm Clayton Manning MD Work Phone: [facility] 06-07-2024 13:53-0500 Body mass index (BMI) [Ratio] 26.76 kg/m2 Clayton Manning MD Work Phone: [facility] 06-07-2024 13:53-0500 Body temperature 97.5 [degF] Clayton Manning MD Work Phone: [facility] 06-07-2024 13:53-0500 Body weight 62.14 kg Clayton Manning MD Work Phone: [facility] 06-07-2024 13:53-0500 Diastolic blood pressure 68 mm[Hg] Clayton Manning MD Work Phone: [facility] 06-07-2024 13:53-0500 Heart rate 99 /min Clayton Manning MD Work Phone: [facility] 06-07-2024 13:53-0500 Respiratory rate 20 /min Clayton Manning MD Work Phone: [facility] 06-07-2024 13:53-0500 SaO2% (BldA) [Mass fraction] 97 % Clayton Manning MD Work Phone: [facility] 06-07-2024 13:53-0500 Systolic blood pressure 114 mm[Hg] Clayton Manning MD Work Phone: [facility] 06-01-2024 09:43-0500 Body height 152.4 cm Lambert Alysha [employer] Work Phone: [facility] 06-01-2024 09:43-0500 Body mass index (BMI) [Ratio] 26.56 kg/m2 Lambertaaliyah Encarnacion [employer] Work Phone: [facility] 06-01-2024 09:43-0500 Body weight 61.69 kg Lambert Encarnacion [employer] Work Phone: [facility] 06-01-2024 09:43-0500 Diastolic blood pressure 58 mm[Hg] Lambertaaliyah Encarnacion [employer] Work Phone: [facility] 06-01-2024 09:43-0500 Heart rate 88 /min Lambert [employer] Work Phone: [facility] 06-01-2024 09:43-0500 Respiratory rate 12 /min Lambert [employer] Work Phone: [facility] 06-01-2024 09:43-0500 SaO2% (BldA) [Mass fraction] 98 % Lambert Encarnacion DO Work Phone: [facility] 06-01-2024 09:43-0500 Systolic blood pressure 110 mm[Hg] Lambert Encarnacion DO Work Phone: [facility] 05-26-2024 13:15-0500 Body height 152.4 cm Clayton Manning MD Work Phone: [facility] 05-26-2024 13:15-0500 Body mass index (BMI) [Ratio] 27.54 kg/m2 Clayton Manning MD Work Phone: [facility] 05-26-2024 13:15-0500 Body temperature 97.11 [degF] Clayton Manning MD Work Phone: [facility] 05-26-2024 13:15-0500 Body weight 63.96 kg Clayton Manning MD Work Phone: [facility] 05-26-2024 13:15-0500 Diastolic blood pressure 58 mm[Hg] Clayton Manning MD Work Phone: [facility] 05-26-2024 13:15-0500 Heart rate 101 /min Clayton Manning MD Work Phone: [facility] 05-26-2024 13:15-0500 Respiratory rate 20 /min Clayton Manning MD Work Phone: [facility] 05-26-2024 13:15-0500 SaO2% (BldA) [Mass fraction] 99 % Clayton Manning MD Work Phone: [facility] 05-26-2024 13:15-0500 Systolic blood pressure 116 mm[Hg] Clayton Manning MD Work Phone: [facility] 04-18-2024 11:23-0400 Body height 152.4 cm [facility] 04-18-2024 11:23-0400 Body mass index (BMI) [Ratio] 27.3 kg/m2 [facility] 04-18-2024 11:23-0400 Body temperature 98.2 [degF] [facility] 04-18-2024 11:23-0400 Body weight 63.5 kg [facility] 04-18-2024 11:23-0400 Diastolic blood pressure 78 mm[Hg] [facility] 04-18-2024 11:23-0400 Heart rate 89 /min [facility] 04-18-2024 11:23-0400 Respiratory rate 16 /min [facility] 04-18-2024 11:23-0400 SaO2% (BldA) [Mass fraction] 98 % [facility] 04-18-2024 11:23-0400 Systolic blood pressure 122 mm[Hg] [facility] 10-05-2023 11:00-0400 Body height 152.4 cm MD Clayton Manning Work Phone: [facility] 10-05-2023 11:00-0400 Body mass index (BMI) [Ratio] 24.4 kg/m2 MD Clayton Manning Work Phone: [facility] 10-05-2023 11:00-0400 Body temperature 97.8 [degF] MD Clayton Manning Work Phone: [facility] 10-05-2023 11:00-0400 Body weight 56.69 kg MD Clayton Manning Work Phone: [facility] 10-05-2023 11:00-0400 Diastolic blood pressure 64 mm[Hg] MD Clayton Manning Work Phone: [facility] 10-05-2023 11:00-0400 Heart rate 80 /min MD Clayton Manning Work Phone: [facility] 10-05-2023 11:00-0400 Respiratory rate 16 /min MD Clayton Manning Work Phone: [facility] 10-05-2023 11:00-0400 SaO2% (BldA) [Mass fraction] 98 % MD Clayton Manning Work Phone: [facility] 10-05-2023 11:00-0400 Systolic blood pressure 112 mm[Hg] MD Clayton Manning Work Phone: [facility] 03-26-2023 13:35-0400 Diastolic blood pressure 68 mm[Hg] MD Clayton Manning Work Phone: [facility] 03-26-2023 13:35-0400 Heart rate 85 /min MD Clayton Manning Work Phone: [facility] 03-26-2023 13:35-0400 Respiratory rate 16 /min MD Clayton Manning Work Phone: [facility] 03-26-2023 13:35-0400 SaO2% (BldA) [Mass fraction] 98 % MD Clayton Manning Work Phone: [facility] 03-26-2023 13:35-0400 Systolic blood pressure 128 mm[Hg] MD Clayton Manning Work Phone: [facility] 03-26-2023 09:10-0400 Body height 151.13 cm MD Clayton Manning Work Phone: [facility] 03-26-2023 09:10-0400 Body weight 61.23 kg MD Clayton Manning Work Phone: [facility] 03-23-2023 10:30-0400 Body height 152.4 cm Willie Herrera Other [employer] Other 03-23-2023 10:30-0400 Body mass index (BMI) [Ratio] 26.36 kg/m2 Willie Herrera Other [employer] Other 03-23-2023 10:30-0400 Body temperature 97.3 [degF] Willie Buehrer Other [employer] Other 03-23-2023 10:30-0400 Body weight 61.24 kg Willie Orellanaehrer Other [employer] Other 03-23-2023 10:30-0400 Diastolic blood pressure 62 mm[Hg] Willie Buehrer Other [employer] Other 03-23-2023 10:30-0400 SaO2% (BldA) [Mass fraction] 99 % Willie Buehrer Other [employer] Other 03-23-2023 10:30-0400 Systolic blood pressure 110 mm[Hg] Willie Buehrer Other [employer] Other 09-15-2022 12:45-0400 Body height 152.4 cm Willie Orellanaehrer Other [employer] Other 09-15-2022 12:45-0400 Body mass index (BMI) [Ratio] 25.39 kg/m2 Willie Orellanaehrer Other [employer] Other 09-15-2022 12:45-0400 Body temperature 97.3 [degF] Willie Orellanaehrer Other [employer] Other 09-15-2022 12:45-0400 Body weight 58.97 kg Willie Buehrer Other [employer] Other 09-15-2022 12:45-0400 Diastolic blood pressure 78 mm[Hg] Willie Buehrer Other [employer] Other 09-15-2022 12:45-0400 SaO2% (BldA) [Mass fraction] 96 % Willie Herrera Other [employer] Other 09-15-2022 12:45-0400 Systolic blood pressure 138 mm[Hg] Willie Herrera Other [employer] Other 12-03-2021 11:10-0400 Body height 152.4 cm Hetal Tomlinson Other [employer] Other 12-03-2021 11:10-0400 Body mass index (BMI) [Ratio] 25.39 kg/m2 Hetal Tomlinson Other [employer] Other 12-03-2021 11:10-0400 Body temperature 96.6 [degF] Hetal Tomlinson Other [employer] Other 12-03-2021 11:10-0400 Body weight 58.97 kg Hetal Tomlinson Other [employer] Other 12-03-2021 11:10-0400 Diastolic blood pressure 83 mm[Hg] Hetal Griffinler Other [employer] Other 12-03-2021 11:10-0400 Respiratory rate 16 /min Hetal Tomlinson Other [employer] Other 12-03-2021 11:10-0400 SaO2% (BldA) [Mass fraction] 95 % Hetal Tomlinson Other [employer] Other 12-03-2021 11:10-0400 Systolic blood pressure 146 mm[Hg] Hetal Tomlinson Other [employer] Other 09-09-2021 11:30-0400 Body height 152.4 cm Willie Herrera Other [employer] Other 09-09-2021 11:30-0400 Body mass index (BMI) [Ratio] 25.39 kg/m2 Willie Burnsremarc Other [employer] Other 09-09-2021 11:30-0400 Body temperature 97.2 [degF] Willie Herrera Other [employer] Other 09-09-2021 11:30-0400 Body weight 58.97 kg Willie Herrera Other [employer] Other 09-09-2021 11:30-0400 Diastolic blood pressure 64 mm[Hg] Willie Orellanaeliecer Other [employer] Other 09-09-2021 11:30-0400 SaO2% (BldA) [Mass fraction] 96 % Willie Mauromarc Other [employer] Other 09-09-2021 11:30-0400 Systolic blood pressure 120 mm[Hg] Willie Burnsarminda Other [employer] Other Encounters Encounter Date Encounter Type Care Provider Facility Start: 07-18-2024 End: 07-18-2024 ambulatory [facility] Work Phone: Start: 07-18-2024 End: 07-18-2024 Patient encounter procedure [facility] Work Phone: Start: 06-07-2024 End: 06-07-2024 García Manning MD Work Phone: [facility] Start: 06-07-2024 End: 06-07-2024 Bamboo flowsheet Clayton Manning MD Work Phone: [facility] Start: 06-07-2024 End: 06-07-2024 Office outpatient visit 25 minutes Clayton Manning MD Work Phone: [facility] Comment on above: Acute GI bleeding (P rimary Dx); Anemia due to chronic blood loss; Benign essential hypertension (CMS/HCC); Peripheral vascular disease, unspecified (CMS/HCC) Start: 06-07-2024 End: 06-07-2024 ambulatory CLAYTON MANNING Not Available Start: 06-01-2024 End: 06-01-2024 Bamboo flowsheet Lambert Encarnacion DO Work Phone: [facility] Start: 06-01-2024 End: 06-01-2024 Bamboo flowsheet Lambert Encarnacion DO Work Phone: [facility] Start: 06-01-2024 End: 06-01-2024 Office outpatient new 30 minutes Lambert Encarnacion DO Work Phone: [facility] Comment on above: Gastrointestinal hem orrhage, unspecified gastrointestinal hemorrhage type (Primary Dx); Anemia, unspecified type Start: 06-01-2024 End: 06-01-2024 ambulatory LAMBERT ENCARNACION Not Available Start: 05-28-2024 Non-patient / Non-visit [facility] Work Phone: Start: 05-26-2024 End: 05-26-2024 Bamboo flowsheet Clayton Manning MD Work Phone: [facility] Start: 05-26-2024 End: 05-26-2024 Bamboo flowsheet Clayton Manning MD Work Phone: [facility] Start: 05-26-2024 End: 05-26-2024 Clinisync Result Encounter Clayton Manning MD Work Phone: [facility] Unsolicited Start: 05-26-2024 End: 05-26-2024 ambulatory CLAYTON NADERER Not Available Start: 05-26-2024 End: 05-26-2024 Office outpatient visit [...] Start: 04-18-2024 End: 04-18-2024 Patient encounter procedure [facility] Vascular Surgery Work Phone: Start: 04-18-2024 End: 04-18-2024 ambulatory Willie Herrera [facility] Work Phone: Start: 03-30-2024 End: 03-30-2024 Patient encounter procedure [facility] Comment on above: Sensorineural hearin g loss (SNHL) of both ears (Primary Dx) Start: 03-30-2024 End: 03-30-2024 ambulatory CLAYTON NADERER Not Available Start: 02-24-2024 End: 02-24-2024 Patient encounter procedure [facility] Moore [facility] Comment on above: Sensorineural hearin g loss (SNHL) of both ears (Primary Dx) Start: 02-24-2024 End: 02-24-2024 ambulatory CLAYTON NADERER Not Available Start: 02-03-2024 End: 02-03-2024 ambulatory ALISA A CINDY Not Available Start: 12-16-2023 End: 12-16-2023 ambulatory ALISA A CINDY Not Available Start: 11-26-2023 End: 11-26-2023 ambulatory CLAYTON NADERER Not Available Start: 10-07-2023 End: 10-07-2023 ambulatory ALISA A CINDY Not Available Start: 10-05-2023 End: 10-05-2023 ambulatory MD Clayton Manning Work Phone: [facility] Work Phone: Start: 10-05-2023 End: 10-05-2023 Patient encounter procedure MD Clayton Manning Work Phone: [facility] Vascular Surgery Work Phone: Start: 03-26-2023 End: 03-26-2023 Admission to same day surgery center MD Clayton Manning Work Phone: [facility]-Interventional Radiology Work Phone: Start: 03-26-2023 End: 03-26-2023 ambulatory MD Clayton Manning Work Phone: [facility] Work Phone: Start: 03-23-2023 Office outpatient vi sit 25 minutes Willie Herrera [facility] Vascular Surgery Start: 03-23-2023 End: 03-23-2023 ambulatory MD Clayton Manning Work Phone: [employer] Other Start: 03-23-2023 End: 03-23-2023 Patient encounter procedure MD Clayton Manning Work Phone: [facility]-Ultrasound [facility] Start: 11-04-2022 End: 11-05-[address] CLAYTON MANNING Facility: Start: 09-15-2022 End: 09-15-2022 ambulatory Willie Herrera Other [place] [place] Other Start: 09-15-2022 Office outpatient vi sit 25 minutes Willie Herrera [facility] Vascular Surgery Start: 09-08-2022 End: 09-08-2022 ambulatory MD Clayton Manning Work Phone: [facility] Work Phone: Start: 09-08-2022 End: 09-08-2022 Patient encounter procedure MD Clayton Manning Work Phone: [facility]CT Scan [facility] [place] Work Phone: Start: 05-05-2022 End: 05-06-[address] CLAYTON MANNING Facility:[facility] Start: 12-03-2021 End: 12-03-2021 ambulatory Hetal Davi Other [employer] Other Start: 12-03-2021 Office outpatient vi sit 15 minutes Hetal Davi [facility] Start: 11-11-2021 End: 11-12-[address] CLAYTON MANNING Facility:[facility] Start: 09-09-2021 End: 09-09-2021 ambulatory Willie Herrera Other [employer] Other Start: 09-09-2021 Office outpatient vi sit 25 minutes Willie Herrera [facility] Start: 09-09-2021 End: 09-09-2021 Patient encounter procedure MD Clayton Manning Work Phone: [facility]Ultrasound [facility] Start: 04-29-2018 End: 05-04-2018 Evaluation and management of inpatient REFERRED SELF Facility:[facility] Procedures Date Procedure Procedure Detail Performing [...] above: Performed By: #### 6 [id number] #### [address] History of carotid endarterectomy S/P carotid endarterectomy MD Clayton Manning Work Phone: Plan of Treatment Date Care Activity Detail Author Start: 08-12-2025 Glaucoma screening Diabetes: R etinopathy Screening [facility] Start: 11-25-2024 Urine screening for protein Diabetes: Urine Protein Screening [facility] Start: 11-24-2024 Hemoglobin A1c measurement Diabetes: Hemoglobin A1C [facility] Start: 09-28-2024 End: 09-28-2024 Patient encounter procedure 09/28/2024 1:30 PM EDT Office Visit [facility] [address] [place] [address] [facility] Start: 07-28-2024 End: 07-28-2024 Patient encounter procedure 07/28/2024 1:15 PM EST Office Visit [facility] [address] [place] [address] Clayton Manning MD [address] [place] [id number] [facility] Start: 06-07-2024 End: 06-07-2024 Patient encounter procedure [facility] Comment on above: Arrived Start: 06-01-2024 End: 06-01-2024 Patient encounter procedure 06/01/2024 10:00 AM EST Office Visit [facility] [address] [place] [phone] Lambert Encarnacion DO [address] [place] [phone] [facility] Comment on above: Arrived Start: 05-27-2024 Hemoglobin A1c measurement Diabetes: Hemoglobin A1C [facility] Start: 05-26-2024 End: 05-26-2025 Basic metabolic 1998 panel - Serum or Plasma Basic metabolic panel Lab Routine Benign essential hypertension (CMS/HCC) Expected: 05/26/2024 (Approximate), Expires: 05/26/2025 [facility] Comment on above: Expected: 05/26/2024 (Approximate), Expires: 05/26/2025 Start: 05-26-2024 End: 05-26-2025 CBC W Auto Differential panel - Blood CBC and differential Lab Routine Encounter for long-term (current) use of medications Expected: 05/26/2024 (Approximate), Expires: 05/26/2025 [facility] Comment on above: Expected: 05/26/2024 (Approximate), Expires: 05/26/2025 Start: 05-26-2024 End: 05-26-2026 Echocardiogram 2D complete Echocardiogram 2D complete Echocardiography Routine Fatigue, unspecified type SOB (shortness of breath) Bilateral edema of lower extremity Expected: 05/26/2024 (Approximate), Expires: 05/26/2026 [facility] Comment on above: Expected: 05/26/2024 (Approximate), Expires: 05/26/2026 Start: 05-26-2024 End: 05-26-2025 Hemoglobin A1c/Hemoglobin.total in Blood Hemoglobin A1c Lab Routine Type 2 diabetes mellitus with hyperglycemia, without long-term current use of insulin (CMS/HCC) Expected: 05/26/2024 (Approximate), Expires: 05/26/2025 [facility] Work Phone: Comment on above: Expected: 05/26/2024 (Approximate), Expires: 05/26/2025 Start: 05-26-2024 End: 05-26-2025 Hepatic function 2000 panel - Serum or Plasma Hepatic function panel Lab Routine Encounter for long-term (current) use of medications Expected: 05/26/2024 (Approximate), Expires: 05/26/2025 [facility] Comment on above: Expected: 05/26/2024 (Approximate), Expires: 05/26/2025 Start: 05-26-2024 End: 05-26-2025 TSH W/REFLEX TO FT4 TSH W/REFLEX TO FT4 Lab Routine Fatigue, unspecified type Expected: 05/26/2024 (Approximate), Expires: 05/26/2025 [facility] Comment on above: Expected: 05/26/2024 (Approximate), Expires: 05/26/2025 Start: 05-26-2024 End: 05-26-2025 XR Chest 2 Views XR chest 2 views Imaging Routine SOB (shortness of breath) Bilateral edema of lower extremity Expected: 05/26/2024, Expires: 05/26/2025 [facility] Comment on above: Expected: 05/26/2024 , Expires: 05/26/2025 Start: 05-26-2024 End: 05-26-2024 Patient encounter procedure 05/26/2024 1:00 PM EST Office Visit [facility] [address] [place] [address] Clayton Manning MD [address] [place] [address] [facility] Start: 03-30-2024 End: 03-30-2024 Patient encounter procedure 03/30/2024 1:30 PM EDT Office Visit [facility] [address] [place] [address] [facility] Start: 02-21-2024 Influenza vaccination Influenza Vacc ine (#1) [facility] Start: 03-26-2023 [facility] Start: 06-22-2015 Pneumococcal Vaccine : 65+ Years (2 of 2 - PCV) Pneumococcal Vaccine: 65+ Years (2 of 2 - PCV) [facility] Start: 08-31-1962 Urine screening for protein Diabetes: Urine Protein Screening [facility] Start: 1943 Hemoglobin A1c measurement Diabetes: Hemoglobin A1C [facility] Start: 1943 Medicare Annual Well ness (AWV) Medicare Annual Wellness (AWV) [facility] Patient Education Arteriogram (DC) [facility] Work Phone: Patient referral [facility] Work Phone: US.doppler Carotid arteries - bilateral [facility] Payers Date Payer Category Payer Self-pay [id number] 2019 Medicare [id number] 2019 Medicare (Managed Care) [employer] [id number] 2019 Medicaid [id number] 2019 Medicaid [id number] 1959 Medicaid [id number] 1959 Unknown [id number] 1943 Unknown [id number] [id number]. 647 1943 Unknown [id number] [id number]. 593 1943 Unknown [id number] [id number]. 593 1943 Unknown [id number] [id number]. 593 1943 Unknown [id number] 2.16.840.1.752018.3.579.2. 1259 1943 Unknown [id number] 2.16.840.1.499471.3.579.2. 1259 1943 Unknown [id number] 2.16.840.1.938527.3.579.2. 1259 1943 Unknown [id number] 2.16.840.1.510073.3.579.2. 1259 1943 Unknown [id number] 2.16.840.1.754162.3.579.2. 1259 1943 Unknown [id number] 1945 Unknown [id number] 1945 Unknown [id number] 1945 Unknown [id number] Medicare [id number] Medicare Medicare [id number] Private Health Insurance [facility] [id number] Unknown [id number] Unknown [id number] Unknown [id number] Social History Date Type Detail Facility Start: 12-12-2020 End: 03-26-2023 Tobacco smoking status NHIS Ex-smoker (finding) [facility] Start: 03-12-1946 Sex Assigned At Female F [facility] Start: 11-26-2023 End: 06-07-2024 Sex Assigned At [facility] [employer] Other Start: 06-22-1965 End: 06-22-2003 History of tobacco use Current smoker [facility] Start: [birth year]-22-1965 End: 06-22-2003 History of tobacco use Cigarette Smoker [facility] Start: 06-05-2023 Tobacco use and exposure Smokeless tobacco non-user [facility] Start: 11-26-2023 End: 06-07-2024 Alcoholic beverage intake Lifetime non-drinker (finding) [facility] Start: 11-26-2023 End: 06-07-2024 History of Social function [facility] Start: 1945 Sex assigned at Not on file [facility] Start: 07-18-2024 Sex Female (finding) [facility] Medical Equipment Procedure Code Equipment Code Equipment Origin al Text Equipment Identifier Dates Endarterectomy, carotid Synthetic vascular graft ()[id number] FDA Start: 04-11-2019 Digital subtraction angiography of carotid and cerebral arteries Bare-metal carotid artery stent ()[id number] FDA Start: 10-20-2019 Angioplasty of carotid artery with insertion of stent IR STENT PRECISE [id number] FDA Start: 03-24-2017 Angioplasty of carotid artery with insertion of stent Bare-metal carotid artery stent ()[id number] FDA Start: 12-12-2020 Angioplasty of carotid artery [...] Use as instructe d twice a day [id number] Start: 06-05-2023 End: 06-04-2024 Clinical Notes 02-18-2010 to 06-07-2024 Clayton Manning MD - 06/07/2024 2:23 PM Lorena Manning MD - 06/07/2024 2:23 PM Lorena Manning MD - 06/07/2024 2:23 PM Lorena Manning MD - 06/07/2024 2:22 PM EST Note Date & Type Note Facility 06-07-2024 History of Presen t illness Narrative Associated Problem(s): Peripheral vascular disease, unspecified (CMS/HCC) Stop aspirin and continue plavix. Associated Problem(s): Benign essential hypertension (CMS/HCC) BP normal without medication and monitor. Associated Problem(s): Anemia due to chronic blood loss Recent anemia and start iron supplement. Associated Problem(s): Acute GI bleeding Recent bleed likely related to aspirin and plavix. Continue protonix. Resume plavix but stop aspirin. Images from the original note were not included. Subjective Patient ID: Neha Ashton is a 78 y.o. female who presents for Follow-up (Hospital f/u). Hospital follow up from 05/26-05/28 for GI bleed. Seen in office and c/o lightheaded and fatigue x 1 week. Labs ordered and showed hgb 6.5. Directed to ER and repeat hgb 6.1. Admitted and given 2 units PRBC. Started protonix and held aspirin and plavix. Seen by surgeon who recommended outpatient endoscopy. Feels much better after blood. Taking protonix and resumed aspirin and plavix. BP low in hospital and holding losartan. BP remains low today and occasionally lightheaded when up and moving. Review of Systems [...] This Visit Peripheral vascular disease, unspecified (CMS/HCC) Stop aspirin and continue plavix. Benign essential hypertension (CMS/HCC) BP normal without medication and monitor. Acute GI bleeding - Primary Recent bleed likely related to aspirin and plavix. Continue protonix. Resume plavix but stop aspirin. Relevant Medications pantoprazole (ProtoNix) 40 MG EC tablet Anemia due to chronic blood loss Recent anemia and start iron supplement. Relevant Medications ferrous sulfate (Fe Tabs) 325 (65 Fe) MG EC tablet documented in this encounter [facility] 06-01-2024 History of Presen t illness Narrative General Surgery H&P Neha Ashton 1945 Neha Ashton is a 78 y.o. female presents to discuss EGD and Colonoscopy. She states that she went to [facility] ER on 05/26 for feeling very weak. She states that she was told that she was anemic and possibly had a GI bleed. She denies any pain at this time. Denies ever seeing any bloody Bms or dark tarry stools. Denies family hx of colon cancer. Denies melena or hematochezia. Denies changes in bowel habits. Denies changes in caliber of stools. Denies hx of unplanned weight loss. Denies fevers, chills, or sweats. Denies nausea or vomiting. Last colonoscopy was many years ago per patient and she had no issues that she recalls. She was offered a c-scope and EGD to help investigate possible sources of GI bleeding as a cause of her anemia. At this time she would like to hold off on any procedures. Discussed with her the warning signs of anemia/ acute GI bleeding and to continue to monitor her stools. She is welcome to call back at any time to schedule an EGD and c-scope if she decides to move forward with those procedures. SUBJECTIVE: MEDICATIONS: ALLERGIES Current Outpatient Medications Medication Instructions aspirin 81 mg, Daily atorvastatin (LIPITOR) 40 mg, Oral, Nightly bisacodyl (DULCOLAX) 5 mg, Oral, Once, Do not crush, chew, or split. Take as detailed on clinic hand out for colonoscopy prep clopidogrel (PLAVIX) 75 mg, Oral, Daily furosemide (LASIX) 40 mg, Oral, Daily insulin lispro protamine-insulin lispro (HumaLOG MIX 75/25 KWIKPEN) (75-25) 100 UNIT/ML injection 30 Units, Subcutaneous, 2 times daily with meals losartan (COZAAR) 25 mg, Oral, Daily pantoprazole (PROTONIX) 40 mg, Daily pen needle 32G x 5 mm misc Use as instructed twice a day polyethylene glycol (PEG) 3350 (GLYCOLAX) 238 g, Oral, Once, Take as detailed from clinic hand out for colonoscopy prep No Known Allergies PAST MEDICAL HISTORY: SOCIAL HISTORY SURGICAL HISTORY: Past Medical History: Diagnosis Date Chronic osteoarthritis Dyslipidemia (CMS/HCC) Murmur Osteopenia of right hip Overweight Peripheral vascular disease (CMS/[facility]) Post-traumatic osteoarthritis of right hip Stress reaction Type 2 diabetes mellitus with hyperglycemia, with long-term current use of insulin ([facility]) Social History Tobacco Use Smoking status: Former Current packs/day: 0.00 Types: Cigarettes Start date: 1963 Quit date: 2003 Years since quittin.9 Smokeless tobacco: Never Substance Use Topics Alcohol use: Never Drug use: Never Past Surgical History: Procedure Laterality Date CAROTID ENDARTERECTOMY CARPAL TUNNEL RELEASE Left CORONARY ANGIOPLASTY WITH STENT PLACEMENT FEMINIZING AUGMENTATION MAMMOPLASTY Bilateral FINGER SURGERY Right Index trigger finger SHOULDER SURGERY Left SHOULDER SURGERY Right TOTAL HIP ARTHROPLASTY Right Family History Problem Relation Name Age of Onset Diabetes Mother Heart disease Father No Known Allergies Past Surgical History: Procedure Laterality Date CAROTID ENDARTERECTOMY CARPAL TUNNEL RELEASE Left CORONARY ANGIOPLASTY WITH STENT PLACEMENT FEMINIZING AUGMENTATION MAMMOPLASTY Bilateral FINGER SURGERY Right Index trigger finger SHOULDER SURGERY Left SHOULDER SURGERY Right TOTAL HIP ARTHROPLASTY Right Tobacco Use: Medium Risk (06/01/2024) Patient History Smoking Tobacco Use: Former Smokeless Tobacco Use: Never Passive Exposure: Not on file Alcohol Use: Not on file Depression: Not on file Physical Activity: Not on file REVIEW OF SYMPTOMS: Review of Systems All other systems reviewed and are negative. 10 systems were reviewed. Positives noted above. Remainder are negative per [facility] guidelines. OBJECTIVE: Visit Vitals BP 110/58 Pulse 88 Resp 12 Ht 5' Wt 136 lb SpO2 98% BMI 26.56 kg/m Smoking Status Former BSA 1.62 m Physical Exam Vitals reviewed. General: AAOx3, NAD Head: atraumatic normocephalic Neck: trachea midline. No masses or lymphadenopathy Heart: Regular rate and rhythm Lungs: equal chest rise and fall, non labored breathing Abdomen: soft, nontender, and non distended Ext: motor 5/5 all extremities with no gross deformities Psych: alert and oriented, behavior appropriate ASSESSMENT AND PLAN: Assessment/Plan Diagnoses and all orders for this visit: Gastrointestinal hemorrhage, unspecified gastrointestinal hemorrhage type Anemia, unspecified type Plan: She was offered a c-scope and EGD to help investigate possible sources of GI bleeding as a cause of her anemia. At this time she would like to hold off on any procedures. Discussed with her the warning signs of anemia/ acute GI bleeding and to continue to monitor her stools. She is welcome to call back at any time to schedule an EGD and c-scope if she decides to move forward with those procedures Thank you, Noah Encarnacion DO documented in this encounter [facility] 05-26-2024 History of Presen t illness Narrative Associated Problem(s): Type 2 diabetes mellitus with hyperglycemia, without long-term current use of insulin (CMS/HCC) Reports BS controlled and due for A1C. Stick to ADA diet and limit carbs. Associated Problem(s): SOB (shortness of breath) Check labs, CXR, and echo. Associated Problem(s): Peripheral vascular disease, unspecified (CMS/HCC) No symptoms [...] Addressed This Visit Peripheral vascular disease, unspecified ([facility]/HCC) No symptoms and follow with vascular. Resume lipitor at 40 mg daily. Chronic osteoarthritis Pain stable and use OTC PRN. Increase activity and walk regularly. Type 2 diabetes mellitus with hyperglycemia, without long-term current use of insulin (CMS/[facility]) - Primary Reports BS controlled and due for A1C. Stick to ADA diet and limit carbs. Relevant Orders Hemoglobin A1c Benign essential hypertension ([facility]) BP controlled and monitor PRN. Relevant Orders [...] chest 2 views documented in this encounter [facility] 03-30-2024 History of Presen t illness Narrative [...] in six months documented in this encounter [facility] 02-24-2024 History of Presen t illness Narrative Patient was in today for a follow up on new hearing aids. Patient states she has been wearing her old hearing aids as these are tinny and loud. Patient was changed to a XS vented dome. I reduced highs in the aids as she continued to say that even my voice sounded tinny. I counseled the patient on wearing the aids in order to adapt. Patient was scheduled for a follow up in one month to check on settings. Patient was encouraged to wear the hearing aids during that month to adapt. documented in this encounter [facility] 03-23-2023 Evaluation note Encounter Date Diagnosis Assessment [...] progressive changes on serial studies is worrisome. [employer] Other 03-27-2023 Evaluation note* Encounter Date Diagnosis [...] in detail that she should return sooner [employer] Other 06-14-2022 Evaluation note* Encounter Date Diagnosis Assessment Notes Treatment Notes Treatment Clinical Notes Nov, Canker sore (ICD-10 - K12.0) Discussed diagnosis with patient. Rx of magic mouthwash called into [facility]. Advised to use as directed. May use salt water gargles in addition for symptom relief, Tylenol/Motrin as needed. Patient to follow up with PCP if symptoms do not improve. Immediate evaluation in ER for warning signs/symptoms as discussed. Patient verbalizes understanding and is agreeable with treatment plan [employer] Other 03-21-2022 Evaluation note* Encounter Date Diagnosis [...] continue to see her every 6 months [employer] Other 08-30-2010 History general Narrative - Reported* [...] carotid DSA's 10-20-2019 Hospitalization History see above [employer] Other Evaluation noteNo assessment information available [facility] Work Phone: Evaluation note* Diagnosis Onset Date Resolution Status S/P carotid endarterectomy a cute [facility] Work Phone: Evaluation note* Diagnosis Sensorineural hearing loss (SNHL) of both ears- Primary documented in this encounter [facility] Diagnosis Type 2 diabetes mellitus with hyperglycemia, without long-term current use of insulin ([facility])- Primary Benign essential hypertension ([facility]) Essential hypertension, benign Chronic osteoarthritis Osteoarthrosis, unspecified whether generalized or localized, unspecified site SUNITA (generalized anxiety disorder) ([facility]) Generalized anxiety disorder Type 2 diabetes mellitus with hyperglycemia, without long-term current use of insulin ([facility])- Primary Benign essential hypertension ([facility]) Essential hypertension, benign Chronic osteoarthritis Osteoarthrosis, unspecified whether generalized or localized, unspecified site Peripheral vascular disease, unspecified ([facility]) Peripheral vascular disease, unspecified Dyslipidemia ([facility]) Other and unspecified hyperlipidemia Encounter for long-term (current) use of medications Encounter for long-term (current) use of other medications Osteopenia of both hips Type 2 diabetes mellitus with diabetic peripheral angiopathy without gangrene, with long-term current use of insulin ([facility]) Type 2 diabetes mellitus with hyperglycemia, without long-term current use of insulin ([facility])- Primary Benign essential hypertension ([facility]) Essential hypertension, benign Chronic osteoarthritis Osteoarthrosis, unspecified whether generalized or localized, unspecified site Peripheral vascular disease, unspecified ([facility]) Peripheral vascular disease, unspecified Fatigue, unspecified type SOB (shortness of breath) Shortness of breath Bilateral edema of lower extremity Encounter for long-term (current) use of medications Encounter for long-term (current) use of other medications documented in this encounter [facility]* Diagnosis Type 2 diabetes mellitus with hyperglycemia, without long-term current use of insulin ([facility])- Primary Benign essential hypertension ([facility]) Essential hypertension, benign Chronic osteoarthritis Osteoarthrosis, unspecified whether generalized or localized, unspecified site SUNITA (generalized anxiety disorder) ([facility]) Generalized anxiety disorder Type 2 diabetes mellitus with hyperglycemia, without long-term current use of insulin ([facility])- Primary Benign essential hypertension ([facility]) Essential hypertension, benign Chronic osteoarthritis Osteoarthrosis, unspecified whether generalized or localized, unspecified site Peripheral vascular disease, unspecified ([facility]) Peripheral vascular disease, unspecified Dyslipidemia ([facility]) Other and unspecified hyperlipidemia Encounter for long-term (current) use of medications Encounter for long-term (current) use of other medications Osteopenia of both hips Type 2 diabetes mellitus with diabetic peripheral angiopathy without gangrene, with long-term current use of insulin ([facility]) Type 2 diabetes mellitus with hyperglycemia, without long-term current use of insulin ([facility])- Primary Benign essential hypertension ([facility]) Essential hypertension, benign Chronic osteoarthritis Osteoarthrosis, unspecified whether generalized or localized, unspecified site Peripheral vascular disease, unspecified ([facility]) Peripheral vascular disease, unspecified Fatigue, unspecified type SOB (shortness of breath) Shortness of breath Bilateral edema of lower extremity Encounter for long-term (current) use of medications Encounter for long-term (current) use of other medications Gastrointestinal hemorrhage, unspecified gastrointestinal hemorrhage type- Primary Anemia, unspecified type documented in this encounter [facility]* Diagnosis Type 2 diabetes mellitus with hyperglycemia, without long-term current use of insulin ([facility])- Primary Benign essential hypertension ([facility]) Essential hypertension, benign Chronic osteoarthritis Osteoarthrosis, unspecified whether generalized or localized, unspecified site SUNITA (generalized anxiety disorder) ([facility]) Generalized anxiety disorder Type 2 diabetes mellitus with hyperglycemia, without long-term current use of insulin ([facility])- Primary Benign essential hypertension ([facility]) Essential hypertension, benign Chronic osteoarthritis Osteoarthrosis, unspecified whether generalized or localized, unspecified site Peripheral vascular disease, unspecified ([facility]) Peripheral vascular disease, unspecified Dyslipidemia ([facility]) Other and unspecified hyperlipidemia Encounter for long-term (current) use of medications Encounter for long-term (current) use of other medications Osteopenia of both hips Type 2 diabetes mellitus with diabetic peripheral angiopathy without gangrene, with long-term current use of insulin ([facility]) Type 2 diabetes mellitus with hyperglycemia, without long-term current use of insulin ([facility])- Primary Benign essential hypertension ([facility]) Essential hypertension, benign Chronic osteoarthritis Osteoarthrosis, unspecified whether generalized or localized, unspecified site Peripheral vascular disease, unspecified ([facility]) Peripheral vascular disease, unspecified Fatigue, unspecified type SOB (shortness of breath) Shortness of breath Bilateral edema of lower extremity Encounter for long-term (current) use of medications Encounter for long-term (current) use of other medications Acute GI bleeding- Primary Unspecified, hemorrhage of gastrointestinal tract 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) Benign essential hypertension ([facility]) Essential hypertension, benign Peripheral vascular disease, unspecified ([facility]) Peripheral vascular disease, unspecified documented in this encounter [facility] Healthcare[facility] note* Diagnosis Sensorineural hearing loss (SNHL) of both ears- Primary documented in this encounter [facility] HealthcareHistory general Narrative - Reported* Type Description [...] History [ ] Hospitalization History see above [employer] Other Hospital Discharge instructions Additional Instructions Remove dressing in 24 hours. No heavy lifting for 2 days.[facility] Work Phone: Summary Purpose Family History Relationship [...] Date/ Time Advance Directives No February 1:09pm Advance Directive Response Recorded Date/ Time Advance Directives No February 12:09pm Hospital Course Note MR#: [id number] I [facility] Pt. Name: Neha Ashton Admitted: 04/29/2018 [...] history of diabetes and hypertension, presented to [facility] secondary to mechanical fall and subsequent [...] Visit S/P carotid endarter ectomy Chief Complaint Admit Date B/P B/L Arms July 18, 2024 1 1:28am Additional Source Comments INFORMATION SOURCE (unrecogn ized section and content) DATE CREATED AUTHOR 01/28/2019 [facility] DATE CREATED AUTHOR AUTHOR'S ORGANIZ ATION 11/05/2022 [facility] DATE CREATED AUTHOR AUTHOR'S ORGANIZ ATION 04/19/2024 [facility] DATE CREATED AUTHOR AUTHOR'S ORGANIZ ATION 06/10/2024 [facility] EPIC Care Teams (unrecognized sec tion and content) Team Status: Active Member Role Status Dates Clayton Manning MD Primary Care Provider Active Team Status: Active Member Role Status Dates Clayton Manning MD Primary Care Provider Active S tart: May 28, 2024 Artemio Tellez DO Attending Provider Active Sta rt: May 28, 2024 Team Status: Inactive Member Role Status Dates Clayton Manning MD Primary Care Provider Active S tart: July 18, 2024 End: July 18, 2024 Willie Herrera MD Attending Provider Active S tart: July 18, 2024 End: July 18, 2024 Team Status: Active Member Role Status Dates Clayton Manning MD Primary Care Provider Active Team Status: Inactive Member Role Status Dates Clayton Manning MD Primary Care Provider Active THOMAS JohnsC Attending Provider Active Team Status: Inactive Member [...] Provider Active S tart: October 05, 2023 Director Telemetry Relationship Specialty Start Date End Date Clayton Manning MD [address] [place] [phone] PCP - General Family Medicine 11/26/23 Team Status: Inactive Member Role Status Dates Clayton Manning MD Primary Care Provider Active S tart: April 18, 2024 End: April 18, 2024 Willie Herrera MD Attending Provider Active S tart: April 18, 2024 End: April 18, 2024 Director Telemetry Relationship Specialty Start Date End Date Clayton Manning MD [address] [place] [phone] PCP - General Family Medicine 11/26/23 Director Telemetry Relationship Specialty Start Date End Date Clayton Manning MD [address] [place] [phone] PCP - General Family Medicine 11/26/23 Director Telemetry Relationship Specialty Start Date End Date Clayton Manning MD [address] [place] [phone] PCP - General Family Medicine 11/26/23 Director Telemetry Relationship Specialty Start Date End Date Clayton Manning MD [address] [place] [phone] PCP - General Family Medicine 11/26/23 Director Telemetry Relationship Specialty Start Date End Date Clayton Manning MD [address] [place] [phone] PCP - General Family Medicine 11/26/23 Director Telemetry Relationship Specialty Start Date End Date Clayton Manning MD [address] [place] [phone] PCP - General Family Medicine 11/26/23 Director Telemetry Relationship Specialty Start Date End Date Clayton Manning MD [address] [place] [phone] PCP - General Family Medicine 11/26/23 Team Status: Active Member Role Status Dates Clayton Manning MD Primary Care Provider Active S tart: May 28, 2024 Artemio Tellez DO Attending Provider Active Sta rt: May 28, 2024 Team Status: Inactive Member Role Status Dates Clayton Manning MD Primary Care Provider Active S tart: July 18, 2024 End: July 18, 2024 Willie Herrera MD Attending Provider Active S tart: July 18, 2024 End: July 18, 2024 Goals (unrecognized section and content) Goals may [...] section and content) Reason Comments Follow-up 6m Reason Comments Colonoscopy Pt presents today fo r a colonoscopy. She states that she went to [facility] ER on 05/26 for feeling very weak. She states that she was told that she was anemic and had a GI bleed. She denies any pain at this time. Reason Comments Follow-up Hospital f/u FOR RECORDS PERTAINING TO PATIENTS WHO ARE [...] BE BASED ON THE PRIMARY CLINICAL RECORDS. [facility]. provides no warranty or guarantee of the accuracy or completeness of information in this document.
== END 2024-07-28 14:23 | disposition home or self-care (01) ==
LOC: LAB 14:24
PROVIDERS: PCP Family Medicine; Visit Provider Family Medicine
DX: D50.0 Iron deficiency anemia secondary to blood loss (chronic) (principal)
CPT/HCPCS: 36415; 85025

== ENCOUNTER 2024-10-25 13:40 | Outpatient (OUT) | payer MEDICARE, MEDICAID, SELFPAY ==
[2024-10-25 14:35] LABS: Anion Gap 11.4; BUN Creatinine Ratio 16.5; Basophils Absolute Auto 0.1 10^3/uL (0.0-0.1); Basophils Percent Auto 0.4 % (0.2-2.0); Calcium 9.7 mg/dL (8.5-10.1); Carbon Dioxide 31.1 mmol/L (21.0-32.0); Chloride 100 mmol/L (98-107); Eosinophils Percent Auto 0.2 % (0.9-7.0); Estimated GFR (African America >60 (>=60 mL/min/1.73m^2); Estimated GFR (Non-African Ame 55 (>=60 mL/min/1.73m^2); Glucose 130 mg/dL (74-106); Hematocrit 39.1 % (36.0-48.0); Hemoglobin 12.4 g/dL (12.0-16.0); Immature Granulocytes Abs Auto 0.04 10^3/uL (0.00-0.03); Immature Granulocytes Pct Auto 0.4 % (0.0-0.5); Lymphocytes Absolute Auto 2.1 10^3/uL (1.2-3.8); Lymphocytes Percent Auto 18.8 % (20.5-60.0); Mean Corpuscular HGB Conc 31.7 g/dL (29.9-35.2); Mean Corpuscular Hemoglobin 26.3 pg (26.7-34.0); Mean Platelet Volume 9.2 fL (9.5-13.5); Monocytes Absolute Auto 0.6 10^3/uL (0.3-0.8); Monocytes Percent Auto 5.1 % (1.7-12.0); Neutrophils Absolute Auto 8.5 10^3/uL (1.4-6.5); Neutrophils Percent Auto 75.1 % (43.0-75.0); Platelet Count 376 10^3/uL (150-450); Potassium 4.5 mmol/L (3.5-5.1); Red Blood Count 4.71 10^6/uL (4.20-5.40); Red Cell Distribution Width 16.5 % (11.0-15.0); Sodium 138 mmol/L (136-145); White Blood Count 11.4 10^3/uL (4.0-11.0)
[2024-10-25 14:50] LABS: Estimated Average Glucose 154 mg/dL
== END 2024-10-25 13:41 | disposition home or self-care (01) ==
LOC: LAB 13:41
PROVIDERS: PCP Family Medicine; Visit Provider Family Medicine
DX: D50.0 Iron deficiency anemia secondary to blood loss (chronic) (principal); E11.65 Type 2 diabetes mellitus with hyperglycemia; I10 Essential (primary) hypertension
CPT/HCPCS: 36415; 80048; 83036; 85025

== ENCOUNTER 2025-01-26 15:05 | Outpatient (OUT) | payer MEDICARE, MEDICAID, SELFPAY ==
--- OUTSIDE RECORDS SUMMARY | 2025-01-26 14:00 | XMS_ITS | Encounter Summary ---
Author Organization [facility] Address [address] [place] [address] Care Team Providers Care Digital Account Supervisor Name Role Phone Clayton Díaz MD Primary Care Provider [phone] Reason for Visit * Reason Comments Follow-up 3mLoss sense of tast e Fatigue Leg Pain Left leg from knee d own burning painSwelling at ankle Encounter Details Date Type Department Care Team (Late st Contact Info) Description 01/26/2025 2:00 PM EDT Office Visit [facility] [address] [place] [address] Clayton Díaz MD [address] [place] [address] Type 2 diabetes mellitus with hyperglycemia, without long-term current use of insulin (HCC) (Primary Dx); Benign essential hypertension ; Bilateral edema of lower extremity; Chronic osteoarthritis; Peripheral vascular disease, unspecified Social History Tobacco Use Types Packs/Day Years Used Date Smoking Tobacco: Former Cigarettes 2003 Smokeless Tobacco: Never Alcohol Use Standard Drinks/Week Comments Never 0 (1 standard drink = 0.6 oz pur e alcohol) PHQ-2 Answer Date Recorded Patient Health Questionnaire-2 Score 1 07/28/2024 Comments Unknown Sex and Gender Information Value Date Recorded Sex Assigned at Not on file Legal Sex Female 7:06 PM EDT Gender Identity Not on file Sexual Orientation Not on file documented as of this encounter Last Filed Vital Signs Vital Sign Reading Time Taken Comments Blood Pressure 122/50 01/26/2025 2:17 PM EDT Pulse 107 01/26/2025 2:17 PM EDT Temperature 36.4 C (97.5 F) 01/26/2025 2:17 PM EDT Respiratory Rate 22 01/26/2025 2:17 PM EDT Oxygen Saturation 96% 01/26/2025 2:17 PM EDT Inhaled Oxygen Concentration - - Weight 64 kg (141 lb) 01/26/2025 2:17 PM EDT Height 152.4 cm (5') 01/26/2025 2:17 PM EDT Body Mass Index 27.54 01/26/2025 2:17 PM EDT documented in this encounter Progress Notes * Clayton Díaz MD - 01/26/2025 2:57 PM EDTAssociated Problem(s): Type 2 diabetes mellitus with hyperglycemia, without long-term current use of insulin (HCC) Reports BS controlled and due for A1C. Stick to ADA diet and limit carbs. * Clayton íDaz MD - 01/26/2025 2:56 PM EDTAssociated Problem(s): Peripheral vascular disease, unspecified No symptoms and follow with vascular. * Clayton Díaz MD - 01/26/2025 2:56 PM EDTAssociated Problem(s): Chronic osteoarthritis Increased pain and start ultram PRN. * Clayton Díaz MD - 01/26/2025 2:56 PM EDTAssociated Problem(s): Bilateral edema of lower extremity Edema controlled with lasix and continue. Elevated legs PRN. * Clayton Díaz MD - 01/26/2025 2:55 PM EDTAssociated Problem(s): Benign essential hypertension BP low and signs of orthostatic hypotension. Stop losartan and monitor PRN. * Clayton Díaz MD - 01/26/2025 2:00 PM EDT Images from the original note were not included. Subjective Patient ID: Neha Ashton is a 79 y.o. female who presents for Follow-up (3m/Loss sense of taste),Fatigue, and Leg Pain (Left leg from knee down burning pain/Swelling at ankle). Follow up DM, HTN, OA, and PVD. Patient stable today. BS variable and ranges 106-200 but average around 150. Tries to eat well and stick to ADA diet but reports occasional splurges. Denies signs of elevated BS such as polyuria, polyphagia or polydipsia. C/o lightheaded and off balance with positionchanges. Feels very lightheaded when go from sitting to standing or if bend over then stand. Not checking BP away from office and BP normal today. OA slightly worse. Mild pain and stiffness in hands,back, and knees. Stiff and sore in am but improved once up and moving. Using OTC PRN and helps whenneeded. Able to stay active and complete ADLs. PVD stable. Following with vascular surgery and stabl e. Fatigue Associated symptoms include fatigue. Pertinent negatives include no abdominal pain, chest pain, coughing, nausea or vomiting. Leg Pain Review of Systems Constitutional: Positive for fatigue. Respiratory: Negative for cough, shortness of breath [...] Addressed This Visit Peripheral vascular disease, unspecified No symptoms and follow with vascular. Chronic osteoarthritis Increased pain and start ultram PRN. Relevant Medications traMADol (Ultram) 50 MG tablet Type 2 diabetes mellitus with hyperglycemia, without long-term current use of insulin (HCC) - Primary Reports BS controlled and due for A1C. Stick to ADA diet and limit carbs. Relevant Medications glucose blood test strip Other Relevant Orders Hemoglobin A1c Microalbumin / creatinine, urine ratio Benign essential hypertension BP low and signs of orthostatic hypotension. Stop losartan and monitor PRN. Bilateral edema of lower extremity Edema controlled with lasix and continue. Elevated legs PRN. documented in this encounter Plan of Treatment Upcoming Encounters Date Type Department Care Team (Late st Contact Info) Description 02/22/2025 1:00 PM EDT Office Visit [facility] [address] [place] [address] 05/01/2025 1:45 PM EST [facility] [address] [place] [address] Calyton Díaz MD [address] [place] [address] Scheduled Orders Name Type Priority Associated Diagnoses Orde r Schedule Hemoglobin A1c Lab Routine Type 2 diabetes mellitus with hyperglycemia, without long-term current use of insulin (HCC) Expected: 01/26/2025 (Approximate), Expires: 01/26/2026 Microalbumin / creatinine, urine ratio Lab Routine Type 2 diabetes mellitus with hyperglycemia, without long-term current use of insulin (HCC) Expected: 01/26/2025 (Approximate), Expires: 01/26/2026 documented as of this encounter Visit Diagnoses Diagnosis Type 2 diabetes mellitus with hyperglycemia, without long-term current use of insulin (HCC)- Primary Benign essential hypertension Essential hypertension, benign Bilateral edema of lower extremity Chronic osteoarthritis Osteoarthrosis, unspecified whether generalized or localized, unspecified site Peripheral vascular disease, unspecified documented in this encounter Additional Health Concerns Assessment Noted Time PHQ-9 Depression Total Score: 1 07/28/19 25 1:00 PM EST documented as of this encounter Care Teams Digital Account Supervisor Relationship Specialty Start Date End Date Clayton Díaz MD [address] [place] [address] PCP - General Family Medicine 11/26/23 documented as of this encounter
--- OUTSIDE RECORDS SUMMARY | 2025-01-26 15:09 | XMS_ITS | Encounter Summary ---
Author Organization [facility] Address [address] [place] [address] Care Team Providers Care Pearl Glue Operator Name Role Phone Clayton Díaz MD Primary Care Provider Otis Mcfarland MA Unavailable [phone] Encounter Details Date Type Department Care Team (Late Contact Info) Description 12/19/2023 Abstract [facility] [address] [place] [address] Hanny Ruffin, [facility] [address] [facility] [place] [address] Social History Tobacco Use Types Packs/Day Years Used Date Smoking Tobacco: Former Cigarettes 2003 Smokeless Tobacco: Never Alcohol Use Standard Drinks/Week Comments Never 0 (1 standard drink = 0.6 oz pur e alcohol) Comments Unknown Sex and Gender Information Value Date Recorded Sex Assigned at Not on file Legal Sex Female 7:06 PM EDT Gender Identity Not on file Sexual Orientation Not on file documented as of this encounter Plan of Treatment Upcoming Encounters Date Type Department Care Team (Late st Contact Info) Description 02/22/2025 1:00 PM EDT Office Visit [facility] [address] [place] [address] 05/01/2025 1:45 PM EST Office Visit [facility] [address] [place] [address] Clayton Díaz MD [address] [place] [address] documented as of this encounter Visit Diagnoses Not on filedocumented in this encounter Care Teams Pearl Glue Operator Relationship Specialty Start Date End Date Clayton Díaz MD [address] [place] [address] PCP - General Family Medicine 11/26/23 Otis Mcfarland MA [address] [place] [address] Family Medicine 07/29/24 10/24/24 documented as of this encounter
--- OUTSIDE RECORDS SUMMARY | 2025-01-26 15:09 | XMS_ITS | Encounter Summary ---
Author Organization [facility] Address [address] [place] [address] Care Team Providers Care Rubber Mold Maker Name Role Phone Clayton Díaz MD Primary Care Provider [phone] Clayton Díaz MD Primary Care Provider [phone] Otis Mcfarland MA Unavailable [phone] Encounter Details Date Type Department Care Team (Late st Contact Info) Description 11/07/2020 Abstract [facility] [address] [facility] [place] [address] Hanny Ruffin, [facility] [address] [facility] [place] [address] Social History Tobacco Use Types Packs/Day Years Used Date Smoking Tobacco: Never Assessed Comments Unknown Sex and Gender Information Value [...] [facility] [address] [place] [address] 05/01/2025 1:45 PM EST Office Visit [facility] [address] [place] [address] Clayton Díaz MD [address] [place] [address] documented as of this encounter Visit Diagnoses Not on filedocumented in this encounter Care Teams Rubber Mold Maker Relationship Specialty Start Date End Date Clayton Díaz MD PCP - General Family Medicine 06/05/23 11/25/23 Clayton Díaz MD [address] [place] [place] [address] PCP - General Family Medicine 11/26/23 Otis Mcfarland, SHAE [address] [place] [address] Family Medicine 07/29/24 10/24/24 documented as of this encounter
--- OUTSIDE RECORDS SUMMARY | 2025-01-26 15:09 | XMS_ITS | Encounter Summary ---
Author Organization [facility] Address [address] [place] [place] [address] Care Team Providers Care Field Operations Manager Name Role Phone Clayton Díaz MD Primary Care Provider [phone] Clayton Díaz MD Primary Care Provider [phone] Otis Mcfarland MA Unavailable [phone] Reason for Visit * Reason Comments Med Change Request Encounter Details Date Type Department Care Team (Late Contact Info) Description 09/30/2023 Refill [facility] [address] [place] [address] Clayton Díaz MD [address] [place] [address] Type 2 diabetes mellitus with hyperglycemia, without long-term current use of insulin (HCC) Social History Tobacco Use Types Packs/Day Years [...] Description 02/22/2025 1:00 PM EDT Office Visit [facility] [address] [place] [address] 05/01/2025 1:45 PM EST [facility] [address] [place] [address] Clayton Díaz MD [address] [place] [address] documented as of this encounter Visit Diagnoses Diagnosis Type 2 diabetes mellitus with hyperglycemia, without long-term current use of insulin (HCC) documented in this encounter Care Teams Field Operations Manager Relationship Specialty Start Date End Date Clayton Díaz MD PCP - General Family Medicine 06/05/23 11/25/23 Clayton Díaz MD [address] [place] [address] PCP - General Family Medicine 11/26/23 Otis Mcfarland, SHAE [address] [place] [address] Family Medicine 07/29/24 10/24/24 documented as of this encounter
--- OUTSIDE RECORDS SUMMARY | 2025-01-26 15:09 | XMS_ITS | Clinical Summary ---
Author Organization [facility] Address [address] [place] [address] Care Team Providers Care Mill Feeder Name Role Phone Unavailable Primary Care Provider Unavailabl e Social History Tobacco Use Types Packs/Day Years Used Date Smoking Tobacco: Never Assessed Comments Unknown Sex and Gender Information Value Date Recorded Sex Assigned at Not on file Legal Sex Female 12:39 AM EDT Gender Identity Not on file Sexual Orientation Not on file Plan of Treatment Not on file
--- OUTSIDE RECORDS SUMMARY | 2025-01-26 15:09 | XMS_ITS | Encounter Summary ---
Author Organization [facility] Address [address] [place] [place] [address] Care Team Providers Care Loan Counselor Name Role Phone Clayton Díaz MD Primary Care Provider [phone] Otis Mcfarland MA Unavailable [phone] Encounter Details Date Type Department Care Team (Late st Contact Info) Description 06/17/2024 Clinisync Result Encounter [facility] External Department Unsolicited Clayton Díaz MD [address] [place] [address] Social History Tobacco Use Types Packs/Day Years [...] [facility] [address] [place] [address] 05/01/2025 1:45 PM EST Office Visit [facility] [address] [place] [address] Clayton Díaz MD [address] [place] [address] documented as of this encounter Procedures Procedure Name Priority Date/Time Associated Diagnosis Comments CA ECHO DOPPLER COMPLETE 06/17/2024 9:40 AM EST documented in this encounter Results * CA ECHO DOPPLER COMPLETE (06/17/2024 9:40 AM EST) Anatomical Region Laterality Modality Other 06/17/2024 9:40 AM EST Narrative 06/17/2024 9:41 [place] [address] Cardiology Report Signed Patient: NEHA DENIS MR#: [id number] : 1945 Acct:[id number] Age/Sex: 78 / F ADM Date: 06/16/24 Loc: CARD Attending Dr: Clayton Díaz M.D. Ordering Physician: Clayton Díaz M.D. Date of Service: 06/16/24 Procedure(s): CA echo doppler complete Accession Number(s): [id number] cc: Clayton Díaz M.D. Patient Name: NEHA DENIS MR#: [id number] : 1945 Exam Date: 06/16/2024 Ordering Doctor: DR Clayton Díaz . ECHOCARDIOGRAM REPORT PROCEDURE: CA ECHO DOPPLER COMPLETE INDICATIONS: Edema, shortness of breath, fatigue, hypertension, diabetes COMPARISON: None. DESCRIPTION: COMPLETE ECHOCARDIOGRAM Real-time transthoracic echocardiography with 2D, M-mode, spectral and color flow Doppler performed. QUALITY: Technical quality was good. LEFT VENTRICLE: Normal chamber size. Normal left ventricular wall thickness. Normal systolic function. LV EF: Normal left ventricular ejection fraction, (>55%). DIASTOLIC: Normal diastolic function. ATRIAL SEPTUM: Visually appears intact. LEFT ATRIUM: Normal chamber size. RIGHT ATRIUM: Normal chamber size. RIGHT VENTRICLE: Normal chamber size. Normal right ventricular systolic function. TRICUSPID VALVE: Normal mobility and thickness. No stenosis with trivial regurgitation. No evidence of pulmonary hypertension. RVSP 31 mmHg MITRAL VALVE: Normal mobility and thickness. No evidence of mitral valve stenosis. Mild mitral annular calcification. No mitral regurgitation. AORTIC VALVE: Normal trileaflet appearance. Mildly calcified aortic valve. Normal leaflet mobility. No evidence of aortic valve stenosis. No aortic regurgitation. AORTIC ROOT: Normal diameter and appearance. Ascending aorta is normal in size. PULMONIC VALVE: Normal thickness and mobility. No stenosis. Trivial regurgitation. PERICARDIUM: No evidence of pericardial effusion. IVC: Collapses with inspirations. PLEURA: CONCLUSION: 1. Normal left ventricular size and systolic function. LVEF is estimated at 55 to 60%. 2. Normal right ventricular size and systolic function. 3. Normal diastolic function. 4. No significant valvular dysfunction. 5. Normal right-sided pressures. Adult Echocardiography Procedure Report Left Ventricle LVEDD (3.7 - 5.6 cm): 4.46 cm LVESD (2.2 - 4.0 cm): 3.16 cm LVIVS thickness (0.6 - 1.2 cm): 1.02 cm LVPW thickness (0.5 - 1.0 cm): 0.94 cm e': 0.09 m/s E - e': 6.09 LVOT Max Gradient: 2.04 mm[Hg] LVOT Area (cm2): 0.71 m/s Peak Velocity (LVOT): 0.71 m/s Mean Velocity (LVOT): 0.47 m/s LVOT Diameter 1.93 cm Left Atrium LA Volume Index (2D A2C): 27.29 ml/m2 Left Atrium Systolic Dimension: 2.84 cm Mitral Valve MV E to A Ratio: 0.64 Mitral Valve A-Wave Peak Velocity: 0.90 m/s Mitral Valve E-Wave Peak Velocity: 0.57 m/s Right Ventricle Aorta AO Root Diam: 2.78 cm Ascending Ao Diam: 2.14 cm Aortic Valve AoV Area (Peak Ibrahima): 1.71 cm2, 1.71 cm2 AoV Area (VTI): 1.72 cm2, 1.72 cm2 Peak Velocity(Antegrade Flow): 1.23 m/s Peak Gradient(Antegrade Flow): 6.02 mm[Hg] Mean Velocity(Antegrade Flow): 0.89 m/s Mean Gradient(Antegrade Flow): 3.55 mm[Hg] Velocity Time Integral: 28.39 cm Tricuspid Valve Peak Velocity (Regurgitant Flow): 2.67 m/s Pulmonic Valve Mean Gradient: 1.62 mm[Hg] Mean Velocity: 0.58 m/s Peak Velocity: 0.98 m/s, 0.91 m/s Peak Gradient: 3.32 mm[Hg], 3.81 mm[Hg] Right Atrium Right Atrium Systolic Pressure: 43.58 ml, 43.58 ml Dictated by: Stan Fraser M.D. on 06/17/2024 at 09:37 Approved by: Stan Fraser M.D. on 06/17/2024 at 09:40 Dictated By: STAN FRASER Signed By: 06/17/24940 DD/ 9 TD/TT: [employer] Portal Developer: Procedure Note Radiology, Radiologist, MD - 06/17/2024 [place] [address] Cardiology Report Signed Patient: NEHA DENIS MMR#: [id number] : 1945cct:[id number] Age/Sex: 78 / FADM Date: 06/16/24 Loc: CARD Attending Dr: Clayton Díaz M.D. Ordering Physician: Clayton Díaz M.D. Date of Service: 06/16/24 Procedure(s): CA echo doppler complete Accession Number(s): [id number] cc: Clayton Díaz M.D. Patient Name: NEHA DENIS MR#: [id number] : 1945 Exam Date: 06/16/2024 Ordering Doctor: DR Clayton Díaz . ECHOCARDIOGRAM REPORT PROCEDURE: CA ECHO DOPPLER COMPLETE INDICATIONS: Edema, shortness of breath, fatigue, hypertension,diabetes COMPARISON: None. DESCRIPTION: COMPLETE ECHOCARDIOGRAM Real-time transthoracic echocardiography with 2D, M-mode, spectral and color flow Dopplerperformed. QUALITY: Technical quality was good. LEFT VENTRICLE: Normal chamber size. Normal left ventricular wall thickness. Normal systolic function. LV EF: Normal left ventricular ejection fraction, (>55%). DIASTOLIC: Normal diastolic function. ATRIAL SEPTUM: Visually appears intact. LEFT ATRIUM: Normal chamber size. RIGHT ATRIUM: Normal chamber size. RIGHT VENTRICLE: Normal chamber size. Normal right ventricularsystolic function. TRICUSPID VALVE: Normal mobility and thickness. No stenosis withtrivial regurgitation. No evidence of pulmonary hypertension. RVSP 31 mmHg MITRAL VALVE: Normal mobility and thickness. No evidence of mitralvalve stenosis. Mild mitral annular calcification. No mitral regurgitation. AORTIC VALVE: Normal trileaflet appearance. Mildly calcified aorticvalve. Normal leaflet mobility. No evidence of aortic valve stenosis. No aortic regurgitation. AORTIC ROOT: Normal diameter and appearance. Ascending aorta is normalin size. PULMONIC VALVE: Normal thickness and mobility. No stenosis. Trivial regurgitation. PERICARDIUM: No evidence of pericardial effusion. IVC: Collapses with inspirations. PLEURA: CONCLUSION: 1. Normal left ventricular size and systolic function. LVEF is estimatedat 55 to 60%. 2. Normal right ventricular size and systolic function. 3. Normal diastolic function. 4. No significant valvular dysfunction. 5. Normal right-sided pressures. Adult Echocardiography Procedure Report Left Ventricle LVEDD (3.7 - 5.6 cm): 4.46 cm LVESD (2.2 - 4.0 cm): 3.16 cm LVIVS thickness (0.6 - 1.2 cm): 1.02 cm LVPW thickness (0.5 - 1.0 cm): 0.94 cm e': 0.09 m/s E - e': 6.09 LVOT Max Gradient: 2.04 mm[Hg] LVOT Area (cm2): 0.71 m/s Peak Velocity (LVOT): 0.71 m/s Mean Velocity (LVOT): 0.47 m/s LVOT Diameter 1.93 cm Left Atrium LA Volume Index (2D A2C): 27.29 ml/m2 Left Atrium Systolic Dimension: 2.84 cm Mitral Valve MV E to A Ratio: 0.64 Mitral Valve A-Wave Peak Velocity: 0.90 m/s Mitral Valve E-Wave Peak Velocity: 0.57 m/s Right Ventricle Aorta AO Root Diam: 2.78 cm Ascending Ao Diam: 2.14 cm Aortic Valve AoV Area (Peak Ibrahima): 1.71 cm2, 1.71 cm2 AoV Area (VTI): 1.72 cm2, 1.72 cm2 Peak Velocity(Antegrade Flow): 1.23 m/s Peak Gradient(Antegrade Flow): 6.02 mm[Hg] Mean Velocity(Antegrade Flow): 0.89 m/s Mean Gradient(Antegrade Flow): 3.55 mm[Hg] Velocity Time Integral: 28.39 cm Tricuspid Valve Peak Velocity (Regurgitant Flow): 2.67 m/s Pulmonic Valve Mean Gradient: 1.62 mm[Hg] Mean Velocity: 0.58 m/s Peak Velocity: 0.98 m/s, 0.91 m/s Peak Gradient: 3.32 mm[Hg], 3.81 mm[Hg] Right Atrium Right Atrium Systolic Pressure: 43.58 ml, 43.58 ml Dictated by: Stan Fraser M.D. on 06/17/2024 at 09:37 Approved by: Stan Fraser M.D. on 06/17/2024 at 09:40 Dictated By: STAN FRASER Signed By:06/17/24940 DD/ 9 TD/TT: [employer] Portal Developer: Clayton Díaz MD [facility] Final Result documented in this encounter Visit Diagnoses Not on filedocumented in this encounter Care Teams Loan Counselor Relationship Specialty Start Date End Date Clayton Díaz MD [address] [place] [address] PCP - General Family Medicine 11/26/23 Otis Mcfarland MA [address] [place] [address] Family Medicine 07/29/24 10/24/24 documented as of this encounter
--- OUTSIDE RECORDS SUMMARY | 2025-01-26 15:09 | XMS_ITS | Encounter Summary ---
Author Organization [facility] Address [address] [place] [address] Care Team Providers Care Body Bumper Name Role Phone Clayton Díaz MD Primary Care Provider [phone] Encounter Details Date Type Department Care Team (Late Contact Info) Description 12/12/2024 Abstract [facility] [address] [place] [address] Clayton Díaz MD [address] [place] [address] Social History Tobacco Use Types [...] Encounters Date Type Department Care Team (Late Contact Info) Description 02/22/2025 1:00 PM EDT Office Visit [facility] [address] [place] [address] 05/01/2025 1:45 PM EST Office Visit [facility] [address] [place] [address] Clayton Díaz MD [address] [place] [address] documented as of this encounter Visit Diagnoses Not on filedocumented in this encounter Additional Health Concerns Assessment Noted Time PHQ-9 Depression Total Score: 1 07/28/19 25 1:00 PM EST documented as of this encounter Care Teams Body Bumper Relationship Specialty Start Date End Date Clayton Díaz MD [address] [place] [address] PCP - General Family Medicine 11/26/23 documented as of this encounter
--- OUTSIDE RECORDS SUMMARY | 2025-01-26 15:09 | XMS_ITS | Clinical Summary ---
Author Organization [facility] Address [id number] [address] [place] [address] Care Team Providers Care Chemist Enzymes Name Role Phone Clayton Díaz MD Primary Care Provider [phone] Allergies No known active allergies Medications lisinopril (PRINIVIL,ZESTR IL) 10 mg tablet Take 10 mg by mouth daily. Active insulin NPH and regular human (HumuLIN 70-30,NovoLIN 70-30) 100 unit/mL (70-30) injection Inject 20 Units under the skin every morning before breakfast. Active insulin NPH and regular human (HumuLIN 70-30,NovoLIN 70-30) 100 unit/mL (70-30) injection Inject 16 Units under the skin nightly. Active aspirin (ASPIR-81 ORAL) Take 1 tablet by mouth daily. Active docusate sodium (COLACE) 100 mg capsule Take 100 mg by mouth 2 (two) times a day. Active HYDROcodone-holly taminophen (NORCO) 5-325 mg per tablet Take 1 tablet by mouth every 6 (six) hours as needed for pain. Active calcium carbonate-vitam in D3 (OSCAL D) 250-125 mg-units tablet Take 2 tablets by mouth daily. Active polyethylene glycol (MIRALAX) 17 gram packet Take 17 g by mouth as needed (constipatio n). Active Social History Tobacco Use Types Packs/Day Years Used Date Smoking Tobacco: Former Cigarettes Smokeless Tobacco: Never Alcohol Use Standard Drinks/Week Comments No 0 (1 standard drink = 0.6 oz pur e alcohol) Childcare Answer Date Recorded Childcare Unknown 12/02/2018 Employment Answer Date Recorded Employment Unknown 12/02/2018 Purpose - Life Answer Date Recorded Purpose and direction in life Unknown Comments No Sex and Gender Information Value Date Recorded Sex Assigned at Not on file Legal Sex Female 2:10 PM EDT Gender Identity Not on file Sexual Orientation Not on file Last Filed Vital Signs Vital Sign Reading Time Taken Comments Blood Pressure 140/70 06/10/2018 1:33 PM EST Pulse 90 06/10/2018 1:33 PM EST Temperature 36.8 C (98.2 F) 06/10/2018 1:33 PM EST Respiratory Rate 16 06/10/2018 1:33 PM EST Oxygen Saturation 97% 09/30/2017 2:30 PM EDT Inhaled Oxygen Concentration - - Weight 57.2 kg (126 lb) 05/22/2018 10:43 AM EST Height 152.4 cm (5') 05/22/2018 10:43 AM EST Body Mass Index 24.61 05/22/2018 10:43 AM EST Plan of Treatment Not on file Medical Devices Implanted Type Area Communications Attendant Device Identifier Shelf Expiration Date Model / Serial / Lot Suture Douds - Sn/A - [id number] Implanted:Qty: 1 on 09/30/2017 by Umair Hickey DO at [facility] Douds Right: Shoulder Arthrex 06/21/2019 [id number] / N/A / [id number] Suture Douds Swivel - Sna - [id number] Implanted:Qty: 1 on 09/30/2017 by Umair Hickey DO at [facility] Douds Right: Shoulder Arthrex 12/20/2018 [id number] / NA / [id number] Suture Douds - Sna - [id number] Implanted:Qty: 1 on 09/30/2017 by Umair Hickey DO at [facility] Douds Right: Shoulder Arthrex 12/19/2018 [id number] / NA / [id number] Insurance [facility] MEDICARE Care Teams Chemist Enzymes Relationship Specialty Start Date End Date Clayton Díaz MD PCP - General Family Medicine 09/10/17
--- OUTSIDE RECORDS SUMMARY | 2025-01-26 15:09 | XMS_ITS | Encounter Summary ---
Author Organization [facility] Address [address] [place] [address] Care Team Providers Care Change Management Manager Name Role Phone Clayton Díaz MD Primary Care Provider [phone] Clayton Díaz MD Primary Care Provider [phone] Otis Mcfarland MA Unavailable [phone] Encounter Details Date Type Department Care Team (Late st Contact Info) Description 07/18/2020 Abstract [facility] [address] [facility] [place] [address] Hanny Ruffin, [facility] [address] [facility] [place] [address] Social History Tobacco Use Types Packs/Day Years [...] [facility] [address] [place] [address] 05/01/2025 1:45 PM EST Office Visit [facility] [address] [place] [phone] Clayton Díaz MD [address] [place] [address] documented as of this encounter Visit Diagnoses Not on filedocumented in this encounter Care Teams Change Management Manager Relationship Specialty Start Date End Date Clayton Díaz MD PCP - General Family Medicine 06/05/23 11/25/23 Clayton Díaz MD [address] [place] [address] PCP - General Family Medicine 11/26/23 Otis Mcfarland, [facility] [address] [place] [address] Family Medicine 07/29/24 10/24/24 documented as of this encounter
--- OUTSIDE RECORDS SUMMARY | 2025-01-26 15:09 | XMS_ITS | Encounter Summary ---
Author Organization [facility] Address [address] [place] [address] Care Team Providers Care Roller Leveler Operator Name Role Phone Clayton Díaz MD Primary Care Provider [phone] Clayton Díaz MD Primary Care Provider [phone] Otis Mcfarland MA Unavailable [phone] Encounter Details Date Type Department Care Team (Late st Contact Info) Description 09/15/2023 Orders Only [facility] [address] [place] [address] Clayton Díaz MD [address] [place] [address] Social History Tobacco Use Types Packs/Day Years [...] [facility] [address] [place] [address] 05/01/2025 1:45 PM EST Office Visit [facility] [address] [place] [address] Clayton Díaz MD [address] [place] [address] documented as of this encounter Procedures Procedure Name Priority Date/Time Associated Diagnosis Comments SCANNED LABS Routine 09/15/2023 3:06 PM EDT documented in this encounter Results * SCANNED LABS (09/15/2023 3:06 PM EDT) Clayton Díaz MD LAB CHG PERFORMABLES Final Resul t documented in this encounter Visit Diagnoses Not on filedocumented in this encounter Care Teams Roller Leveler Operator Relationship Specialty Start Date End Date Clayton Díaz MD PCP - General Family Medicine 06/05/23 11/25/23 Clayton Díaz MD [address] [place] [address] PCP - General Family Medicine 11/26/23 Otis Mcfarland MA [address] [place] [address] Family Medicine 07/29/24 10/24/24 documented as of this encounter
--- OUTSIDE RECORDS SUMMARY | 2025-01-26 15:09 | XMS_ITS | Encounter Summary ---
Author Organization [facility] Address [address] [place] [address] Care Team Providers Care Roof Bolting Coal Miner Name Role Phone Clayton Díaz MD Primary Care Provider [phone] Clayton Díaz MD Primary Care Provider [phone] Otis Mcfarland MA Unavailable [phone] Encounter Details Date Type Department Care Team (Late st Contact Info) Description 07/09/2020 Abstract [facility] [address] [facility] [place] [address] Hanny Ruffin, [facility] [address] [facility] [place] [address] Social History Tobacco Use Types Packs/Day Years [...] [facility] [address] [place] [address] 05/01/2025 1:45 PM EST Office Visit [facility] [address] [place] [phone] Clayton Díaz MD [address] [place] [phone] documented as of this encounter Visit Diagnoses Not on filedocumented in this encounter Care Teams Roof Bolting Coal Miner Relationship Specialty Start Date End Date Clayton Díaz MD PCP - General Family Medicine 06/05/23 11/25/23 Clayton Díaz MD [address] [place] [address] PCP - General Family Medicine 11/26/23 Otis Mcfarland, SHAE [address] [place] [address] Family Medicine 07/29/24 10/24/24 documented as of this encounter
--- OUTSIDE RECORDS SUMMARY | 2025-01-26 15:09 | XMS_ITS | Clinical Summary ---
Author Organization [facility] Address [address] [place] [address] Care Team Providers Care Acid Extractor Name Role Phone Clayton Díaz MD Primary Care Provider [phone] Allergies No known active allergies Medications atorvastatin (Lipitor) 40 MG tabletIndications :Dyslipidemia TAKE 1 TABLET BY MOUTH EVERYDAY AT BEDTIME 90 tablet 3 03/02/20 24 Active insulin lispro protamine-insulin lispro (HumaLOG MIX 75/25 KWIKPEN) (75-25) 100 UNIT/ML injectionIndicati ons:Type 2 diabetes mellitus with hyperglycemia, without long-term current use of insulin (HCC) Inject 30 Units under the skin in the morning and 30 Units in the evening. Inject with meals. 15 each 5 03/02/20 24 Active clopidogrel (Plavix) 75 MG tabletIndications :Peripheral vascular disease, unspecified TAKE 1 TABLET BY MOUTH EVERY DAY 90 tablet 3 04/07/20 24 Active ferrous sulfate (Fe Tabs) 325 (65 Fe) MG EC tabletIndications :Anemia due to chronic blood loss Take 1 tablet (325 mg) by mouth in the morning. Take with meals. Do not crush, chew, or split.. 30 tablet 5 06/07/20 24 Active insulin pen needle (BD Pen Needle Karla 2nd Gen) 32G x 4 mm miscIndications:T ype 2 diabetes mellitus with hyperglycemia, without long-term current use of insulin (HCC) USE INSTRUCTED TWICE A DAY 100 each 6 07/19/19 25 Active atorvastatin (Lipitor) 80 MG tabletIndications :Occlusion and stenosis of unspecified carotid artery TAKE 1 TABLET BY MOUTH EVERY DAY FOR 30 DAYS 30 tablet 5 08/30/19 25 Active furosemide (Lasix) 40 MG tabletIndications :Bilateral edema of lower extremity TAKE 1 TABLET BY MOUTH EVERY DAY 90 tablet 1 09/20/19 25 Active pantoprazole (ProtoNix) 40 MG EC tabletIndications :Acute GI bleeding Take 1 tablet (40 mg) by mouth Daily 30 tablet 5 10/26/19 25 Active glucose blood test stripIndications: Type 2 diabetes mellitus with hyperglycemia, without long-term current use of insulin (HCC) 1 each by Other route 3 (three) times a day 100 each 11 01/27/20 25 Active traMADol (Ultram) 50 MG tabletIndications :Chronic osteoarthritis Take 1 tablet (50 mg) by mouth 4 (four) times a day as needed for severe pain for up to 7 days 28 tablet 01/27/20 25 2024 Active losartan (Cozaar) 25 MG tablet Take 25 mg by mouth Daily 07/03/19 25 2024 Discontinued Active Problems Problem Noted Date Diagnosed Date Medicare annual wellness visit, subsequent 07/28 Assessment & Plan (07/28/2024 1:56 PM EST): Reviewed labs. Discussed proper diet and regular aerobic exercise. Need aerobic exercise 5-6 days a week for 30 minutes at a time. Smaller portions and limit total calories. Tetanus every 10 years. Advised not to smoke. Anemia due to chronic blood loss 06/07/2024 Assessment & Plan (10/25/2024 1:29 PM EDT): Repeat labs. Assessment & Plan (07/28/2024 1:56 PM EST): Repeat labs. Assessment & Plan (06/07/2024 2:23 PM EST): Recent anemia and start iron supplement. Fatigue 05/26/2024 Assessment & Plan (05/26/2024 1:36 PM EST): Check labs Bilateral edema of lower extremity 05/26/2024 Assessment & Plan (01/26/2025 2:56 PM EDT): Edema controlled with lasix and continue. Elevated legs PRN. Assessment & Plan (05/26/2024 1:36 PM EST): Developed edema of unclear etiology. Check labs, CXR, and echo. Start lasix. Elevated legs PRN. S/P carotid endarterectomy 11/26/2023 Carotid stenosis 11/26/2023 Encounter for long-term (current) use of medicat ions 11/26/2023 Chronic osteoarthritis 06/05/2023 Assessment & Plan (01/26/2025 2:56 PM EDT): Increased pain and start ultram PRN. Assessment & Plan (10/25/2024 1:29 PM EDT): Pain stable and use OTC PRN. Increase activity and walk regularly. Assessment & Plan (05/26/2024 1:36 PM EST): Pain stable and use OTC PRN. Increase activity and walk regularly. Assessment & Plan (11/26/2023 11:33 AM EDT): Pain stable and use OTC PRN. Increase activity and walk regularly. Assessment & Plan (06/05/2023 11:47 AM EST): Pain stable and use OTC PRN. Dyslipidemia 06/05/2023 Osteopenia of both hips 06/05/2023 SUNITA (generalized anxiety disorder) 06/05/2023 Assessment & Plan (06/05/2023 11:46 AM EST): Reports increased symptoms and discussed medication options. Overall feels like symptoms tolerable and wants to monitor. If worsens can add daily SSRI. Type 2 diabetes mellitus wit h hyperglycemia, without long-term current use of insulin 06/05/2023 Assessment & Plan (01/26/2025 2:57 PM EDT): Reports BS controlled and due for A1C. Stick to ADA diet and limit carbs. Assessment & Plan (10/25/2024 1:30 PM EDT): Reports BS controlled and due for A1C. Stick to ADA diet and limit carbs. Assessment & Plan (07/28/2024 1:57 PM EST): Reports BS controlled and last A1C 7.3. Stick to ADA diet and limit carbs. Assessment & Plan (05/26/2024 1:37 PM EST): Reports BS controlled and due for A1C. Stick to ADA diet and limit carbs. Assessment & Plan (11/26/2023 11:33 AM EDT): Reports BS controlled and due for A1C. Stick to ADA diet and limit carbs. Assessment & Plan (06/05/2023 11:46 AM EST): Reports BS controlled and due for A1C. Stick to ADA diet and limit carbs. Benign essential hypertension 06/05/2023 Assessment & Plan (01/26/2025 2:55 PM EDT): BP low and signs of orthostatic hypotension. Stop losartan and monitor PRN. Assessment & Plan (10/25/2024 1:29 PM EDT): BP controlled and monitor PRN. Assessment & Plan (07/28/2024 1:57 PM EST): BP elevated and resume losartan. Assessment & Plan (06/07/2024 2:23 PM EST): BP normal without medication and monitor. Assessment & Plan (05/26/2024 1:35 PM EST): BP controlled and monitor PRN. Assessment & Plan (11/26/2023 11:32 AM EDT): BP controlled and monitor PRN. Assessment & Plan (06/05/2023 11:47 AM EST): BP elevated and need to start monitoring PRN. Sensorineural hearing loss (SNHL), bilateral 10/2022 Peripheral vascular disease, unspecified 023 Assessment & Plan (01/26/2025 2:56 PM EDT): No symptoms and follow with vascular. Assessment & Plan (10/25/2024 1:29 PM EDT): No symptoms and follow with vascular. Assessment & Plan (06/07/2024 2:23 PM EST): Stop aspirin and continue plavix. Assessment & Plan (05/26/2024 1:36 PM EST): No symptoms and follow with vascular. Resume lipitor at 40 mg daily. Assessment & Plan (11/26/2023 11:33 AM EDT): No symptoms and follow with vascular. Resolved Problems Problem Noted Date Diagnosed Date Resolved Date Acute GI bleeding 06/07/2024 07/28/2024 Assessment & Plan (06/07/2024 2:22 PM EST): Recent bleed likely related to aspirin and plavix. Continue protonix. Resume plavix but stop aspirin. SOB (shortness of breath) 05/26/2024 Assessment & Plan (05/26/2024 1:37 PM EST): Check labs, CXR, and echo. Encounters Date Type Department Care Team Description 01/26/2025 2:00 PM EDT Office Visit [facility] [address] [place] [address] Clayton Díaz MD Type 2 diabetes mellitus with hyperglycemia, without long-term current use of insulin (HCC) (Primary Dx); Benign essential hypertension ; Bilateral edema of lower extremity; Chronic osteoarthritis; Peripheral vascular disease, unspecified 01/26/2025 Bamboo flowsheet [facility] [address] [place] [address] Clayton Díaz MD 12/12/2024 Abstract [facility] [address] [place] [address] Clayton Díaz MD from Last 3 Months Family History Medical History Relation Name Comments Heart disease Father Diabetes Mother Relation Name Status Comments Father Mother Social History Tobacco Use Types Packs/Day Years Used Date Smoking Tobacco: Former Cigarettes 1 2003 Smokeless Tobacco: Never Tobacco Cessation:Counseling Given: Not Answered Alcohol Use Standard Drinks/Week Comments Never 0 [...] Mass Index 27.54 01/26/2025 2:17 PM EDT Plan of Treatment Upcoming Encounters Date Type Department Care Team (Late st Contact Info) Description 02/22/2025 1:00 PM EDT Office Visit [facility] [address] [place] [address] 05/01/2025 1:45 PM EST Office Visit [facility] [address] [place] [address] Clayton Díaz MD [address] [place] [address] Health Maintenance Due Date Last Done Comments Pneumococcal Vaccine: 65+ Ye ars (2 of 2 - PCV) 06/22/2015 06/22/2014 Diabetes: Urine Protein Screening 11/25/2024 024 Influenza Vaccine (#1) 2025 Diabetes: Hemoglobin A1C 04/27/2025 025, 05/26/2024, 11/26/2023 Medicare Annual Wellness (AWV) 07/28/2025 07/28/2024 Diabetes: Retinopathy Screening 08/16/2026 , 08/12/2023 Insurance [employer]ICA[place] Care Teams Acid Extractor Relationship Specialty Start Date End Date Clayton Díaz MD [address] [place] [address] PCP - General Family Medicine 11/26/23
--- OUTSIDE RECORDS SUMMARY | 2025-01-26 15:09 | XMS_ITS | Encounter Summary ---
Author Organization [facility] Address [address] [place] [address] Care Team Providers Care Corporate Tutor Name Role Phone Clayton Manning MD Primary Care Provider [phone] Otis Mcfarland MA Unavailable [phone] Encounter Details Date Type Department Care Team (Late st Contact Info) Description 05/27/2024 Clinisync Result Encounter [facility] External Department Unsolicited Clayton Manning MD [address] [place] [address] Social History Tobacco Use Types [...] [facility] [address] [place] [address] 05/01/2025 1:45 PM EST Office Visit [facility] [address] [place] [address] Clayton Manning MD [address] [place] [address] documented as of this encounter Procedures Procedure Name Priority Date/Time Associated Diagnosis Comments XR CHEST 2V 05/27/2024 6:06 AM EST documented in this encounter Results * XR CHEST 2V (05/27/2024 6:06 AM EST) Anatomical Region Laterality Modality Other 05/27/2024 6:06 AM EST Narrative 05/27/2024 6:09 [place] [address] XRay Report Signed Patient: NEHA DENIS MR#: [id number] : 1945 Acct:[id number] Age/Sex: 78 / F ADM Date: 05/26/24 Loc: LAB Attending Dr: Clayton Manning M.D. Ordering Physician: Clayton Manning M.D. Date of Service: 05/26/24 Procedure(s): XR chest 2V Accession Number(s): [id number] cc: Clayton Manning M.D. [place] [address] Patient Name: NEHA DENIS MRN: [id number] date: 1945 Sex: F Assigned Patient Location: LAB Current Patient Location: Accession/Order Number: [id number] Exam Date: 05/26/2024 14:40 Report Date: 05/27/2024 06:06 At the request of: CLAYTON MANNING Procedure: XR chest 2V EXAMINATION: XR chest 2V HISTORY: Shortness Of Breath , cough COMPARISON: No relevant comparison available. FINDINGS: LUNGS: Mild haziness and stranding within right lung base. VASCULATURE: No increased pulmonary vasculature. PLEURA: No pneumothorax, effusion, or pleural thickening. CARDIAC: No cardiomegaly or cardiac silhouette abnormality. MEDIASTINUM: No visible mass or adenopathy. BONES: No fracture or visible bone lesion. OTHER: Rim calcified breast implants projecting over lung bases. XR/XR chest 2V IMPRESSION: 1. Mild right basilar infiltrates. Electronically authenticated by: BOLIVAR [place] Date: 05/27/2024 06:06 Dictated By: Bolivar [place] M.D. Signed By: 05/27/24608 DD/ 5 TD/TT: Utilities Equipment Repairer: Procedure Note Radiology, Radiologist, - 05/27/2024 [place] [address] XRay Report Signed Patient: NEHA DENIS MMR#: [id number] : 1945cct:[id number] Age/Sex: 78 / FADM Date: 05/26/24 Loc: LAB Attending Dr: Clayton Manning M.D. Ordering Physician: Clayton Manning M.D. Date of Service: 05/26/24 Procedure(s): XR chest 2V Accession Number(s): [id number] cc: Clayton Manning M.D. [place] [address] Patient Name: NEHA DENIS MRN: [id number] date: 1945 Sex: F Assigned Patient Location: LAB Current Patient Location: Accession/Order Number: [id number] Exam Date: 05/26/2024 14:40 Report Date: 05/27/2024 06:06 At the request of: CLAYTON MANNING Procedure: XR chest 2V EXAMINATION: XR chest 2V HISTORY: Shortness Of Breath , cough COMPARISON: No relevant comparison available. FINDINGS: LUNGS: Mild haziness and stranding within right lung base. VASCULATURE: No increased pulmonary vasculature. PLEURA: No pneumothorax, effusion, or pleural thickening. CARDIAC: No cardiomegaly or cardiac silhouette abnormality. MEDIASTINUM: No visible mass or adenopathy. BONES: No fracture or visible bone lesion. OTHER: Rim calcified breast implants projecting over lung bases. XR/XR chest 2V IMPRESSION: 1. Mild right basilar infiltrates. Electronically authenticated by: BOLIVAR [place] Date: 05/27/2024 06:06 Dictated By: Bolivar [place] M.D. Signed By:05/27/24608 DD/ 5 TD/TT: Utilities Equipment Repairer: Clayton Manning MD [facility] Final Result documented in this encounter Visit Diagnoses Not on filedocumented in this encounter Care Teams Corporate Tutor Relationship Specialty Start Date End Date Clayton Manning MD [address] [place] [address] PCP - General Family Medicine 11/26/23 Otis Mcfarland MA [address] [place] [address] Family Medicine 07/29/24 10/24/24 documented as of this encounter
--- OUTSIDE RECORDS SUMMARY | 2025-01-26 15:09 | XMS_ITS | Encounter Summary ---
Author Organization [facility] Address [address] [place] [address] Care Team Providers Care Web Applications Architect Name Role Phone Clayton Díaz MD Primary Care Provider [phone] Clayton Díaz MD Primary Care Provider [phone] Otis Mcfarland MA Unavailable [phone] Encounter Details Date Type Department Care Team (Late st Contact Info) Description 11/07/2020 Abstract [facility] [address] [facility] [place] [address] Hanny Ruffin, [facility] [address] [facility] [place] [address] Social History Tobacco Use Types Packs/Day Years [...] [facility] [address] [place] [address] 05/01/2025 1:45 PM EST Office Visit [facility] [address] [place] [phone] Clayton Díaz MD [address] [place] [address] documented as of this encounter Visit Diagnoses Not on filedocumented in this encounter Care Teams Web Applications Architect Relationship Specialty Start Date End Date Clayton Díaz MD PCP - General Family Medicine 06/05/23 11/25/23 Clayton Díaz MD [address] [place] [address] PCP - General Family Medicine 11/26/23 Otis Mcfarland, SHAE [address] [place] [address] Family Medicine 07/29/24 10/24/24 documented as of this encounter
--- OUTSIDE RECORDS SUMMARY | 2025-01-26 15:09 | XMS_ITS | Encounter Summary ---
Author Organization [facility] Address [address] [place] [address] Care Team Providers Care Senior Oracle Database Administrator Name Role Phone Clayton Díaz MD Primary Care Provider [phone] Clayton Díaz MD Primary Care Provider [phone] Otis Mcfarland MA Unavailable [phone] Encounter Details Date Type Department Care Team (Late st Contact Info) Description 10/15/2020 Abstract [facility] [address] [facility] [address] Hanny Ruffin, [facility] [address] [facility] [place] [address] Social History Tobacco Use Types Packs/Day Years [...] [facility] [address] [place] [address] 05/01/2025 1:45 PM EST Office Visit [facility] [address] [place] [phone] Clayton Díaz MD [address] [place] [phone] documented as of this encounter Visit Diagnoses Not on filedocumented in this encounter Care Teams Senior Oracle Database Administrator Relationship Specialty Start Date End Date Clayton Díaz MD PCP - General Family Medicine 06/05/23 11/25/23 Clayton Díaz MD [address] [place] [address] PCP - General Family Medicine 11/26/23 Otis Mcfarland, SHAE [address] [place] [address] Family Medicine 07/29/24 10/24/24 documented as of this encounter
--- OUTSIDE RECORDS SUMMARY | 2025-01-26 15:10 | XMS_ITS | Encounter Summary ---
Author Organization [facility] Address [address] [place] [address] Care Team Providers Care Front Desk Clerk Name Role Phone Clayton Díaz MD Primary Care Provider [phone] Encounter Details Date Type Department Care Team (Late Contact Info) Description 10/25/2024 Results Follow-Up [facility] [address] [place] [address] Clayton Díaz MD [address] [place] [address] Social History Tobacco Use Types Packs/Day Years [...] [facility] [address] [place] [address] 05/01/2025 1:45 PM EST Office Visit [facility] [address] [place] [address] Clayton Díaz MD [address] [place] [address] documented as of this encounter Visit Diagnoses Not on filedocumented in this encounter Additional Health Concerns Assessment Noted Time PHQ-9 Depression Total Score: 1 07/28/19 25 1:00 PM EST documented as of this encounter Care Teams Front Desk Clerk Relationship Specialty Start Date End Date Clayton Díaz MD [address] [place] [address] PCP - General Family Medicine 11/26/23 documented as of this encounter
--- OUTSIDE RECORDS SUMMARY | 2025-01-26 15:10 | XMS_ITS | Encounter Summary ---
Author Organization [facility] Address [address] [place] [address] Care Team Providers Care Rejogger Name Role Phone Clayton Díaz MD Primary Care Provider [phone] Otis Mcfarland MA Unavailable [phone] Reason for Visit * Reason Comments Med Refill Encounter Details Date Type Department Care Team (Late st Contact Info) Description [facility] [address] [place] [address] Clayton Díaz MD [address] [place] [address] Bilateral edema of lower extremity Social History Tobacco Use Types Packs/Day Years [...] on file documented as of this encounter Miscellaneous Notes * Telephone Encounter - JOHNNY ANN - 09/19/2024 2:55 PM EDT MEDICATION SENT TO [facility] documented in this encounter Plan of Treatment Upcoming Encounters Date Type Department Care Team (Late st Contact Info) Description 02/22/2025 1:00 PM EDT Office Visit [facility] [address] [place] [address] 05/01/2025 1:45 PM EST Office Visit [facility] [address] [place] [address] Clayton Díaz MD [address] [place] [address] documented as of this encounter Visit Diagnoses Diagnosis Bilateral edema of lower extremity documented in this encounter Additional Health Concerns Assessment Noted Time PHQ-9 Depression Total Score: 1 07/28/19 1:00 PM EST documented as of this encounter Care Teams Rejogger Relationship Specialty Start Date End Date Clayton Díaz MD [address] [place] [address] PCP - General Family Medicine 11/26/23 Otis Mcfarland MA [address] [place] [address] Family Medicine 07/29/24 10/24/24 documented as of this encounter
--- OUTSIDE RECORDS SUMMARY | 2025-01-26 15:10 | XMS_ITS | Encounter Summary ---
Author Organization [facility] Address [address] [place] [address] Care Team Providers Care Foundry Worker Apprentice Name Role Phone Clayton Díaz MD Primary Care Provider [phone] Otis Mcfarland MA Unavailable [phone] Encounter Details Date Type Department Care Team (Late st Contact Info) Description 05/30/2024 Orders Only [facility] [address] [place] [address] Clayton Díaz MD [address] [place] [address] Social History Tobacco Use Types Packs/Day Years [...] [facility] [address] [place] [address] 05/01/2025 1:45 PM EST Office Visit [facility] [address] [place] [place] [address] Clayton Díaz MD [address] [place] [place] [address] documented as of this encounter Procedures Procedure Name Priority Date/Time Associated Diagnosis Comments ELECTROCARDIOGRAM REPORT Routine 11:46 AM EST documented in this encounter Results * Electrocardiogram Report (05/26/2024 11:46 AM EST) us Clayton Díaz MD IN CLINIC/BEDSIDE ORDERABLES Fin al Result documented in this encounter Visit Diagnoses Not on filedocumented in this encounter Care Teams Foundry Worker Apprentice Relationship Specialty Start Date End Date Clayton Díaz MD [address] [place] [place] [address] PCP - General Family Medicine 11/26/23 Otis Mcfarland MA [address] [place] [address] Family Medicine 07/29/24 10/24/24 documented as of this encounter
--- OUTSIDE RECORDS SUMMARY | 2025-01-26 15:10 | XMS_ITS | Encounter Summary ---
Author Organization [facility] Address [address] [place] [place] [address] Care Team Providers Care Meteorological Observer Name Role Phone Clayton Díaz MD Primary Care Provider Otis Mcfarland MA Unavailable [phone] Encounter Details Date Type Department Care Team (Late Contact Info) Description 06/23/2024 Orders Only [facility] [address] [place] [address] Clayton Díaz MD [address] [place] [address] Social History Tobacco Use Types Packs/Day Years [...] Visit [facility] [address] [place] [address] 05/01/2025 1:45 PM EST Office Visit [facility] [address] [place] [address] Clayton Díaz MD [address] [place] [address] documented as of this encounter Visit Diagnoses Not on filedocumented in this encounter Care Teams Meteorological Observer Relationship Specialty Start Date End Date Clayton Díaz MD [address] [place] [address] PCP - General Family Medicine 11/26/23 Otis Mcfarland MA [address] [place] [address] Family Medicine 07/29/24 10/24/24 documented as of this encounter
--- OUTSIDE RECORDS SUMMARY | 2025-01-26 15:10 | XMS_ITS | Encounter Summary ---
Author Organization [facility] Address [address] [place] [address] Care Team Providers Care Metal Template Maker Name Role Phone Clayton Díaz MD Primary Care Provider Otis Mcfarland MA Unavailable [phone] Encounter Details Date Type Department Care Team (Late Contact Info) Description 08/16/2024 Orders Only [facility] [address] [place] [address] Virginia Mcdonough, OD [address] [place] [address] Social History Tobacco Use Types Packs/Day Years [...] [facility] [address] [place] [address] 05/01/2025 1:45 PM EST Office Visit [facility] [address] [place] [address] Clayton Díaz MD [address] [place] [address] documented as of this encounter Procedures Procedure Name Priority Date/Time Associated Diagnosis Comments DIABETES EYE EXAM Routine 08/16/2024 2:07 PM EST documented in this encounter Results * Diabetes Eye Exam (08/16/2024 2:07 PM EST) Virginia Mcdonough OD HEALTH MAINTENANCE Final Result documented in this encounter Visit Diagnoses Not on filedocumented in this encounter Additional Health Concerns Assessment Noted Time PHQ-9 Depression Total Score: 1 07/28/19 1:00 PM EST documented as of this encounter Care Teams Metal Template Maker Relationship Specialty Start Date End Date Clayton Díaz MD [address] [place] [address] PCP - General Family Medicine 11/26/23 Otis Mcfarland MA [address] [place] [address] Family Medicine 07/29/24 10/24/24 documented as of this encounter
== END 2025-01-26 15:06 | disposition home or self-care (01) ==
PROVIDERS: PCP Family Medicine; Visit Provider Family Medicine
DX: E11.65 Type 2 diabetes mellitus with hyperglycemia (principal)
CPT/HCPCS: 36415; 82043; 82570; 83036

== ENCOUNTER 2025-05-01 14:37 | Outpatient (OUT) | payer MEDICARE, MEDICAID, SELFPAY ==
--- OUTSIDE RECORDS SUMMARY | 2025-05-01 09:22 | XMS_ITS | Continuity of Care Document ---
Author Organization [facility] Address [address] [place] [address] Phone Care Team Providers Care Instructor Looping Name Role Phone Clayton Díaz MD Primary Care Provider Clayton Díaz MD Attending Provider [phone] Care Teams Patient Care Team Team Status: Active Member Role/Relationship Status Dates Clayton Díaz MD Primary Care Provider Active Patient Care Team Team Status: Inactive Member Role/Relationship Status Dates Clayton Díaz MD Primary Care Provider Active S tart: May 01, 2025 End: May 01, 2025[facility] LG Díazttending ProviderActiveStart: May 01, 2025 End: May 01, 2025 Chief Complaint and Reason for Visit Chief Complaint Admit Date Established Patient May 01, 2025 1:36pm Reason for Visit Admit Date Benign essential hypertension April 222024 1:36pm Chronic osteoarthritis May 01 1:36pm Peripheral vascular disease, unspecified May 01, 2025 1:36pm Type 2 diabetes mellitus wit h hyperglycemia, without long-term current use May 01, 2025 1:36pm Allergies, Adverse Reactions, Alerts Allergen Type Severity Reaction Last Updated Verified Status No Known Allergies Allergy Unknown May 01, 2025 1:56pmYesActive Social History Smoking Status Status Start Date End Date Date of Observa tion Ex-smoker (finding) May 01, 2025 1:58pm Observation Status Observation Response Date of Response Legal Sex [facility] (finding) [facility] Family History Relationship Condition Age at Onset Recorded Date/T armando Not Specified No pertinent family history Unknown brotherDeceasedUnknownMalignant neoplasmUnknownfatherDeceasedUnknownmother DeceasedUnknownsonDiabetes mellitusUnknown Problems Active Problems Problem Diagnosis/Recorded Date Onset Date Status C omments Chronic osteoarthritis April 27, 2025 2:52pm Unknown Active Bilateral edema of lower extremityApril 27, 2025 2:52pmUnknownActiveMedicare annual wellness visit, subsequentMay 01, 2025 2:09pmUnknownActiveGAD (generalized anxiety disorder)April 27, 2025 2:53pmUnknownActiveFatigue April 27, 2025 2:52pmUnknownActiveBenign essential hypertensionApril 27, 2025 2:51pmUnknownActiveDyslipidemiaApril 27, 2025 2:52pmUnknownActive Encounter for long-term (current) use of medicationsMay 01, 2025 2:09pm UnknownActivePeripheral vascular disease, unspecifiedApril 27, 2025 2:53pm UnknownActiveType 2 diabetes mellitus with hyperglycemia, without long-term current use of insulinApril 27, 2025 2:54pmUnknownActiveSensorineural hearing loss (SNHL), bilateralApril 27, 2025 2:53pmUnknownActiveS/P carotid endarterectomyApril 2023 10:00amUnknownActiveAnemia due to chronic blood lossApril 27, 2025 2:51pmUnknownActiveOsteopenia of both hipsApril 27, 2025 2:53pmUnknownActiveInactive/Resolved Problems Problem Diagnosis/Recorded Date Onset Date Status C omments Carotid stenosis December 28, 2020 9:54am Unknown Resolved Problem List clean-up per request of Phys. EHR Cmte Closed right hip fracture March 22, 2019 11:12am Unknown Resolved with r epairProblem List clean-up per request of Phys. EHR Cmte Medications Medication Status Dose Units Route Directions Qty Days Refills S tart Date Stop Date End Date Reason(s) Instructions Adherence Furosemide 40 mg tablet Active 40 MG PO Daily 30 5September 15th, 2025 9:01amComplies with drug therapyInsulin Lispro Protamin- Lispro 100 unit/mL (75-25) insulin bvsWcgjce34SZQWAQBDNUXikoc ppcle69245Gicgbsk 2024 11:00pmInject 30 units under the skin in the morning and 30 units in the evening. Inject with meals.Complies with drug therapyTramadol 50 mg tablet Ojevceuynigj94NDVSdunfa 6 to 8 hours as needed for gudb2680Zczxrke 2018 11:00pmApril 2019 8:14amOther acute postprocedural painLosartan 25 mg davsjlHgjdrznagkdu10CFKYWoovxQoval 2019 11:00pmJanuary 2024 11:45am Atorvastatin 40 mg ozueswJuxrtrystaso45MHAUYonpfLghepxz 2022 11:00pm April 27, 2025 2:47pmInsulin Nph And Regular Human 100 unit/mL (70-30) iuappfnifoYkdukvaaloek68YDXDAHRMDPSBxkgi before breakfastOctober 2016 11:00pmOctober 2022 8:15amInsulin Nph And Regular Human 100 unit/mL (70-30) qnweflamutMzbqphhgapta68SGRXBOCKNWXArjmx before supperOctober 2016 11:00pm April 19, 2025 12:36pmCalcium Carbonate (Calcium 600) 600 mg calcium (1,500 mg) TqvhgbFgsobkpxydqw6HWLQEZeanpKqfblmr 2016 11:00pmApril 27, 2025 2:48pmSimvastatin 20 mg SizcszKahjwcswbxfy54MCEMUskovKnjmvlx 2016 11:00pm March 22, 2019 11:08amAspirin (Jannette Chewable Aspirin) 81 mg Tablet,Chewable Qycgcpkbqecx88QZZYJzejmWbhddry 2016 11:00pmJanuary 2024 11:39am Lisinopril 5 mg JruaejQsisrftigqsk6TJPXQRwpspJdnfrdu 2016 11:00pmApril 2019 8:14amOmega 6-Pdy-Jtc-Fish Oil (Fish Oil) 1,000 mg (120 mg-180 mg) LdvdmrmHzgperpatdtl2LWALPHbobkStuvnvz 2016 11:00pmOctober 2018 11:09am Vit D3-Folic Dbsb-H5-B9-B12 2,000-800-0.32 unit-mcg-mg IpadnhEuaghficoghe9TCCIG DailyOct2016 11:00pmNov2024 2:49pmAscorbic Acid (Vitamin C) (Vitamin C) 1,000 mg CmpvzlGafwpknheyzc6CQTYEYdimiKkbatsikm 2018 11:00pm April 27, 2025 2:48pmClopidogrel 75 mg pqxjfrKhpask07XKULGwwcfZmea 2020 11:00pmComplies with drug therapyFurosemide 40 mg tabletDiscontinuedMGPO September 18, 2024 11:00pmSeptember 2024 9:01amPantoprazole 40 mg tablet,delayed release (DR/EC)ActiveMGPOJanuary 2024 12:00amComplies with drug therapyAtorvastatin 80 mg tabletDiscontinuedMGPOJanuary 2024 12:00am September 19, 2024 10:52amFerrous Sulfate 325 mg (65 mg iron) tablet,delayed release (DR/EC)ActiveMGPOJanuary 2024 12:00amComplies with drug therapy Atorvastatin 80 mg jexoyaKrwncb24TTAXTrnspWkhibaob 6th, 2025 12:00amComplies with drug therapyPen Needle, Diabetic 32 gauge x 5/32 needleActive0.ROUTE April 27, 2025 12:00amAs directed Medical Equipment Device Date Implanted Device Details Bare-metal carotid artery stent October 20, 2019 AMY: [id number] Issuing Agency: GS1 Device Id: [id number] Expiration Date: 8456-05-32OW STENT PRECISE 9E28KULnslkmt 2016Bare-metal carotid artery stentJune 2020UDI: [id number] Issuing Agency: [employer] Device Id: [id number] Expiration Date: 2021-03-21 Lot Number: [id number] vascular graftOctober 2018UDI: [id number] Issuing Agency: [employer]1 Device Id: [id number] Expiration Date: 2023-10-20 Lot Number: [id number] Serial Number: [id number] Vital Signs Vital Reading Result Reference Range Collection Date/Time Height 60 [in_i] May 01, 2025 1:47spQxzueb32.95 kgMay 01, 2025 1:56pmBody Thgfisjxuya79.1 [degF]97.6-99.0May 01, 2025 1:56pmHeart Rate98 /uvj06-758 May 01, 2025 1:56pmRespiratory rate20 /itk09-21WiwrezexMay 01, 2025 1:56pm BP Mjkvhhbr553 mm[Hg]100-140May 01, 2025 1:56pmBP Dagwdxyis83 mm[Hg] 60-100May 01, 2025 1:56pmBMI (Body Mass Index)27.5 kg/n1SioucaxrMay 01, 2025 1:56pm Advance Directives Advance Directive Response Recorded Date/ Time Advance Directives No February 12:09pm Insurance Providers Guarantor Lyndsay Orozco Address [address] [address]Qrdcyuo Info.Home Phone: Payer Group Member ID Coverage Type Subscriber Relationship to Subscriber Effective Date Expiration Date Medicaid [id number] [place] , M Id: [id number] [address] [address] Home Phone: Email: Declined [id number] Id: [id number] [place] , M Id: [id number] [address] [address] Home Phone: Email: Declined [phone] Encounters Encounter Location(s) Arrival/Admit Date Discharge/Departure Date Discharge/Departure Disposition Provider(s) Departed Physician/ Provider Office Visit -[facility] Family [facility] [place] May 01, 2025 1:36pm November 10th, 2025 2:21pm Discharged to home care or self care (routine discharge) Clayton Díaz MD Recent Diagnosis Onset Date Admit Date Benign essential hypertension Unknown No vember 2024 1:36pm Chronic osteoarthritis Unknown May 01, 2025 1:36pm Peripheral vascular disease, unspecified Unknown May 01, 2025 1:36pm Type 2 diabetes mellitus wit h hyperglycemia, without long-term current use Unknown May 01, 2025 1:36 pm Assessments Diagnosis Onset Date Resolution Status Admit Date Benign essential hypertension acuteNov2024 1:36pmChronic osteoarthritisacuteNov2024 1:36pmPeripheral vascular disease, unspecifiedacuteNov2024 1:36pm Type 2 diabetes mellitus with hyperglycemia, without long-term current useacute May 01, 2025 1:36pm Plan of Treatment Future Tests Future scheduled test information is unavailable Pending Tests Pending diagnostic test information is unavailable Future Visits Future appointment information is unavailable Future Procedures Procedure Name Ordered Date Scheduled Date A1C with Estimated Average Glu May 01 2:13pm Future Medications Future medication information is unavailable Patient Instructions Patient instructions are unavailable
--- OUTSIDE RECORDS SUMMARY | 2025-05-01 14:42 | XMS_ITS | Clinical Summary ---
Author Organization [facility] Address [address] [place] [address] Care Team Providers Care Coating Operator Name Role Phone Clayton Díaz MD Primary Care Provider [phone] Allergies No known active allergies Medications MedicationSigDispense QuantityRefillsLast FilledStart DateEnd DateStatus atorvastatin (Lipitor) 40 MG tablet Indications:DyslipidemiaTAKE 1 TABLET BY MOUTH EVERYDAY AT BEDTIME 90 tablet 3094Active insulin lispro protamine-insulin lispro (HumaLOG MIX 75/25 KWIKPEN) (75-25) 100 UNIT/ML injection Indications:Type 2 diabetes mellitus with hyperglycemia, without long-term current use of insulin (HCC)Inject 30 Units under the skin in the morning and 30 Units in the evening. Inject with meals. 15 each 5094Active clopidogrel (Plavix) 75 MG tablet Indications:Peripheral vascular disease, unspecifiedTAKE 1 TABLET BY MOUTH EVERY DAY 90 tablet 3104Active ferrous sulfate (Fe Tabs) 325 (65 Fe) MG EC tablet Indications:Anemia due to chronic blood lossTake 1 tablet (325 mg) by mouth in the morning. Take with meals. Do not crush, chew, or split.. 30 tablet 5124Active insulin pen needle (BD Pen Needle Karla 2nd Gen) 32G x 4 mm misc Indications:Type 2 diabetes mellitus with hyperglycemia, without long-term current use of insulin (HCC)USE INSTRUCTED TWICE A DAY 100 each 6015Active furosemide (Lasix) 40 MG tablet Indications:Bilateral edema of lower extremityTAKE 1 TABLET BY MOUTH EVERY DAY 90 tablet 1035Active pantoprazole (ProtoNix) 40 MG EC tablet Indications:Acute GI bleedingTake 1 tablet (40 mg) by mouth Daily 30 tablet 505/06/2025Active glucose blood test strip Indications:Type 2 diabetes mellitus with hyperglycemia, without long-term current use of insulin (HCC)1 each by Other route 3 (three) times a day 100 each 1105Active atorvastatin (Lipitor) 80 MG tablet Indications:Occlusion and stenosis of unspecified carotid arteryTAKE 1 TABLET BY MOUTH EVERY DAY 90 tablet 1085Active Active Problems ProblemNoted DateDiagnosed DateMedicare annual wellness visit, subsequent 07/28/2024 Assessment & Plan (07/28/2024 1:56 PM EST): Reviewed labs. Discussed proper diet and regular aerobic exercise. Need aerobic exercise 5-6 days aweek for 30 minutes at a time. Smaller portions and limit total calories. Tetanus every 10 years. Advised not to smoke. Anemia due to chronic blood loss06/07/2024 Assessment & Plan (10/25/2024 1:29 PM EDT): Repeat labs. Assessment & Plan (07/28/2024 1:56 PM EST): Repeat labs. Assessment & Plan (06/07/2024 2:23 PM EST): Recent anemia and start iron supplement. Jszjvsh1505/26/2024 Assessment & Plan (05/26/2024 1:36 PM EST): Check labs Bilateral edema of lower ttguslpfp97/05/2024 Assessment & Plan (01/26/2025 2:56 PM EDT): Edema controlled with lasix and continue. Elevated legs PRN. Assessment & Plan (05/26/2024 1:36 PM EST): Developed edema of unclear etiology. Check labs, CXR, and echo. Start lasix. Elevated legs PRN. S/P carotid qlsfhyvezuzbym30/06/2024arotid /06/2024Encounter for long-term (current) use of ywxntznbcmk38/06/2024Chronic amunwsrierzeeq36/15/2023 Assessment & Plan (01/26/2025 2:56 PM EDT): [...] EST): Pain stable and use OTC PRN. Dfkehfxspprf82/15/2023Osteopenia of both hips06/05/2023AD (generalized anxiety disorder)06/05/2023 Assessment & Plan (06/05/2023 11:46 AM EST): Reports increased symptoms and discussed medication options. Overall feels like symptoms tolerable and wants to monitor. If worsens can add daily SSRI. Type 2 diabetes mellitus with hyperglycemia, without long-term current use of qszolty6006/05/2023 Assessment & Plan (01/26/2025 2:57 PM EDT): [...] ADA diet and limit carbs. Benign essential smtvuszijikr40/15/2023 Assessment & Plan (01/26/2025 2:55 PM EDT): [...] start monitoring PRN. Sensorineural hearing loss (SNHL), ygzkfysks84/05/2023eripheral vascular disease, dlfdfeuyhra21/05/2023 Assessment & Plan (01/26/2025 2:56 PM EDT): [...] symptoms and follow with vascular. Resolved Problems ProblemNoted DateDiagnosed DateResolved DateAcute GI ywjnuwhr41/17/2024 07/28/2024 Assessment & Plan (06/07/2024 2:22 PM EST): Recent bleed likely related to aspirin and plavix. Continue protonix. Resume plavix but stop aspirin. SOB (shortness of breath) Assessment & Plan (05/26/2024 1:37 PM EST): Check labs, CXR, and echo. Encounters DateTypeDepartmentCare MmbeBkwccwsjdrm35/03/2025 1:00 PM EDTOffice Visit [facility] [address] [place] [address] Sensorineural hearing loss (SNHL) of both ears (Primary Dx)02/12/2025Refill [facility] [place] [facility] [address] [place] [address] Clayton Díaz MD Occlusion and stenosis of unspecified carotid arteryfrom Last 3 Months Family History Medical HistoryRelationNameCommentsHeart diseaseFatherDiabetesMotherRelationName StatusCommentsFatherMother Social History Tobacco UseTypesPacks/DayYears UsedDateSmoking Tobacco: SsqlcqIvmtwwjxpo7009 - 2004Smokeless Tobacco: Never Tobacco Cessation:Counseling Given: Not Answered Alcohol UseStandard Drinks/WeekCommentsNever0 (1 standard drink = 0.6 oz pure alcohol)PHQ-2AnswerDate RecordedPatient Health Questionnaire-2 Dmnil859 CommentsUnknownSex and Gender InformationValueDate RecordedSex Assigned at BirthNot on fileLegal QfjLxgmyc96/15/2023 7:06 PM EDTGender IdentityNot on fileSexual OrientationNot on file Last Filed Vital Signs Vital SignReadingTime TakenCommentsBlood Qjozqamb887/5008 2:17 PM EDT Qyhru14160/07/2025 2:17 PM HAFOsarrylnjin93.4 ??C (97.5 ??F)01/26/2025 2:17 PM EDTRespiratory Iqvw3373 2:17 PM EDTOxygen Mqjxxlxjex44%01/26/2025 2:17 PM EDTInhaled Oxygen Concentration--Qqzrla73 kg (141 lb)01/26/2025 2:17 PM EDT Aswzkl353.4 cm (5')01/26/2025 2:17 PM EDTBody Mass Index27.54001/26/2025 2:17 PM EDT Plan of Treatment DateTypeDepartmentCare Team (Latest Contact Info)Xrarglskxcc23/04/2026 1:00 PM ESTClinical Support [facility] [address] [place] [address] Hanny Ruffin, [facility] [address] [facility] [address] [facility] [place] [address] Health MaintenanceDue DateLast DoneCommentsPneumococcal Vaccine: 65+ Years (2 of 2 - PCV)COVID-19 Vaccine ( season)2025 07/01/2021, 09/22/2020, 2020Influenza Vaccine (#1)2025 Insurance * Guarantor: Ivanna Ashton TypeRelation to PatientDate of BirthPhone Billing AddressPersonal/QgcvxgAchh60/12/1946 [address] [place] [address] Care Teams Team MemberRelationshipSpecialtyStart DateEnd Date Clayton Díaz MD [address] [place] [address] PCP - GeneralFamily Medicine02/22/25
--- OUTSIDE RECORDS SUMMARY | 2025-05-01 14:42 | XMS_ITS | Encounter Summary ---
Author Organization [facility] Address [address] [place] [address] Care Team Providers Care Skin Pass Operator Name Role Phone Clayton Díaz MD Primary Care Provider [phone] Otis Mcfarland MA Unavailable [phone] Clayton Díaz MD Primary Care Provider [phone] Encounter Details DateTypeDepartmentCare Team (Latest Contact Info)Wheflmojvwm04/27/2024Clinisync Result Encounter [facility] External Department Unsolicited Clayton Díaz MD [address] [place] [address] Social History Tobacco UseTypesPacks/DayYears UsedDateSmoking Tobacco: HzcawlXgjmxcavif7540 - 2003Smokeless Tobacco: NeverAlcohol UseStandard Drinks/WeekCommentsNever0 (1 standard drink = 0.6 oz pure alcohol)PHQ-2AnswerDate RecordedPatient Health Questionnaire-2 Owklp391CommentsUnknownSex and Gender InformationValueDate RecordedSex Assigned at BirthNot on fileLegal SexFemale 09/03/2022 7:06 PM EDTGender IdentityNot on fileSexual OrientationNot on file documented as of this encounter Functional Status * Over the past 2 weeks, how often have you been bothered by any of the following problems?QuestionAnswerDate of AssessmentAuthorLittle interest or pleasure in doing thingsSeveral days07/28/2024 1:00 PM Lizzette Hinds MA Feeling down, depressed, or hopelessNot at all07/28/2024 1:00 PM Lizzette Hinds MAPatient Health Questionnaire-2 Vmaxc183 1:00 PM Lizzette Hinds MA * QuestionAnswerDate of AssessmentAuthorTrouble falling or staying asleep, or sleeping too muchNot at all07/28/2024 1:00 PM Lizzette Hinds MAFeeling tired or having little energyNot at all07/28/2024 1:00 PM Lizzette Hinds MA Poor appetite or overeatingNot at all07/28/2024 1:00 PM Lizzette Hinds MA Feeling bad about yourself - or that you are a failure or have let yourself or your family downNot at all07/28/2024 1:00 PM Lizzette Hinds MATrouble concentrating on things, such as reading the newspaper or watching television Not at all07/28/2024 1:00 PM Lizzette Hinds, MAMoving or speaking so slowly that other people could have noticed? Or the opposite - being so fidgety or restless that you have been moving around a lot more than usual.Not at all 07/28/2024 1:00 PM Lizzette Hinds MAThoughts that you would be better off or hurting yourself in some wayNot at all07/28/2024 1:00 PM Lizzette Hinds MAPatient Health Questionnaire-9 Kchhw692 1:00 PM Lizzette Hinds MA documented as of this encounter Plan of Treatment DateTypeDepartmentCare Team (Latest Contact Info)Fgypxrpdkia31/04/2026 1:00 PM ESTClinical Support [facility] [address] [place] [address] Hanny Ruffin, [facility] [address] [place] [address] documented as of this encounter Procedures Procedure NamePriorityDate/TimeAssociated DiagnosisCommentsCA ECHO DOPPLER QEURVKPC83/27/2024 9:40 AM EST documented in this encounter Results * CA ECHO DOPPLER COMPLETE (06/17/2024 9:40 AM EST)Anatomical RegionLaterality ModalityOtherSpecimen (Source)Anatomical Location / LateralityCollection Method / VolumeCollection TimeReceived Time06/17/2024 9:40 AM EST Narrative 06/17/2024 9:41 AM EST [facility] ?[address] ? [place] [address] ? Cardiology Report ? Signed ? Patient: DENIS,NEHA M ?MR#: [id number] ?? : 1945 ?Acct:[id number] ?? Age/Sex: 78 / F ?ADM Date: 06/16/24 ?? Loc: CARD ? Attending Dr: Clayton Díaz M.D. ? Ordering Physician: Clayton Díaz M.D. ?? Date of Service: 06/16/24 ?? Procedure(s): CA echo doppler complete ?? Accession Number(s): [id number] ? cc: Clayton Díaz M.D. ? Patient Name: ? NEHA DENIS ? MR#: [id number] ? : 1945 ? Exam Date: 06/16/2024 ?? Ordering Doctor: DR Clayton Díaz . ? ECHOCARDIOGRAM REPORT ? PROCEDURE: ? CA ECHO DOPPLER COMPLETE ? INDICATIONS: ? Edema, shortness of breath, fatigue, hypertension, diabetes ? COMPARISON: ? None. ? DESCRIPTION: ? COMPLETE ECHOCARDIOGRAM Real-time transthoracic ?? echocardiography with 2D, M-mode, spectral and color flow Doppler performed. ? QUALITY: ? Technical quality was good. ? LEFT VENTRICLE: ? Normal chamber size. Normal left ventricular wall ?? thickness. ??Normal systolic function. ?? LV EF: Normal left ventricular ejection fraction, (>55%). DIASTOLIC: ? Normal diastolic function. ?? ATRIAL SEPTUM: ? Visually appears intact. ?? LEFT ATRIUM: ? Normal chamber size. ?? RIGHT ATRIUM: ? Normal chamber size. ?? RIGHT VENTRICLE: ? Normal chamber size. Normal right ventricular systolic ?? function. ? TRICUSPID VALVE: ? Normal mobility and thickness. No stenosis with trivial ?? regurgitation. No evidence of pulmonary hypertension. RVSP 31 mmHg ? MITRAL VALVE: ? Normal mobility and thickness. ?? No evidence of mitral valve ?? stenosis. ??Mild mitral annular calcification. No mitral regurgitation. ? AORTIC VALVE: ? Normal trileaflet appearance. Mildly calcified aortic valve. ?? Normal leaflet mobility. ??No evidence of aortic valve stenosis. No aortic ?? regurgitation. ? AORTIC ROOT: ? Normal diameter and appearance. Ascending aorta is normal in ?? size. ? PULMONIC VALVE: ? Normal thickness and mobility. No stenosis. Trivial ?? regurgitation. ? PERICARDIUM: ? No evidence of pericardial effusion. ? IVC: ? Collapses with inspirations. ? PLEURA: ? CONCLUSION: ? 1. Normal left ventricular size and systolic function. ??LVEF is estimated at ?? 55 to 60%. ?? 2. Normal right ventricular size and systolic function. ?? 3. Normal diastolic function. ?? 4. No significant valvular dysfunction. ?? 5. Normal right-sided pressures. ? Adult Echocardiography Procedure Report ?? Left Ventricle ?? LVEDD (3.7 - 5.6 cm): ? 4.46 cm ?? LVESD (2.2 - 4.0 cm): ? 3.16 cm ?? LVIVS thickness (0.6 - 1.2 cm): ? 1.02 cm ?? LVPW thickness (0.5 - 1.0 cm): ? 0.94 cm ?? e': ? 0.09 m/s ?? E - e': ? 6.09 ?? LVOT Max Gradient: ? 2.04 mm[Hg] ?? LVOT Area (cm2): ? 0.71 m/s ?? Peak Velocity (LVOT): ? 0.71 m/s ?? Mean Velocity (LVOT): ? 0.47 m/s ?? LVOT Diameter ? 1.93 cm ?? Left Atrium ?? LA Volume Index (2D A2C): ? 27.29 ml/m2 ?? Left Atrium Systolic Dimension: ? 2.84 cm ?? Mitral Valve ?? MV E to A Ratio: ? 0.64 ?? Mitral Valve A-Wave Peak Velocity: ? 0.90 m/s ?? Mitral Valve E-Wave Peak Velocity: ? 0.57 m/s ?? Right Ventricle ?? Aorta ?? AO Root Diam: ? 2.78 cm ?? Ascending Ao Diam: ? 2.14 cm ?? Aortic Valve ?? AoV Area (Peak Ibrahima): ? 1.71 cm2, 1.71 cm2 ?? AoV Area (VTI): ? 1.72 cm2, 1.72 cm2 ?? Peak Velocity(Antegrade Flow): ? 1.23 m/s ?? Peak Gradient(Antegrade Flow): ? 6.02 mm[Hg] ?? Mean Velocity(Antegrade Flow): ? 0.89 m/s ?? Mean Gradient(Antegrade Flow): ? 3.55 mm[Hg] ?? Velocity Time Integral: ? 28.39 cm ?? Tricuspid Valve ?? Peak Velocity (Regurgitant Flow): ? 2.67 m/s ?? Pulmonic Valve ?? Mean Gradient: ? 1.62 mm[Hg] ?? Mean Velocity: ? 0.58 m/s ?? Peak Velocity: ? 0.98 m/s, 0.91 m/s ?? Peak Gradient: ? 3.32 mm[Hg], 3.81 mm[Hg] ?? Right Atrium ?? Right Atrium Systolic Pressure: ? 43.58 ml, 43.58 ml ? Dictated by: Stan Fraser M.D. on 06/17/2024 at 09:37 ? Approved by: Stan Fraser M.D. on 06/17/2024 at 09:40 ? Dictated By: ?STAN FRASER ? Signed By: ?06/17/24 0941 ? DD/ 0940 ? TD/TT: ? Radiologic Electronic Specialist: Procedure Note Radiology, Radiologist, MD - 06/17/[address] [address] Cardiology Report Signed Patient: NEHA DENIS MMR#: [id number] : 1945cct:[id number] Age/Sex: 78 / FADM Date: 06/16/24 Loc: CARD Attending Dr: Clayton Díaz M.D. Ordering Physician: Clayton Díaz M.D. Date of Service: 06/16/24 Procedure(s): CA echo doppler complete Accession Number(s): [id number] cc: Clayton Díaz M.D. Patient Name: NEHA DENIS MR#: [id number] : 1945 Exam Date: 06/16/2024 Ordering Doctor: [...] at 09:40 Dictated By: STAN FRASER Signed By:06/17/24 0941 DD/ 0940 TD/TT: Radiologic Electronic Specialist: Authorizing ProviderResult TypeResult StatusMarc Bre MDCLINISYNC IMAGING Final Result documented in this encounter Visit Diagnoses Not on filedocumented in this encounter Care Teams Team MemberRelationshipSpecialtyStart DateEnd Date Clayton Díaz MD PCP - GeneralFamily Medicine Clayton Díaz MD [address] [place] [address] PCP - GeneralFamily Medicine02/22/25 Otis Mcfarland, MA [address] [place] [address] Family Medicine07/29/documented as of this encounter
--- OUTSIDE RECORDS SUMMARY | 2025-05-01 14:42 | XMS_ITS | Clinical Summary ---
Author Organization [facility] Address [address] [place] [address] Care Team Providers Care Carpet Loom Fixer Name Role Phone Unavailable Primary Care Provider Unavailabl e Social History Tobacco UseTypesPacks/DayYears UsedDateSmoking Tobacco: Never Assessed CommentsUnknownSex and Gender InformationValueDate RecordedSex Assigned at Not on fileLegal NdfZtzuiz13/26/2014 12:39 AM EDTGender IdentityNot on file Sexual OrientationNot on file Plan of Treatment Not on file
--- OUTSIDE RECORDS SUMMARY | 2025-05-01 14:42 | XMS_ITS | Encounter Summary ---
Author Organization [facility] Address [address] [place] [address] Care Team Providers Care Practice Clinician Name Role Phone Clayton Manning MD Primary Care Provider [phone] Otis Mcfarland MA Unavailable [phone] Clayton Manning MD Primary Care Provider [phone] Encounter Details DateTypeDepartmentCare Team (Latest Contact Info)Zggiwaeruug78/06/2024Clinisync Result Encounter [facility] External Department Unsolicited Clayton Manning MD [address] [place] [address] Social History Tobacco UseTypesPacks/DayYears UsedDateSmoking Tobacco: XcdvlkGazfektivj3327 - 2003Smokeless Tobacco: NeverAlcohol UseStandard Drinks/WeekCommentsNever0 (1 standard drink = 0.6 oz pure alcohol)PHQ-2AnswerDate RecordedPatient Health Questionnaire-2 Ryrvb947CommentsUnknownSex and Gender InformationValueDate RecordedSex Assigned at BirthNot [...] 1:00 PM Lizzette Hinds MAPatient Health Questionnaire-2 Ppqyo046 1:00 PM Lizzette Hinds MA * QuestionAnswerDate [...] 1:00 PM Lizzette Hinds MAPatient Health Questionnaire-9 Pmnux781 1:00 PM Lizzette Hinds MA documented as of this encounter Plan of Treatment DateTypeDepartmentCare Team (Latest Contact Info)Tspjdeurvnu13/04/2026 1:00 PM ESTClinical Support [facility] [address] [place] [address] Hanny Ruffin, [facility] [address] [place] [address] documented as of this encounter Procedures Procedure NamePriorityDate/TimeAssociated DiagnosisCommentsXR CHEST 2V107/28/2023 6:06 AM EST documented in this encounter Results * XR CHEST 2V (05/27/2024 6:06 AM EST)Anatomical RegionLateralityModalityOther Specimen (Source)Anatomical Location / LateralityCollection Method / Volume Collection TimeReceived Time05/27/2024 6:06 AM EST Narrative 05/27/2024 6:09 AM EST [facility] ?[address] ? [place], [facility] ?XRay Report ? Signed ? Patient: DENIS,NEHA M ?MR#: [id number] ?? : 1945 ?Acct:[id number] ?? Age/Sex: 78 / F ?ADM Date: 05/26/24 ?? Loc: LAB ? Attending Dr: Clayton Manning M.D. ? Ordering Physician: Clayton Manning M.D. ?? Date of Service: 05/26/24 ?? Procedure(s): XR chest 2V ?? Accession Number(s): [id number] ? cc: Clayton Manning M.D. ? [facility] ? [address] ? [place] [address] ? Patient Name: ?? NEHA DENIS ? MRN: [facility]:[id number] ? date: 1945 ?Sex: F ?? Assigned Patient Location: LAB ?? Current Patient Location: ? Accession/Order Number: [id number] ?? Exam Date: 05/26/2024 ??14:40 ?Report Date: 05/27/2024 ??06:06 ? At the request of: ?? CLAYTON ??KERRI ? Procedure: ??XR chest 2V ? EXAMINATION: XR chest 2V ? HISTORY: Shortness Of Breath , cough ? COMPARISON: No relevant comparison available. ? FINDINGS: ?? LUNGS: Mild haziness and stranding within right lung base. ?? VASCULATURE: No increased pulmonary vasculature. ?? PLEURA: No pneumothorax, effusion, or pleural thickening. ?? CARDIAC: No cardiomegaly or cardiac silhouette abnormality. ?? MEDIASTINUM: No visible mass or adenopathy. ?? BONES: No fracture or visible bone lesion. ?? OTHER: Rim calcified breast implants projecting over lung bases. ? XR/XR chest 2V ?? IMPRESSION: ? 1. Mild right basilar infiltrates. ? Electronically authenticated by: BOLIVAR ??RAJESH ?? Date: 05/27/2024 ??06:06 ? Dictated By: ?Bolivar York M.D. ? Signed By: ?05/27/2409 ? DD/ 5 ? TD/TT: ? Complex Commercial Litigation Paralegal: Procedure Note Radiology, Radiologist, - 05/27/[address] [address] XRay Report Signed Patient: NEHA DENIS MMR#: [id number] : 1945cct:[id number] Age/Sex: 78 / FADM Date: 05/26/24 Loc: LAB Attending Dr: Clayton Manning M.D. Ordering Physician: Clayton Manning M.D. Date of Service: 05/26/24 Procedure(s): XR chest 2V Accession Number(s): [id number] cc: Clayton Manning M.D. The [place] [address] Patient Name: NEHA DENIS MRN: [facility]:[id number] date: 1945 Sex: F Assigned Patient Location: LAB Current Patient Location: Accession/Order Number: [id number] Exam Date: 05/26/2024 14:40 Report Date: 05/27/2024 [...] York M.D. Signed By:05/27/24608 DD/ 5 TD/TT: Complex Commercial Litigation Paralegal: Authorizing ProviderResult TypeResult StatusMarc Kerri MDCLINISYNC IMAGING Final Result documented in this encounter Visit Diagnoses Not on filedocumented in this encounter Care Teams Team MemberRelationshipSpecialtyStart DateEnd Date Clayton Manning MD PCP - GeneralFamily Medicine Clayton Manning MD [address] [place] [place] [address] PCP - GeneralFamily Medicine02/22/25 Otis Mcfarland, MA [address] [place] [address] Family Medicinedocumented as of this encounter
--- OUTSIDE RECORDS SUMMARY | 2025-05-01 14:42 | XMS_ITS | Clinical Summary ---
Author Organization [employer] tem Address [id number] [address] [place] [address] Care Team Providers Care Early Childhood Education Instructor Name Role Phone Clayton Díaz MD Primary Care Provider [phone] Allergies No known active allergies Medications MedicationSigDispense QuantityRefillsLast FilledStart DateEnd DateStatus lisinopril (PRINIVIL,ZESTRIL) 10 mg tablet Take 10 mg by mouth daily.Active insulin NPH and regular human (HumuLIN 70-30,NovoLIN 70-30) 100 unit/mL (70-30) injection Inject 20 Units under the skin every morning before breakfast.Active insulin NPH and regular human (HumuLIN 70-30,NovoLIN 70-30) 100 unit/mL (70-30) injection Inject 16 Units under the skin nightly.Active aspirin (ASPIR-81 ORAL) Take 1 tablet by mouth daily.Active docusate sodium (COLACE) 100 mg capsule Take 100 mg by mouth 2 (two) times a day.Active HYDROcodone-acetaminophen (NORCO) 5-325 mg per tablet Take 1 tablet by mouth every 6 (six) hours as needed for pain.Active calcium carbonate-vitamin D3 (OSCAL D) 250-125 mg-units tablet Take 2 tablets by mouth daily.Active polyethylene glycol (MIRALAX) 17 gram packet Take 17 g by mouth as needed (constipation).Active Social History Tobacco UseTypesPacks/DayYears UsedDateSmoking Tobacco: FormerCigarettes Smokeless Tobacco: NeverAlcohol UseStandard Drinks/WeekCommentsNo0 (1 standard drink = 0.6 oz pure alcohol)ChildcareAnswerDate RecordedChildcareUnknown 12/02/2018EmploymentAnswerDate UntphnlkVsbrmomnchOptrnzo93/13/2019Purpose - Life AnswerDate RecordedPurpose and direction in jvrwWjhnlrs43/11/2021 CommentsNoSex and Gender InformationValueDate RecordedSex Assigned at BirthNot on fileLegal CxcDqwwkb19/19/2018 2:10 PM EDTGender IdentityNot on fileSexual OrientationNot on file Last Filed Vital Signs Vital SignReadingTime TakenCommentsBlood Trjdwoww203/7006/10/2018 1:33 PM EST Nsnlt0363/20/2018 1:33 PM ZRYAwzesrgsjzt18.8 ??C (98.2 ??F)06/10/2018 1:33 PM ESTRespiratory Ooac082608/11/2017 1:33 PM ESTOxygen Bcfqcdjqtm99%09/30/2017 2:30 PM EDTInhaled Oxygen Concentration--Aztbvf74.2 kg (126 lb)05/22/2018 10:43 AM ZTSAytaps847.4 cm (5')05/22/2018 10:43 AM ESTBody Mass Index24.6105/22/2018 10:43 AM EST Plan of Treatment Not on file Medical Devices ImplantedTypeAreaManufacturerDevice IdentifierShelf Expiration DateModel / Serial / LotSuture [place] - Sn/A - [id number] Implanted:Qty: 1 on 09/30/2017 [facility] WjomxzleFdwyyss94/31/[id number] / N/A / [id number] [place] Swivel - Sna - [id number] Implanted:Qty: 1 on 09/30/2017 by [facility]: GzzalffjXaxxmny00/01/[id number] / NA / [id number] [place] - Sna - [id number] Implanted:Qty: 1 on 09/30/2017 [facility]: JmfbpoaqLgaiprg77/30/[id number] / NA / [id number] Insurance Care Teams Team MemberRelationshipSpecialtyStart DateEnd Date Clayton Díaz MD PCP - GeneralFamily Medicine09/10/17
--- OUTSIDE RECORDS SUMMARY | 2025-05-01 14:44 | XMS_ITS | CCD ---
Author Organization [facility] Team Providers Care Medical Billing And Coding Specialist Name Role Phone SELF, REFERRED Referring Unavailable CLAYTON MANNING Primary Care Unavailable RENNO, ANAS Attending Unavailable RENNO, ANAS Admitting Unavailable [place] Procedure Practitioner Unavailab IVANIA Brennan Surgeon Unavailable MD Clayton Manning Primary Care Provider MARILYN Solomon Attending Provider Willie Herrera Unavailable Hetal Tomlinson Unavailable MD Clayton Manning Primary Care Provider [phone] MARILYN Solomon Attending Provider KERRI, DR CLAYTON [...] Unavailable NADERER, DR CLAYTON Castle Admitting Unavailable [place], DR BALTAZAR Gross Consulting Unavailable NADERER, DR CLAYTON Castle Primary Care Unavailable MINNAEREMarc, DR CLAYTON Castle Consulting Unavailable MD Clayton Manning Primary Care Provider [phone] MD Willie Herrera Attending Provider MD Clayton Manning Primary Care Provider [phone] MD Willie Herrera Attending Provider Clayton Manning MD Primary Care Provider [phone] Clayton Manning MD Primary Care Provider [phone] Willie Herrera MD Attending Provider Otis Mcfarland MA Unavailable Unavailable Kerri, Clayton Primary Care Unavailable Javier, Willie Admitting Unavailable Javier, Willie Attending Unavailable Juanito, Rashida Tran Admitting Unavailable Juanito, Rashida R Attending Unavailable Kerri, Clayton Primary Care Unavailable Kerri, Clayton Primary Care Unavailable Willie Herrera Admitting Unavailable Willie Herrera Attending Unavailable MINNAEREMarc, CLAYTON Attending Unavailable NADEREMarc, CLAYTON Attending Unavailable NADEREMarc, CLAYTON Attending Unavailable NADEREMarc, CLAYTON Attending Unavailable HALEIGH, LAMBERT Attending Unavailable KERRI, CLAYTON Attending Unavailable Clayton Manning MD Primary Care Provider [phone] Clayton Manning MD Primary Care Provider [phone] Otis Mcfarland MA Unavailable Clayton Manning MD Primary Care Provider [phone] Medications Current Medications MedicationDrug Class(es)DatesSig (Normalized)Sig (Original)ascorbic acid 1000 mg oral tablet (12 sources)Vitamin CStart: 33-84-4967wqyx 1 tablet by mouth once dailyAscorbic Acid (Vitamin C) (Vitamin C) 1,000 mg Tablet Active 1 TAB PO Daily March 22, 2019 12:00amatorvastatin 80 mg oral tablet (20 sources)HMG-CoA Reductase InhibitorStart: 79-47-6626rhtg 1 tablet by mouth once dailyatorvastatin (Lipitor) 80 MG tablet Indications: Occlusion and stenosis of unspecified carotid artery TAKE 1 TABLET BY MOUTH EVERY DAY 90 tablet 1 02/13/2025 ActiveStart: 07-18-2024 End: 39-85-1538xqzc 1 tablet by mouth once dailyatorvastatin (Lipitor) 80 MG tablet Indications: Occlusion and stenosis of unspecified carotid artery TAKE 1 TABLET BY MOUTH EVERY DAY FOR 30 DAYS 30 tablet 5 08/29/2024 ActiveStart: 24-64-6198exqr 1 tablet by mouth once daily at bedtimeatorvastatin (Lipitor) 40 MG tablet Indications: Dyslipidemia TAKE 1 TABLET BY MOUTH EVERYDAY AT BEDTIME 90 tablet 3 03/02/2024 Activebisacodyl 5 mg delayed release oral tablet (2 sources)Stimulant LaxativeStart: 06-01-2024 End: 14-10-5861sbly 1 tablet by mouth oncebisacodyl (Dulcolax) 5 MG EC tablet Indications: Gastrointestinal hemorrhage, unspecified gastrointestinal hemorrhage type Take 1 tablet (5 mg) by mouth 1 time for 1 dose Do not crush, chew, or split. Take as detailed on clinic hand out for colonoscopy prep 4 tablet 06/01/2024 06/01/2024 Activecalcium carbonate 1500 mg oral tablet (15 sources)Start: 14-90-9851crbr 1 tablet by mouth once dailyCalcium Carbonate (Calcium 600) 600 mg calcium (1,500 mg) Tablet Active 1 TAB PO Daily March 12:00amclopidogrel 75 mg oral tablet (20 sources)P2Y12 Platelet InhibitorStart: 51-70-7469vwmk 1 tablet by mouth once dailyclopidogrel (Plavix) 75 MG tablet Indications: Peripheral vascular disease, unspecified TAKE 1 TABLET BY MOUTH EVERY DAY 90 tablet 3 04/07/2024 Active ferrous sulfate 325 mg delayed release oral tablet (20 sources)Start: 55-69-5826Qysndqo Sulfate 325 mg (65 mg iron) tablet,delayed release (DR/EC) Active MG PO July 18, 2024 1:00amStart: 18-79-8768exsa 1 tablet by mouth at mealtimeferrous sulfate (Fe Tabs) 325 (65 Fe) MG EC tablet Indications: Anemia due to chronic blood loss Take 1 tablet (325 mg) by mouth in the morning. Take with meals. Do not crush, chew, or split.. 30 tablet 5 06/07/2024 ActiveFish Oils (4 sources)take 1 capsule by mouth once dailyFish Oil 1000 MG 1 capsule Orally Once a day Activefurosemide 40 mg oral tablet (20 sources)Loop DiureticStart: 32-94-0937nmxw 1 tablet by mouth once daily furosemide (Lasix) 40 MG tablet Indications: Bilateral edema of lower extremity TAKE 1 TABLET BY MOUTH EVERY DAY 90 tablet 1 09/19/2024 ActiveStart: 05-26-2024 take 1 tablet by mouth once dailyfurosemide (Lasix) 40 MG tablet Indications: Bilateral edema of lower extremity Take 1 tablet (40 mg) by mouth Daily 30 tablet 3 05/26/2024 Activeinsulin isophane, human 70 unt/ml / insulin, regular, human 30 unt/ml injectable suspension (20 sources)InsulinStart: 64-52-3872Ajmoczc Nph And Regular Human 100 unit/mL (70-30) suspension Active 25 UNITS SUBCUT Daily before supper March 24, 2017 12:00amStart: 03-24-2017 End: 41-19-7128Mgyaljf Nph And Regular Human 100 unit/mL (70-30) suspension Discontinued 22 UNITS SUBCUT Daily before breakfast March 24, 2017 12:00am March 26, 2023 9:15amStart: 77-19-6301bmhmwy 16 [IU] by subcutaneous injection once dailyInsulin Nph And Regular Human Active 16 UNITS SUBCUT Daily before supper March 24, 2017 12:00amNovoLIN 70/30 (70-30) 100 UNIT/ML Subcutaneous 22 units AM, 16 in evening Active3 ml insulin lispro 25 unt/ml / insulin lispro protamine, human 75 unt/ml pen injector (20 sources)Insulin AnalogStart: 27-59-6320ivbnsed lispro protamine-insulin lispro (HumaLOG MIX 75/25 KWIKPEN) (75-25) 100 UNIT/ML injection Indications: Type 2 diabetes mellitus with hyperglycemia, without long-term current use of insulin (HCC) Inject 30 Units under the skin in the morning and 30 Units in the evening. Inject with meals. 15each 5 03/02/2024 Activepantoprazole 40 mg delayed release oral tablet (20 sources)Proton Pump InhibitorStart: 05-28-2024 End: 60-13-8742tzeb 1 tablet by mouth once dailypantoprazole (ProtoNix) 40 MG EC tablet Indications: Acute GI bleeding Take 1 tablet (40 mg) by mouth Daily 30 tablet 5 10/25/2024 Activepenicillin v potassium 250 mg oral tablet (1 source)take 1 tablet by mouth every twelve hoursPenicillin V Potassium 250 MG 1 tablet Orally Twice a day Activepolyethylene glycol 3350 18529 mg powder for oral solution (2 sources)Osmotic LaxativeStart: 06-01-2024 End: 60-90-1395wuzb 17 g by mouth oncepolyethylene glycol, PEG, 3350 (Glycolax) 17 GM/SCOOP powder Indications: Colonoscopy Take 238 g bymouth 1 (one) time for 1 dose Take as detailed from clinic hand out for colonoscopy prep 238 g 06/0106/01/2024 ActiveRed Yeast Rice Extract (3 sources)Red Yeast Rice Extract ActivetraMADol hydrochloride 50 mg oral tablet (14 sources)Opioid AgonistStart: 01-26-2025 End: 54-24-5264kniq 1 tablet by mouth four times daily as needed for pain traMADol (Ultram) 50 MG tablet Indications: Chronic osteoarthritis Take 1 tablet (50 mg) by mouth 4(four) times a day as needed for severe pain for up to 7 days 28 tablet 01/26/2025 02/02/2025 ActiveStart: 04-13-2019 End: 62-66-8646Tolsejgq 50 mg tablet Discontinued 50 MG PO every 6 to 8 hours as needed for pain 20 April 13, 2019 12:00am October 20, 2019 9:14amVit D3- Folic Xhvj-D1-C4-B12 (8 sources)Start: 45-05-0570vcvw 1 tablet by mouth once dailyVit D3-Folic Mcxm-L4-H8-B12 Active 1 TAB PO Daily March 24, 2017 12:13pmStart: 03-24-2017 take 1 tablet by mouth once dailyVit D3-Folic Chlv-C6-Z8-B12 Active 1 TAB PO Daily March 24, 2017 12:00amVit D3-Folic Modm-R1-P9-B12 2,000-800-0.32 unit-mcg-mg Tablet (3 sources)Start: 81-49-7592xljn 1 tablet by mouth once dailyVit D3-Folic Rblf-P8-E3-B12 2,000-800-0.32 unit-mcg-mg Tablet Active 1 TAB PO Daily March 24, 2017 12:00amStart: 54-59-8667cvjr 1 tablet by mouth once dailyVit D3-Folic Jbxb-X7-H0-B12 2,000-800-0.32 unit-mcg-mg Tablet Active 1 TAB PO Daily March 23, 2017 11:00pmVitamin C 1000 MG (3 sources)take 1 tablet by mouth once dailyVitamin C 1000 MG 1 tablet Orally Once a day ActiveVitamin D 2000 UNIT (4 sources)take 1 tablet by mouth once dailyVitamin D 2000 UNIT 1 tablet Orally Once a day Active Completed/Discontinued Medications MedicationDrug Class(es)DatesSig (Normalized)Sig (Original)aspirin 81 mg chewable tablet (20 sources)Platelet Aggregation Inhibitor, Nonsteroidal Anti-inflammatory Drug Start: 03-24-2017 End: 78-57-0175trjc 1 tablet by mouth once dailyAspirin (Jannette Chewable Aspirin) 81 mg Tablet,Chewable Discontinued 81 MG PO Daily March 24, 2017 12:00am July 18, 2024 12:39pm End: 05-13-3759qazo 1 tablet by mouth in the morningaspirin 81 MG EC tablet Take 81 mg by mouth in the morning. 06/07/2024 Discontinuedlisinopril 5 mg oral tablet (15 sources)Angiotensin Converting Enzyme InhibitorStart: 03-24-2017 End: 80-26-7986nqfd 1 tablet by mouth once dailyLisinopril 5 mg Tablet Discontinued 1 TAB PO Daily March 24, 2017 12:00am October 20, 2019 9:14am losartan potassium 25 mg oral tablet (20 sources)Angiotensin 2 Receptor BlockerStart: 10-20-2019 End: 42-71-0214yaoa 1 tablet by mouth once dailylosartan (Cozaar) 25 MG tablet Take 25 mg by mouth Daily 07/03/2024 01/26/2025 DiscontinuedOmega 9-Nzh-Gmc-Fish Oil (Fish Oil) 1,000 mg (120 mg-180 mg) Capsule (11 sources)Start: 03-24-2017 End: 68-91-3552hfsn 1 tablet by mouth once dailyOmega 4-Ckw-Xxm-Fish Oil (Fish Oil) 1,000 mg (120 mg-180 mg) Capsule Discontinued 1 TAB PO Daily March 24, 2017 12:13pm March 22, 2019 12:09pmStart: 03-24-2017 End: 46-77-3552ewwq 1 tablet by mouth once dailyOmega 9-Mtm-Lzg-Fish Oil (Fish Oil) 1,000 mg (120 mg-180 mg) Capsule Discontinued 1 TAB PO Daily March 23, 2017 11:00pm March 22, 2019 11:09amStart: 03-24-2017 End: 05-15-5712ffro 1 tablet by mouth once dailyOmega 2-Bwj-Atu-Fish Oil (Fish Oil) 1,000 mg (120 mg-180 mg) Capsule Discontinued 1 TAB PO Daily March 24, 2017 12:00am March 22, 2019 12:09pmsimvastatin 20 mg oral tablet (15 sources)HMG-CoA Reductase InhibitorStart: 03-24-2017 End: 66-44-0090keao 1 tablet by mouth once dailySimvastatin 20 mg Tablet Discontinued 20 MG PO Daily March 24, 2017 12:00am March 22, 2019 12:08pm triamcinolone acetonide 40 mg/ml injectable suspension (1 source)CorticosteroidStart: 14-20-8997Jjsclbf-40 Nov, 40 mg Problems Active Problems Problem ClassificationProblemDateDocumented DateEpisodic/ChronicAnxiety disorders (20 sources)Generalized anxiety disorder; Translations: [Generalized anxiety disorder]Onset: 835144-84-2750QoacynmCvolwslxlq and other anemia (20 sources)Anemia due to chronic blood loss; Translations: [Iron deficiency anemia secondary to blood loss (chronic)]Onset: hronic Deficiency and other anemia (2 sources)Anemia; Translations: [Anemia, unspecified]37-98-8309DasmsgzmNffwqwuw mellitus with complications (20 sources)Type 2 diabetes mellitus with hyperglycemia; Translations: [Hyperglycemia due to type 2 diabetes mellitus]Onset: 47-80-6665DjakvhyNuiefbhwv of lipid metabolism (20 sources)Dyslipidemia; Translations: [Hyperlipidemia, unspecified]Onset: 423712-41-9727EvfbnzkPqdpgybuw hypertension (20 sources)Benign essential hypertension; Translations: [Essential (primary) hypertension]Onset: 402993-19-4078HybdvloSafhyyceq or stenosis of precerebral arteries (20 sources)Carotid artery stenosis; Translations: [Occlusion and stenosis of unspecified carotid artery]Onset: 09-09-2021 Resolved: 483024-97-8717LtfortvUtyokll on above:Problem List clean-up per request of Phys. EHR CmteOsteoarthritis (20 sources)Chronic osteoarthritis; Translations: [Unspecified osteoarthritis, unspecified site]Onset: 620192-24-4749ZzytsvpZroio circulatory disease (4 sources)Arterial, arteriole and capillary disease; Translations: [Disorder of arteries and arterioles, unspecified]ChronicOther ear and sense organ disorders (20 sources)Sensorineural hearing loss, bilateral; Translations: [Sensorineural hearing loss, bilateral]Onset: 614623-41-9368ZnhxhjfDbjwwguhcj and visceral atherosclerosis (20 sources)Peripheral vascular disease; Translations: [Peripheral vascular disease, unspecified]Onset: 462584-65-0824FirvzgaImxlevay codes; unclassified (5 sources)Other specified postprocedural states; Translations: [Other postprocedural status]93-12-2405LxodzuyzRzxqkpdbk and history of mental health and substance abuse codes (4 sources)Ex-smoker; Translations: [Personal history of nicotine dependence] Episodic Past or Other Problems Problem ClassificationProblemDateDocumented DateEpisodic/ChronicDiseases of mouth; excluding dental (1 source)Recurrent oral aphthaeOnset: 12-03-2021 Resolved: 90-30-8238XuhaddcfWlumfdrxczlezufi hemorrhage (20 sources)Gastrointestinal hemorrhage; Translations: [Gastrointestinal hemorrhage, unspecified]Onset: 06-07-2024 Resolved: 469744-86-6234KljjazurBuuwvcv and fatigue (20 sources)Fatigue; Translations: [Other fatigue]Onset: EpisodicMood disorders (15 sources)Mood disordersOnset: Other aftercare (1 source)senior living (current) use of insulin; Translations: [CORRECTION CURRENT USE OF INSULIN]Onset: 29-16-4030EgfvryzvOykpy aftercare (20 sources)Long-term current use of drug therapy; Translations: [Other emt intermediate (current) drug therapy]Onset: 282482-69-9977FeioqilqBteky aftercare (2 sources)Patient encounter status; Translations: [Other emt intermediate (current) drug therapy]Onset: 248695-65-3531KyvzfsavAsraj bone disease and musculoskeletal deformities (20 sources)Osteopenia; Translations: [Other specified disorders of bone density and structure, right thigh]Onset: 936357-44-2500WvrntegrZxbnu lower respiratory disease (20 sources)Dyspnea; Translations: [Shortness of breath]Onset: 05-26-2024 Resolved: 547236-33-9374GrtvdhxdUwlmo screening for suspected conditions (not mental disorders or infectious disease) (4 sources)Encounter for screening mammogram for malignant neoplasm of breast; Translations: [ENC SCR MAMMO MALIG NEOPLASM BREAST]Onset: 88-09-5291Wckoxyyb Residual codes; unclassified (1 source)Family history of malignant neoplasm of breast; Translations: [FAMILY HX MALIG NEOPLASM OF BREAST]Onset: 34-11-8905YhjthauuAxpwdypw codes; unclassified (1 source)Family history of malignant neoplasm of digestive organs; Translations: [FAM HX MALIG NEOPLASM DIGESTIV ORGN]Onset: 46-00-1560Utfiefox Residual codes; unclassified (20 sources)Bilateral lower limb edema; Translations: [Localized edema]Onset: 963510-64-3503Egozedgt Results Test NameValueInterpretationReference RangeFacilityMLR HEMOGLOBIN A1Con 58-64-9659Hpyvcnj [Mass/Vol]137 mg/dLNOGeneral Leonard Wood Army Community HospitalNfqlbycsjgClB6k (Bld) [Mass fraction] 6.4 %High4.5 - 6.2 %NOMS HealthcareComment on above:ADA RECOMMENDED LIMIT 4.0 - 6.0 ADA THERAPEUTIC TARGET < 7.0 ACTION SUGGESTED > 7.0 Interpretation and review of laboratory resultsAbnormalNOVA HealthcareCLINISYNC NOMS HealthcareUS carotid doppler BIon 88-91-6467WZ carotid doppler [facility] [address] [place] [address] Ultrasound Report Signed Patient: Neha Ashton MR#: [id number] : 1945 Acct:[id number] Age/Sex: 79 / F ADM Date: 12/12/24 Loc: [facility] Room: Type: [facility] Attending Dr: Rashida Solomon [employer] [facility] [employer] Ordering Provider: Rashida Solomon APRN Date of Service: 12/12/24 US/US carotid doppler BI: I65.23 - Occlusion and stenosis of bilateral carotid triny... Copies to: Rashida Solomon APRN CAROTID DUPLEX INDICATION: Follow-up known carotid occlusive disease PROCEDURE: Color-flow duplex scanning is used to interrogate the extracranial carotid arterial system, as well as both vertebral arteries. Both carotid bifurcations show mild to moderate heterogeneous plaque formation. The proximal right internal carotid artery shows a highest peak systolic velocity of 189 cm/s with an end-diastolic velocity of 29.6 cm/s . The mid internal carotid artery measures 142 cm/s peak systolic and 30.7 cm/s end diastolic. The distal segment measures 124 cm/s peak systolic with an end diastolic velocity of 27 cm/s . The velocities of the right common carotid artery are 136 cm/s peak systolic and 17.2 cm/s end- diastolic proximally and 136 cm/s peak systolic and 18 cm/s end diastolic distally. The peak systolic velocity ratio of the internal to the common carotid artery is 1.39. The right external carotid artery measures 193 cm/s peak systolic. The right vertebral artery is patent at 97.7 cm/s with antegrade flow. There is a left carotid to subclavian bypass which is patent. There is a persistent previously identified severe midsegment stenosis in the left common carotid artery which is unchanged. The proximal left internal carotid artery shows a highest peak systolic velocity of 172 cm/s with an end-diastolic velocity of 23.2 cm/s . The mid internal carotid artery measures 25.1 cm/s peak systolic and 13.5 cm/s end diastolic. The distal segment measures 62.2 cm/s peak systolic with an end diastolic velocity of 23.9 cm/s . The velocities of the left common carotid artery are 572 cm/s peak systolic and 70.9 cm/s end-diastolic proximally and 560 cm/s peak systolic and 49.4 cm/s end diastolic distally. The peak systolic velocity ratio of the internal to the common carotid artery is 0.31 . The left external carotid artery measures 61.9 cm/s peak systolic. The left vertebral artery is patent at 27.3 cm/s with antegrade flow. US/US carotid doppler BI IMPRESSION: 50-69% stenosis of the right extracranial internal carotid artery. Severe stenosis of the left common carotid artery and its mid segment which is unchanged from prior. Patent left carotid to subclavian bypass graft. Impression dictated by: Willie Herrera M.D. 12/12/2024 11:55 AM Dictation Location: [place] [address] Tech: Diana Richardson Transcribed By: LOLI 12/12/24 1155 Dictated By: Willie Herrera MD 12/12/24 1153 Signed By: 12/12/24 1155[facility] Physician GroupSAN [facility] BASIC METABOLIC PANELon 96-15-4923Rkanv gap [Moles/Vol]11.4 mmol/LNOMS HealthcareCalcium [Mass/Vol]9.7 mg/dL8.5 - 10.1 mg/dLNOMS HealthcareChloride [Moles/Vol]100 mmol/L98 - 107 mmol/LNOMS HealthcareCO2 [Moles/Vol]31.1 mmol/L21.0 - 32.0 mmol/LNOMS Healthcare Creatinine [Mass/Vol]0.97 mg/dL0.55 - 1.02 mg/dLNOVA HealthcareGFR/1.73 sq M.predicted CKD-EPI (S/P/Bld) [Vol rate/Area]>60>=60 mL/min/1.73m 2NOMS HealthcareGlucose [Mass/Vol]130 mg/uQOpbl47 - 106 mg/dLNOVA Healthcare Interpretation and review of laboratory resultsAbnormalNOMS HealthcarePotassium [Moles/Vol]4.5 mmol/L3.5 - 5.1 mmol/LNOMS HealthcareSodium [Moles/Vol]138 mmol/L 136 - 145 mmol/LNOMS HealthcareTBH EGFR-NON AF PPNLFYCX92Qpd>=60 mL/min/1.73m 2 NOMS HealthcareUrea nitrogen [Mass/Vol]16 mg/dL7.0 - 18.0 mg/dLNOMS Healthcare Urea nitrogen/Creatinine [Mass ratio]16.5 mg/mgNOMS HealthcareCLINISYNCNOMS HealthcareUS carotid doppler BIon 12-48-7497LU carotid doppler [facility] [address] [place] [address] Ultrasound Report Signed Patient: Neha Ashton MR#: [id number] : 1945 Acct:[id number] Age/Sex: 79 / F ADM Date: 09/19/24 Loc: [facility] Room: Type: [facility] Attending Dr: Willie Herrera MD Ordering Provider: Willie Herrera MD Date of Service: 09/19/24 US/US carotid doppler BI: I65.23 - Occlusion and stenosis of bilateral carotid triny... Copies to: Willie Herrera MD Bilateral carotid duplex examination Indication for study: Follow-up known carotid occlusive disease PROCEDURE: Color-flow duplex scanning is used to interrogate the extracranial carotid arterial system as well as both vertebral arteries. The patient's right side the highest peak systolic velocity in the internal carotid artery is 120 cm/s with an end-diastolic velocity of 27 cm/s. Velocities of the right common carotid artery are normal. The peak systolic velocity is 0.7. The right vertebral artery is patent with antegrade flow. In the patient's left side there is a complex anatomy. There is a left carotid to subclavian bypass graft. There is a stent proximal to the bypass graft in the common carotid artery which has recurrent severe stenosis similar to prior studies. There is no hemodynamically significant stenosis of the left internal carotid artery. The highest peak systolic velocity in the left internal carotid artery is 77 and the end-diastolic velocity is 25 cm/s. The highest velocity in the carotid stent is 569 cm/s. The left vertebral artery remains patent with antegrade flow. US/US carotid doppler BI IMPRESSION: Less than 50% stenosis of the right extracranial internal carotid artery. Patent left internal carotid artery. Severe stenosis in the left common carotid artery and a previously stented segment. Impression dictated by: Willie Herrera M.D.09/20/2024 1:54 PM Dictation Location: [place] [address] Tech: Kary Fajardo Transcribed By: LOLI 09/20/24 1354 Dictated By: Willie Herrera MD 09/20/24 1352 Signed By: 09/20/24 [facility] Physician [facility] CenterALL CBC WITH AUTO DIFFon 49-01-7643WRCRBDVAD ABSOLUTE AUTO0.1NOMS HealthcareBasophils/100 WBC (Bld)0.6 % 0.2 - 2.0 %NOMS HealthcareEosinophils/100 WBC (Bld)0.4 %Low0.9 - 7.0 %NOMS HealthcareErythrocyte distribution width (RBC) [Ratio]21.1 %High11.0 - 15.0 % NOMS HealthcareHematocrit (Bld) [Volume fraction]32 %Low36.0 - 48.0 %[facility] Medical CenterHemoglobin (Bld) [Mass/Vol]9.2 g/dLLow12.0 - 16.0 g/dLUniversity Health Lakewood Medical Center IMMATURE GRANULOCYTES ABS AUTO0.03NOGeneral Leonard Wood Army Community HospitalImmature granulocytes/100 WBC (Bld)0.3 %0.0 - 0.5 %[facility] CenterInterpretation and review of laboratory resultsAbnormalUniversity Health Lakewood Medical CenterLYMPHOCYTES ABSOLUTE AUTO2.3NOGeneral [facility] Lymphocytes/100 WBC (Bld)22.2 %20.5 - 60.0 %[facility] HospitalH (RBC) [Entitic mass]22.2 pgLow26.7 - 34.0 pgSalem Memorial District HospitalHC (RBC) [Mass/Vol]28.8 g/dLLow 29.9 - 35.2 g/dLSalem Memorial District HospitalV (RBC) [Entitic vol]77.3 fLLow81.0 - 99.0 fL [facility] CenterMONOCYTES ABSOLUTE AUTO0.7NOGeneral Leonard Wood Army Community HospitalMonocytes/100 WBC (Bld)7 %1.7 - 12.0 %[facility] CenterNEUTROPHILS ABSOLUTE EJDZ5IbomTJLN Healthcare Neutrophils/100 WBC (Bld)69.5 %43.0 - 75.0 %[facility] Medical CenterPlatelet mean volume (Bld) [Entitic vol]9 fLLow9.5 - 13.5 fLUniversity Health Lakewood Medical CenterTB EO #0NOMS [facility] TBH CIC772ZTAO [facility] RBC4.14LowNOTwo [facility] WBC10.1NChristian Hospital CLINISYNCUniversity Health Lakewood Medical CenterCA ECHO DOPPLER COMPLETEon 92-64-9568YkzLor[place], [place] [address] Cardiology Report Signed Patient: NEHA ASHTON MR#: [id number] : 1945 Acct:[id number] Age/Sex: 78 / F ADM Date: 06/16/24 Loc: [facility] Attending Dr: Clayton Manning M.D. Ordering Physician: Clayton Manning M.D. Date of Service: 06/16/24 Procedure(s): CA echo doppler complete Accession Number(s): [id number] cc: Clayton Manning M.D. Patient Name: NEHA ASHTON MR#: [id number] : 1945 Exam Date: 06/16/2024 Ordering Doctor: DR Clayton Manning . ECHOCARDIOGRAM REPORT PROCEDURE: CA ECHO DOPPLER [...] 09:40 Dictated By: STAN FRASER Signed By: (more content not included)...TBHRadiology, Radiologist, MD - 06/17/2024 [place] [address] Cardiology Report Signed Patient: NEHA ASHTON MR#: [id number] : 1945 Acct:[id number] Age/Sex: 78 / F ADM Date: 06/16/24 Loc: [facility] Attending Dr: Clayton Manning M.D. Ordering Physician: Clayton Manning M.D. Date of Service: 12/26/24 Procedure(s): CA echo doppler complete Accession Number(s): [id number] cc: Clayton Manning M.D. Patient Name: NEHA ASHTON MR#: [id number] : 1945 Exam Date: 06/16/2024 Ordering Doctor: DR Clayton Manning . ECHOCARDIOGRAM REPORT PROCEDURE: CA ECHO DOPPLER [...] FRASER Signed By: 06/17/24940 DD/ 9 TD/TT: Box Fabricator: [facility] HealthcareRadiology Study observation (narrative)BROOKLINE HOSPITALIvy [facility]'S HospitalCA ECHO DOPPLER COMPLETEOrdered By: Radiologist Radiology on 32-67-7041[facility] Work Phone: xr CHEST 2Von [phone], [place] [address] XRay Report Signed Patient: NEHA ASHTON MR#: [id number] : 1945 Acct:[id number] Age/Sex: 78 / F ADM Date: 05/26/24 Loc: LAB Attending Dr: Clayton Manning M.D. Ordering Physician: Clayton Manning M.D. Date of Service: 05/26/24 Procedure(s): XR chest 2V Accession Number(s): [id number] cc: Clayton Manning M.D. [address] [place] [address] Patient Name: NEHA ASHTON MRN: [id number] date: 1945 Sex: F Assigned Patient Location: LAB Current Patient Location: Accession/Order Number: [id number] Exam Date: 05/26/2024 14:40 Report Date: 05/27/2024 [...] Mild right basilar infiltrates. Electronically authenticated by: SHIRAZ MENA Date: 05/27/2024 06:06 Dictated By: Shiraz Mena M.D. Signed By: 05/27/24608 DD/ 5 TD/TT: Box Fabricator:TBHRadiology, Radiologist, MD - 05/27/2024 [place] [address] XRay Report Signed Patient: NEHA ASHTON MR#: [id number] : 1945 Acct:[id number] Age/Sex: 78 / F ADM Date: 05/26/24 Loc: LAB Attending Dr: Clayton Manning M.D. Ordering Physician: Clayton Manning M.D. Date of Service: 05/26/24 Procedure(s): XR chest 2V Accession Number(s): [id number] cc: Clayton Manning M.D. [place] [address] Patient Name: NEHA ASHTON MRN: [id number] date: 1945 Sex: F Assigned Patient Location: LAB Current Patient Location: Accession/Order Number: [id number] Exam Date: 05/26/2024 14:40 Report Date: 05/27/2024 [...] Mild right basilar infiltrates. Electronically authenticated by: SHIRAZ MENA Date: 05/27/2024 06:06 Dictated By: Shiraz Mena M.D. Signed By: 05/27/24608 DD/ 5 TD/TT: Box Fabricator: [facility] HealthcareRadiology Study observation (narrative)[facility]OM[facility] HealthcareXR CHEST 2V Ordered By: Radiologist Radiology on 01-55-8218UXNE [employer] Work Phone: all CBC WITH AUTO DIFFon 81-47-5644UZIINFDAX ABSOLUTE AUTO0.1NOMS HealthcareBasophils/100 WBC (Bld)0.5 %0.2 - 2.0 %[facility] Eosinophils/100 WBC (Bld)0.3 %Low0.9 - 7.0 %NOMS HealthcareErythrocyte distribution width (RBC) [Ratio]21.4 %High11.0 - 15.0 %[facility]OMS HealthcareHematocrit (Bld) [Volume fraction]24.2 %Low36.0 - 48.0 %[facility] HealthcareHemoglobin (Bld) [Mass/Vol]6.5 g/dLCritically low12.0 - 16.0 g/dLNOVA HealthcareComment on above: RESULTS CALLED TO DR. MANNING AT 1450IMMATURE GRANULOCYTES ABS AUTO0.03NOMS HealthcareImmature granulocytes/100 WBC (Bld)0.3 %0.0 - 0.5 %[facility] Interpretation and review of laboratory resultsAbnormalNOGeneral [facility] LYMPHOCYTES ABSOLUTE AUTO2.1NOMS HealthcareLymphocytes/100 WBC (Bld)18.6 %Low 20.5 - 60.0 %[facility] CenterMCH (RBC) [Entitic mass]17.3 pgLow26.7 - 34.0 pgNOGeneral Leonard Wood Army Community HospitalMCHC (RBC) [Mass/Vol]26.9 g/dLLow29.9 - 35.2 g/dLUniversity Health Lakewood Medical CenterMCV (RBC) [Entitic vol]64.4 fLLow81.0 - 99.0 fLUniversity Health Lakewood Medical CenterMONOCYTES ABSOLUTE AUTO0.9HighNOVA HealthcareMonocytes/100 WBC (Bld)7.8 %1.7 - 12.0 %[facility] CenterNEUTROPHILS ABSOLUTE DMMC2ClixJYHI HealthcareNeutrophils/100 WBC (Bld) 72.5 %43.0 - 75.0 %[facility] Medical CenterPlatelet mean volume (Bld) [Entitic vol]9.2 fL Low9.5 - 13.5 fLNOVA HealthcareTBH EO #0NOMS HealthcareTBH IKB037PPIF Healthcare TBH RBC3.76LowNOVA HealthcareComment on above:2+ ANISOCYTOSIS 2+ HYPCHROMIA 2+ MICROCYTOSIS 1+ OVALOCYTES TBH RFA24AFFW HealthcareCLINISYNCNOMS HealthcareUS carotid doppler BIon 85-18-4721JO carotid doppler [facility] [address] [place] [address] Ultrasound Report Signed Patient: Neha Ashton MR#: [id number] : 1945 Acct:[id number] Age/Sex: 78 / F ADM Date: 04/18/24 Loc: [facility] Room: Type: REG CLI Attending Dr: Willie Herrera MD Ordering Provider: [...] Willie Herrera M.D.04/18/2024 11:57 AM Dictation Location: [place] [address] Tech: Kary Fajardo Transcribed By: LOLI 04/18/24 1157 Dictated By: Willie Herrera MD 04/18/24 1154 Signed By: 04/18/24 1157[facility] Physician GroupCreatinine [Mass/volume] in Serum or PlasmaOrdered By: Willie Herrera on 10-04-9948Kgbugkxszv [Mass/Vol] 0.76 mg/dL0.60-1.20[facility] CenterNo Panel InformationOrdered By: Willie Herrera on 54-75-8124Igecxgxgy GFR (CKD-EPI)> 60.0 mL/MinUniversity Hospitals Parma Medical CenterPharmacy Creatinine Clearance (Chem46.62[facility] Medical CenterUrea nitrogen [Mass/volume] in Serum or PlasmaOrdered By: Willie Herrera on 23-78-1151Kwmu nitrogen [Mass/Vol]18 mg/dL7-25[facility] Medical CenterCBC AUTO DIFFon 11-35-7958IKEF #0.1 103/ulNormal0.0-0.1 The [facility] HospitalComment on above:Performed By: #### CBC #### [facility] [address] [place] [address] [address] Anette ShahBasophils/100 WBC (Bld)0.4 %Normal0.2-2.0[facility] Comment on above:Performed By: #### CBC #### [facility] [address] [place] [address] [address] Anette Nixon #0.0 103/ulNormal0.0-0.7The [facility] HospitalComment on above: Performed By: #### CBC #### [facility] [address] [place] [address] [address] Anette Mgosinophils/100 WBC (Bld)0.1 %Critically low0.9-7.0The [facility] HospitalComment on above:Performed By: #### CBC #### [facility] [address] [place] [address] [address] Anette Mgrythrocyte distribution width (RBC) [Ratio]18.3 %Critically high 11.0-15.0The [facility] HospitalComment on above:Performed By: #### CBC #### [facility] [address] [place] [address] [address] Anette ShahHematocrit (Bld) [Volume fraction]32.4 %Critically low36.0-48.0 The [facility] HospitalComment on above:Performed By: #### CBC #### [facility] [address] [place] [address] [address] Anette ShahHemoglobin (Bld) [Mass/Vol]10.0 g/dLCritically low12.0-16.0The [facility] HospitalComment on above:Performed By: #### CBC #### [facility] [address] [place] [address] [address] Anette Abernathy #0.05 10e3/ulCritically high0.00-0.03[facility] Comment on above:Performed By: #### CBC #### [facility] [address] [place] [address] [address] Anette Abernathy %0.4 %Normal0.0-0.5The [facility]ound City HospitalComment on above: Performed By: #### CBC #### [facility] [address] [place] [address] Dr. Anette Milligan #1.8 103/ulNormal1.2-3.8The [facility] HospitalComment on above:Performed By: #### CBC #### [facility] [address] [place] [address] Dr. Anette Arambulahocytes/100 WBC (Bld)13.1 %Critically low20.5-60.0The [facility] HospitalComment on above:Performed By: #### CBC #### [facility] [address] [place] [address] [address] Anette LoftonUAL DIFF REQNONormalThe [facility] HospitalComment on above: Performed By: #### CBC #### [facility] [address] [place] [address] Dr. Anette Looney (RBC) [Entitic mass]22.3 pgCritically low26.7-34.0The [facility] HospitalComment on above:Performed By: #### CBC #### [facility] [address] [place] [address] Dr. Anette Mcclellan (RBC) [Mass/Vol]30.9 g/rLUwqlvu57.9-35.2The [facility] HospitalComment on above:Performed By: #### CBC #### [facility] [address] [place] [address] Dr. Anette Mcclellan (RBC) [Entitic vol]72.2 fLCritically low81.0-99.0The [facility] HospitalComment on above:Performed By: #### CBC #### [facility] [address] [place] [address] [address] Anette Fang #0.6 103/ulNormal0.3-0.8The [facility] HospitalComment on above:Performed By: #### CBC #### [facility] [address] [place] [address] Dr. Anette Guerraocytes/100 WBC (Bld)4.3 %Normal1.7-12.0[facility] Comment on above:Performed By: #### CBC #### [facility] [address] [place] [address] Dr. Anette Sheppard #11.5 103/ulCritically high1.4-6.5The [facility] Comment on above:Performed By: #### CBC #### [facility] [address] [place] [address] Dr. Anette Hebertutrophils/100 WBC (Bld)81.7 %Critically high43.0-75.0The [facility] HospitalComment on above:Performed By: #### CBC #### [facility] [address] [place] [address] Dr. Anette Jones mean volume (Bld) [Entitic vol]8.8 fLCritically low 9.5-13.5The [facility] HospitalComment on above:Performed By: #### CBC #### [facility] [address] [place] [address] Dr. Anette BernalT479 103/ulCritically laic254-491Qxi [facility] HospitalComment on above:Performed By: #### CBC #### [facility] [address] [place] [address] Dr. Anette ShahRBC4.49 106/ulNormal4.20-5.40The [facility] HospitalComment on above:Performed By: #### CBC #### [facility] [address] [place] [address] Dr. Anette ShahWBC14.1 103/ulCritically high4.0-11.0The [facility] HospitalComformerly [facility] on above:Performed By: #### CBC #### [facility] [address] [place] [address] [address] Anette ShahGLYCOHEMOGLOBIN A1Con 82-63-3243OPE RECOMMENDATIONSEE BELOWNotransylvania regional hospital The [facility] HospitalComment on above:Result Comment: ADA RECOMMENDED LIMIT 4.0 - 6.0 ADA THERAPEUTIC TARGET < 7.0 ACTION SUGGESTED > 7.0Performed By: #### A1C #### [facility] [address] [place] [address] [address] Anette ShahGlucose [Mass/Vol]200 mg/dLNoOhio State East HospitalComment on above:Performed By: #### A1C #### [facility] [address] [place] [address] Dr. Anette ShahHbA1c (Bld) [Mass fraction]8.6 %Critically high4.5-6.2The [facility] HospitalComment on above:Performed By: #### A1C #### [facility] [address] [place] [address] Dr. Anette ShahLIPID PROFILEon 22-71-7188VDUI-HDL RATIO NORMSEE BELOWTriHealth Good Samaritan HospitalComment on above:Result Comment: 3.3 - 4.4 LOW RISK 4.4 - 7.1 AVERAGE RISK 7.1 - 11.0 MODERATE RISK >11.0 HIGH RISKPerformed By: #### LIPID, BMP, LIVER #### [facility] [address] [place] [address] Dr. Anette ShahCholesterol [Mass/Vol]123 mg/dLNormal<=200The [facility] Comment on above:Performed By: #### LIPID, BMP, LIVER #### [facility] [address] [place] [address] [address] Anette ShahCholesterol in HDL [Mass/Vol]61 mg/dLCritically qrqj55-44Ink [facility]'s Hospitalment on above:Performed By: #### LIPID, BMP, LIVER #### [facility] [address] [place] [address] [address] Yilan ChangCholesterol in LDL [Mass/Vol]35.0 mg/dLTriHealth Good Samaritan HospitalComment on above:Performed By: #### LIPID, BMP, LIVER #### [facility] [address] [place] [address] Dr. Anette Urrutiaesterol.total/Cholesterol in HDL [Mass ratio]2.0 {ratio} NormalThe [facility] HospitalComment on above:Performed By: #### LIPID, BMP, LIVER #### [facility] [address] [place] [address] Dr. Anette Navarrete NORMAL> or = 60 mg/dl - LOW CARDIOVASCULAR RISK <40 mg/dl - HIGH CARDIOVASCULAR RISKTriHealth Good Samaritan HospitalComment on above:Performed By: #### LIPID, BMP, LIVER #### [facility] [address] [place] [address] Dr. Anette Hernandez CALC NORMALSEE BELOWTriHealth Good Samaritan HospitalComment on above:Result Comment: <100 mg/dl OPTIMAL 100 - 129 mg/dl NEAR OR ABOVE OPTIMAL 130 - 159 mg/dl BORDERLINE HIGH 160 - 189 mg/dl HIGH >190 mg/dl VERY HIGH Performed By: #### LIPID, BMP, LIVER #### [facility] [address] [place] [address] Dr. Anette ShahTriglyceride [Mass/Vol]135 mg/dLNormal<=150[facility] Comment on above:Performed By: #### LIPID, BMP, LIVER #### [facility] [address] [place] [address] Dr. Anette Rich CALC27.0 mg/dLNoOhio State East HospitalComformerly [facility] on above: Performed By: #### LIPID, BMP, LIVER #### [facility] [address] [place] [address] Dr. Anette Boogie PROFILEon 71-00-1850Lnbnxka [Mass/Vol]3.4 g/dLNormal3.4-5.0 The [facility] HospitalComment on above:Performed By: #### LIPID, BMP, LIVER #### [facility] [address] [place] [address] Dr. Anette ShahAlbumin/Globulin [Mass ratio]0.9 {ratio}NormalThe [facility] HospitalComment on above:Performed By: #### LIPID, BMP, LIVER #### [facility] [address] [place] [address] [address] Anette Reid [Catalytic activity/Vol]99 U/TPgtpof13-186Fdo [facility] HospitalComment on above:Performed By: #### LIPID, BMP, LIVER #### [facility] [address] [place] [address] Dr. Anette Martinez [Catalytic activity/Vol]20 U/IMskwoa25-63Aii [facility] HospitalComment on above:Performed By: #### LIPID, BMP, LIVER #### [facility] [address] [place] [address] Dr. Anette Leal [Catalytic activity/Vol]16 U/IDrdsnw93-62Kfy [facility] HospitalComment on above:Performed By: #### LIPID, BMP, LIVER #### [facility] [address] [place] [address] Dr. Anette RamírezI, CONJUGATED0.1 mg/dLNormal0.0-0.2The [facility] Comment on above:Performed By: #### LIPID, BMP, LIVER #### [facility] [address] [place] [address] Dr. Anette Ramírezirubin [Mass/Vol]0.3 mg/dLNormal0.2-1.0The [facility] Comment on above:Performed By: #### LIPID, BMP, LIVER #### [facility] [address] [place] [address] Dr. Anette ShahGlobulin (S) [Mass/Vol]4.0 g/dLNormalThe [facility] HospitalComment on above:Performed By: #### LIPID, BMP, LIVER #### [facility] [address] [place] [address] Dr. Anette ShahProtein [Mass/Vol]7.4 g/dLNormal6.4-8.2The [facility] Comment on above:Performed By: #### LIPID, BMP, LIVER #### [facility] [address] [place] [address] Dr. Anette LewROALBUMIN, RAND URon 21-60-2248oYPP6.4 mg/dLNormal<=30.0The [facility] HospitalComment on above:Performed By: #### MALBR #### [facility] [address] [place] [address] [address] Anette ShahPROF CHEM 8 (BAS METB)on 31-65-0620Airvq gap [Moles/Vol]14.9 mmol/LNormalThe [facility] HospitalComment on above:Performed By: #### LIPID, BMP, LIVER #### [facility] [address] [place] [address] Dr. Anette ShahCalcium [Mass/Vol]9.2 mg/dLNormal8.5-10.1The [facility] Comment on above:Performed By: #### LIPID, BMP, LIVER #### [facility] [address] [place] [address] Dr. Anette ShahChloride [Moles/Vol]101 mmol/OQildcj18-152Kwu [facility] Comment on above:Performed By: #### LIPID, BMP, LIVER #### [facility] [address] [place] [address] Dr. Anette ShahCO2 [Moles/Vol]26.6 mmol/QBhmkaa31.0-32.0The [facility] Comment on above:Performed By: #### LIPID, BMP, LIVER #### [facility] [address] [place] [address] Dr. Anette ShahCreatinine [Mass/Vol]0.99 mg/dLNormal0.55-1.02The [facility] HospitalComment on above:Performed By: #### LIPID, BMP, LIVER #### [facility] [address] [place] [address] Dr. Anette MgGFR-AF [place]IZ[place]>60Normal>=60The [facility] HospitalComment on above:Performed By: #### LIPID, BMP, LIVER #### [facility] [address] [place] [address] Dr. Yilan ChangEGFR-NON AF VZJKVZVK88 mL/min/1.41c9Eeiorajmnh low>=60The [facility] HospitalComment on above:Performed By: #### LIPID, BMP, LIVER #### [facility] [address] [place] [address] [address] Anette ShahGlucose [Mass/Vol]215 mg/dLCritically upwz53-316Mfz [facility] HospitalComment on above:Performed By: #### LIPID, BMP, LIVER #### [facility] [address] [place] [address] [address] Anette ShahPotassium [Moles/Vol]4.5 mmol/LNormal3.5-5.1[facility] Comment on above:Performed By: #### LIPID, BMP, LIVER #### [facility] [address] [place] [address] [address] Anette ShahSodium [Moles/Vol]138 mmol/HImegwz579-460RpnAvita Health System [facility] Comment on above:Performed By: #### LIPID, BMP, LIVER #### [facility] [address] [place] [address] [address] Anette ShahUrea nitrogen [Mass/Vol]13.0 mg/dLNormal7.0-18.0The [facility] HospitalComment on above:Performed By: #### LIPID, BMP, LIVER #### [facility] [address] [place] [address] [address] Anette ShahUrea nitrogen/Creatinine [Mass ratio]13.1 mg/mgNoOhio State East HospitalComment on above:Performed By: #### LIPID, BMP, LIVER #### [facility] [address] [place] [address] [address] Anette ShahCreatinine (Bld) [Mass/Vol]Ordered By: Rashida Solomon on 28-55-3520Zrrlzetgms [Mass/Vol]0.7 mg/dL0.6-1.3FBerger Hospital Comment on above:ER/ESD physician is notified/shown all ISTAT results.Critical values may be confirmed by laboratorytesting ifdeemed necessary by ER attending doctor.GLYCOHEMOGLOBIN A1Con 04-21-8891VQS RECOMMENDATIONSEE BELOWNoOhio State East HospitalComment on above:Result Comment: ADA RECOMMENDED LIMIT 4.0 - 6.0 ADA THERAPEUTIC TARGET < 7.0 ACTION SUGGESTED > 7.0Performed By: #### A1C #### [facility] [address] [place] [address] [address] Anette ShahGlucose [Mass/Vol]186 mg/dLNoOhio State East HospitalComment on above:Performed By: #### A1C #### [facility] [address] [place] [address] [address] Anette ShahHbA1c (Bld) [Mass fraction]8.1 %Critically high4.5-6.2The [facility] HospitalComment on above:Performed By: #### A1C #### [facility] [address] [place] [address] Dr. Anette ShahMG MAMM SCREEN 3D SMITH CADon 58-58-9449CH MAMM SCREEN 3D SMITH CAD Patient: NEHA ASHTON Exam Date: 11/11/2021 : 1945 Gender:F Ordering : DR CLAYTON MANNING . Admission #: [id number] Family : Order #: [id number] CLICK HERE TO VIEW EXAM RADIOLOGY REPORT [...] cancer at age 50. LOCATION: [facility] BREAST COMPOSITION: Scattered areas fibroglandular density. [...] by: Baltazar Iglesias MD on 11/11/2021 at 10:00[facility] RIGHT 1 OR 2 VWS WITH PELVISon 73-62-5844HUJ RIGHT 1 OR 2 VWS WITH PELVIS [facility] [place] [facility] Department of Radiology [address] [place] [id number] Patient Name: NEHA ASHTON : 1945 Sex: F Age: Race: White Pt. 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 Transcribed by: [email or web address], User Resident: Electronically Signed by: EARNEST GO @ 10/20/2018 11:37 AMNormalThe [facility] [place] HospitalComment on above:Order Comment: , Views (X-RAY, HIP): Radiologic Protocol , Weight Bearing?: N , Views (X-RAY, HIP):Radiologic Protocol , Weight Bearing?: N , , , Ordering Provider - CHARLY LINDSEY PA-C , C REACTIVE PROTEINon 47-91-3818OYO [Mass/Vol]4.3 mg/LNormal 0.0-7.0The [facility] [place] HospitalComment on above:Performed By: #### [id number] #### [facility] [address] [facility] [place] [address], [facility] W/DIFFon 64-43-3005ZZQ BASOPHILS0.1 10*3/uLNormal 0.0-0.2The [facility] [place] HospitalComment on above:Performed By: #### 61079 #### [facility] [address] [place] [address], [facility]ASAB[facility] NEUTROPHILS8.2 10*3/uLHigh1.6-7.6The [facility] [place] HospitalComment on above:Performed By: #### 81199 #### [facility] [address] [place] [address], USABasophils/100 WBC (Bld)0.9 %Normal0.0-1.0The [facility] [place] HospitalComment on above:Performed By: #### 33745 #### [facility] [address] [facility] [place] [place] [address], [facility] AT L[facility] VEGASEosinophils (Bld) [#/Vol]0.1 10*3/uLNormal0.0-0.5The [facility] [place] HospitalComment on above:Performed By: #### 95874 #### [facility] [address] [facility] [place] [address], USAEosinophils/100 WBC (Bld)0.9 %Normal0.0-6.0The [facility] [place] HospitalComment on above:Performed By: #### 24351 #### [facility] [address] [facility] [place] [address], USAErythrocyte distribution width (RBC) [Ratio]15.9 %High 11.5-15.0The [facility] [place] HospitalComment on above:Performed By: #### 84279 #### [facility] [address] [place] [address], USAGIANT PLATELETSPresentNormalThe [facility] [place] HospitalComment on above:Performed By: #### 54916 #### [facility] [address] [facility] [place] [address], USAHematocrit (Bld) [Volume fraction]39.3 %Ugcgch40.0-45.0The [facility] [place] HospitalComment on above:Performed By: #### 58262 #### [facility] [address] [place] [address], [facility] AT L[facility] VEGASHemoglobin (Bld) [Mass/Vol]13.3 g/eBSyzabf35.0-15.0The [facility] [place] HospitalComment on above:Performed By: #### 45585 #### [facility] [address] [place] [address], USALymphocytes (Bld) [#/Vol]3.3 10*3/uLNormal1.2-4.0The [facility] [place] HospitalComment on above:Performed By: #### 76497 #### [facility] [address] [place] [address], USALymphocytes/100 WBC (Bld)27.5 %Vklvtd83.0-45.0The [facility] [place] HospitalComment on above:Performed By: #### 74270 #### [facility] [address] [place] [address], [facility] – TULSAH (RBC) [Entitic mass]28.4 toBesvmz54.0-33.0The [facility] [place] HospitalComment on above:Performed By: #### 78328 #### [facility] [address] [place] [address], [facility] AT L[facility] VEGASMCHC (RBC) [Mass/Vol]33.8 g/oUVretgd08.0-35.0The [facility] [place] HospitalComment on above:Performed By: #### 76616 #### [facility] [address] [place] [address], [facility] AT L[facility] VEGASMCV (RBC) [Entitic vol]84.0 pHMonwzm56.0-98.0The [facility] [place] HospitalComment on above:Performed By: #### 95337 #### [facility] [address] [place] [address], USAMonocytes (Bld) [#/Vol]0.3 10*3/uLNormal0.1-1.0The [facility] [place] HospitalComment on above:Performed By: #### [id number] #### [facility] [address] [place] [address], [facility] AT L[facility] VEGASMONOS2.8 %Low5.0-12.0The [facility] [place] HospitalComment on above:Performed By: #### 40052 #### [facility] [address] [place] [address], USANeutrophils/100 WBC (Bld)67.9 %Quplvs19.0-72.0The [facility] [place] HospitalComment on above:Performed By: #### 75278 #### [facility] [address] [place] [address], USANucleated RBC/100 WBC (Bld) [Ratio]0 %Normal0-0The [facility] [place] HospitalComment on above:Performed By: #### 13181 #### [facility] [address] [place] [address], USAPLAT MWS563 10*3/kBUcelmo050-883Kzz [facility] [place] HospitalComment on above:Performed By: #### 42536 #### [facility] [address] [place] [address], USARBC (Bld) [#/Vol]4.68 10*6/uLNormal3.80-5.00The [facility] [place] HospitalComment on above:Performed By: #### 77937 #### [facility] [address] [place] [address], USAWBC (Bld) [#/Vol]12.03 10*3/uLHigh4.00-10.60The [facility] [place] HospitalComment on above:Performed By: #### 49735 #### [facility] [address] [place] [address], USAHIP RIGHT 1 OR 2 VWS WITH PELVISon [id number] RIGHT 1 OR 2 VWS WITH PELVISUnMcKitrick Hospital Department of Radiology [address] [place] [phone] Patient Name: NEHA ASHTON : 1945 Sex: F Age: Race: White Pt. Location: 84 Patient Status: O Ordered Date: 09/28/2018 1:10:00 PM Completed Date: 09/28/2018 01:09 PM Requesting Provider: FRANCESCA BUSH Attending Provider: FRANCESCA BUSH Report Copy To: CLAYTON MANNING Signs & Symptoms: S72.041D Disp fx of base of nk of r femr, 7thD I10 History: Connelly Comments: , , , Ordering Vera BUSH PA-C , Exam: HIP RIGHT 1 OR 2 VWS WITH PELVIS HIP RIGHT 1 OR 2 VWS WITH PELVIS 09/28/2018 1:09 PM EDT SIGNS AND SYMPTOMS: S72.041D Disp fx of base of nk of r femr, 7thD I10 TECHNOLOGIST COMMENTS: right hip f/u QUESTION FOR THE RADIOLOGIST: , , , Ordering Vera BUSH PA-C , PROTOCOL: AP(PA) and Lateral views were obtained. COMPARISON: June 30, 2018 FINDINGS: Soft tissues: Unchanged Bones: Unchanged Joints: Unchanged IMPRESSION: Right hemiarthroplasty in satisfactory alignment Electronically signed by:Earnest Go. Transcribed by: [id number], User Resident: Electronically Signed by: EARNEST GO @ 09/28/2018 03:23 [facility]Comment [facility]:Order Comment: , , , Ordering Vera BUSH PA-C , SEDIMENTATION RATEon [id number] RATE18 mm/hrNormal0-20[facility] [place] [facility] Comment on above:Performed By: #### 93699 #### [address] [address], [facility] RIGHT 1 OR 2 VWS WITH PELVISon [id number] RIGHT 1 OR 2 VWS WITH PELVISUnMcKitrick Hospital Department of Radiology [address] [place] [id number] Patient Name: NEHA ASHTON : 1945 Sex: F Age: Race: White Pt. Location: Patient Status: O Ordered Date: 06/30/2018 12:50:00 PM Completed Date: 06/30/2018 12:59 PM Requesting Provider: FRANCESCA BUSH Attending Provider: FRANCESCA BUSH Report Copy To: CLAYTON MANNING Signs & Symptoms: S72.041D Disp fx of base of nk of r femr, 7thD I10 History: Connelly Comments: , Views (X-RAY, HIP): Radiologic Protocol [...] Radiologic Protocol , , , Ordering Vera - FRANCESCA WALLSC , PROTOCOL: AP(PA) and Lateral views were obtained. COMPARISON: May 19, 2018 FINDINGS: Right hip hemiarthroplasty. No periprosthetic fracture or loosening. Alignment unchanged. Mild degenerative changes in the left hip joint space with joint space narrowing. Degenerative changes lower lumbar spine and SI joints. IMPRESSION: 1. Right hip hemiarthroplasty. No periprosthetic fracture or loosening. Alignment unchanged Electronically signed by:Houston Hobbs. Transcribed by: [email or web address], User Resident: Electronically Signed by: HOUSTON HOBBS @ 06/30/2018 02:43 [facility] HospitalComment on above:Order Comment: , Views (X- RAY, HIP): Radiologic Protocol , Views (X-RAY, HIP): Radiologic Protocol , , , Ordering Provider - FRANCESCA VASQUEZ-C , HIP RIGHT 1 OR 2 VWS WITH PELVISon [id number] RIGHT 1 OR 2 VWS WITH PELVISUnMcKitrick Hospital Department of Radiology [address] [place] [phone] Patient Name: NEHA ASHTON : 1945 Sex: F Age: Race: White Pt. Location: Patient Status: Ordered Date: 05/19/2018 9:30:00 AM Completed Date: 05/19/2018 09:35 AM Requesting Provider: CHARLY LINDSEY Attending Provider: Report Copy To: Signs & Symptoms: S72.001D Fx unsp part of nk of r femr, subs for clos fx w routn heal I10 History: Rosario Comments: , Views (X-RAY, [...] hemiarthroplasty Electronically signed by:Earnest Go. Transcribed by: [email or web address], User Resident: Electronically Signed by: EARNEST GO @ 05/19/2018 01:47 [facility] HospitalComment on above:Order Comment: , Views (X-RAY, HIP): Radiologic Protocol , Weight Bearing?: N , With or Without Brace/Cast/Collar: With , Views (X-RAY, HIP): Radiologic Protocol , Weight Bearing?: N , With or Without Brace/Cast/Collar: With , , , Ordering Provider - CHARLY LINDSEY PA-C , Operative Reporton [id number] ReportMR#: [id number] I [facility] [place] [facility] Pt. Name: Neha Ashton Room #: 6AB [id number] Discharge 05/04/2018 Date: Birthdate: 1945 OPERATIVE REPORT [...] capsule was then closed using #1 Ethibond pwdimx-le-yzqkg fashion as well as the short external rotators. Next, the fascia johan was repaired using rpzbxi-vi-obvnu #1 Vicryl. Subcutaneous tissue was then closed [...] Be M.D. Date Trans: 05/06/2018 04:41 A/leesa GLEASON_JN:[id number] cc: Clayton Manning M.D. [address] [place] [address]XzroqvMlqMemorial Health SystemCB W/DIFFon [id number] BASOPHILS0.0 10*3/uLNormal0.0-0.2The [facility] [place] HospitalComment on above:Order Comment: No: Do not add to previous drawPerformed By: #### 58925 #### [facility] [address] [address], USAABS IMM GRANS0.1 10*3/uLNormal0.0-0.2The [facility] [place] HospitalComment on above:Order Comment: No: Do not add to previous drawPerformed By: #### 70364 #### [facility] [address] [place] [address], USAABS NEUTROPHILS7.9 10*3/uLHigh1.6-7.6The [facility] [place] HospitalComment on above:Order Comment: No: Do not add to previous drawPerformed By: #### 69254 #### [facility] [address] [place] [address], USABasophils/100 WBC (Bld)0.2 %Normal0.0-1.0The [facility] [place] HospitalComment on above:Order Comment: No: Do not add to previous drawPerformed By: #### 97756 #### [facility] [address] [place] [address], USAEosinophils (Bld) [#/Vol]0.1 10*3/uLNormal0.0-0.5The [facility] [place] HospitalComment on above:Order Comment: No: Do not add to previous drawPerformed By: #### 85516 #### [facility] [address] [place] [address], USAEosinophils/100 WBC (Bld)0.8 %Normal0.0-6.0The [facility] [place] HospitalComment on above:Order Comment: No: Do not add to previous drawPerformed By: #### 73699 #### [facility] [address] [place] [address], USAErythrocyte distribution width (RBC) [Ratio]13.4 %Normal 11.5-15.0The [facility] [place] HospitalComment on above:Order Comment: No: Do not add to previous drawPerformed By: #### 73290 #### [facility] [address] [place] [address], USAHematocrit (Bld) [Volume fraction]24.1 %Low36.0-45.0The [facility] [place] HospitalComment on above:Order Comment: No: Do not add to previous drawPerformed By: #### 36605 #### [facility] [address] [place] [address], USAHemoglobin (Bld) [Mass/Vol]8.4 g/dLLow12.0-15.0The [facility] [place] HospitalComment on above:Order Comment: No: Do not add to previous drawPerformed By: #### 89388 #### [facility] [address] [place] [address], USAIMMATURE GRANS0.5 %Normal0.0-1.0The [facility] [place] HospitalComment on above:Order Comment: No: Do not add to previous draw Performed By: #### 18482 #### [facility] [address] [facility] [place] [address], USALymphocytes (Bld) [#/Vol]1.7 10*3/uLNormal1.2-4.0The [facility] [place] HospitalComment on above:Order Comment: No: Do not add to previous drawPerformed By: #### 30011 #### [facility] [address] [place] [address], USALymphocytes/100 WBC (Bld)16.2 %Low20.0-45.0The [facility] [place] HospitalComment on above:Order Comment: No: Do not add to previous drawPerformed By: #### 08358 #### [facility] [address] [place] [address], [facility]H (RBC) [Entitic mass]29.8 hsExmqyj44.0-33.0The [facility] [place] HospitalComment on above:Order Comment: No: Do not add to previous drawPerformed By: #### 74042 #### [facility] [address] [place] [address], [facility] AT L[facility] VEGASMCHC (RBC) [Mass/Vol]34.9 g/jSGjlian10.0-35.0The [facility] [place] HospitalComment on above:Order Comment: No: Do not add to previous drawPerformed By: #### 35726 #### [facility] [address] [place] [address], [facility] INSTITUTE AT L[facility] VEGASMCV (RBC) [Entitic vol]85.5 wZOdpzzc50.0-98.0The [facility] [place] HospitalComment on above:Order Comment: No: Do not add to previous drawPerformed By: #### 60869 #### [facility] [address] [place] [address], USAMonocytes (Bld) [#/Vol]0.7 10*3/uLNormal0.1-1.0The [facility] [place] HospitalComment on above:Order Comment: No: Do not add to previous drawPerformed By: #### 57541 #### [facility] [address] [place] [address], USAMONOS6.4 %Normal5.0-12.0The [facility] [place] HospitalComment on above:Order Comment: No: Do not add to previous drawPerformed By: #### 15377 #### [facility] [address] [place] [address], USANeutrophils/100 WBC (Bld)75.9 %High40.0-72.0The [facility] [place] HospitalComment on above:Order Comment: No: Do not add to previous drawPerformed By: #### 30412 #### [facility] [address] [place] [address], USANucleated RBC/100 WBC (Bld) [Ratio]0 %Normal0-0The [facility] [place] HospitalComment on above:Order Comment: No: Do not add to previous drawPerformed By: #### 33302 #### [facility] [address] [place] [address], USAPLAT EOQ599 10*3/jDPpngzb252-612Vxx [facility] [place] HospitalComment on above:Order Comment: No: Do not add to previous draw Performed By: #### 92260 #### [facility] [address] [place] [address], USARBC (Bld) [#/Vol]2.82 10*6/uLLow3.80-5.00The [facility] [place] HospitalComment on above:Order Comment: No: Do not add to previous drawPerformed By: #### 68935 #### [facility] [address] [place] [address], USAWBC (Bld) [#/Vol]10.40 10*3/uLNormal4.00-10.60The [facility] [place] HospitalComment on above:Order Comment: No: Do not add to previous drawPerformed By: #### 70089 #### [facility] [address] [place] [address], USAPOC GLUCOSE LABon 61-72-0214Erbylet [Mass/Vol]196 mg/dLHigh 70-100The [facility] [place] HospitalComment on above:Performed By: #### 40167 #### [facility] [address] [place] [address], USAGlucose [Mass/Vol]128 mg/qLHjjx07-109Cfh [facility] [place] HospitalComment on above:Performed By: #### 85153 #### [facility] [address] [place] [address], USABASIC METABOLIC PANELon 85-42-3175Dhynwak [Mass/Vol]8.2 mg/dLLow8.6-10.3The [facility] [place] HospitalComment on above:Order Comment: No: Do not add to previous drawPerformed By: #### 96128, 06117 #### [facility] [address] [place] [address], USAChloride [Moles/Vol]101 mmol/LDlrhpw45-019Exl [facility] [place] HospitalComment on above:Order Comment: No: Do not add to previous drawPerformed By: #### 12959, 52383 #### [facility] [address] [place] [address], USACO2 [Moles/Vol]25 mmol/GEfhbrz41-11Ndx [facility] [place] HospitalComment on above:Order Comment: No: Do not add to previous draw Performed By: #### 83402, 02669 #### [facility] [address] [place] [address], USACreatinine [Mass/Vol]0.49 mg/dLLow0.60-1.20The [facility] [place] HospitalComment on above:Order Comment: No: Do not add to previous drawPerformed By: #### 33554, 23835 #### [facility] [address] [place] [address], USAGFR/1.73 sq M predicted among blacks MDRD (S/P/Bld) [Vol rate/Area]mL/min/{1.73_m2}Normal>60[facility] Comment on above:Order Comment: No: Do not add to previous drawResult Comment: Calculation may not be valid for patients over 70 yearsPerformed By: #### 01303, 33312 #### [facility] [address] [place] [address], USAGFR/1.73 sq M predicted among non-blacks MDRD (S/P/Bld) [Vol rate/Area]mL/min/{1.73_m2}Normal>60[facility] [place] [facility] Comment on above:Order Comment: No: Do not add to previous drawResult Comment: Calculation may not be valid for patients over 70 yearsPerformed By: #### 79193, 98482 #### [facility] [address] [place] [address], USAGlucose [Mass/Vol]114 mg/cEYdnm05-066Bdr [facility] [place] HospitalComment on above:Order Comment: No: Do not add to previous drawPerformed By: #### 70899, 45577 #### [facility] [address] [place] [address], USAPotassium [Moles/Vol]3.8 mmol/LNormal3.5-5.1The [facility] [place] HospitalComment on above:Order Comment: No: Do not add to previous drawPerformed By: #### 65668, 55146 #### [facility] [address] [place] [address], USASodium [Moles/Vol]133 mmol/JKsn625-145Ylh [facility] [place] HospitalComment on above:Order Comment: No: Do not add to previous drawPerformed By: #### 73405, 73471 #### [facility] [address] [place] [address], USAUrea nitrogen [Mass/Vol]10 mg/dLNormal7-25The [facility] [place] HospitalComment on above:Order Comment: No: Do not add to previous drawPerformed By: #### 50078, 73444 #### [facility] [address] [place] [address], USACBC COMPLETE BLOOD COUNTon 04-97-6528Ldddprukiyf distribution width (RBC) [Ratio]13.6 %Ukaovj52.5-15.0The [facility] [place] HospitalComment on above:Order Comment: No: Do not add to previous draw Performed By: #### 50365, 55301 #### [facility] [address] [place] [address], USAHematocrit (Bld) [Volume fraction]25.0 %Low36.0-45.0The [facility] [place] HospitalComment on above:Order Comment: No: Do not add to previous drawPerformed By: #### 84385, 54752 #### [facility] [address] [place] [address], USAHemoglobin (Bld) [Mass/Vol]8.5 g/dLLow12.0-15.0The [facility] [place] HospitalComment on above:Order Comment: No: Do not add to previous drawPerformed By: #### 35865, 38000 #### [facility] [address] [place] [address], [facility] (RBC) [Entitic mass]29.1 ywBnkiyx89.0-33.0The [facility] [place] HospitalComment on above:Order Comment: No: Do not add to previous drawPerformed By: #### 47953, 50504 #### [facility] [address] [place] [address], [facility] L[facility] VEGASMCHC (RBC) [Mass/Vol]34.0 g/tPVvrgig04.0-35.0The [facility] [place] HospitalComment on above:Order Comment: No: Do not add to previous drawPerformed By: #### 62998, 74798 #### [facility] [address] [place] [address], [facility] AT L[facility] VEGASMCV (RBC) [Entitic vol]85.6 cHGoodcm34.0-98.0The [facility] [place] HospitalComment on above:Order Comment: No: Do not add to previous drawPerformed By: #### 00366, 90111 #### [facility] [address] [place] [address], USANucleated RBC/100 WBC (Bld) [Ratio]0 %Normal0-0The [facility] [place] HospitalComment on above:Order Comment: No: Do not add to previous drawPerformed By: #### 16367, 46337 #### [facility] [address] [place] [address], USAPLAT KNC712 10*3/sABgzaom437-491Idt [facility] [place] HospitalComment on above:Order Comment: No: Do not add to previous draw Performed By: #### 19674, 03910 #### [facility] [address] [place] [address], USARBC (Bld) [#/Vol]2.92 10*6/uLLow3.80-5.00The [facility] [place] HospitalComment on above:Order Comment: No: Do not add to previous drawPerformed By: #### 29857, 68810 #### [facility] [address] [place] [address], [facility] INSTITUTE AT L[facility] VEGASWBC (Bld) [#/Vol]13.97 10*3/uLHigh4.00-10.60The [facility] [place] HospitalComment on above:Order Comment: No: Do not add to previous drawPerformed By: #### 96209, 28667 #### [facility] [address] [place] [address], [facility] AT L[facility] VEGASCBC W/DIFFon 21-27-7174SET BASOPHILS0.0 10*3/uLNormal 0.0-0.2The [facility] [place] HospitalComment on above:Order Comment: No: Do not add to previous drawPerformed By: #### 37614, 79659 #### [facility] [address] [place] [address], USAABS IMM GRANS0.1 10*3/uLNormal0.0-0.2The [facility] [place] HospitalComment on above:Order Comment: No: Do not add to previous drawPerformed By: #### 06200, 12988 #### [facility] [address] [address], USAABS NEUTROPHILS8.4 10*3/uLHigh1.6-7.6The [facility] [place] HospitalComment on above:Order Comment: No: Do not add to previous drawPerformed By: #### 71959, 84464 #### [facility] [address] [place] [address], USABasophils/100 WBC (Bld)0.3 %Normal0.0-1.0The [facility] [place] HospitalComment on above:Order Comment: No: Do not add to previous drawPerformed By: #### 85584, 83134 #### [facility] [address] [place] [address], USAEosinophils (Bld) [#/Vol]0.1 10*3/uLNormal0.0-0.5The [facility] [place] HospitalComment on above:Order Comment: No: Do not add to previous drawPerformed By: #### 38847, 22657 #### [facility] [address] [place] [address], USAEosinophils/100 WBC (Bld)0.4 %Normal0.0-6.0The [facility] [place] HospitalComment on above:Order Comment: No: Do not add to previous drawPerformed By: #### 41902, 58426 #### [facility] [address] [address], USAErythrocyte distribution width (RBC) [Ratio]13.4 %Normal 11.5-15.0The [facility] [place] HospitalComment on above:Order Comment: No: Do not add to previous drawPerformed By: #### 83407, 25795 #### [facility] [address] [place] [address], USAHematocrit (Bld) [Volume fraction]24.5 %Low36.0-45.0The [facility] [place] HospitalComment on above:Order Comment: No: Do not add to previous drawPerformed By: #### 20141, 33413 #### [facility] [address] [place] [address], USAHemoglobin (Bld) [Mass/Vol]8.4 g/dLLow12.0-15.0The [facility] [place] HospitalComment on above:Order Comment: No: Do not add to previous drawPerformed By: #### 03252, 82652 #### [facility] [address] [place] [address], USAIMMATURE GRANS0.4 %Normal0.0-1.0The [facility] [place] HospitalComment on above:Order Comment: No: Do not add to previous draw Performed By: #### 45524, 94708 #### [facility] [address] [address], USALymphocytes (Bld) [#/Vol]2.2 10*3/uLNormal1.2-4.0The [facility] [place] HospitalComment on above:Order Comment: No: Do not add to previous drawPerformed By: #### 39841, 13313 #### [facility] [address] [place] [address], USALymphocytes/100 WBC (Bld)18.6 %Low20.0-45.0The [facility] [place] HospitalComment on above:Order Comment: No: Do not add to previous drawPerformed By: #### 98146, 32605 #### [facility] [address] [place] [address], USAMCH (RBC) [Entitic mass]29.3 qsBepycj20.0-33.0The [facility] [place] HospitalComment on above:Order Comment: No: Do not add to previous drawPerformed By: #### 41950, 61832 #### [facility] [address] [place] [address], [facility] VEGASMCHC (RBC) [Mass/Vol]34.3 g/cCNvccmh35.0-35.0The [facility] [place] HospitalComment on above:Order Comment: No: Do not add to previous drawPerformed By: #### 91280, 34174 #### [facility] [address] [place] [address], [facility] AT L[facility] VEGASMCV (RBC) [Entitic vol]85.4 wPQteoeu69.0-98.0The [facility] [place] HospitalComment on above:Order Comment: No: Do not add to previous drawPerformed By: #### 85542, 52135 #### [facility] [address] [place] [address], USAMonocytes (Bld) [#/Vol]0.9 10*3/uLNormal0.1-1.0The [facility] [place] HospitalComment on above:Order Comment: No: Do not add to previous drawPerformed By: #### 63442, 28955 #### [facility] [address] [place] [address], USAMONOS7.7 %Normal5.0-12.0The [facility] [place] HospitalComment on above:Order Comment: No: Do not add to previous drawPerformed By: #### 79560, 85728 #### [facility] [address] [place] [address], USANeutrophils/100 WBC (Bld)72.6 %High40.0-72.0The [facility] [place] HospitalComment on above:Order Comment: No: Do not add to previous drawPerformed By: #### 51391, 66456 #### [facility] [address] [place] [address], USANucleated RBC/100 WBC (Bld) [Ratio]0 %Normal0-0The [facility] [place] HospitalComment on above:Order Comment: No: Do not add to previous drawPerformed By: #### 13094, 57248 #### [facility] [address] [place] [address] [place] [address], USAPLAT WPN735 10*3/zGBjiese806-706Vok [facility] [place] HospitalComment on above:Order Comment: No: Do not add to previous draw Performed By: #### 66824, 87077 #### [facility] [address] [place] [address], USARBC (Bld) [#/Vol]2.87 10*6/uLLow3.80-5.00The [facility] [place] HospitalComment on above:Order Comment: No: Do not add to previous drawPerformed By: #### 67150, 20125 #### [facility] [address] [place] [address], USAWBC (Bld) [#/Vol]11.62 10*3/uLHigh4.00-10.60The [facility] [place] HospitalComment on above:Order Comment: No: Do not add to previous drawPerformed By: #### 98515, 05074 #### [facility] [address] [place] [address], USAMAGNESIUM BLOODon 09-20-3647Xesmsfsuk [Mass/Vol]2.0 mg/dL Normal1.9-2.7The [facility] HospitalComment on above:Performed By: #### 49700, 26685 #### [facility] [address] [place] [address], USAPOC GLUCOSE LABon 25-48-1520Eplqkth [Mass/Vol]179 mg/dLHigh 70-100The [facility] HospitalComment on above:Performed By: #### 15491, 01182 #### [facility] [address] [place] [address], USAGlucose [Mass/Vol]143 mg/dEAoxb60-255Mli [facility] HospitalComment on above:Performed By: #### 86706, 02994 #### [facility] [address] [place] [address], USAGlucose [Mass/Vol]284 mg/oWZcke98-901Wqe [facility] HospitalComment on above:Performed By: #### 83546, 74795 #### [facility] [address] [place] [address], USAGlucose [Mass/Vol]117 mg/bARrgj30-650Gaz [facility] HospitalComment on above:Performed By: #### 06464, 22221 #### [facility] [address] [place] [address], USABASIC METABOLIC PANELon 79-82-3888Hmdwuxh [Mass/Vol]8.5 mg/dLLow8.6-10.3The [facility] HospitalComment on above:Order Comment: No: Do not add to previous drawPerformed By: #### 15246, 27509 #### [facility] [address] [place] [address], USAChloride [Moles/Vol]102 mmol/PConkvf77-638Fyf [facility] HospitalComment on above:Order Comment: No: Do not add to previous drawPerformed By: #### 45382, 72749 #### [facility] [address] [place] [address], USACO2 [Moles/Vol]23 mmol/HLzkphn31-45Wim [facility] HospitalComment on above:Order Comment: No: Do not add to previous draw Performed By: #### 31761, 28062 #### [facility] [address] [place] [address], USACreatinine [Mass/Vol]0.49 mg/dLLow0.60-1.20The [facility] HospitalComment on above:Order Comment: No: Do not add to previous drawPerformed By: #### 27713, 60863 #### [facility] [address] [place] [address], USAGFR/1.73 sq M predicted among blacks MDRD (S/P/Bld) [Vol rate/Area]mL/min/{1.73_m2}Normal>60[facility] Comment on above:Order Comment: No: Do not add to previous drawResult Comment: Calculation may not be valid for patients over 70 yearsPerformed By: #### 07740, 99648 #### [facility] [address] [place] [address], USAGFR/1.73 sq M predicted among non-blacks MDRD (S/P/Bld) [Vol rate/Area]mL/min/{1.73_m2}Normal>60The [facility] Comment on above:Order Comment: No: Do not add to previous drawResult Comment: Calculation may not be valid for patients over 70 yearsPerformed By: #### 73205, 86496 #### [facility] [address] [place] [address], USAGlucose [Mass/Vol]172 mg/tDZzou58-604Ugo [facility] HospitalComment on above:Order Comment: No: Do not add to previous drawPerformed By: #### 09306, 08108 #### [facility] [address] [place] [address], USAPotassium [Moles/Vol]4.0 mmol/LNormal3.5-5.1The [facility] HospitalComment on above:Order Comment: No: Do not add to previous drawPerformed By: #### 02251, 79581 #### [facility] [address] [place] [address], USASodium [Moles/Vol]133 mmol/NSuy418-572Qyt [facility] HospitalComment on above:Order Comment: No: Do not add to previous drawPerformed By: #### 00589, 99236 #### [facility] [address] [place] [address], USAUrea nitrogen [Mass/Vol]9 mg/dLNormal7-25The [facility] HospitalComment on above:Order Comment: No: Do not add to previous drawPerformed By: #### 95516, 43926 #### [facility] [address] [place] [address], USACBC COMPLETE BLOOD COUNTon [id number] distribution width (RBC) [Ratio]13.4 %Wjkhas08.5-15.0The [facility] HospitalComment on above:Order Comment: No: Do not add to previous draw Performed By: #### 49514, 18836 #### [facility] [address] [place] [address], USAHematocrit (Bld) [Volume fraction]25.7 %Low36.0-45.0The [facility] HospitalComment on above:Order Comment: No: Do not add to previous drawPerformed By: #### 83124, 67605 #### [facility] [address] [place] [address], USAHemoglobin (Bld) [Mass/Vol]9.0 g/dLLow12.0-15.0The [facility] HospitalComment on above:Order Comment: No: Do not add to previous drawPerformed By: #### 17216, 27103 #### [facility] [address] [place] [address], [facility]STITUTE AT L[facility] VEGASMCH (RBC) [Entitic mass]29.8 kePbsdiv16.0-33.0The [facility] HospitalComment on above:Order Comment: No: Do not add to previous drawPerformed By: #### 50693, 48704 #### [facility] [address] [place] [address], USAMCHC (RBC) [Mass/Vol]35.0 g/hFAullqt90.0-35.0The [facility] HospitalComment on above:Order Comment: No: Do not add to previous drawPerformed By: #### 18469, 21322 #### [facility] [address] [place] [address], [facility] INSTITUTE AT L[facility] VEGASMCV (RBC) [Entitic vol]85.1 pLWxjhpn17.0-98.0The [facility] HospitalComment on above:Order Comment: No: Do not add to previous drawPerformed By: #### 85555, 36278 #### [facility] [address] [place] [address], USANucleated RBC/100 WBC (Bld) [Ratio]0 %Normal0-0The [facility] HospitalComment on above:Order Comment: No: Do not add to previous drawPerformed By: #### 44712, 87545 #### [facility] [address] [facility] [place] [address], USAPLAT [id number] 10*3/hUOackfx696-072Jhr [facility] HospitalComment on above:Order Comment: No: Do not add to previous draw Performed By: #### 39661, 66290 #### [facility] [address] [facility] [place] [place] [address], USARBC (Bld) [#/Vol]3.02 10*6/uLLow3.80-5.00The [facility] HospitalComment on above:Order Comment: No: Do not add to previous drawPerformed By: #### 62184, 48840 #### [facility] [address] [facility] [place] [place] [address], USAWBC (Bld) [#/Vol]13.23 10*3/uLHigh4.00-10.60The [facility] HospitalComment on above:Order Comment: No: Do not add to previous drawPerformed By: #### 17006, 92796 #### [facility] [address] [facility] [place] [place] [address], USACHEST AND LATERALon [id number] AND LATERALCleveland Clinic Union Hospital Department of Radiology [address] [place] [id number] Patient Name: NEHA ASHTON : 1945 Sex: F Age: Race: White Pt. Location: [id number] Patient Status: I Ordered Date: 05/02/2018 9:40:00 [...] IMPRESSION: No acute cardiopulmonary abnormality. Approved by:Pam Mcleod on 05/02/2018 11:26 AM EST. I, Ricardo Parry, have reviewed the images and report and concur with these findings. Electronically signed by:Ricardo Parry. Transcribed by: [email or web address], User Resident: PAM MCLEOD Electronically Signed by: RICARDO PARRY @ 05/02/2018 03:04 PM I personally read this/these film(s) with this [facility] HospitalComment on above:Order Comment: R/O InfiltratesMAGNESIUM BLOODon 41-16-5785Dbqvettts [Mass/Vol]1.7 mg/dLLow1.9-2.7The [facility] HospitalComment on above:Order Comment: No: Do not add to previous drawPerformed By: #### 14309, 41967 #### [facility] [address] [place] [address], [place]APOC GLUCOSE LABon 21-91-9989Nxtbebz [Mass/Vol]192 mg/dLHigh 70-100The [facility] HospitalComment on above:Performed By: #### 99399, 92460 #### [facility] [address] [place] [address], USAGlucose [Mass/Vol]94 mg/dRSbltmu88-001Wyy [facility] HospitalComment on above:Performed By: #### 12768, 93636 #### [facility] [address] [place] [address], USAGlucose [Mass/Vol]176 mg/wCMors62-739Wrn [facility] HospitalComment on above:Performed By: #### 96681, 62967 #### [facility] [address] [place] [address], USAGlucose [Mass/Vol]163 mg/uGNlmk05-418Hgj [facility] HospitalComment on above:Performed By: #### 36598, 15651 #### [facility] [address] [place] [address], USABASIC METABOLIC PANELon 38-57-6699Ykkzuon [Mass/Vol]7.9 mg/dLLow8.6-10.3The [facility] HospitalComment on above:Order Comment: No: Do not add to previous drawPerformed By: #### 04641 #### [facility] [address] [place] [address], USAChloride [Moles/Vol]102 mmol/EPrdsal00-242Wlz [facility] HospitalComment on above:Order Comment: No: Do not add to previous drawPerformed By: #### 86282 #### [facility] [address] [place] [address], USACO2 [Moles/Vol]23 mmol/OWhxdtj10-28Lin [facility] HospitalComment on above:Order Comment: No: Do not add to previous draw Performed By: #### 74413 #### [facility] [address] [place] [address], USACreatinine [Mass/Vol]0.64 mg/dLNormal0.60-1.20The [facility] HospitalComment on above:Order Comment: No: Do not add to previous drawPerformed By: #### 31360 #### [facility] [address] [place] [address], USAGFR/1.73 sq M predicted among blacks MDRD (S/P/Bld) [Vol rate/Area]mL/min/{1.73_m2}Normal>60The [facility] Comment on above:Order Comment: No: Do not add to previous drawResult Comment: Calculation may not be valid for patients over 70 yearsPerformed By: #### 48939 #### [facility] [address] [place] [address], USAGFR/1.73 sq M predicted among non-blacks MDRD (S/P/Bld) [Vol rate/Area]mL/min/{1.73_m2}Normal>60[facility] Comment on above:Order Comment: No: Do not add to previous drawResult Comment: Calculation may not be valid for patients over 70 yearsPerformed By: #### 47577 #### [facility] [address] [place] [address], USAGlucose [Mass/Vol]202 mg/nAOkil90-898Xbm [facility] HospitalComment on above:Order Comment: No: Do not add to previous drawPerformed By: #### 57131 #### [facility] [address] [place] [address], USAPotassium [Moles/Vol]4.1 mmol/LNormal3.5-5.1The [facility] HospitalComment on above:Order Comment: No: Do not add to previous drawPerformed By: #### 67051 #### [facility] [address] [place] [address], USASodium [Moles/Vol]130 mmol/IDaz500-343Jtp [facility] HospitalComment on above:Order Comment: No: Do not add to previous drawPerformed By: #### 58675 #### [facility] [address] [place] [address], USAUrea nitrogen [Mass/Vol]12 mg/dLNormal7-25The [facility] HospitalComment on above:Order Comment: No: Do not add to previous drawPerformed By: #### 91743 #### [facility] [address] [address], USACBC COMPLETE BLOOD COUNTon 55-62-4796Dkpgxrrzczb distribution width (RBC) [Ratio]13.7 %Othyww01.5-15.0The [facility] HospitalComment on above:Order Comment: No: Do not add to previous draw Performed By: #### 20214 #### [facility] [address] [address], USAHematocrit (Bld) [Volume fraction]28.4 %Low36.0-45.0The [facility] HospitalComment on above:Order Comment: No: Do not add to previous drawPerformed By: #### 61700 #### [facility] [address] [address], USAHemoglobin (Bld) [Mass/Vol]9.7 g/dLLow12.0-15.0The [facility] HospitalComment on above:Order Comment: No: Do not add to previous drawPerformed By: #### 03735 #### [facility] [address] [place] [address], [facility] (RBC) [Entitic mass]29.4 dbJexlnt56.0-33.0The [facility] HospitalComment on above:Order Comment: No: Do not add to previous drawPerformed By: #### 15712 #### [facility] [address] [place] [address], [facility] – TULSAHC (RBC) [Mass/Vol]34.2 g/dJAjdvhv00.0-35.0The [facility] HospitalComment on above:Order Comment: No: Do not add to previous drawPerformed By: #### 66439 #### [facility] [address] [place] [address], [facility] TULSAV (RBC) [Entitic vol]86.1 nUWxauxf54.0-98.0The [facility] HospitalComment on above:Order Comment: No: Do not add to previous drawPerformed By: #### 25538 #### [facility] [address] [place] [address], [facility] AT L[facility] VEGASNucleated RBC/100 WBC (Bld) [Ratio]0 %Normal0-0The [facility] HospitalComment on above:Order Comment: No: Do not add to previous drawPerformed By: #### 40253 #### [facility] [address] [address], USAPLAT RSO026 10*3/eRHspqzq539-706Gwa [facility] HospitalComment on above:Order Comment: No: Do not add to previous draw Performed By: #### 19430 #### [facility] [address] [facility] [place] [address], [facility] INSTITUTE AT L[facility] VEGASRBC (Bld) [#/Vol]3.30 10*6/uLLow3.80-5.00The [facility] HospitalComment on above:Order Comment: No: Do not add to previous drawPerformed By: #### 74419 #### [facility] [address] [place] [address], USAWBC (Bld) [#/Vol]12.22 10*3/uLHigh4.00-10.60The [facility] HospitalComment on above:Order Comment: No: Do not add to previous drawPerformed By: #### 98771 #### [facility] [address] [place] [address], USAPOC GLUCOSE LABon 37-74-4165Iaeiara [Mass/Vol]216 mg/dLHigh 70-100The [facility] HospitalComment on above:Performed By: #### 35868, 73030 #### [facility] [address] [place] [address], USAGlucose [Mass/Vol]255 mg/eXMiln75-587Auk [facility] HospitalComment on above:Performed By: #### 11702, 87223 #### [facility] [address] [place] [address], USAGlucose [Mass/Vol]270 mg/aWTpig72-339Tab [facility] HospitalComment on above:Performed By: #### 28376, 72851 #### [facility] [address] [place] [address], USAGlucose [Mass/Vol]168 mg/hDEugi27-172Vqv [facility] HospitalComment on above:Performed By: #### 23283 #### [facility] [address] [place] [address], USAGlucose [Mass/Vol]292 mg/mCDryi75-534Gee [facility] HospitalComment on above:Performed By: #### 41872 #### [facility] [address] [place] [address], USABASIC METABOLIC PANELon 13-24-9800Acmdbir [Mass/Vol]9.1 mg/dLNormal8.6-10.3The [facility] HospitalComment on above:Order Comment: No: Do not add to previous drawPerformed By: #### 38000 #### [facility] [address] [place] [address], USAChloride [Moles/Vol]104 mmol/KDnxeum89-308Aof [facility] HospitalComment on above:Order Comment: No: Do not add to previous drawPerformed By: #### 45393 #### [facility] [address] [place] [address], USACO2 [Moles/Vol]22 mmol/ABjlvba35-76Xje [facility] HospitalComment on above:Order Comment: No: Do not add to previous draw Performed By: #### 31760 #### [facility] [address] [place] [address], USACreatinine [Mass/Vol]0.59 mg/dLLow0.60-1.20The [facility] HospitalComment on above:Order Comment: No: Do not add to previous drawPerformed By: #### 84721 #### [facility] [address] [place] [address], USAGFR/1.73 sq M predicted among blacks MDRD (S/P/Bld) [Vol rate/Area]mL/min/{1.73_m2}Normal>60The [facility] Comment on above:Order Comment: No: Do not add to previous drawResult Comment: Calculation may not be valid for patients over 70 yearsPerformed By: #### 41830 #### [facility] [address] [place] [address], USAGFR/1.73 sq M predicted among non-blacks MDRD (S/P/Bld) [Vol rate/Area]mL/min/{1.73_m2}Normal>60The [facility] Comment on above:Order Comment: No: Do not add to previous drawResult Comment: Calculation may not be valid for patients over 70 yearsPerformed By: #### 95645 #### [facility] [address] [place] [address], USAGlucose [Mass/Vol]112 mg/sNZzgb21-015Ozg [facility] HospitalComment on above:Order Comment: No: Do not add to previous drawPerformed By: #### 80100 #### [facility] [address] [place] [id number], USAPotassium [Moles/Vol]4.3 mmol/LNormal3.5-5.1The [facility] HospitalComment on above:Order Comment: No: Do not add to previous drawPerformed By: #### 08136 #### [facility] [address] [place] [address], USASodium [Moles/Vol]137 mmol/JMwszmw371-892Dhs [facility] HospitalComment on above:Order Comment: No: Do not add to previous drawPerformed By: #### 00513 #### [facility] [address] [place] [address], USAUrea nitrogen [Mass/Vol]8 mg/dLNormal7-25The [facility] HospitalComment on above:Order Comment: No: Do not add to previous drawPerformed By: #### 09535 #### [facility] [address] [place] [address], [facility] INSTITUTE AT L[facility] VEGASCBC W/DIFFon 90-53-6965SLK BASOPHILS0.0 10*3/uLNormal 0.0-0.2The [facility] HospitalComment on above:Order Comment: No: Do not add to previous drawPerformed By: #### 94627 #### [facility] [address] [place] [address], [facility] INSTITUTE AT L[facility] VEGASABS IMM GRANS0.1 10*3/uLNormal0.0-0.2The [facility] HospitalComment on above:Order Comment: No: Do not add to previous drawPerformed By: #### 73245 #### [facility] [address] [place] [address], USAABS NEUTROPHILS8.7 10*3/uLHigh1.6-7.6The [facility] HospitalComment on above:Order Comment: No: Do not add to previous drawPerformed By: #### 50986 #### [facility] [address] [place] [address], USABasophils/100 WBC (Bld)0.2 %Normal0.0-1.0The [facility] HospitalComment on above:Order Comment: No: Do not add to previous drawPerformed By: #### 77203 #### [facility] [address] [place] [address], USAEosinophils (Bld) [#/Vol]0.0 10*3/uLNormal0.0-0.5The [facility] HospitalComment on above:Order Comment: No: Do not add to previous drawPerformed By: #### 02420 #### [facility] [address] [place] [address], USAEosinophils/100 WBC (Bld)0.2 %Normal0.0-6.0The [facility] HospitalComment on above:Order Comment: No: Do not add to previous drawPerformed By: #### 29333 #### [facility] [address] [place] [address], USAErythrocyte distribution width (RBC) [Ratio]13.6 %Normal 11.5-15.0The [facility] HospitalComment on above:Order Comment: No: Do not add to previous drawPerformed By: #### 50550 #### [facility] [address] [place] [address], USAHematocrit (Bld) [Volume fraction]37.7 %Gcxyit01.0-45.0The [facility] HospitalComment on above:Order Comment: No: Do not add to previous drawPerformed By: #### 89637 #### [facility] [address] [address], USAHemoglobin (Bld) [Mass/Vol]13.0 g/lLGkoiqk93.0-15.0The [facility] HospitalComment on above:Order Comment: No: Do not add to previous drawPerformed By: #### 14015 #### [facility] [address] [place] [address], USAIMMATURE GRANS0.4 %Normal0.0-1.0The [facility] HospitalComment on above:Order Comment: No: Do not add to previous draw Performed By: #### 24717 #### [facility] [address] [place] [address], USALymphocytes (Bld) [#/Vol]2.4 10*3/uLNormal1.2-4.0The [facility] HospitalComment on above:Order Comment: No: Do not add to previous drawPerformed By: #### 18767 #### [facility] [address] [place] [address], USALymphocytes/100 WBC (Bld)19.6 %Low20.0-45.0The [facility] HospitalComment on above:Order Comment: No: Do not add to previous drawPerformed By: #### 68424 #### [facility] [address] [place] [address], [facility] INSTITUTE AT L[facility] VEGASMCH (RBC) [Entitic mass]29.5 wpUkhkpu72.0-33.0The [facility] HospitalComment on above:Order Comment: No: Do not add to previous drawPerformed By: #### 52418 #### [facility] [address] [place] [address], USAMCHC (RBC) [Mass/Vol]34.5 g/mAXzzpqg98.0-35.0The [facility] HospitalComment on above:Order Comment: No: Do not add to previous drawPerformed By: #### 58741 #### [facility] [address] [facility] [place] [address], USAMCV (RBC) [Entitic vol]85.5 cADjylsi27.0-98.0The [facility] HospitalComment on above:Order Comment: No: Do not add to previous drawPerformed By: #### 39072 #### [facility] [address] [place] [address], USAMonocytes (Bld) [#/Vol]0.8 10*3/uLNormal0.1-1.0The [facility] HospitalComment on above:Order Comment: No: Do not add to previous drawPerformed By: #### 83669 #### [facility] [address] [place] [address], USAMONOS6.9 %Normal5.0-12.0The [facility] HospitalComment on above:Order Comment: No: Do not add to previous drawPerformed By: #### 73462 #### [facility] [address] [place] [address], USANeutrophils/100 WBC (Bld)72.7 %High40.0-72.0The [facility] HospitalComment on above:Order Comment: No: Do not add to previous drawPerformed By: #### 34639 #### [facility] [address] [place] [address], USANucleated RBC/100 WBC (Bld) [Ratio]0 %Normal0-0The [facility] HospitalComment on above:Order Comment: No: Do not add to previous drawPerformed By: #### 96613 #### [facility] [address] [place] [address], USAPLAT AZZ983 10*3/nMRnxjvj422-432Rgx [facility] HospitalComment on above:Order Comment: No: Do not add to previous draw Performed By: #### 51027 #### [facility] [address] [place] [address], USARBC (Bld) [#/Vol]4.41 10*6/uLNormal3.80-5.00The [facility] HospitalComment on above:Order Comment: No: Do not add to previous drawPerformed By: #### 25222 #### [facility] [address] [place] [address], ABELWBC (Bld) [#/Vol]12.02 10*3/uLHigh4.00-10.60The [facility] [place] HospitalComment on above:Order Comment: No: Do not add to previous drawPerformed By: #### [id number] #### [facility] [address] [place], [place], USAHistory and Physicalon 03-21-6429Hvvfndz and PhysicalMR#: [id number] [facility] [place] [facility] Pt. Name: Neha Ashton Admitted: 04/29/2018 Date of : 1945 Attending Physician: Zaire Bojorquez MD Room #: [id number] Discharge Date: HISTORY AND PHYSICAL CHIEF COMPLAINT: [...] 911 and they took her to [facility]. At the [facility], femur x-ray showed acute subcapital right [...] midnight. We will control her pain with [place]. We will put the patient on insulin [...] incentive spirometery. We will consult social media designer for rehab placement. The patient is low risk for orthopedic surgery. Electronically Signed by: Zaire Bojorquez MD 04/30/2018 11:12 P Zaire Bojorquez MD Date Dict: 04/29/2018/10:06 P/Zaire Bojorquez MD Date Trans: 04/29/2018 11:11 P/leesa DN_JN:[id number] [facility] [place] HospitalMAGNESIUM BLOOD on 73-08-2906Yqnnrxmyn [Mass/Vol]1.8 mg/dLLow1.9-2.7The [facility] [place] HospitalComment on above:Order Comment: No: Do not add to previous draw Performed By: #### [id number] #### [facility] [address] [place] [address], [place]APOC GLUCOSE LABon 48-64-9944Wjheroy [Mass/Vol]137 mg/dLHigh 70-100The [facility] [place] HospitalComment on above:Performed By: #### 94018 #### [facility] [address] [facility] [place] [address], USAGlucose [Mass/Vol]132 mg/kCJalh82-268Sra [facility] [place] HospitalComment on above:Performed By: #### 20387 #### [facility] [address] [facility] [place] [address], USAGlucose [Mass/Vol]108 mg/bUFszv31-644Dmc [facility] [place] HospitalComment on above:Performed By: #### 59384 #### [facility] [address] [facility] [place] [place] [address], USAGlucose [Mass/Vol]94 mg/gDHjivvz45-452Tgv [facility] [place] HospitalComment on above:Performed By: #### 92607 #### [facility] [address] [facility] [place] [place] [address], USAPORTABLE HIP RIGHT 1 OR 2 VWS WITH PELVISon 04-30-2018 PORTABLE HIP RIGHT 1 OR 2 VWS WITH [facility]ELVISUnMcKit[facility] Department of Radiology [address] [place] [address] Patient Name: NEHA ASHTON : 1945 Sex: F Age: Race: White Pt. Location: [id number] Patient Status: I Ordered Date: 04/30/2018 3:35:00 [...] expected postoperative soft tissue changes. Approved by:Omari Hernandez on 04/30/2018 4:11 PM EST. I, Ricardo Parry, have reviewed the images and report and concur with these findings. Electronically signed by:Ricardo Parry. Transcribed by: [email or web address], User Resident: ARTEMIO HERNANDEZ Electronically Signed by: RICARDO PARRY @ 05/01/2018 01:15 PM I personally read this/these film(s) with this [facility] HospitalComment on above:Order Comment: Hardware Evaluation, currently in PACUBASIC METABOLIC PANELon 03-79-8490Lcspkuk [Mass/Vol]9.2 mg/dL Normal8.6-10.3The [facility] [place] HospitalComment on above:Performed By: #### 93825, 75265 #### [facility] [address] [place] [address], USAChloride [Moles/Vol]102 mmol/QNwzoxr33-673Ext [facility] [place] HospitalComment on above:Performed By: #### 84315, 50588 #### [facility] [address] [place] [address], USACO2 [Moles/Vol]27 mmol/KHzlxsk55-38Mrz [facility] [place] HospitalComment on above:Performed By: #### 17147, 70644 #### [facility] [address] [place] [place] [address], USACreatinine [Mass/Vol]0.64 mg/dLNormal0.60-1.20The [facility] [place] HospitalComment on above:Performed By: #### 10080, 09143 #### [facility] [address] [place] [address], USAGFR/1.73 sq M predicted among blacks MDRD (S/P/Bld) [Vol rate/Area]mL/min/{1.73_m2}Normal>60The [facility] Comment on above:Result Comment: Calculation may not be valid for patients over 70 yearsPerformed By: #### 39940, 09698 #### [facility] [address] [place] [address], USAGFR/1.73 sq M predicted among non-blacks MDRD (S/P/Bld) [Vol rate/Area]mL/min/{1.73_m2}Normal>60The [facility] Comment on above:Result Comment: Calculation may not be valid for patients over 70 yearsPerformed By: #### 20906, 77300 #### [facility] [address] [place] [address], USAGlucose [Mass/Vol]60 mg/aKGjy64-151Lfm [facility] [place] HospitalComment on above:Performed By: #### 03780, 30386 #### [facility] [address] [place] [address], USAPotassium [Moles/Vol]3.8 mmol/LNormal3.5-5.1The [facility] [place] HospitalComment on above:Performed By: #### 74748, 98534 #### [facility] [address] [place] [address], USASodium [Moles/Vol]137 mmol/BDvobfz006-703Ogx [facility] [place] HospitalComment on above:Performed By: #### 68242, 66733 #### [facility] [address] [place] [address], USAUrea nitrogen [Mass/Vol]10 mg/dLNormal7-25The [facility] [place] HospitalComment on above:Performed By: #### 96613, 72962 #### [facility] [address] [place] [address], USACBC COMPLETE BLOOD COUNTon 50-00-5385Jkalimrxpnr distribution width (RBC) [Ratio]13.6 %Ltopix42.5-15.0The [facility] [place] HospitalComment on above:Performed By: #### 67014 #### [facility] [address] [address], USAHematocrit (Bld) [Volume fraction]37.3 %Bdsnjd08.0-45.0The [facility] [place] HospitalComment on above:Performed By: #### 83756 #### [facility] [address] [address], USAHemoglobin (Bld) [Mass/Vol]12.7 g/qBJqecde88.0-15.0The [facility] [place] HospitalComment on above:Performed By: #### 67761 #### [facility] [address] [place] [address], USAMCH (RBC) [Entitic mass]29.1 lzOrqwpc89.0-33.0The [facility] [place] HospitalComment on above:Performed By: #### 29765 #### [facility] [address] [place] [address], [facility]STITUTE AT LAS VEGASMCHC (RBC) [Mass/Vol]34.0 g/uRHueapx63.0-35.0The [facility] [place] HospitalComment on above:Performed By: #### 05055 #### [facility] [address] [place] [address], [facility] INSTITUTE AT LAS VEGASMCV (RBC) [Entitic vol]85.6 qQMaljyd81.0-98.0The [facility] [place] HospitalComment on above:Performed By: #### 42263 #### [facility] [address] [place] [address], [facility]STITUTE AT LAS VEGASNucleated RBC/100 WBC (Bld) [Ratio]0 %Normal0-0The [facility] [place] HospitalComment on above:Performed By: #### 11338 #### [facility] [address] [place] [address], [facility] INSTITUTE AT LAS VEGASPLAT TRP404 10*3/dCGxshxa260-363Orm [facility] [place] HospitalComment on above:Performed By: #### 32270 #### [facility] [address] [place] [address], [facility] INSTITUTE AT LAS VEGASRBC (Bld) [#/Vol]4.36 10*6/uLNormal3.80-5.00The [facility] [place] HospitalComment on above:Performed By: #### 34423 #### [facility] [address] [place] [address], [facility] INSTITUTE AT LAS VEGASWBC (Bld) [#/Vol]17.89 10*3/uLHigh4.00-10.60The [facility] [place] HospitalComment on above:Performed By: #### 48468 #### [facility] [address] [place] [address], [facility] INSTITUTE AT LAS VEGASFEMUR RIGHT 2 [facility] 87-56-7189UUBNI RIGHT 2 SUniThe [facility] Department of Radiology [address] [place] [id number] Patient Name: NEHA ASHTON : 1945 Sex: F Age: Race: White Pt. Location: [facility] Patient Status: I Ordered Date: 04/29/2018 6:00:00 PM Completed Date: 04/29/2018 06:22 PM Requesting Provider: CRISTAL THOMPSON Attending Provider: CRISTAL THOMPSON Report Copy To: Signs & Symptoms: Pain ( specify Location) History: Patient history not available Comments: R/O FX Exam: FEMUR RIGHT 2 [facility] FEMUR RIGHT 2 S 04/29/2018 6:22 PM [...] neck fracture with varus impaction. Approved by:Pam Mcleod on 04/29/2018 6:42 PM EST. I, Ricardo Parry, have reviewed the images and report and concur with these findings. Electronically signed by:Ricardo Parry. Transcribed by: [email or web address], User Resident: PAM MCLEOD Electronically Signed by: RICARDO PARRY @ 04/30/2018 03:51 PM I personally read this/these film(s) with this residentFostoria City HospitalComment on above:Order Comment: R/O FXPORTABLE CHEST 1 VIEW on 05-11-9739IRTZVVEH CHEST 1 VIEWUnMcKitrick Hospital Department of Radiology [address] [place] [id number] Patient Name: NEHA ASHTON : 1945 Sex: F Age: Race: White Pt. Location: [facility] Patient Status: I Ordered Date: 04/29/2018 [...] study is therefore recommended. Electronically signed by:Cisco Carias. Transcribed by: [email or web address], User Resident: Electronically Signed by: CISCO CARIAS @ 04/30/2018 07:22 AMNormalThe [facility] [place] HospitalComment on above:Order Comment: R/O InfiltratesPROTHROMBIN TIMEon 22-38-7444LUY Coag (PPP) [Relative time]1.05 {INR} Normal0.91-1.16The [facility] [place] HospitalComment on above:Result Comment: ACCCP RECOMMENDED INR FOR WARFARIN THERAPY ------- CONDITION INR PROPHYLAXIS OF VENOUS THROMBOSIS 2-3 (HIGH-RISK SURGERY) TREATMENT OF VENOUS THROMBOSIS 2-3 TREATMENT OF PULMONARY EMBOLISM 2-3 PREVENTION OF SYSTEMIC EMBOLISM: 2-3 ACUTE MYOCARDIAL INFARCTION TISSUE HEART VALVES VALVULAR HEART DISEASE ATRIAL FIBRILLATION RECURRENT SYSTEMIC EMBOLISM MECHANICAL HEART VALVE 2.5-3.5 FROM: ORAL ANTICOAGULANTS. MECHANISM OF ACTION, CLINICAL EFFECTIVENESS, AND OPTIMAL THERAPEUTIC RANGE. CHEST 1995;108:231S-246S.Performed By: #### 57355 #### [facility] [address] [place] [address], USAPT Coag (PPP) [Time]13.7 rIhxtey65.3-14.8The [facility] [place] HospitalComment on above:Result Comment: ALL RESULTS MUST BE INTERPRETED WITH RESPECT TO BLOOD DRAWING ARTIFACT OR DILUTION ERROR OF ANTICOAGULANT AT THE TIME OF SAMPLING.Performed By: #### 24247 #### [facility] [address] [place] [address], USARBC'S 2 UNITSon 38-27-0405JNKFKYGFLT INTERP 1CKettering Health SpringfieldComment on above:Performed By: #### 12352 #### [facility] [address] [place] [address], USACROSSMATCH INTERP 2CKettering Health SpringfieldComment on above:Performed By: #### 05474 #### [facility] [address] [place] [address], USAPRODUCT CODE [id number] City HospitalComment on above:Performed By: #### 25607 #### [facility] [address] [place] [address], USAPRODUCT CODE [id number] City HospitalComment on above:Performed By: #### 52473 #### [facility] [address] [place] [address], USAPRODUCT STATUS 1RUK HealthcareComment on above:Result Comment: Result changed by IF on 05/03/2018 07:08. The previous value was XM.Performed By: #### 20137 #### [facility] [address] [place] [address], USAPRODUCT STATUS 2RUK HealthcareComment on above:Result Comment: Result changed by IF on 05/03/2018 07:08. The previous value was XM.Performed By: #### 83333 #### [facility] [address] [place] [address], USAUNIT ABO 1AFostoria City Hospital Comment on above:Performed By: #### 29262 #### [facility] [address] [place] [address], USAUNIT ABO 2AFostoria City Hospital Comment on above:Performed By: #### 30126 #### [facility] [address] [place] [address], USAUNIT ID [id number]-WLwwmsmKpvHarrison Community HospitalComment on above:Performed By: #### 73997 #### [facility] [address] [place] [address], [facility] L[facility] VEGASUNIT ID [id number]-KYyexjqBdtHarrison Community HospitalComment on above:Performed By: #### 21061 #### [facility] [address] [place] [address], [facility] BE[facility] AT L[facility] VEGASUNIT RH 1PositiveFostoria City HospitalComment on above:Performed By: #### 96279 #### [facility] [address] [place] [address], [facility] BE[facility] INSTITUTE AT LAS VEGASUNIT 2PositiveFostoria City HospitalComment on above:Performed By: #### 85100 #### [facility] [address] [facility] [place] [address], [facility]STITUTE AT LAS VEGASTYPE AND SCREENon 52-01-3166QRW INTERPRETATIONANoMain Campus Medical CenterComment on above:Performed By: #### 55883 #### [facility] [address] [facility] [place] [address], [facility] INSTITUTE AT L[facility] VEGASRH INTERPRETATIONPositiveFostoria City HospitalComment on above:Performed By: #### 37341 #### [facility] [address] [facility] [place] [address], [facility] INSTITUTE AT LAS VEGASVITAMIN D 25-HYDROXYon 36-99-2184DMFIJWZ D 25-OH37.2 ng/mL Benskn78.0-80.0The [facility] [place] HospitalComment on above:Result Comment: >80.0 Toxicity possiblePerformed By: #### 21708, 08191 #### [facility] [address] Vital Signs Date TimeVital SignValuePerforming NgysewcdmGnlgizno85-35-0426 14:17-0400Body miyznr689.4 cmClayton Manning MD Work Phone: [facility] CenterAcgzuivswq13-41-1030 14:17-0400Body mass index (BMI) [Ratio]27.54 kg/m2Clayton Manning MD Work Phone: [facility] CenterWwrxtqqrzp67-74-8968 14:17-0400Body temperature 97.5 [degF]Clayton Manning MD Work Phone: [facility] CenterXzltcqoqof13-56-0783 14:17-0400Body nfotyr25.96 kgClayton Manning MD Work Phone: [facility] CenterHfiljnjdbr77-40-0364 14:17-0400Diastolic blood rkynowkl34 mm[Hg]Clayton Manning MD Work Phone: [facility] CenterQgqvxkoaxt23-86-5073 14:17-0400Heart udon861 /min Clayton Manning MD Work Phone: [facility] CenterLnuywoakpa95-45-5877 14:17-0400Respiratory rate22 /minClayton Manning MD Work Phone: [facility] CenterNthfnfuqbq97-59-2128 14:17-1777VgR7% (BldA) [Mass fraction]96 %Clayton Manning MD Work Phone: [facility] CenterDhltjbgxgu64-95-3888 14:17-0400Systolic blood sskypkrm731 mm[Hg]Clayton Manning MD Work Phone: [facility] CenterFyuqncwpil75-87-2753 13:12-0400Body .4 cmClayton Manning MD Work Phone: [facility] CenterOizcbaqmyq62-68-8329 13:12-0400Body mass index (BMI) [Ratio]27.54 kg/m2Clayton Manning MD Work Phone: [facility] CenterSlcoqblpvx88-75-2705 13:12-0400Body temperature 97.11 [degF]Clayton Manning MD Work Phone: [facility] CenterBnhdacpnac45-56-3106 13:12-0400Body rcwoih59.96 kgClayton Manning MD Work Phone: [facility] CenterUwjdbivmdz75-08-9638 13:12-0400Diastolic blood qioisvbe27 mm[Hg]Clayton Manning MD Work Phone: 1(581)[address]05-06-2025 13:12-0400Heart rate89 /min Clayton Manning MD Work Phone: 1(556)[address]05-06-2025 13:12-0400Respiratory rate20 /minClayton Manning MD Work Phone: 1(594)[address] [place], [place] 7401105-06-2025 13:12-0602MdP1% (BldA) [Mass fraction]97 %Clayton Manning MD Work Phone: 1(569)[address] [place], [place] 7401105-06-2025 13:12-0400Systolic blood ezwgswep258 mm[Hg]Clayton Manning MD Work Phone: 1(909)[address] [place], [place] 7401103-31-2025 11:52-0400Body btyxbf758.4 cmClayton Manning MD Work Phone: 1(410)[address] [place], [place] 7309803-31-2025 11:52-0400 Body mass index (BMI) [Ratio]26.4 kg/m2Clayton Manning MD Work Phone: 1(881)[address] [place], [place] 7309803-31-2025 11:52-0400 Body umaibpkpobi76.3 [degF]Clayton Manning MD Work Phone: 1(474)[address]03-31-2025 11:52-0400 Body .23 kgClayton Manning MD Work Phone: 1(072)[address]03-31-2025 11:52-0400 Diastolic blood kiccjtpm32 mm[Hg]Clayton Manning MD Work Phone: 1(516)[address]03-31-2025 11:52-0400 Heart rate95 /minClayton Manning MD Work Phone: 1(673)[address]03-31-2025 11:52-0400 Systolic blood unmbcmfm372 mm[Hg]Clayton Manning MD Work Phone: [facility]02-06-2025 13:30-0500 Body kexsxb092.4 cmClayton Manning MD Work Phone: [facility] CenterEnphvlvfxj02-55-8501 13:30-0500Body mass index (BMI) [Ratio]28.12 kg/m2Clayton Manning MD Work Phone: [facility] CenterJyhyhplgud33-12-0058 13:30-0500Body temperature 97.5 [degF]Clayton Manning MD Work Phone: [facility] CenterRhwzodqsem95-36-7059 13:30-0500Body qhclol26.32 kgClayton Manning MD Work Phone: [facility] CenterSpokrkllzm78-51-9307 13:30-0500Diastolic blood lwddilpz25 mm[Hg]Clayton Manning MD Work Phone: [facility] CenterRfsyefundn46-12-1586 13:30-0500Heart rate87 /min Clayton Manning MD Work Phone: [facility] CenterMyxifhqmrc48-28-8433 13:30-0500Respiratory rate22 /minClayton Manning MD Work Phone: [facility] CenterXxteydfxfi05-64-8325 13:30-1416AzQ6% (BldA) [Mass fraction]98 %Clayton Manning MD Work Phone: [facility] CenterOafomzjflq75-37-7463 13:30-0500Systolic blood xfylivhj375 mm[Hg]Clayton Manning MD Work Phone: [facility] CenterKasmidkeya64-77-1011 11:44-0500Diastolic blood tbghbjez67 mm[Hg][facility]01-27-2025 11:44-0500Systolic blood mm[Hg][facility]01-27-2025 11:44-0500 Body squbny198.4 cmUniversity [facility]als [facility]01-27-2025 11:44-0500Body mass index (BMI) [Ratio]25.4 kg/y5OcltgjhcjUniversity Hospitals [facility] Center01-27-2025 11:44-0500Body yswfyhqnkfc28.3 [degF][facility]01-27-2025 11:44-0500Body .96 kgUniversity Hospitals [facility] Center01-27-2025 11:44-0500Heart fkwg205 /minUniversity Hospitals Parma Medical Center01-27-2025 11:44-6309WiY2% (BldA) [Mass fraction]98 %[facility] 06-07-2024 13:53-0500Body snputv346.4 cmClayton Manning MD Work Phone: [facility] CenterOeyxlmbphq90-92-9348 13:53-0500Body mass index (BMI) [Ratio]26.76 kg/m2Clayton Manning MD Work Phone: [facility] CenterBdqmptplcn95-00-2868 13:53-0500Body temperature 97.5 [degF]Clayton Manning MD Work Phone: [facility] CenterNeqafrcohd37-43-9740 13:53-0500Body miudiq49.14 kgClayton Manning MD Work Phone: [facility] CenterRapykyncxi72-80-9624 13:53-0500Diastolic blood ysbdwvfo44 mm[Hg]Clayton Manning MD Work Phone: [facility] CenterPfqjvjvmrk28-84-3173 13:53-0500Heart rate99 /min Clayton Manning MD Work Phone: [facility] CenterHylsnmodvx01-46-7690 13:53-0500Respiratory rate20 /minClayton Manning MD Work Phone: [facility] CenterSgkyhwjffl23-28-7486 13:53-3640RdH8% (BldA) [Mass fraction]97 %Clayton Manning MD Work Phone: [facility] CenterJlduzddskt49-28-2797 13:53-0500Systolic blood ghbccheo380 mm[Hg]Clayton Manning MD Work Phone: [facility] CenterPiaevzytpr86-13-5904 09:43-0500Body sunqvq767.4 cmKyle Haleigh DO Work Phone: 1(432)[facility] [place], [place] [address]Ktzdcwsuuk86-42-5015 09:43-0500Body mass index (BMI) [Ratio]26.56 kg/m2Lambert Encarnacion DO Work Phone: 1(088)[facility] [place], [place] [address]Btscsdykhs69-95-9892 09:43-0500Body sviwzu32.69 kgLambert Encarnacion DO Work Phone: 1(968)[facility] [place], [place] [address]Zpbclkgced43-74-7655 09:43-0500Diastolic blood mm[Hg]Lambert Encarnacion DO Work Phone: 1(966)[facility] [place], [place] [address]Uydijneqji06-60-5093 09:43-0500Heart rate88 /min Lambert Encarnacion DO Work Phone: 1(418)[facility] [place], [place] [address]Twkedjfpjs92-88-4310 09:43-0500Respiratory rate12 /minLambert Encarnacion DO Work Phone: 1(560)[facility] [place], [place] [address]Ydjjqkhvjt26-17-8440 09:43-6122PbJ2% (BldA) [Mass fraction]98 %Lambert Encarnacion DO Work Phone: 1(932)[facility] [place], [place] [address]Nhwrsgpxpm72-53-7945 09:43-0500Systolic blood cuqnkunq246 mm[Hg]Lambert Encarnacion DO Work Phone: 1(136)[facility] [place], [place] [address]Acprnbudmd73-84-6769 13:15-0500Body .4 cmClayton Manning MD Work Phone: [facility] CenterKdraefuhnb14-16-7668 13:15-0500Body mass index (BMI) [Ratio]27.54 kg/m2Clayton Manning MD Work Phone: [facility] CenterDbhzwyback57-83-1603 13:15-0500Body temperature 97.11 [degF]Clayton Manning MD Work Phone: [facility] CenterGctiecmjqf65-30-6623 13:15-0500Body .96 kgClayton Manning MD Work Phone: [facility] CenterGkvugbfegv06-93-3096 13:15-0500Diastolic blood jisywlor41 mm[Hg]Clayton Manning MD Work Phone: [facility] CenterBzlgztlgdx39-20-2019 13:15-0500Heart pfwh871 /min Clayton Manning MD Work Phone: [facility] CenterQzoeqfewlq14-42-7296 13:15-0500Respiratory rate20 /minClayton Manning MD Work Phone: [facility] CenterDgvfszcywh32-78-1010 13:15-5243AkU1% (BldA) [Mass fraction]99 %Clayton Manning MD Work Phone: [facility] CenterJutcdfrkdo13-53-6307 13:15-0500Systolic blood mm[Hg]Clayton Manning MD Work Phone: [facility] CenterGskharjswo26-29-8983 11:23-0400Body lrylpu417.4 cmUniversity [facility]10-28-2024 11:23-0400Body mass index (BMI) [Ratio]27.3 kg/r9WhfuivdxlUniversity Hospitals Par[facility] Center10-28-2024 11:23-0400Body uehwxozebkc05.2 [degF][facility]10-28-2024 11:23-0400Body uksjwi77.5 kgUniversity Hospitals [facility] Center10-28-2024 11:23-0400Diastolic blood zjobaoxh55 mm[Hg][facility]10-28-2024 11:23-0400 Heart rate89 /[facility]10-28-2024 11:23-0400 Respiratory rate16 /[facility]10-28-2024 11:23-0400 SaO2% (BldA) [Mass fraction]98 %[facility]10-28-2024 11:23-0400Systolic blood zvpyodsy614 mm[Hg][facility] 10-05-2023 11:00-0400Body daxyro476.4 cmMD Clayton Manning Work Phone: [facility]04-15-2024 11:00-0400 Body mass index (BMI) [Ratio]24.4 kg/m2MD Clayton Manning Work Phone: 1(419)547-[address] [place], [place] 4711804-15-2024 11:00-0400 Body guyzijrtazs38.8 [degF]MD Clayton Manning Work Phone: 1(459)[address]04-15-2024 11:00-0400 Body .69 kgMD Clayton Manning Work Phone: [phone] [place], [place] 7309804-15-2024 11:00-0400 Diastolic blood xdewiggy69 mm[Hg]MD Clayton Manning Work Phone: [phone]04-15-2024 11:00-0400 Heart rate80 /minMD Clayton Manning Work Phone: [phone] [place], [place] 7309804-15-2024 11:00-0400 Respiratory rate16 /minMD Clayton Manning Work Phone: [phone] [place], [place] 7309804-15-2024 11:00-0400 SaO2% (BldA) [Mass fraction]98 %MD Clayton Manning Work Phone: [phone]04-15-2024 11:00-0400 Systolic blood iayigelk393 mm[Hg]MD Clayton Manning Work Phone: [phone]10-05-2023 13:35-0400 Diastolic blood zynkjask24 mm[Hg]MD Clayton Manning Work Phone: [phone]10-05-2023 13:35-0400 Heart rate85 /minMD Clayton Manning Work Phone: [phone]10-05-2023 13:35-0400 Respiratory rate16 /minMD Clayton Manning Work Phone: [phone]10-05-2023 13:35-0400 SaO2% (BldA) [Mass fraction]98 %MD Clayton Manning Work Phone: [phone]10-05-2023 13:35-0400 Systolic blood sgtitrji492 mm[Hg]MD Clayton Manning Work Phone: [facility]10-05-2023 09:10-0400 Body ifajik702.13 cmMD Clayton Manning Work Phone: [facility]10-05-2023 09:10-0400 Body fwueha92.23 kgMD Clayton Manning Work Phone: [facility]10-02-2023 10:30-0400 Body urztnk236.4 cmWillie Herrera Other [employer] Other 10-02-2023 10:30-0400Body mass index (BMI) [Ratio] 26.36 kg/e3YamlaxmWillie Herrera Other [employer] Other 10-02-2023 10:30-0400Body iqweqfvkpzl67.3 [degF] Willie Herrera Other [employer] Other 10-02-2023 10:30-0400Body rytgoj45.24 kgJinyanique Orellanakeriarminda Other [employer] Other 10-02-2023 10:30-0400Diastolic blood aqwuhxos50 mm[Hg] Willie Herrera Other [employer] Other 10-02-2023 10:30-1473RmP3% (BldA) [Mass fraction]99 % Willie Herrera Other [employer] Other 10-02-2023 10:30-0400Systolic blood zskgiqou586 mm[Hg] Willie Herrera Other [employer] Other 03-27-2023 12:45-0400Body oruunx397.4 cmJeyanique Burnsrer Other [employer] Other 03-27-2023 12:45-0400Body mass index (BMI) [Ratio] 25.39 kg/e0Smekgpzyanique Burnsrer Other [employer] Other 03-27-2023 12:45-0400Body uswmhkeocxg05.3 [degF] Willie Burnsrer Other [employer] Other 03-27-2023 12:45-0400Body imnuwu50.97 kgWillie Burnsrer Other [employer] Other 03-27-2023 12:45-0400Diastolic blood ktsudizg45 mm[Hg] Willie Zunildar Other [employer] Other 03-27-2023 12:45-8287HaS0% (BldA) [Mass fraction]96 % Willie Burnsrer Other [employer] Other 03-27-2023 12:45-0400Systolic blood ecqyiofl082 mm[Hg] Willie Reynaehrer Other [employer] Other 06-14-2022 11:10-0400Body eqmplc614.4 Ron Tomlinson Other [employer] Other 06-14-2022 11:10-0400Body mass index (BMI) [Ratio] 25.39 kg/a9LywrvHetal Tomlinson Other [employer] Other 06-14-2022 11:10-0400Body ioybvprloxf76.6 [degF]Hetal Tomlinson Other [employer] Other 06-14-2022 11:10-0400Body .97 kgHetal Tomlinson Other [employer] Other 06-14-2022 11:10-0400Diastolic blood mm[Hg] Hetal Tomlinson Other [employer] Other 06-14-2022 11:10-0400Respiratory rate16 /minHetal Tomlinson Other [employer] Other 06-14-2022 11:10-7787PzN7% (BldA) [Mass fraction]95 % Hetal Tomlinson Other [employer] Other 06-14-2022 11:10-0400Systolic blood svfaougu891 mm[Hg] Hetal Tomlinson Other [employer] Other 03-21-2022 11:30-0400Body ugathg112.4 cmWillie Herrera Other [employer] Other 03-21-2022 11:30-0400Body mass index (BMI) [Ratio] 25.39 kg/a8UnjnjvtWillie Herrera Other [employer] Other 03-21-2022 11:30-0400Body pbamvkyutaf53.2 [degF] Willie Herrera Other [employer] Other 03-21-2022 11:30-0400Body tiaokb08.97 kgJeffrey Buehrer Other [employer] Other 03-21-2022 11:30-0400Diastolic blood klfdkuaf25 mm[Hg] Willie Herrera Other [employer] Other 03-21-2022 11:30-4529YqW7% (BldA) [Mass fraction]96 % Willie Herrera Other [employer] Other 03-21-2022 11:30-0400Systolic blood flanpvvf118 mm[Hg] Willie Herrera Other [employer] Other Encounters Encounter DateEncounter TypeCare ProviderFacilityStart: 02-22-2025 End: 22-30-4761Iefrkcd encounter procedureNoms [facility] - Michelle Carlton AudiologyComment on above:Sensorineural hearing loss (SNHL) of both ears (Primary Dx)Start: 02-22-2025 End: 78-73-3581tkosjybsdeCWWZ NADERERNot AvailableStart: 01-26-2025 End: 65-33-0274Comjwz flowsHans Manning MD Work Phone: noms CWM FMStart: 01-26-2025 End: 30-63-1496Lmasqa flowsHans Manning MD Work Phone: noms CWM FMStart: 01-26-2025 End: 54-55-4349Qgmheebtp Result EncounterClayton Manning MD Work Phone: NOQT External Department UnsolicitedStart: 01-26-2025 End: 95-16-5382Jxqzan outpatient visit 25 minutesClayton Manning MD Work Phone: noms CW FMComment on above:Type 2 diabetes mellitus with hyperglycemia, without long-term current use of insulin (HCC) (Primary Dx); Benign essential hypertension ; Bilateral edema of lower extremity; Chronic osteoarthritis; Peripheral vascular disease, unspecifiedStart: 01-26-2025 End: 51-79-1866wmaqdlafjqQMOG NADERERNot AvailableStart: 12-12-2024 End: 94-20-7570lamhwnplzgVlacje R RuttinoFacility:[facility] Campustart: 10-25-2024 End: 72-11-0434Znqgyr flowsHans Manning MD Work Phone: noms CWM FMStart: 10-25-2024 End: 11-28-9039Kehzcn Nila Manning MD Work Phone: NOAD CWM FMStart: 10-25-2024 End: 64-82-6508Ezmwoznlf Result EncounterClayton Manning MD Work Phone: noms External Department UnsolicitedStart: 10-25-2024 End: 25-75-5150Ebpvgq outpatient visit 25 minutesClayton Manning MD Work Phone: noms CWM FMComment on above:Type 2 diabetes mellitus with hyperglycemia, without long-term current use of insulin (CMS/HCC) (Primary Dx); Benign essential hypertension (CMS/HCC); Anemia due to chronic blood loss; Chronic osteoarthritis; Peripheral vascular disease, unspecified (CMS/HCC); Type 2 diabetes mellitus with diabetic peripheral angiopathy without gangrene (CMS/HCC); Acute GI bleedingStart: 10-25-2024 End: 63-86-2484niyntewumnQAEX NADERERNot AvailableStart: 09-28-2024 End: 56-42-4773Prdvufq encounter procedureNoms Aud Audiology Aid - Michelle ARCOS AUDComment on above:Sensorineural hearing loss (SNHL) of both ears (Primary Dx)Start: 09-28-2024 End: 71-65-7711tsyerlygswTELW NADERERNot AvailableStart: 09-19-2024 End: 98-09-6843Lbesyto encounter procedureClayton Manning MD Work Phone: [facility] Work Phone: Start: 09-19-2024 End: 89-43-1960qwdooyyopeFgiq Naderer MD Work Phone: [facility] Work Phone: Start: 07-28-2024 End: 54-81-6834Iudgrh Nila Manning MD Work Phone: noms CWM FMStart: 07-28-2024 End: 60-72-9864Pdzuks flowsHans Manning MD Work Phone: noms CWM FMStart: 07-28-2024 End: 31-10-2137Fissamzoq Result EncounterClayton Manning MD Work Phone: noms External Department UnsolicitedStart: 07-28-2024 End: 22-70-9127Hmtqqwu encounter procedureClayton Manning MD Work Phone: [facility] Work Phone: Start: 07-28-2024 End: 82-65-8059Kinkof follow up visit related to original Chinedu Manning MD Work Phone: noms CWM FMComment on above:Medicare annual wellness visit, subsequent (Primary Dx); Anemia due to chronic blood loss; Benign essential hypertension (CMS/HCC); Type 2 diabetes mellitus with hyperglycemia, without long-term current use of insulin (CMS/HCC)Start: 07-28-2024 End: 30-83-3683upjirtdaxbPWFD NADERERNot AvailableStart: 07-18-2024 End: 11-08-0797oiakkyafpmGojgjirtcMercy Health [facility] Work Phone: Start: 07-18-2024 End: 93-60-9137Utxjyjx encounter procedureKaciTorrance State Hospital Vascular Surg Work Phone: Start: 06-17-2024 End: 12-65-9733Dunciwwaa Result EncounterMarc Naderer MD Work Phone: noms External Department UnsolicitedStart: 06-17-2024 End: 22-07-3442Xfaqnntlk Result EncounterClayton Manning MD Work Phone: noms External Department UnsolicitedStart: 06-07-2024 End: 89-20-2173Tiabix Nila Manning MD Work Phone: noms CWM FMStart: 06-07-2024 End: 17-63-6494Kwbvcq Nila Manning MD Work Phone: noms CWM FMStart: 06-07-2024 End: 63-71-5737Kxijxl outpatient visit 25 minutesClayton Manning MD Work Phone: noms CWM FMComment on above:Acute GI bleeding (Primary Dx); Anemia due to chronic blood loss; Benign essential hypertension (CMS/HCC); Peripheral vascular disease, unspecified (CMS/HCC)Start: 06-07-2024 End: 14-80-9384pybzxtgwsjXNTR NADERERNot AvailableStart: 06-01-2024 End: 90-11-8193Ksgvat flowsheetKyle Haleigh DO Work Phone: NOMS BWM GENSStart: 06-01-2024 End: 71-59-0798Gjfhcf flowsheetKyle Haleigh DO Work Phone: NOMS BWM GENSStart: 06-01-2024 End: 49-39-3207Aziysj outpatient new 30 minutesKyle Haleigh DO Work Phone: NOMS BWM GENSComment on above:Gastrointestinal hemorrhage, unspecified gastrointestinal hemorrhage type (Primary Dx); Anemia, unspecified typeStart: 06-01-2024 End: 44-18-5192ayeolnjesqUUOB DUCKETTNot AvailableStart: 15-12-4482Iuf-patient / Non-visitAt[facility] Phys[facility] GroupK[facility] Work Phone: Start: 05-27-2024 End: 03-30-5253Kbyyklffm Result EncounterClayton Manning MD Work Phone: noms External Department UnsolicitedStart: 05-27-2024 End: 90-38-7515Ipozuhbrc Result EncounterClayton Manning MD Work Phone: noms External Department UnsolicitedStart: 05-26-2024 End: 40-52-3314Pxnbju flowsHans Manning MD Work Phone: noms CWM FMStart: 05-26-2024 End: 74-70-7065Gcedvq flowsHans Manning MD Work Phone: noms CWM FMStart: 05-26-2024 End: 89-22-4824Padidqzlr Result EncounterClayton Manning MD Work Phone: noms External Department UnsolicitedStart: 05-26-2024 End: 76-21-8572fhoxvenrxfAPOJ NADERERNot AvailableStart: 05-26-2024 End: 47-02-1105Mgoavo outpatient visit 25 minutesClayton Manning MD Work Phone: noms CWM FMComment on above:Type 2 diabetes mellitus with hyperglycemia, without long-term current use of insulin (CMS/HCC) (Primary Dx); Benign essential hypertension (CMS/HCC); Chronic osteoarthritis; Peripheral vascular disease, unspecified (CMS/HCC); Fatigue, unspecified type; SOB (shortness of breath); Bilateral edema of lower extremity; Encounter for long-term (current) use of medicationsStart: 04-18-2024 End: 35-90-6372Mayvifb encounter procedureFirelands Physician Group-[facility] V[facility] Work Phone: Start: 04-18-2024 End: 02-38-9975jzqmatkfbrIvueSuburban [facility] Hospital [facility] Work Phone: Start: 03-30-2024 End: 38-54-4760Drpnpzy encounter procedureNoms Aud Audiology Aid - Michelle DodrillNOMS CI AUDComment on above:Sensorineural hearing loss (SNHL) of both ears (Primary Dx)Start: 03-30-2024 End: 73-03-8703qfzleefmpoAYHE NADERERNot AvailableStart: 02-24-2024 End: 20-98-1125Qstyxcj encounter procedureNoms Aud Audiology Aid - Michelle GuillerminarillNOMS CI AUDComment on above:Sensorineural hearing loss (SNHL) of both ears (Primary Dx)Start: 10-05-2023 End: 93-30-6788lykbjnlzzwOT Marc Naderer Work Phone: [facility] Work Phone: Start: 10-05-2023 End: 89-39-6204Uclfqdv encounter procedureMD Clayton Manning Work Phone: [facility] Vascular Surgery Work Phone: Start: 03-26-2023 End: 60-27-6888Uiegwduel to same day surgery centerMD Clayton Manning Work Phone: [facility]-Interventional Radiology Work Phone: Start: 03-26-2023 End: 46-98-4761nfefdcwjtzBY Marc Naderer Work Phone: [facility] Work Phone: Start: 82-94-8299Saebny outpatient visit 25 minutes Willie Carter Vascular SurgeryStart: 03-23-2023 End: 43-56-7567tcmynaiujaNZ Marc Naderer Work Phone: [employer] Other Start: 03-23-2023 End: 38-56-4250Ijfmwtu encounter procedureMD Clayton Manning Work Phone: [facility] VascularStart: 11-04-2022 End: 21-87-7099nhqwznybihBF MARC A NADERERFacility:W4Lutas: 09-15-2022 End: 02-76-2241chcocyhprcFblkalk Buehrer Other [employer] Other Start: 19-97-5241Vzpwqn outpatient visit 25 minutes Willie Scott Vascular SurgeryStart: 09-08-2022 End: 72-65-3321ehecdakmktGK Clayton Manning Work Phone: [facility] Work Phone: Start: 09-08-2022 End: 42-87-5091Lnncldt encounter procedureMD Clayton Kerri Work Phone: [facility]-CT Scan [facility] [place] Work Phone: Start: 05-05-2022 End: 89-73-7487bfdeidbjcsXJ CLAYTON BUITRAGOERERFacility:O7Fiefv: 12-03-2021 End: 39-42-9032cxglqampggGwdhm Keller Other Training Advisorozarks medical center Firm[employer] Other Start: 39-45-0244Gsyxrs outpatient visit 15 minutes Hetal Oliver [facility] ClydeStart: 11-11-2021 End: 61-03-1303bfhckxliqhOW CLAYTON Castle NADERERFacility:N0Ygzhp: 09-09-2021 End: 33-18-6024udwcuspqakOkobzed Buehrer Other Training AdvisorLazarus [employer] Other Start: 93-48-3088Ebylje outpatient visit 25 minutes Willie Scott Vascular SurgeryStart: 09-09-2021 End: 27-77-1239Ruueafj encounter procedure Clayton Kerri Work Phone: [facility] VascularStart: 04-29-2018 End: 78-13-7763Njubrtgcte and management of inpatientREFERRED SELFFacility:[facility] Procedures DateProcedureProcedure DetailPerforming ClinicianStart: 73-19-8385ANN HEMOGLOBIN U5DMubz Naderer MD Work Phone: Start: 05-45-1097FOI BASIC METABOLIC PANELClayton Manning MD Work Phone: Start: 57-11-2717OHE CBC WITH AUTO DIFFClayton Manning MD Work Phone: Start: 58-04-5142IS ECHO DOPPLER COMPLETEClayton Manning MD Work Phone: Start: 70-91-4338JW CHEST 2VMarc Kerri BARTON Work Phone: Start: 43-14-9734QJA CBC WITH AUTO DIFFClayton Manning MD Work Phone: Start: 31-16-8168Ehqmoxc of carotid endarterectomyS/P carotid endarterectomyNoms DodrillStart: 41-30-5629Iilfuzp ultrasonography of bilateral carotid arteriesMD Clayton Manning Work Phone: Start: 91-97-7770Qbqhkffuvrlc imaging procedureMD Clayton Manning Work Phone: Start: 08-24-1605Majtcmz ultrasonography of bilateral carotid arteriesMD Clayton Manning Work Phone: Start: 42-70-3409PE angiography of headMD Clayton Manning Work Phone: Start: 61-07-1911LG angiography of neck vesselsMD Clayton Manning Work Phone: Start: 66-81-7109Szyujmw ultrasonography of bilateral carotid arteriesMD Clayton Manning Work Phone: Start: 95-31-8583MFYYGZV OF R HIP JT, FEMORAL WITH SYNTH SUB, OPEN APPROACHNABIL EBRAHEIMStart: 17-48-9021Pochdkko screenREFERRED SELFComment on above:Performed By: #### [id number] #### [address] [place] [address], USAHistory of carotid endarterectomyS/P carotid endarterectomy MD Clayton Manning Work Phone: Plan of Treatment DateCare ActivityDetailAuthorStart: 07-57-4013Hksqykof screeningDiabetes: Retinopathy ScreeningNOMS HealthcareStart: 08-23-2025 End: 63-81-8631Jsduytmo Hnhdaqf3208/23/2025 1:00 PM EST Clinical Support [facility] [address] [place], [phone] Hanny Ruffin, [facility] [address] [facility] [place] [address] [facility] [place] AudiologyStart: 39-18-0431Wkdzlzuv screening Diabetes: Retinopathy ScreeningNOVA HealthcareStart: 02-06-2026Medicare Annual Wellness (AWV)Medicare Annual Wellness (AWV)NOMS HealthcareStart: 05-01-2025 End: 03-44-5789Rpcodvy encounter duftrjymw57/10/2025 1:45 PM EST Office Visit [facility] [address] [place] [address] Clayton Manning MD [address] [place] [address] [facility] FMStart: 74-02-5082Ncvnftmckz A1c measurementDiabetes: Hemoglobin Y9YYKGX HealthcareStart: 02-22-2025 End: 67-99-8380Clehcht encounter mhibgulku82/03/2025 1:00 PM EDT Office Visit [facility] [address] [place] [address] [facility] [place] AudiologyStart: 42-76-5012VPEZS-19 Vaccine ( season)COVID-19 Vaccine ( season)NOMS HealthcareStart: 02-20-2025 Influenza vaccinationNOVA HealthcareStart: 01-26-2025 End: 79-03-6795Nyqodfvkmi A1c/Hemoglobin.total in BloodHemoglobin A1c Lab Routine Type 2 diabetes mellitus with hyperglycemia, without long-term current use of insulin (HCC) Expected: 01/26/2025 (Approximate), Expires: 01/26/2026[facility] Work Phone: Comment on above:Expected: 01/26/2025 (Approximate), Expires: 01/26/2026Start: 01-26-2025 End: 15-71-9533Ajempqrywvni/Creatinine panel in random UrineMicroalbumin / creatinine, urine ratio Lab Routine Type 2 diabetes mellitus with hyperglycemia, without long-term current use of insulin (HCC) Expected: 01/26/2025 (Approximate), Expires: 01/26/2026NOVA HealthcareComment on above:Expected: 01/26/2025 (Approximate), Expires: 01/26/2026Start: 01-26-2025 End: 48-30-3497Eywczki encounter xzpcjqryo68/07/2025 2:00 PM EDT Office Visit [facility] [address] [place] [phone] Clayton Manning MD [address] [place] [address] ArrivedNOCHOCTAW MEMORIAL HOSPITAL – HUGO FMComment on above:ArrivedStart: 01-25-2025 End: 33-82-6769Oevbwyj encounter procedureNOALLIANCEHEALTH MADILL [facility] AUDStart: 21-69-4535Vjtni screening for proteinDiabetes: Urine Protein ScreeningUniversity Health Lakewood Medical CenterStart: 75-09-7528Dcpypxtzde A1c measurementDiabetes: Hemoglobin L2EQSOPUniversity Health [facility] Center Start: 10-25-2024 End: 10-17-0694Ikzlx metabolic 1998 panel - Serum or PlasmaBasic metabolic panel Lab Routine Benign essential hypertension (CMS/HCC) Expected: 10/25/2024 (Appr oximate), Expires: 10/25/2025NOVA HealthcareComment on above:Expected: 10/25/2024 (Approximate), Expires: 10/25/2025Start: 10-25-2024 End: 11-24-5548YEY W Auto Differential panel - BloodCBC and differential Lab Routine Anemia due to chronic blood loss Expected: 10/25/2024 (Approximate), Expires: 10/25/2025NOMS HealthcareComment on above:Expected: 10/25/2024 (Approximate), Expires: 10/25/2025Start: 10-25-2024 End: 62-62-3181Fpmniiulev A1c/Hemoglobin.total in BloodHemoglobin A1c Lab Routine Type 2 diabetes mellitus with hyperglycemia, without long-term current use of insulin ([facility]) Expected: 10/25/2024 (Approximate), Expires: 10/25/2025 [facility] Work Phone: Comment on above:Expected: 10/25/2024 (Approximate), Expires: 10/25/2025Start: 10-25-2024 End: 78-98-1526Vysbhhr encounter procedureNOMS CWM FMComment on above:Arrived Start: 09-28-2024 End: 53-43-5393Gcqymem encounter oqkpmpted09/09/2025 1:30 PM EDT Office Visit [facility] [address] [place] [phone] NOMS CI AUDStart: 63-76-8142Dtvcnuc ultrasonography of bilateral carotid arteriesUS carotid doppler [facility] Hospitaltart: 01-54-0902BJ.doppler Carotid arteries - bilateralSumma Health Barberton Campustart: 07-28-2024 End: 46-46-7611LXH W Auto Differential panel - BloodCBC and differential Lab Routine Anemia due to chronic blood loss Expected: 07/28/2024 (Approximate), Expires: 07/28/2025[facility] Work Phone: Comment on above:Expected: 07/28/2024 (Approximate), Expires: 07/28/2025Start: 07-28-2024 End: 33-24-9557Qisgmks encounter procedureNOMS CWM FMComment on above:Arrived Start: 06-07-2024 End: 81-20-0244Xsrlogr encounter procedureNOMS CWM FMComment on above:Arrived Start: 06-01-2024 End: 48-62-0440Xjfmvkz encounter rwgumzpnr49/11/2024 10:00 AM EST Office Visit [facility] [address] [place] [address] [place] [address] Lambert Encarnacion DO [address] [place] [address] ArrivedNOVA SIVA GENSComment on above: ArrivedStart: 33-78-5015Vqaffcnpgy A1c measurementDiabetes: Hemoglobin N7IBKGC HealthcareStart: 05-26-2024 End: 43-53-7383Unpmd metabolic 1998 panel - Serum or PlasmaBasic metabolic panel Lab Routine Benign essential hypertension (CMS/HCC) Expected: 05/26/2024 (Appr oximate), Expires: 05/26/2025NOVA HealthcareComment on above:Expected: 05/26/2024 (Approximate), Expires: 05/26/2025Start: 05-26-2024 End: 55-45-9371ZHN W Auto Differential panel - BloodCBC and differential Lab Routine Encounter for long-term (current) use of medications Expected: 10/2023 (Approximate), Expires: 05/26/2025NOVA HealthcareComment on above: Expected: 05/26/2024 (Approximate), Expires: 05/26/2025Start: 05-26-2024 End: 45-54-3635Jyymuwldaczlmm 2D completeEchocardiogram 2D complete Echocardiography Routine Fatigue, unspecified type SOB (shortness of breath) Bilateral edema of lower extremity Expected: 05/26/2024 (Approximate), Expires: 05/26/2026[facility] HealthcareComment on above:Expected: 05/26/2024 (Approximate), Expires: 05/26/2026Start: 05-26-2024 End: 52-62-4079Etvvhiayfb A1c/Hemoglobin.total in BloodHemoglobin A1c Lab Routine Type 2 diabetes mellitus with hyperglycemia, without long-term current use of insulin (CMS/HCC) Expected: 05/26/2024 (Approximate), Expires: 05/26/2025 [facility] Work Phone: Comment on above:Expected: 05/26/2024 (Approximate), Expires: 05/26/2025Start: 05-26-2024 End: 14-09-7480Pepfxza function 2000 panel - Serum or PlasmaHepatic function panel Lab Routine Encounter for long-term (current) use of medications Expected: 05/26/2024 (Approximate), Expires: 05/26/2025NOVA HealthcareComment on above: Expected: 05/26/2024 (Approximate), Expires: 05/26/2025Start: 05-26-2024 End: 39-07-9776XVG W/REFLEX TO FT4TSH W/REFLEX TO FT4 Lab Routine Fatigue, unspecified type Expected: 05/26/2024 (Approximate), Expires: 05/26/2025NOMS HealthcareComment on above:Expected: 05/26/2024 (Approximate), Expires: 05/26/2025Start: 05-26-2024 End: 48-57-5860WW Chest 2 ViewsXR chest 2 views Imaging Routine SOB (shortness of breath) Bilateral edema of lower extremity Expected: 05/26/2024, Expires: 05/26/2025NOVA HealthcareComment on above:Expected: 05/26/2024, Expires: 05/26/2025Start: 05-26-2024 End: 00-44-4640Mdwaqcp encounter himdlrywe87/05/2024 1:00 PM EST Office Visit [facility] [address] [place] [address] Clayton Manning MD [address] [place] [phone] [facility] FMStart: 03-30-2024 End: 87-08-0819Monormf encounter wcehzpfxt71/09/2024 1:30 PM EDT Office Visit [facility] [address] [place] [address] NOM[facility] CI AUDStart: 22-47-2189Wyqcwffas vaccinationInfluenza Vaccine (#1)NOMS HealthcareStart: 76-53-2559YvgiztkazSumma Health Barberton Campustart: 06-22-2015 Pneumococcal Vaccine: 65+ Years (2 of 2 - PCV)Pneumococcal Vaccine: 65+ Years (2 of 2 - PCV)[facility] CenterStart: 62-07-5201Tjmlv screening for proteinDiabetes: Urine Protein ScreeningUniversity Health Lakewood Medical CenterStart: 87-77-8460COwW/Tdap/Td Vaccines (1 - Tdap)DTaP/Tdap/Td Vaccines (1 - Tdap)[facility] CenterStart: 1943 Hemoglobin A1c measurementDiabetes: Hemoglobin K5VDNIGUniversity Health Lakewood Medical CenterStart: 03-12-1944Medicare Annual Wellness (AWV)Medicare Annual Wellness (AWV)[facility] HealthcarePatient EducationArteriogram (DC)[facility] Work Phone: Patient referralMer[facility] Work Phone: us.doppler Carotid arteries - bilateralPhysicians [facility] Payers DatePayer CategoryPayerPolicy [id number]-tnv [id number] [id number] 2020Medicare (Managed Care)[employer] .[id number] 2019Medicaid .[id number] [id number] 2.16.840.1.594917.3.57[id number] 2.16.840.1.747882.3.57[id number] 2.16.840.1.244476.3.579.[id number] 2.840.1.247112.3.579.2.46389-82-9128Ydmekgw49203597 2.16.840.1.952422.3.579.2.072547-68-3011Sernxaw96673293 2.16840.1.881239.3.579.2.988290-69-4798Vlavtwo4084642 2.840.1.460894.3.579.2.229061-20-0806Jnquozg2117050 2..840.1.099579.3.579.2.337378-24-7893Mfxshkg7552808 2.840.1.342605.[id number] 2.840.1.116517.3.57[id number] 2.16840.1.711686.3.57[id number] 2.16840.1.358599.3.57[id number] 2.16840.1.976[id number] Health RemorvmjmIEFL8HZG fk34bp69-i0lg-2bz6-di9y-[id number] 2.16.840.1.2[id number] 2.16.840.1.836509.3.579.2.531 [id number] 2.16.840.1.495113.3.579.2.531 Social History DateTypeDetailFacilityStart: 12-12-2020 End: 96-85-9410Mfqxrog smoking status NHISEx-smoker (finding)[facility] Campustart: 99-30-8145Ykp [facility]art: 11-26-2023 End: 62-93-2818Pxh Assigned At [facility] Firm58 Other Start: 06-22-1965 End: 74-75-2754Bmdruoh of tobacco useCurrent smokerNOMS HealthcareStart: 06-22-1963 End: 78-99-1967Bqdvnsr of tobacco useCigarette SmokerNOMS HealthcareStart: 56-56-2701Fthsvad use and exposureSmokeless tobacco non-userNOMS Healthcare Start: 11-26-2023 End: 04-08-5691Qiuxdorgo beverage intakeLifetime non-drinker (finding)[facility] HealthcareStart: 11-26-2023 End: 38-05-6813Gcyaryi of Social functionNOMS HealthcareStart: 15-81-3952Kpy assigned at birthNot on fileNOVA HealthcareStart: 07-18-2024 End: 23-18-2147RiaUcgumc (finding)[facility] Campustart: 78-98-6252GtpNdfvhqAJHR Healthcare Medical Equipment Procedure CodeEquipment CodeEquipment Original TextEquipment IdentifierDates Endarterectomy, carotidSynthetic vascular graft ([id number] FDAStart: 12-24-5385Hihxhdj subtraction angiography of carotid and cerebral arteriesBare-metal carotid artery stent()[id number] FDAStart: 26-82-3292Bekvcypzsah of carotid artery with insertion of stentIR STENT PRECISE [id number]: 85-23-5059Wylfnyyxuex of carotid artery with insertion of stentBare-metal carotid artery stent()[id number] FDAStart: 10-48-4583Vuufdanbayk of carotid artery with insertion of stentIR STENT PRECISE 0I05ZLCFEFlttd: 46-98-7815Fjfrsggidwo of carotid artery with insertion of stent IR STENT PRECISE 3X21UAAUEDuorc: 14-84-5424Invnewcbvtz of carotid artery with insertion of stentIR STENT PRECISE 5F95EKYSJXcora: 67-15-7005Kyrcbccvrks of carotid artery with insertion of stentIR STENT PRECISE 0P82ITJDRWmraz: 06-98-3600Opcmwmeqrdm of carotid artery with insertion of stentIR STENT PRECISE 7W04APYBJBokyi: 69-80-2853Jzhmwdqkuwj of carotid artery with insertion of stent IR STENT PRECISE 4O13TJOGCDzwmm: 18-89-0058Impbobkykev of carotid artery with insertion of stentIR STENT PRECISE 3K45AYLBPHtbqx: 61-45-5833Gjzfeftabvk of carotid artery with insertion of stentIR STENT PRECISE 6G60USIIZRtmun: 50-71-8027Zhbylcwbjzz of carotid artery with insertion of stentIR STENT PRECISE 2V44SQLXSPywqr: 06-81-1680Acnnbglwkxb of carotid artery with insertion of stent IR STENT PRECISE 4J52ZMBJYZltfk: 95-07-2621Vdc as instructed twice a [id number] Start: 06-05-2023 End: 48-31-2590MCO INSTRUCTED TWICE A [id number]: each by Other route 3 (three) times a [id number]: 01-26-2025 Functional Status MbtwYowcelwltfGzhmqeIacasdvd20-70-9758Dqtpznx Health Questionnaire 2 item (PHQ- 2) [Reported][facility] Clinical Notes 02-18-2010 to 02-22-2025 Note Date & SzptHungLxpcfbku34-25-6319 History of Present illness Narrative* Michelle Moore MA - 02/22/2025 1:00 PM EDT Patient was in today for a final in service contract check on hearing aids. Patient states that shestill does not feel she hears as well with these aids especially in background. Patient does not use a smart phone. I did switch her to a XS closed dome and adjusted aids slightly. A firmware update was completed. Patient purchased two packs of filters and paid $20. Patient would like to get new hearing aids using her [employer] Medicare/[employer] benefit. Patient was scheduled for an appointment in August for audiogram and discussion. Cosigned by NATALIE Rushing at 02/27/2025 9:35 AM EDT documented in this encounterUniversity Health Lakewood Medical CenterAmkyppyfnh93-71-3427 History of Present illness Narrative* Clayton Manning MD - 01/26/2025 2:57 PM EDTAssociated Problem(s): Type 2 diabetes mellitus with hyperglycemia, without long-term current use of insulin (HCC) Reports BS controlled and due for A1C. Stick to ADA diet and limit carbs. * Clayton Manning MD - 01/26/2025 2:56 PM EDTAssociated Problem(s): Peripheral vascular disease, unspecified No symptoms and follow with vascular. * Clayton Manning MD - 01/26/2025 2:56 PM EDTAssociated Problem(s): Chronic osteoarthritis Increased pain and start ultram PRN. * Clayton Manning MD - 01/26/2025 2:56 PM EDTAssociated Problem(s): Bilateral edema of lower extremity Edema controlled with lasix and continue. Elevated legs PRN. * Clayton Manning MD - 01/26/2025 2:55 PM EDTAssociated Problem(s): Benign essential hypertension BP low and signs of orthostatic hypotension. Stop losartan and monitor PRN. * Clayton Manning MD - 01/26/2025 2:00 PM EDT Images [...] hyperglycemia, without long-term current use of insulin ([facility]) - Primary Reports BS controlled and due [...] continue. Elevated legs PRN. documented in this encounterUniversity Health Lakewood Medical CenterVlghpdktaz34-34-0311 History of Present illness Narrative* Clayton Manning MD - 10/25/2024 1:30 PM EDTAssociated Problem(s): Type 2 diabetes mellitus with hyperglycemia, without long-term current use of insulin ([facility]) Reports BS controlled and due for A1C. Stick to ADA diet and limit carbs. * Clayton Manning MD - 10/25/2024 1:29 PM EDTAssociated Problem(s): Peripheral vascular disease, unspecified (CMS/HCC) No symptoms and follow with vascular. * Clayton Manning MD - 10/25/2024 1:29 PM EDTAssociated Problem(s): Chronic osteoarthritis Pain stable and use OTC PRN. Increase activity and walk regularly. * Clayton Manning MD - 10/25/2024 1:29 PM EDTAssociated Problem(s): Benign essential hypertension (CMS/HCC) BP controlled and monitor PRN. * Clayton Manning MD - 10/25/2024 1:29 PM EDTAssociated Problem(s): Anemia due to chronic blood loss Repeat labs. * Clayton Manning MD - 10/25/2024 1:00 PM EDT Images from the original note were not included. Subjective Patient ID: Neha Ashton is a 79 y.o. female who presents for Follow-up (3 m). Follow up DM, HTN, OA, and PVD. Patient stable today. BS variable and ranges 106-200 but average around 140. Tries to eat well and stick to [...] am but improved once up and moving. UsingOTC PRN and helps when needed. Able to stay active and complete ADLs. PVD stable. Following with vascular surgery and stable. Not lightheaded or dizzy when up and moving. Still c/o fatigue. Review of Systems Respiratory: Negative for cough, [...] (CMS/HCC) No symptoms and follow with vascular. Chronic osteoarthritis Pain stable and use OTC PRN. Increase activity and walk regularly. Type 2 diabetes mellitus with hyperglycemia, without long-term current use of insulin (CMS/HCC) - Primary Reports BS controlled and due for A1C. Stick to ADA diet and limit carbs. Relevant Orders Hemoglobin A1c Benign essential hypertension (CMS/HCC) BP controlled and monitor PRN. Relevant Orders Basic metabolic panel Anemia due to chronic blood loss Repeat labs. Relevant Orders CBC and differential documented in this encounterUniversity Health Lakewood Medical CenterPhhyyeogrs16-82-0854 History of Present illness Narrative* Michelle Moore MA - 09/28/2024 1:30 PM EDT Patient was in today for a follow up on hearing aids. Patient states she is doing so so with the hearing aids. She does not want them louder but feels her old aids were clearer. I cleaned and checkedthe aids. Listening check was good. Patient settings were reviewed but not changed. Patient was scheduled for an end of service contract check in January. Cosigned by NATALIE Rushing at 09/28/2024 2:08 PM EDT documented in this encounterUniversity Health Lakewood Medical CenterDyadbvcdsk78-25-6171 History of Present illness Narrative* Clayton Manning MD - 07/28/2024 1:57 PM ESTAssociated Problem(s): Type 2 diabetes mellitus with hyperglycemia, without long-term current use of insulin ([facility]) Reports BS controlled and last A1C 7.3. Stick to ADA diet and limit carbs. * Clayton Manning MD - 07/28/2024 1:57 PM ESTAssociated Problem(s): Benign essential hypertension ([facility]/HCC) BP elevated and resume losartan. * Clayton Manning MD - 07/28/2024 1:56 PM ESTAssociated Problem(s): Medicare annual wellness visit, subsequent Reviewed labs. Discussed proper diet and regular aerobic exercise. Need aerobic exercise 5-6 days aweek for 30 minutes at a time. Smaller portions and limit total calories. Tetanus every 10 years. Advised not to smoke. * Clayton Manning MD - 07/28/2024 1:56 PM ESTAssociated Problem(s): Anemia due to chronic blood loss Repeat labs. * Clayton Manning MD - 07/28/2024 1:15 PM EST Images from the original note were not included. Subjective Patient ID: Neha Ashton is a 78 y.o. female who presents for Medicare Annual Wellness Visit Subsequent (wellness). Presents for medicare annual wellness visit. Patient feels today. Weight up 8 pounds in the past year. Not active in winter and no regular exercise. Reviewed labs. BP elevated today and not taking losartan. BS stable and last A1C 7.3. Review of Systems Respiratory: Negative for cough, [...] There is no guarding or rebound. Musculoskeletal: General: No swelling or tenderness. Cervical back: Neck supple. Right lower leg: No edema. Left lower leg: No edema. Skin: Findings: No erythema or rash. Neurological: General: No focal deficit present. Mental Status: She is alert and oriented to person, place, and time. Cranial Nerves: No cranial nerve deficit. Motor: No weakness. Gait: Gait normal. Assessment/Plan Problem List Items Addressed This Visit Type 2 diabetes mellitus with hyperglycemia, without long-term current use of insulin ([facility]) Reports BS controlled and last A1C 7.3. Stick to ADA diet and limit carbs. Benign essential hypertension ([facility]) BP elevated and resume losartan. Anemia due to chronic blood loss Repeat labs. Relevant Orders CBC and differential Medicare annual wellness visit, subsequent - Primary Reviewed labs. Discussed proper diet and regular aerobic exercise. Need aerobic exercise 5-6 days aweek for 30 minutes at a time. Smaller portions and limit total calories. Tetanus every 10 years. Advised not to smoke. documented in this encounterUniversity Health Lakewood Medical CenterOvhdtdxuyn92-65-6888 Evaluation note* Diagnosis Onset Date Resolution Status Admit Date S/P carotid endarterectomy acuteJanuary 2024 11:28am [facility] Work Phone: 1(528) 368-790601-27-2025 Evaluation note* Diagnosis Onset Date Resolution Status Admit Date S/P carotid endarterectomy acuteJanuary 2024 11:28amS/P carotid endarterectomyacuteMarch 2024 11:21amCarotid stenosisinactiveMarch 2024 11:21am [facility] Work Phone: [phone]) 373-986312-17-2024 History of Present illness Narrative* Clayton Manning MD - 06/07/2024 2:23 PM ESTAssociated Problem(s): Peripheral vascular disease, unspecified (CMS/HCC) Stop aspirin and continue plavix. * Clayton Manning MD - 06/07/2024 2:23 PM ESTAssociated Problem(s): Benign essential hypertension (CMS/HCC) BP normal without medication and monitor. * Clayton Manning MD - 06/07/2024 2:23 PM ESTAssociated Problem(s): Anemia due to chronic blood loss Recent anemia and start iron supplement. * Clayton Manning MD - 06/07/2024 2:22 PM ESTAssociated Problem(s): Acute GI bleeding Recent bleed likely related to aspirin and plavix. Continue protonix. Resume plavix but stop aspirin. * Clayton Manning MD - 06/07/2024 1:45 PM EST Images from the original note were not included. Subjective Patient ID: Neha Ashton is a 78 y.o. female who presents for Follow-up (Hospital f/u). Hospital follow up from 05/26-05/28 for GI bleed. Seen in office and c/o lightheaded and fatigue x 1 week. Labs ordered and showed hgb 6.5. Directed to ER and repeat hgb 6.1. Admitted and given 2 unitsPRBC. Started protonix and held aspirin and plavix. [...] Fe) MG EC tablet documented in this encounterUniversity Health Lakewood Medical CenterRkugqptfkl18-30-1301 History of Present illness Narrative* Lambert Encarnacion, - 06/01/2024 10:00 AM EST General Surgery H&P Neha Ashton 1945 Neha Ashton is a 78 y.o. female presents to discuss EGD and Colonoscopy. She states that she went to [facility] ER on 05/26 for feeling very weak. She states that she was told that she was anemic and possibly had a GI bleed. She denies any pain at this time. Denies ever seeing any bloody Bms or dark tarry stools. Denies family hx of colon cancer. Denies melena or hematochezia. Denies changes in bowelhabits. Denies changes in caliber of stools. Denies [...] EGD and c-scope if she decides to moveforward with those procedures. SUBJECTIVE: MEDICATIONS: ALLERGIES Current [...] Medical History: Diagnosis Date Chronic osteoarthritis Dyslipidemia ([facility]) Murmur Osteopenia of right hip Overweight Peripheral vascular disease ([facility]) Post-traumatic osteoarthritis of right hip Stress reaction Type 2 diabetes mellitus with hyperglycemia, with long-term current use of insulin ([facility]) Social History Tobacco Use Smoking status: Former [...] Positives noted above. Remainder are negative per CMS guidelines. OBJECTIVE: Visit Vitals BP 110/58 Pulse [...] sources of GI bleeding as a cause ofher anemia. At this time she would like to hold off on any procedures. Discussed with her the warning signs of anemia/ acute GI bleeding and to continue to monitor her stools. She is welcome to call back at any time to schedule an EGD and c-scope if she decides to move forward with those procedures Thank you, Noah Encarnacion DO documented in this encounterUniversity Health Lakewood Medical CenterOxisfetjxg15-78-4187 History of Present illness Narrative* Clayton Manning MD - 05/26/2024 1:37 PM ESTAssociated Problem(s): Type 2 diabetes mellitus with hyperglycemia, without long-term current use of insulin ([facility]) Reports BS controlled and due for A1C. Stick to ADA diet and limit carbs. * Clayton Manning MD - 05/26/2024 1:37 PM ESTAssociated Problem(s): SOB (shortness of breath) Check labs, CXR, and echo. * Clayton Manning MD - 05/26/2024 1:36 PM ESTAssociated Problem(s): Peripheral vascular disease, unspecified ([facility]/HCC) No symptoms and follow with vascular. Resume lipitor at 40 mg daily. * Clayton Manning MD - 05/26/2024 1:36 PM ESTAssociated Problem(s): Fatigue Check labs * Clayton Manning MD - 05/26/2024 1:36 PM ESTAssociated Problem(s): Chronic osteoarthritis Pain stable and use OTC PRN. Increase activity and walk regularly. * Clayton Manning MD - 05/26/2024 1:36 PM ESTAssociated Problem(s): Bilateral edema of lower extremity Developed edema of unclear etiology. Check labs, CXR, and echo. Start lasix. Elevated legs PRN. * Clayton Manning MD - 05/26/2024 1:35 PM ESTAssociated Problem(s): Benign essential hypertension (CMS/HCC) BP controlled and monitor PRN. * Clayton Manning MD - 05/26/2024 1:00 PM EST Images from the original note were not [...] and moving. Using OTC PRN and helps w hen needed. Able to stay active and complete [...] XR chest 2 views documented in this [facility]10-09-2024 History of Present illness Narrative* Michelle Moore MA - 03/30/2024 1:30 PM EDT Patient was in today stating that things [...] up in six months documented in this [facility]09-04-2024 History of Present illness Narrative* Michelle Moore MA - 02/24/2024 1:30 PM EDT Patient was in today for a follow [...] that month to adapt. documented in this [facility]10-02-2023 Evaluation note* Encounter Date Diagnosis Assessment Notes Treatment Notes Treatment Clinical Notes Mar, Left carotid artery stenosis (IC D-10 - I65.22) Mar,OtherLeft carotid occlusive disease Given the continued increase in her velocities and the velocity now of over 600 cm/s with an end-diastolic velocity of 71 cm/s I believe she should undergo diagnostic arteriogram. This will allow us to clearly determine the severity of her stenosis and if necessary she may require repeat treatment.She understands and is agreement with that plan. She is asymptomatic and 77 years old and on good medical therapy. We could follow her without intervention but the progressive changes on serial studies is worrisome. [facility] Other 03-27-2023 Evaluation note* Encounter Date Diagnosis Assessment Notes Treatment Notes Treatment Clinical Notes Aug, Carotid stenosis, bilateral (ICD -10 - I65.23) Aug,OtherCarotid occlusive disease This patient is 77 years old [...] in detail that she should return sooner [facility] Other 06-14-2022 Evaluation note* Encounter Date Diagnosis Assessment Notes Treatment Notes Treatment Clinical Notes Nov, Neisha hayes (ICD-10 - K12.0) Discussed diagnosis with patient. Rx of magic mouthwash called into [facility]. Advised to use as directed. May use salt water gargles in addition for symptom relief, Tylenol/Motrin as needed. Patientto follow up with PCP if symptoms do not improve. Immediate evaluation in ER for warning signs/symptoms as discussed. Patient verbalizes understanding and is agreeable with treatment plan [facility] Other 03-21-2022 Evaluation note* Encounter Date Diagnosis Assessment Notes Treatment Notes Treatment Clinical Notes Aug, Asymptomatic bilateral carotid a rtery stenosis (ICD-10 - I65.23) Aug,ther Carotid occlusive disease She has similar findings today from her study in February. She is on good medical therapy with no symptoms. We will continue to follow her for the moderately severe residual stenosis in the left common carotid artery. Given her velocity changes I will continue to see her every 6 months [facility] Other 08-30-2010 History general Narrative - Reported* Type Description Date Medical History Carotid stenosis Medical HistoryHTNMedical HistoryNo blood pressures in the right armSurgical Historyleft shoulderSurgical Historycarpal tunnel left wristSurgical History carotid stent02/18/10Surgical HistoryBilat Carotid DSA'03/24/2017Surgical History Rt Hip [id number] HistoryLeft carotid oxssi0733Wdoyfkwl HistoryAngio, Bilat carotid & subclavian DSA'n61-1-6567Ptjmvxqj HistoryLt carotid and subclavian dacryon bypass evxqgy38-68-6422Qqkssfww HistoryLeft carotid angioplasty & stent; Bilat carotid DSA'o8-95-1169Xsnjmbgfhpqffoj Historysee above [facility] Other Evaluation noteNo assessment information available [facility] Work Phone: Evaluation note* Diagnosis Onset Date Resolution Status S/P carotid endarterectomy acute [facility] Work Phone: Evaluation note* Diagnosis Sensorineural hearing loss (SNHL) of both ears- Primary documented in this encounter [facility] HealthcareEvaluation note* Diagnosis Type 2 diabetes mellitus with hyperglycemia, without long-term current use of insulin ([facility])- Primary Benign essential hypertension ([facility]) Essential hypertension, benign Chronic osteoarthritis Osteoarthrosis, unspecified whether generalized or localized, unspecified site SUNITA (generalized anxiety disorder) ([facility]) Generalized anxiety disorder Type 2 diabetes mellitus with hyperglycemia, without long-term current use of insulin ([facility])- Primary Benign essential hypertension ([facility]) Essential hypertension, benign Chronic osteoarthritis Osteoarthrosis, unspecified whether generalized or localized, unspecified site Peripheral vascular disease, unspecified ([facility]) Peripheral vascular disease, unspecified Dyslipidemia ([facility]) Other and unspecified hyperlipidemia Encounter for long-term (current) use of medications Encounter for long-term (current) use of other medications Osteopenia of both hips Type 2 diabetes mellitus with diabetic peripheral angiopathy without gangrene, with long-term current use of insulin ([facility]) Type 2 diabetes mellitus with hyperglycemia, without long-term current use of insulin ([facility])- Primary Benign essential hypertension ([facility]) Essential hypertension, benign Chronic osteoarthritis Osteoarthrosis, unspecified whether generalized or localized, unspecified site Peripheral vascular disease, unspecified ([facility]) Peripheral vascular disease, unspecified Fatigue, unspecified type SOB (shortness of breath) Shortness of breath Bilateral edema of lower extremity Encounter for long-term (current) use of medications Encounter for long-term (current) use of other medications documented in this encounter [facility]Evaluation [facility]* Diagnosis Type 2 diabetes mellitus with hyperglycemia, without long-term current use of insulin ([facility])- Primary Benign essential hypertension ([facility]) Essential hypertension, benign Chronic osteoarthritis Osteoarthrosis, unspecified whether generalized or localized, unspecified site SUNITA (generalized anxiety disorder) ([facility]) Generalized anxiety disorder Type 2 diabetes mellitus with hyperglycemia, without long-term current use of insulin ([facility])- Primary Benign essential hypertension ([facility]) Essential hypertension, benign Chronic osteoarthritis Osteoarthrosis, unspecified whether generalized or localized, unspecified site Peripheral vascular disease, unspecified ([facility]) Peripheral vascular disease, unspecified Dyslipidemia ([facility]) Other and unspecified hyperlipidemia Encounter for long-term (current) use of medications Encounter for long-term (current) use of other medications Osteopenia of both hips Type 2 diabetes mellitus with diabetic peripheral angiopathy without gangrene, with long-term current use of insulin ([facility]) Type 2 diabetes mellitus with hyperglycemia, without long-term current use of insulin ([facility])- Primary Benign essential hypertension ([facility]) Essential hypertension, benign Chronic osteoarthritis Osteoarthrosis, unspecified whether generalized or localized, unspecified site Peripheral vascular disease, unspecified ([facility]) Peripheral vascular disease, unspecified Fatigue, unspecified type SOB (shortness of breath) Shortness of breath Bilateral edema of lower extremity Encounter for long-term (current) use of medications Encounter for long-term (current) use of other medications Gastrointestinal hemorrhage, unspecified gastrointestinal hemorrhage type- Primary Anemia, unspecified type documented in this encounter [facility]* Diagnosis Type 2 diabetes mellitus with hyperglycemia, without long-term current use of insulin ([facility])- Primary Benign essential hypertension ([facility]) Essential hypertension, benign Chronic osteoarthritis Osteoarthrosis, unspecified whether generalized or localized, unspecified site SUNITA (generalized anxiety disorder) ([facility]) Generalized anxiety disorder Type 2 diabetes mellitus with hyperglycemia, without long-term current use of insulin ([facility])- Primary Benign essential hypertension ([facility]) Essential hypertension, benign Chronic osteoarthritis Osteoarthrosis, unspecified whether generalized or localized, unspecified site Peripheral vascular disease, unspecified ([facility]) Peripheral vascular disease, unspecified Dyslipidemia ([facility]) Other and unspecified hyperlipidemia Encounter for long-term (current) use of medications Encounter for long-term (current) use of other medications Osteopenia of both hips Type 2 diabetes mellitus with diabetic peripheral angiopathy without gangrene, with long-term current use of insulin ([facility]) Type 2 diabetes mellitus with hyperglycemia, without long-term current use of insulin ([facility])- Primary Benign essential hypertension ([facility]) Essential hypertension, benign Chronic osteoarthritis Osteoarthrosis, unspecified whether generalized or localized, unspecified site Peripheral vascular disease, unspecified ([facility]) Peripheral vascular disease, unspecified Fatigue, unspecified type SOB (shortness of breath) Shortness of breath Bilateral edema of lower extremity Encounter for long-term (current) use of medications Encounter for long-term (current) use of other medications Acute GI bleeding- Primary Unspecified, hemorrhage of gastrointestinal tract 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) Benign essential hypertension ([facility]) Essential hypertension, benign Peripheral vascular disease, unspecified ([facility]) Peripheral vascular disease, unspecified [facility]* Diagnosis Sensorineural hearing loss (SNHL) of both ears- Primary documented in this encounter [facility]* Diagnosis Type 2 diabetes mellitus with hyperglycemia, without long-term current use of insulin ([facility])- Primary Benign essential hypertension ([facility]) Essential hypertension, benign Chronic osteoarthritis Osteoarthrosis, unspecified whether generalized or localized, unspecified site SUNITA (generalized anxiety disorder) ([facility]) Generalized anxiety disorder Type 2 diabetes mellitus with hyperglycemia, without long-term current use of insulin ([facility])- Primary Benign essential hypertension ([facility]) Essential hypertension, benign Chronic osteoarthritis Osteoarthrosis, unspecified whether generalized or localized, unspecified site Peripheral vascular disease, unspecified ([facility]) Peripheral vascular disease, unspecified Dyslipidemia ([facility]) Other and unspecified hyperlipidemia Encounter for long-term (current) use of medications Encounter for long-term (current) use of other medications Osteopenia of both hips Type 2 diabetes mellitus with diabetic peripheral angiopathy without gangrene, with long-term current use of insulin ([facility]) Type 2 diabetes mellitus with hyperglycemia, without long-term current use of insulin ([facility])- Primary Benign essential hypertension ([facility]) Essential hypertension, benign Chronic osteoarthritis Osteoarthrosis, unspecified whether generalized or localized, unspecified site Peripheral vascular disease, unspecified ([facility]) Peripheral vascular disease, unspecified Fatigue, unspecified type SOB (shortness of breath) Shortness of breath Bilateral edema of lower extremity Encounter for long-term (current) use of medications Encounter for long-term (current) use of other medications Acute GI bleeding- Primary Unspecified, hemorrhage of gastrointestinal tract 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) Benign essential hypertension ([facility]) Essential hypertension, benign Peripheral vascular disease, unspecified ([facility]) Peripheral vascular disease, unspecified Medicare annual wellness visit, subsequent- Primary 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) Benign essential hypertension ([facility]) Essential hypertension, benign Type 2 diabetes mellitus with hyperglycemia, without long-term current use of insulin ([facility]) documented in this encounter [facility]* Diagnosis Type 2 diabetes mellitus with hyperglycemia, without long-term current use of insulin ([facility])- Primary Benign essential hypertension ([facility]) Essential hypertension, benign Chronic osteoarthritis Osteoarthrosis, unspecified whether generalized or localized, unspecified site SUNITA (generalized anxiety disorder) ([facility]) Generalized anxiety disorder Type 2 diabetes mellitus with hyperglycemia, without long-term current use of insulin ([facility])- Primary Benign essential hypertension ([facility]) Essential hypertension, benign Chronic osteoarthritis Osteoarthrosis, unspecified whether generalized or localized, unspecified site Peripheral vascular disease, unspecified ([facility]) Peripheral vascular disease, unspecified Dyslipidemia ([facility]) Other and unspecified hyperlipidemia Encounter for long-term (current) use of medications Encounter for long-term (current) use of other medications Osteopenia of both hips Type 2 diabetes mellitus with diabetic peripheral angiopathy without gangrene, with long-term current use of insulin ([facility]) Type 2 diabetes mellitus with hyperglycemia, without long-term current use of insulin ([facility])- Primary Benign essential hypertension ([facility]) Essential hypertension, benign Chronic osteoarthritis Osteoarthrosis, unspecified whether generalized or localized, unspecified site Peripheral vascular disease, unspecified ([facility]) Peripheral vascular disease, unspecified Fatigue, unspecified type SOB (shortness of breath) Shortness of breath Bilateral edema of lower extremity Encounter for long-term (current) use of medications Encounter for long-term (current) use of other medications Acute GI bleeding- Primary Unspecified, hemorrhage of gastrointestinal tract 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) Benign essential hypertension ([facility]) Essential hypertension, benign Peripheral vascular disease, unspecified ([facility]) Peripheral vascular disease, unspecified Medicare annual wellness visit, subsequent- Primary 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) Benign essential hypertension ([facility]) Essential hypertension, benign Type 2 diabetes mellitus with hyperglycemia, without long-term current use of insulin ([facility]) Sensorineural hearing loss (SNHL) of both ears- Primary documented in this encounter [facility]Evaluation [facility]* Diagnosis Type 2 diabetes mellitus with hyperglycemia, without long-term current use of insulin ([facility])- Primary Benign essential hypertension ([facility]) Essential hypertension, benign Chronic osteoarthritis Osteoarthrosis, unspecified whether generalized or localized, unspecified site SUNITA (generalized anxiety disorder) ([facility]) Generalized anxiety disorder Type 2 diabetes mellitus with hyperglycemia, without long-term current use of insulin ([facility])- Primary Benign essential hypertension ([facility]) Essential hypertension, benign Chronic osteoarthritis Osteoarthrosis, unspecified whether generalized or localized, unspecified site Peripheral vascular disease, unspecified ([facility]) Peripheral vascular disease, unspecified Dyslipidemia ([facility]) Other and unspecified hyperlipidemia Encounter for long-term (current) use of medications Encounter for long-term (current) use of other medications Osteopenia of both hips Type 2 diabetes mellitus with diabetic peripheral angiopathy without gangrene, with long-term current use of insulin ([facility]) Type 2 diabetes mellitus with hyperglycemia, without long-term current use of insulin ([facility])- Primary Benign essential hypertension ([facility]) Essential hypertension, benign Chronic osteoarthritis Osteoarthrosis, unspecified whether generalized or localized, unspecified site Peripheral vascular disease, unspecified (CMS/HCC) Peripheral vascular disease, unspecified Fatigue, unspecified type SOB (shortness of breath) Shortness of breath Bilateral edema of lower extremity Encounter for long-term (current) use of medications Encounter for long-term (current) use of other medications Acute GI bleeding- Primary Unspecified, hemorrhage of gastrointestinal tract 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) Benign essential hypertension (CMS/HCC) Essential hypertension, benign Peripheral vascular disease, unspecified ([facility]) Peripheral vascular disease, unspecified Medicare annual wellness visit, subsequent- Primary 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) Benign essential hypertension (CMS/HCC) Essential hypertension, benign Type 2 diabetes mellitus with hyperglycemia, without long-term current use of insulin (CMS/HCC) Type 2 diabetes mellitus with hyperglycemia, without long-term current use of insulin (CMS/HCC)- Primary Benign essential hypertension (CMS/HCC) Essential hypertension, benign 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) Chronic osteoarthritis Osteoarthrosis, unspecified whether generalized or localized, unspecified site Peripheral vascular disease, unspecified (CMS/HCC) Peripheral vascular disease, unspecified Type 2 diabetes mellitus with diabetic peripheral angiopathy without gangrene (CMS/HCC) Acute GI bleeding Unspecified, hemorrhage of gastrointestinal tract documented in this encounter [facility]Evaluation [facility]* Diagnosis Type 2 diabetes mellitus with hyperglycemia, without long-term current use of insulin (HCC)- Primary Benign essential hypertension Essential hypertension, benign Chronic osteoarthritis Osteoarthrosis, unspecified whether generalized or localized, unspecified site SUNITA (generalized anxiety disorder) Generalized anxiety disorder Type 2 diabetes mellitus with hyperglycemia, without long-term current use of insulin (HCC)- Primary Benign essential hypertension Essential hypertension, benign Chronic osteoarthritis Osteoarthrosis, unspecified whether generalized or localized, unspecified site Peripheral vascular disease, unspecified Dyslipidemia Other and unspecified hyperlipidemia Encounter for long-term (current) use of medications Encounter for long-term (current) use of other medications Osteopenia of both hips Type 2 diabetes mellitus with diabetic peripheral angiopathy without gangrene, with long-term current use of insulin (HCC) Type 2 diabetes mellitus with hyperglycemia, without long-term current use of insulin (HCC)- Primary Benign essential hypertension Essential hypertension, benign Chronic osteoarthritis Osteoarthrosis, unspecified whether generalized or localized, unspecified site Peripheral vascular disease, unspecified Fatigue, unspecified type SOB (shortness of breath) Shortness of breath Bilateral edema of lower extremity Encounter for long-term (current) use of medications Encounter for long-term (current) use of other medications Acute GI bleeding- Primary Unspecified, hemorrhage of gastrointestinal tract 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) Benign essential hypertension Essential hypertension, benign Peripheral vascular disease, unspecified Medicare annual wellness visit, subsequent- Primary 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) Benign essential hypertension Essential hypertension, benign Type 2 diabetes mellitus with hyperglycemia, without long-term current use of insulin (HCC) Type 2 diabetes mellitus with hyperglycemia, without long-term current use of insulin (HCC)- Primary Benign essential hypertension Essential hypertension, benign 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) Chronic osteoarthritis Osteoarthrosis, unspecified whether generalized or localized, unspecified site Peripheral vascular disease, unspecified Type 2 diabetes mellitus with diabetic peripheral angiopathy without gangrene (HCC) Acute GI bleeding Unspecified, hemorrhage of gastrointestinal tract Type 2 diabetes mellitus with hyperglycemia, without long-term current use of insulin (HCC)- Primary Benign essential hypertension Essential hypertension, benign Bilateral edema of lower extremity Chronic osteoarthritis Osteoarthrosis, unspecified whether generalized or localized, unspecified site Peripheral vascular disease, unspecified documented in this encounter [facility]* Diagnosis Type 2 diabetes mellitus with hyperglycemia, without long-term current use of insulin (HCC)- Primary Benign essential hypertension Essential hypertension, benign Chronic osteoarthritis Osteoarthrosis, unspecified whether generalized or localized, unspecified site SUNITA (generalized anxiety disorder) Generalized anxiety disorder Type 2 diabetes mellitus with hyperglycemia, without long-term current use of insulin (HCC)- Primary Benign essential hypertension Essential hypertension, benign Chronic osteoarthritis Osteoarthrosis, unspecified whether generalized or localized, unspecified site Peripheral vascular disease, unspecified Dyslipidemia Other and unspecified hyperlipidemia Encounter for long-term (current) use of medications Encounter for long-term (current) use of other medications Osteopenia of both hips Type 2 diabetes mellitus with diabetic peripheral angiopathy without gangrene, with long-term current use of insulin (HCC) Type 2 diabetes mellitus with hyperglycemia, without long-term current use of insulin (HCC)- Primary Benign essential hypertension Essential hypertension, benign Chronic osteoarthritis Osteoarthrosis, unspecified whether generalized or localized, unspecified site Peripheral vascular disease, unspecified Fatigue, unspecified type SOB (shortness of breath) Shortness of breath Bilateral edema of lower extremity Encounter for long-term (current) use of medications Encounter for long-term (current) use of other medications Acute GI bleeding- Primary Unspecified, hemorrhage of gastrointestinal tract 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) Benign essential hypertension Essential hypertension, benign Peripheral vascular disease, unspecified Medicare annual wellness visit, subsequent- Primary 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) Benign essential hypertension Essential hypertension, benign Type 2 diabetes mellitus with hyperglycemia, without long-term current use of insulin (HCC) Type 2 diabetes mellitus with hyperglycemia, without long-term current use of insulin (HCC)- Primary Benign essential hypertension Essential hypertension, benign 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) Chronic osteoarthritis Osteoarthrosis, unspecified whether generalized or localized, unspecified site Peripheral vascular disease, unspecified Type 2 diabetes mellitus with diabetic peripheral angiopathy without gangrene (HCC) Acute GI bleeding Unspecified, hemorrhage of gastrointestinal tract Type 2 diabetes mellitus with hyperglycemia, without long-term current use of insulin (HCC)- Primary Benign essential hypertension Essential hypertension, benign Bilateral edema of lower extremity Chronic osteoarthritis Osteoarthrosis, unspecified whether generalized or localized, unspecified site Peripheral vascular disease, unspecified Sensorineural hearing loss (SNHL) of both ears- Primary [facility] this [facility] - Reported* Type Description Date Medical History Carotid stenosis Medical HistoryHTNMedical HistoryNo blood pressures in the right armMedical History[ ]Surgical Historyleft shoulderSurgical Historycarpal tunnel left wrist Surgical Historycarotid stent02/18/10Surgical HistoryBilat Carotid DSA'03/24/2017 Surgical HistoryRt Hip [id number] HistoryLeft carotid [id number] HistoryAngio, Bilat carotid & subclavian [id number] HistoryLt carotid and subclavian dacryon bypass [id number] HistoryLeft carotid angioplasty & stent; Bilat carotid [id number] History[ ] Hospitalization Historysee above Xecced Other Hospital Discharge instructions Additional Instructions Remove dressing in 24 hours. No heavy lifting for [address] Work Phone: Summary Purpose Family History Relationship Condition Age at Onset Recorded Date/T armando Not Specified No pertinent family history Unknown Relationship Condition Age at Onset Recorded Date/T armando Not Specified No pertinent family history Unknown brotherDeceasedUnknownMalignant neoplasmUnknownfatherDeceasedUnknownNot SpecifiedDeceasedUnknownnatural sonDiabetes mellitusUnknown Relationship Condition Age at Onset Recorded Date/T armando Not Specified No pertinent family history Unknown brotherDeceasedUnknownMalignant neoplasmUnknownfatherDeceasedUnknownmother DeceasedUnknownsonDiabetes mellitusUnknown Advance Directives Advance Directive Response Recorded Date/ Time Advance Directives No February 1:09pm Advance Directive Response Recorded Date/ Time Advance Directives No February 12:09pm Hospital Course Note MR#: [id number] I [facility] Pt. Name: Neha Ashton Admitted: 04/29/2018 Discharged: [...] history of diabetes and hypertension, presented to [facility] secondary to mechanical fall and subsequent [...] Complaint 6 MONTH F/U CAROTID DUPLEX 10:30A i65.23Reason for VisitS/P carotid endarterectomy Chief Complaint 6 MO CAR U/S 11AM Chief Complaint 6 MO CAR U/S 11AM Reason for Visit S/P carotid endarter ectomy Chief Complaint Admit Date B/P B/L Arms July 18, 2024 1 1:28am Chief Complaint Admit Date B/P B/L Arms July 18, 2024 1 1:28am I65.23 September 19, 2024 11: 20am 2 MONTH F/U; CAROTID 11:30A September 19, 2024 11:21am Reason for Visit Admit Date S/P carotid endarterectomy July 18, 2024 11:28am Reason for Visit Admit Date S/P carotid endarterectomy July 18, 2024 11:28am S/P carotid endarterectomy September 19, 025 11:21am Carotid stenosis September 19, 2024 11: 21am Additional Source Comments INFORMATION SOURCE (unrecogn ized section and content) DATE CREATED AUTHOR 01/28/2019 [facility] DATE CREATED AUTHOR AUTHOR'S ORGANIZ ATION 11/05/2022 [facility] DATE CREATED AUTHOR AUTHOR'S ORGANIZ ATION 01/02/2025 [facility] DATE CREATED AUTHOR AUTHOR'S ORGANIZ ATION 02/24/2025 [facility] EPIC Care Teams (unrecognized sec tion and content) Team Status: Active Member Role Status Dates Clayton Manning MD Primary Care Provider Active Team Status: Inactive Member Role Status Dates Clayton Manning MD Primary Care Provider Active S tart: July 18, 2024 End: July 18, 2024Mona Orellana ProviderActiveStart: July 18, 2024 End: July 18, 2024 Team Status: Active Member Role Status Dates Clayton Manning MD Primary Care Provider Active S tart: September 19, 2024 Mona Orellana ProviderActiveStart: September 19, 2024 Team Status: Inactive Member Role Status Dates Clayton Manning MD Primary Care Provider Active S tart: September 19, 2024 End: September 19, 2024Rashida Solomon , [employer]-CAttending ProviderActiveStart: September 19, 2024 End: September 19, 2024 Team Status: Active Member Role Status Dates Clayton Manning MD Primary Care Provider Active S tart: May 28, 2024 Artemio Tellez DOAttending ProviderActiveStart: May 28, 2024 Team Status: Inactive Member Role Status Dates Clayton Manning MD Primary Care Provider Active Rsahida Solomon , [employer]-CAttending ProviderActive Team Status: Inactive Member Role Status Dates Clayton Manning MD Primary Care Provider Active Mona Orellana ProviderActive Team Status: Inactive Member Role Status Dates Clayton Manning MD Primary Care Provider Active S tart: October 05, 2023 End: October 05, 2023Willie Herrera MDAttjitendra ProviderActiveStart: October 05, 2023 End: October 05, 2023 Team Status: Active Member Role Status Dates Clayton Manning MD Primary Care Provider Active S tart: October 05, 2023 Willie Herrera MDAttjitendra ProviderActiveStart: October 05, 2023 Team MemberRelationshipSpecialtyStart DateEnd Date Clayton Manning MD [address] [place] [address] [facility]11/26/23 Team Status: Inactive Member Role Status Dates Clayton Manning MD Primary Care Provider Active S tart: April 18, 2024 End: April 18, 2024Mona Orellana ProviderActiveStart: April 18, 2024 End: April 18, 2024Team MemberRelationshipSpecialtyStart DateEnd Date Clayton Manning MD [address] [place] [address] [facility]11/26/23Team MemberRelationshipSpecialtyStart DateEnd Date Clayton Manning MD [address] [place] [address] PCP - GeneralFamily Medicine11/26/23Team MemberRelationshipSpecialtyStart DateEnd Date Clayton Manning MD [address] [place] [address] PCP - GeneralFamily Medicine11/26/23Team MemberRelationshipSpecialtyStart DateEnd Date Clayton Manning MD [address] [place] [address] PCP - GeneralFamily Medicine11/26/23Team MemberRelationshipSpecialtyStart DateEnd Date Clayton Manning MD [address] [place] [address] PCP - GeneralFamily Medicine11/26/23Team MemberRelationshipSpecialtyStart DateEnd Date Clayton Manning MD [address] [place] [address] PCP - GeneralFamily Medicine11/26/23Team MemberRelationshipSpecialtyStart DateEnd Date Clayton Manning MD [address] [place] [address] PCP - GeneralFamily Medicine11/26/23Team MemberRelationshipSpecialtyStart DateEnd Date Clayton Manning MD [address] [place] [address] PCP - GeneralFamily Medicine6/6/24Team MemberRelationshipSpecialtyStart DateEnd Date Clayton Manning MD [address] [place] [address] PCP - GeneralFamily Medicine11/26/23Team MemberRelationshipSpecialtyStart DateEnd Date Clayton Manning MD [address] [place] [address] PCP - GeneralFamily Medicine11/26/23 Team Status: Inactive Member Role Status Dates Clayton Manning MD Primary Care Provider Active S tart: September 19, 2024 End: September 19, 2024Jeyanique Herrera MDAttending ProviderActiveStart: September 19, 2024 End: September 19, 2024Team MemberRelationshipSpecialtyStart DateEnd Date Clayton Manning MD [address] [place] [address] PCP - GeneralFami Medicine11/26/23 Otis Mcfarland MA [facility]07/29/24Team MemberRelationshipSpecialtyStart DateEnd Date Clayton Manning MD [address] [place] [address] PCP - Generalmily Medicine11/26/23Team MemberRelationshipSpecialtyStart DateEnd Date Clayton Manning MD [address] [place] [address] PCP - Generalmily Medicine11/26/23Team MemberRelationshipSpecialtyStart DateEnd Date Clayton Manning MD [address] [place] [address] PCP - GeneralFamily Medicine11/26/23Team MemberRelationshipSpecialtyStart DateEnd Date Clayton Manning MD [address] [place] [address] PCP - GeneralFamily Medicine11/26/23Team MemberRelationshipSpecialtyStart DateEnd Date Clayton Manning MD [address] [place] [address] PCP - GeneralFamily Medicine11/26/23Team MemberRelationshipSpecialtyStart DateEnd Date Clayton Manning MD [address] [place] [address] PCP - GeneralFamily Medicine02/22/25Team MemberRelationshipSpecialtyStart DateEnd Date Clayton Manning MD PCP - GeneralFamily Medicine Clayton Manning MD [address] [place] [address] PCP - GeneralFamily Medicine02/22/25 Otis Mcfarland MA [address] [place] [address] Family MedicineTeam MemberRelationshipSpecialtyStart DateEnd Date Clayton Manning MD PCP - GeneralFamily Medicine Clayton Manning MD [address] [place] [address] PCP - GeneralFamily Medicine02/22/25 Otis Mcfarland, [place] [address] [place] [address] Family Medicine Goals (unrecognized section and content) Goals may [...] FOR VISIT (unrecogniz ed section and content) ReasonCommentsFollow-lo7fFlzurvYqasxedhXmpnngyzrmcRo presents today for a colonoscopy. She states that she went to [facility] on 05/26 for feeling very weak. She states that she was told that she was anemic and had a GI bleed. She denies any pain at this time.ReasonCommentsFollow-upHospital f/uReasonCommentsMedicare Annual Wellness Visit SubsequentwellnessReasonCommentsFollow-up3 mReasonComments Follow-cg1aBgfc sense of tasteFatigueLeg PainLeft leg from knee down burning painSwelling at ankle FOR RECORDS PERTAINING TO PATIENTS WHO ARE [...] BE BASED ON THE PRIMARY CLINICAL RECORDS. [employer] provides no warranty or guarantee of the accuracy or completeness of information in this document.
== END 2025-05-01 14:38 | disposition home or self-care (01) ==
LOC: LAB 14:39
PROVIDERS: PCP Family Medicine; Visit Provider Family Medicine
DX: E11.65 Type 2 diabetes mellitus with hyperglycemia (principal)
CPT/HCPCS: 36415; 83036